=== PATIENT | female | born 1945 | race Caucasian/White ===

== ENCOUNTER 2017-09-05 10:16 | Outpatient (CLI) | payer MEDICARE, MEDICAID | END 2017-09-05 10:17 | disposition home or self-care (01) | LOC: BICULT 10:16 | PROVIDERS: ATTEND Family Medicine | DX: K74.3 Primary biliary cirrhosis (principal); Z90.49 Acquired absence of other specified parts of digestive tract | CPT/HCPCS: 76705 ==

== ENCOUNTER 2017-12-02 11:06 | Observation (INO) | payer MEDICARE, MEDICAID ==
[2017-12-02 11:44] LABS: #Basophils 0.1 thou/uL (0.0-0.2); #Eosinphils 0.3 thou/uL (0.0-0.7); #Lymphocytes 1.3 thou/uL (1.20-3.40); #Monocytes 0.5 thou/uL (0.11-0.59); #Neutrophils 3.4 thou/uL (1.40-6.50); %Basophils 1.1 % (0.0-1.0); %Eosinophils 4.9 % (0.0-10.0); %Lymphocytes 23.5 % (21.0-51.0); %Monocytes 8.4 % (0.0-10.0); %Neutrophils 62.1 % (42.0-75.0); Hemoglobin 8.5 g/dL (12.0-16.0); Mean Corpuscular HGB CONC 30.7 g/dL (32.0-36.0); Mean Corpuscular Hemoglobin 24.8 pg (27.0-31.0); Mean Corpuscular Volume 80.9 fL (78.0-98.0); Mean Platelet Volume 9.9 fL (7.4-10.4); Platelet Count 111 thou/uL (130-400); RBC Distribution Width 19.1 % (11.5-14.5); Red Blood Cell (RBC) Count 3.43 mill/uL (4.20-5.40); White Blood Cell (WBC) Count 5.5 thou/uL (4.8-10.8)
[2017-12-02 11:51] LABS: ALT (SGPT) 27 U/L (8-55); AST (SGOT) 28 U/L (5-34); Albumin 3.8 g/dL (3.4-4.8); Alkaline Phosphatase 137 U/L (40-150); Anion Gap 16 mmol/L (10-20); BUN (Urea Nitrogen) 14 mg/dL (9.8-20.1); Bilirubin, Total 0.3 mg/dL (0.2-1.2); CK (CPK) 39 U/L (29-168); Calc. Creatinine Clearance 0 mL/min (70-130); Calcium 10.2 mg/dL (7.8-10.44); Carbon Dioxide 20 mmol/L (23-31); Chloride 108 mmol/L (98-107); Estimated GFR-MDRD 68; Globulin 3.9 g/dL (2.4-3.5); Glucose 139 mg/dL (83-110); Potassium 4.5 mmol/L (3.5-5.1); Protein, Total 7.7 g/dL (6.0-8.3); Sodium 139 mmol/L (136-145)
[2017-12-02 11:52] LABS: CKMB 1.1 ng/mL (0-6.6); Troponin I Less than 0.010 ng/mL (< 0.028)
--- NOTE | 2017-12-02 12:00 | RAD ---
SINGLE VIEW OF THE CHEST: COMPARISON: 02/01/17. HISTORY: Chest pain that began 3 days ago in the left upper chest with radiation to the left arm and neck. FINDINGS: A single view of the chest shows an enlarged but stable cardiomediastinal silhouette. Increased inte rstitial lung markings are present. There is no evidence of consolidation, mass, or pleural effusion . IMPRESSION: No evidence of acute cardiopulmonary disease. POS: [facility]
[2017-12-02] MEDS ORDERED: Acetaminophen 325 MG TAB ONE ×2 (12:43)
[2017-12-02 13:59] VITALS: BMI 33.5
[2017-12-02] MEDS ORDERED: Ondansetron HCl/PF 4 MG/2 ML Vial IVP PRN ×2 (14:12→14:31)
[2017-12-02] MEDS ORDERED: Ondansetron ODT 4 MG TAB PO PRN (14:13)
[2017-12-02] MEDS ORDERED: Acetaminophen 325 MG TAB PO PRN ×2 (14:13→14:31)
[2017-12-02] MEDS ORDERED: Senokot 8.6 MG TAB PO PRN (14:31)
[2017-12-02] MEDS ORDERED: Mag-Al 1200 mg/1200 mg/30 ML UDCUP PO PRN (14:31)
[2017-12-02] MEDS ORDERED: traMADol HCl 50 MG TAB PO PRN (14:31)
[2017-12-02] MEDS ORDERED: cloNIDine 0.1 MG TAB PO PRN (14:31)
[2017-12-02] MEDS ORDERED: Calcium Carbonate 500 MG ChewTAB PO PRN (14:31)
[2017-12-02] MEDS ORDERED: hydrALAZINE 20 MG/ML VIAL SLOW IVP PRN (14:31)
[2017-12-02] MEDS ORDERED: Loratadine 10 MG TAB PO PRN (14:31)
[2017-12-02] MEDS ORDERED: Bisacodyl 5 MG TAB PO PRN (14:31)
[2017-12-02] MEDS ORDERED: Diabetic Tussin 200 MG/10 ML UDCUP PO PRN (14:31)
[2017-12-02] MEDS ORDERED: Benzonatate 100 MG CAP PO PRN (14:31)
[2017-12-02] MEDS ORDERED: Nitroglycerin 0.4 MG TAB (25 Tab Bottle) SL PRN (14:31)
[2017-12-02] MEDS ORDERED: Dextrose 50% Abboject 50 ML SYRINGE SLOW IVP PRN (15:39)
[2017-12-02] MEDS ORDERED: Dextrose 5% in Water 1,000 ML IV PRN (15:39)
[2017-12-02] MEDS ORDERED: HumaLOG 300 UNITS/3 ML VIAL SC PRN ×2 (15:39)
[2017-12-02 16:07] LABS: Iron 34 ug/dL (50-170); Iron Binding Capacity, Total 335 mcg/dL (265-497)
[2017-12-02] MEDS: metFORMIN 500 MG TAB PO SCH (16:25)
[2017-12-02] MEDS: Ferrous Sulfate 325 MG TAB PO SCH (16:25)
--- NOTE | 2017-12-02 16:26 | HP ---
DATE OF ADMISSION: 12/02/2017 PRIMARY CARE PHYSICIAN: Dr. Castro Candelaria. CHIEF COMPLAINT: Chest pain with left arm radiation. HISTORY OF PRESENT ILLNESS: Ms. Vazquez is a pleasant 72-year-old female with past medical history of primary biliary cirrhosis, diabetes mellitus, hypertension, chronic respiratory failure on home oxyg en and dyslipidemia, who presented to [facility] with above-mentioned symptoms. History is mainly obtained by the patient herself and case has been discussed with the transferring bhanu quintero, Dr. Meraz. According to Ms. Vazquez, she has been having pain in the left side of the chest laterally under her l eft breast and to the side. This is intermittent and quite severe when it comes on. She feels that the pain gets radiated to her neck on both sides and also sometimes down her arm. It makes her short of breath and she feels that her left arm gets numb and tingly sometimes with the pain. She has bee n experiencing some more and more shortness of breath with exertion these days. She is feeling fatig ued and tired. She has asthma and wears oxygen all the time, so she is unable to quantify how bad he r exertional shortness of breath is. She is compliant with all of her medications. She has a heart catheterization done about 10 years ago which was normal. Upon presentation to the ER, she was quite hypertensive with a blood pressure of 170/56 and oxygen sa turation was 98% on room air. EKG done in the ER showed no ST or T-wave changes. Normal sinus rhyth m. Chest x-ray was unremarkable. Her cardiac enzymes were checked and were normal. She received Ty lenol and aspirin and was transferred to our facility to observe and rule out KS. She denies any other recent illnesses. She denies any nausea, vomiting, or abdominal pain. She does report chronic anemia for which she is on iron supplements 3 times a day, but feels that her anemia has not been under control. In fact, her hemoglobin today was 8.5, which was 9 in 09/2017 with basel ine around 10. She denies any hematochezia or melena. PAST MEDICAL HISTORY: 1. Primary biliary cirrhosis. 2. Chronic anemia. 3. Hypertension. 4. Glaucoma. 5. Diabetes mellitus type 2. 6. Gastroesophageal reflux disease. 7. Diverticulosis. 8. Chronic hypoxia, on home oxygen. 9. Asthma. 10. Hiatal hernia. 11. Right kidney cyst. 12. Hemorrhoids. 13. Osteoporosis. 14. Vitamin D deficiency. PAST SURGICAL HISTORY: 1. 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 2. Cholecystectomy. 3. Hysterectomy with salpingo-oophorectomy. 4. Appendectomy. 5. Ear and nose surgeries. SOCIAL HISTORY: She lives by herself. There is no history of drug, tobacco or alcohol abuse. FAMILY HISTORY: Significant for vascular disease and brother who of a stroke. HOME MEDICATIONS: Vitamin B complex, multivitamin, vitamin B12 1000 mcg daily, Zocor 20 mg daily, Zetia 1 tablet daily, Claritin one tablet daily, ferrous sulfate 325 mg p.o. t.i.d., ursodiol 600 mg p.o. b.i.d., omeprazole 40 mg daily, vitamin D3 daily, eyedrops daily, metformin 1000 mg p.o. b.i.d., Benicar 20 mg daily, aspirin 81 mg daily, amlodipine 5 mg daily. REVIEW OF SYSTEMS: It is negative except for those mentioned in the history and physical. Constitutional: Weight loss or gain, ability to conduct usual activities. Skin: Rash, itching. Eyes: Double vision, pain. ENT/Mouth: Nose bleeding, neck stiffness, pain, tenderness. Cardiovascular: Palpitations, dyspnea on exertion, orthopnea. Respiratory: Shortness of breath, wheezing, cough, hemoptysis, fever or night sweats. Gastrointestinal: Poor appetite, abdominal pain, heartburn, nausea, vomiting, constipation, or diarrhea. Genitourinary: Urgency, frequency, dysuria, nocturia. Musculoskeletal: Pain, swelling. Neurologic/Psychiatric: Anxiety, depression. Allergy/Immunologic: Skin rash, bleeding tendency. LABORATORY EXAMINATION: Her CBC shows WBCs of 5.5, hemoglobin 8.5, platelet count of 111. She has m icrocytosis. Serum chemistries: Chloride 108, bicarbonate 20, blood sugar 139. Troponin less than 0.010 x2. CK- MB normal. Chest x-ray by my review has no evidence of pleural effusion, edema or infiltrate. A 12- lead EKG shows normal sinus rhythm without any evidence of acute coronary syndrome. No arrhythmias. PHYSICAL EXAMINATION: VITAL SIGNS: Most recent temperature 98.5, pulse of 90, respirations 20, saturating 100% on 2 liters nasal cannula, blood pressure 153/67. She gets easily winded with conversation, otherwise no acute distress. Awake, alert, oriented x3. HEENT: Mucous membranes are slightly dry. No oropharyngeal exudate or erythema. Head is normocepha lic, atraumatic. Pupils equal, reactive to light and accommodation. Extraocular movement intact. S he is missing her right eye. NECK: Supple without any lymphadenopathy, JVD or bruit. CHEST: Clear to auscultation without any significant wheezing. She does not have any crackles, rale s or rhonchi. CARDIAC: Rate and rhythm is regular without any murmur, rubs or gallops. ABDOMEN: Soft, nontender, nondistended with positive bowel sounds. EXTREMITIES: Show trace pitting edema bilaterally. SKIN: Free of any rashes or bruises. I feel warm and dry to touch. NEUROLOGIC: Nonfocal. PSYCHIATRIC: Normal affect. IMPRESSION AND PLAN: 1. Chest pain. The patient's symptoms are quite concerning and quite typical. At this time, differ ential diagnosis would be pain and shortness of breath secondary to profound anemia versus a cardiac cause. The patient is being admitted to rule out acute coronary syndrome. We will obtain a nuclear medicine stress test and continue her home dosages of aspirin for now. Also check her lipid panel an d continue her statin for now. Monitor blood pressure with tight control as needed. The likelihood of other etiologies like pulmonary embolism or pneumonia is negligible. 2. Microcytic anemia. The patient is Bahai and is refusing any blood transfusions. We will check her iron and folic acid and B12 levels. We will transfuse her with IV iron if low and giv e her IM B12 and subcutaneously folic acid if low. Most of her symptoms can be secondary to her sign ificant anemia, which is worse than before. She will continue with her iron supplement as before. 3. History of asthma. The patient seems to be on suboptimal management at this time. She gives me history of symptoms on a daily basis, sometimes worse on the nights. At this time, we will start her on Singulair as well as Flonase. We will add nebulizers as needed. We will add inhalers as needed as well. 4. Diabetes mellitus, currently well controlled. We will start him on insulin sliding scale. Hold metformin to avoid any renal toxicity or acidosis for now. 5. Hypertension, currently controlled. Resume her olmesartan and amlodipine. 6. Dyslipidemia. Restart Zocor and Zetia. 7. Code status: FULL CODE. Discussed with the patient. 8. Thrombocytopenia, unclear etiology. We will monitor and recheck in the morning. Avoid any thera peutic heparin or heparin products for deep venous thrombosis prophylaxis. DISPOSITION: Ms. Vazquez is currently being admitted to the hospital with complaints of chest pain an d rule out acute coronary syndrome. Further management will depend upon her clinical course. If her cardiac stress testing is abnormal, she will require cardiology consultation and possible catheteriz ation. If negative, she can be discharged home.
[2017-12-02 16:51] LABS: Vitamin B12 Greater than 2000 pg/mL (211-911)
[2017-12-02] MEDS ORDERED: Non-Formulary Item 1 EACH (Metformin Hcl [Metformin Hcl] 1,000 MG) PO SCH (17:00)
[2017-12-02 18:10] LABS: Troponin I Less than 0.010 ng/mL (< 0.028)
[2017-12-02] MEDS: Stress 600 With Zinc 1 TAB PO SCH (20:09)
[2017-12-02] MEDS: Prenatal Vitamin 1 TAB PO SCH (20:09)
[2017-12-02] MEDS: Montelukast Sodium 10 mg Tablet PO SCH (20:10)
[2017-12-02] MEDS: Ursodiol 300 MG CAP PO SCH (20:10)
[2017-12-02] MEDS: Cyanocobalamin (Vitamin B-12) 1,000 MCG TAB PO SCH (20:10)
[2017-12-02] MEDS: Atorvastatin Calcium 10 MG TAB PO SCH (20:12)
[2017-12-02] MEDS: Latanoprost 0.005% Ophth Soln 2.5 ml Bottle L EYE SCH (20:13)
[2017-12-02] MEDS ORDERED: VITAMIN B COMPLEX PO SCH (21:00)
[2017-12-02] MEDS ORDERED: Simvastatin 20 MG TAB PO SCH (21:00)
[2017-12-02] MEDS ORDERED: BIMATOPROST L EYE SCH (21:00)
[2017-12-02] MEDS ORDERED: [UNRECOGNIZED DRUG - REMARK] PO SCH (21:00)
[2017-12-03 06:47] LABS: Anion Gap 12 mmol/L (10-20); BUN (Urea Nitrogen) 15 mg/dL (9.8-20.1); Calc. Creatinine Clearance 86 mL/min (70-130); Calcium 9.6 mg/dL (7.8-10.44); Carbon Dioxide 22 mmol/L (23-31); Cardiac Risk 2.4 (Less than 4.5); Chloride 108 mmol/L (98-107); Cholesterol 84 mg/dl (< 200 Desired); Estimated GFR-MDRD 68; Glucose 136 mg/dL (83-110); HDL Cholesterol 35 mg/dL (>60 Neg Risk); LDL Cholesterol, Calculated 35 mg/dL; Potassium 4.3 mmol/L (3.5-5.1); Sodium 138 mmol/L (136-145); Triglycerides 70 mg/dL (Less than 150)
[2017-12-03 07:39] LABS: #Eosinphils 0.2 thou/uL (0.0-0.7); #Lymphocytes 1.3 thou/uL (1.20-3.40); #Monocytes 0.4 thou/uL (0.11-0.59); #Neutrophils 2.1 thou/uL (1.40-6.50); %Basophils 0.4 % (0.0-1.0); %Lymphocytes 33.1 % (21.0-51.0); %Monocytes 8.8 % (0.0-10.0); %Neutrophils 51.6 % (42.0-75.0); Elliptocytes SLIGHT = 2-5 cells (100X) (0-1/hpf); Hemoglobin 7.4 g/dL (12.0-16.0); MDiff Complete? YES; Mean Corpuscular HGB CONC 31.2 g/dL (32.0-36.0); Mean Corpuscular Hemoglobin 26.3 pg (27.0-31.0); Mean Corpuscular Volume 84.3 fL (78.0-98.0); Mean Platelet Volume 9.5 fL (7.4-10.4); PLT Morphology Comment Appears Decreased; Platelet Count 91 thou/uL (130-400); RBC Distribution Width 18.8 % (11.5-14.5); Red Blood Cell (RBC) Count 2.83 mill/uL (4.20-5.40)
[2017-12-03] MEDS ORDERED: IRON SUCROSE COMPLEX 100 MG/5 ML SLOW IVP SCH (08:00)
[2017-12-03] MEDS ORDERED: Epoetin (ESRD) 10,000 UNITS/ML VIAL SC SCH (08:00)
[2017-12-03] MEDS: Olmesartan 5 MG TAB PO SCH (08:44)
[2017-12-03] MEDS: Ezetimibe 10 MG TAB PO SCH (08:44)
[2017-12-03] MEDS: metFORMIN 500 MG TAB PO SCH ×2 (08:45→17:24)
[2017-12-03] MEDS: Amlodipine 5 MG TAB PO SCH (08:45)
[2017-12-03] MEDS: Aspirin 81 mg Enteric Coated Tablet PO SCH (08:45)
[2017-12-03] MEDS: Ursodiol 300 MG CAP PO SCH ×2 (08:45→20:14)
[2017-12-03] MEDS: Ferrous Sulfate 325 MG TAB PO SCH ×3 (08:46→17:24)
[2017-12-03] MEDS: Fluticasone Propionate Nasal Spray 16 gm Bottle NASAL SCH (08:47)
[2017-12-03] MEDS ORDERED: Ezetimibe 10 MG TAB PO SCH (09:00)
[2017-12-03] MEDS ORDERED: Non-Formulary Item 1 EACH (Omeprazole [Omeprazole] 40 MG) PO SCH (09:00)
[2017-12-03] MEDS ORDERED: Enoxaparin Sodium 40 MG/0.4 ML SYRINGE SC SCH (09:00)
[2017-12-03] MEDS: Loratadine/Pseudoephedrine 10/240 mg Tablet PO SCH (11:07)
--- NOTE | 2017-12-03 14:00 | PDOC.PN ---
- Subjective Encounter Start Date: 12/03/17 Encounter Start Time: 13:58 Subjective: feels better. no more chest pain.easily winded .no cough. -: no hematochezia or melena - Objective Resuscitation Status: Resuscitation Status FULL:Full Resuscitation MAR Reviewed: Yes Vital Signs & Weight: Vital Signs (12 hours) Temp Pulse Pulse Pulse Resp BP BP 12/03/17 10:57 98.8 F 88 12 12/03/17 10:15 86 90 143/65 H 141/66 H 12/03/17 08:45 98.2 F 83 12 12/03/17 07:04 98.2 F 83 12 12/03/17 04:04 98.2 F 86 16 BP Pulse Ox 12/03/17 10:57 138/62 97 12/03/17 10:15 12/03/17 08:45 12/03/17 07:04 129/59 L 96 12/03/17 04:04 116/55 L 96 Weight Weight 199 lb 15.84 oz I&O: 12/02/17 12/03/17 12/04/17 06:59 06:59 06:59 Intake Total 360 Balance 360 Result Diagrams: 12/03/17 05:48 12/03/17 05:48 Additional Labs: Accuchecks 12/03/17 12/02/17 10:34 20:42 POC Glucose 245 H 139 H Laboratory Tests 12/03/17 05:48 Triglycerides 70 Cholesterol 84 LDL Cholesterol, Calc 35 HDL Cholesterol 35 labs reviewed Phys Exam - Physical Examination Constitutional: NAD HEENT: PERRLA, moist MMs, sclera anicteric, oral pharynx no lesions Neck: no nodes, no JVD, supple, full ROM Respiratory: no wheezing, no rales, no rhonchi, clear to auscultation bilateral Cardiovascular: RRR, no significant murmur Gastrointestinal: soft, non-tender, no distention, positive bowel sounds Musculoskeletal: no edema, pulses present Neurological: non-focal, normal sensation, moves all 4 limbs Psychiatric: normal affect, A&O x 3 Skin: no rash Dx/Plan (1) Chest pain Code(s): R07.9 - CHEST PAIN, UNSPECIFIED Status: Acute Comment: Cardiac vs secondary to profound anemia (2) JOSAFAT (iron deficiency anemia) Code(s): D50.9 - IRON DEFICIENCY ANEMIA, UNSPECIFIED Status: Chronic (3) Primary biliary cirrhosis Code(s): K74.3 - PRIMARY BILIARY CIRRHOSIS Status: Acute (4) DM2 (diabetes mellitus, type 2) Status: Chronic (5) HTN (hypertension) Code(s): I10 - ESSENTIAL (PRIMARY) HYPERTENSION Status: Chronic (6) HLD (hyperlipidemia) Code(s): E78.5 - HYPERLIPIDEMIA, UNSPECIFIED Status: Chronic (7) Chronic respiratory failure Code(s): J96.10 - CHRONIC RESPIRATORY FAILURE, UNSP W HYPOXIA OR HYPERCAPNIA Status: Chronic Qualifiers: Respiratory failure complication: hypoxia Qualified Code(s): J96.11 - Chronic respiratory failure with hypoxia - Plan out of bed/ambulate, DVT proph w/SCDs stress test cancelled due to worsening anemia.will give IV iron for low lev -: pt cant not accpet blood trasfusion d/t anglican reasons.give epogen -: FOBT tested and +ve.will request consult from GI -: last EGD/Colonoscopy 4 yrs ago was normal per pt -: with H/O PBC & prolonged ,resistant to Rx anemia,will need repeat colonosco * .will treat anemia first and then get cardiac w/u as an outpt.pt made aware of plan & agreeable. * not safe for DC yet with worsening symptomatic anemia.recheck H?H in am * Review of Systems - Review of Systems Constitutional: weakness, malaise. negative: fever, chills, sweats, other Respiratory: SOB with Excertion. negative: Cough, Dry, Shortness of Breath, Hemoptysis, Pleuritic Pain, Sputum, Wheezing Cardiovascular: negative: chest pain, palpitations, orthopnea, paroxysmal nocturnal dyspnea, edema, light headedness, other Gastrointestinal: negative: Nausea, Vomiting, Abdominal Pain, Diarrhea, Constipation, Melena, Hematochezia, Other Genitourinary: negative: Dysuria, Frequency, Incontinence, Hematuria, Retention , Other Musculoskeletal: negative: Neck Pain, Shoulder Pain, Arm Pain, Back Pain, Hand Pain, Leg Pain, Foot Pain, Other Neurological: negative: Weakness, Numbness, Incoordination, Change in Speech, Confusion, Seizures, Other - Medications/Allergies Allergies/Adverse Reactions: Allergies Allergy/AdvReac Type Severity Reaction Status Date / Time NSAIDS (Non-Steroidal Allergy Verified 12/02/17 13:47 Anti-Inflamma BLOOD PRODUCTS ([facility]ovah's Allergy Uncoded 06/06/15 17:36 Witness) Medications: Current Medications Acetaminophen (Tylenol) 650 mg PO Q4H PRN PRN Reason: Headache/Fever or Pain Al Hydroxide/Mg Hydroxide (Maalox) 30 ml PO Q6H PRN PRN Reason: Heartburn or Indigestion Albuterol/Ipratropium (Duoneb) 3 ml NEB [id number] PRN PRN Reason: SOB &/or Wheezing Amlodipine Besylate (Norvasc) 5 mg PO DAILY [facility] Last Admin: 12/03/17 08:45 Dose: 5 mg Aspirin (Ecotrin) 81 mg PO DAILY [facility] Last Admin: 12/03/17 08:45 Dose: 81 mg Atorvastatin Calcium (Lipitor) 10 mg PO [facility] Last Admin: 12/02/17 20:12 Dose: Not Given Benzonatate (Tessalon) 100 mg PO Q4H PRN PRN Reason: Cough Bisacodyl (Dulcolax) 10 mg PO DAILYPRN PRN PRN Reason: Constipation Calcium Carbonate (Tums) 1,000 mg PO Q4H PRN PRN Reason: Heartburn or Indigestion Last Admin: 12/02/17 16:25 Dose: 1,000 mg Cholecalciferol (Vitamin D3) 5,000 units PO DAILY [facility] Last Admin: 12/03/17 08:45 Dose: 5,000 units Clonidine (Catapres) 0.1 mg PO Q4H PRN PRN Reason: Systolic BP > 160 Cyanocobalamin (Vitamin B-12) 1,000 mcg PO [facility] Last Admin: 12/02/17 20:10 Dose: 1,000 mcg Dextrose/Water (Dextrose 50%) 25 gm SLOW IVP PRN PRN PRN Reason: Hypoglycemia Ezetimibe (Zetia) 10 mg PO DAILY [facility] Last Admin: 12/03/17 08:44 Dose: 10 mg Epoetin Jeffrey (Procrit) 10,000 units SC Q7D [facility] Last Admin: 12/03/17 11:06 Dose: 10,000 units Ferrous Sulfate (Feosol) 325 mg PO TID-[facility] Last Admin: 12/03/17 11:07 Dose: 325 mg Fluticasone Propionate (Flonase Nasal [place]) 0 gm NASAL DAILY [facility] Last Admin: 12/03/17 08:47 Dose: Not Given Glucagon (Glucagon) 1 mg IM PRN PRN PRN Reason: Hypoglycemia Guaifenesin (Robitussin Sf) 200 mg PO Q4H PRN PRN Reason: Cough Hydralazine HCl (Apresoline) 10 mg SLOW IVP Q4H PRN PRN Reason: Systolic BP > 170 Dextrose/Water (D5w) 1,000 mls @ 0 mls/hr IV .Q0M PRN; As Directed PRN Reason: Hypoglycemia Insulin Human Lispro (Humalog) 0 units SC .MODERATE SLIDING SC PRN PRN Reason: Moderate Correctional Scale Last Admin: 12/03/17 11:07 Dose: 4 unit Insulin Human Lispro (Humalog) 0 units SC .BEDTIME SLIDING SC PRN PRN Reason: Bedtime Correctional Scale Latanoprost (Xalatan 0.005% Ophth Soln) 1 drop L EYE [facility] Last Admin: 12/02/17 20:13 Dose: 1 drop Loratadine/Pseudoephedrine Sulfate (Claritin-D 24 Hour) 1 tab PO DAILY [facility] Last Admin: 12/03/17 11:07 Dose: 1 tab Metformin HCl (Glucophage) 1,000 mg PO BID-[facility] Last Admin: 12/03/17 08:45 Dose: 1,000 mg Montelukast Sodium (Singulair) 10 mg PO QPM [facility] Last Admin: 12/02/17 20:10 Dose: 10 mg Multivitamins/Zinc (Stress 600 With Zinc) 1 tab PO [facility] Last Admin: 12/02/17 20:09 Dose: 1 tab Nitroglycerin (Nitrostat) 0.4 mg SL Q5MIN PRN PRN Reason: Chest Pain Olmesartan (Benicar) 20 mg PO DAILY [facility] Last Admin: 12/03/17 08:44 Dose: 20 mg Ondansetron HCl (Zofran) 4 mg IVP Q6H PRN PRN Reason: Nausea/Vomiting Pantoprazole Sodium (Protonix) 40 mg PO [facility] Last Admin: 12/02/17 20:12 Dose: 40 mg Multivit/Folic Acid/Iron ( Vitamin) 1 tab PO [facility] Last Admin: 12/02/17 20:09 Dose: 1 tab Senna (Senokot) 2 tab PO HSPRN PRN PRN Reason: Constipation Sodium Chloride (Flush - Normal Saline) 10 ml IVF Q12HR [facility] Last Admin: 12/03/17 08:46 Dose: 10 ml Sodium Chloride (Flush - Normal Saline) 10 ml IVF PRN PRN PRN Reason: Saline Flush Tramadol HCl (Ultram) 50 mg PO Q4H PRN PRN Reason: Moderate Pain (4-6) Ursodiol (Actigal) 600 mg PO BID [facility] Last Admin: 12/03/17 08:45 Dose: 600 mg
[2017-12-03] MEDS: Stress 600 With Zinc 1 TAB PO SCH (20:13)
[2017-12-03] MEDS: Atorvastatin Calcium 10 MG TAB PO SCH (20:14)
[2017-12-03] MEDS: Cyanocobalamin (Vitamin B-12) 1,000 MCG TAB PO SCH (20:14)
[2017-12-03] MEDS: Prenatal Vitamin 1 TAB PO SCH (20:14)
[2017-12-03] MEDS: Montelukast Sodium 10 mg Tablet PO SCH (20:14)
[2017-12-03] MEDS: Latanoprost 0.005% Ophth Soln 2.5 ml Bottle L EYE SCH (20:15)
--- NOTE | 2017-12-04 03:28 | CON ---
DATE OF CONSULTATION: 12/03/2017 REFERRING DOCTOR: Merna Marte MD REASON FOR CONSULTATION: Anemia, occult gastrointestinal bleeding. HISTORY OF PRESENT ILLNESS: Ms. Parris Vazquez is a very pleasant, 72-year-old, female, was seen initially in [facility] ER with chest pain. The chest pain was atypical, no t very suggestive of angina. The pain was actually over left side of chest and close to the left heath ast and going down to the left arm. She also felt numb in her left hand. Her EKG was normal. Also, her cardiac enzymes were normal. Her chest pain resolved after a couple of hours. She had no abdom inal pain. She had no chest pain. The patient was found to have anemia. She had a stool guaiac don e; the stool guaiac came back positive. The admitting hemoglobin was around 8.5, which has dropped t o 7.5 today. However, she has not had any overt bleeding in the form of hematochezia or melena. The patient has no history of rectal bleeding or melena. She does not look at her stools after she has a BM. Her bowel movements are fairly regular. She has no abdominal pain, no nausea or vomiting. Th e patient has a history of primary biliary cirrhosis and takes Actigall 300 mg tablet 2 tablets twice a day. She does see Dr. Kimmy Vazquez, for her primary biliary cirrhosis. The patient had not seen Dr. Vazquez over the last three years. She does not know why she has not seen her, and she has someho w lost the followup. The patient has had EGD and colonoscopy x3 in the past. This was done at Dr. Subhash collazo's office. The last time she had a polyp removed, she thinks maybe 2011 or 2012. On going over the [employer], she has had anemia over the years off and on. At times, her blood count was around 11. 5 and today last was high 8.5. This varies over the years. She has no history of any weight loss. No change in bowel habits. No relevant history. MEDICAL ILLNESSES: 1. Primary biliary cirrhosis, on Actigall. 2. Chronic anemia. 3. Hypertension. 4. Glaucoma. 5. Diabetes mellitus. 6. Chronic acid reflux. 7. Diverticular disease. 8. Colon polyp. 9. History of asthma, possible COPD. 10. Hiatal hernia. 11. Osteoporosis. 12. Vitamin D deficiency. SURGERIES: 1. Status post removal of right eye for infection many years ago. 2. Cholecystectomy. 3. Hysterectomy and salpingo-oophorectomy. 4. Appendectomy. 5. Liver biopsy, 2013. 6. History of ear and nose surgeries. SOCIAL HISTORY: The patient does not smoke or drink alcohol. FAMILY HISTORY: Brother had a stroke and there is a family history of vascular disease. MEDICATIONS: List includes vitamin B complex, multivitamin, vitamin B12, Zocor 20 once a da y, Zetia 1 tab once a day. She is on Claritin, ferrous sulfate, ursodiol, omeprazole, vitamin D3, ey edrops, metformin, Benicar, aspirin, amlodipine. REVIEW OF SYSTEMS: Constitutional: No history of fever, no weight loss. She has a good energy leve l. [employer]: No history of TIA, no chronic headache, no syncope, no seizure disorder. Respiratory Syste m: History of asthma, history of shortness of breath and coughing off and on. No hemoptysis. Cardi ovascular System: No chest pain, no palpitation, no dyspnea, orthopnea or PND. Gastrointestinal: H istory of chronic acid reflux for many years. She has taken omeprazole before. It was stopped 2 mon ths ago, and now she has daily heartburn and severe indigestion. She has been taking Pepto-Bismol. Genitourinary: No dysuria, hematuria, or frequency of urination. Musculoskeletal: History of back pain, arthralgias. Neuro/Psychiatric: History of anxiety, depression. PHYSICAL EXAMINATION: GENERAL: Revealed a very pleasant, female, who appears very comfortable. She is awake, al ert, oriented to time, place, and person. VITAL SIGNS: She is afebrile, pulse is 80 and blood pressure is 150/70. HEENT: Her right eye is blind. Left eye, normal conjunctiva, no icterus noted. NECK: Supple. No adenitis or thyromegaly noted. CARDIOVASCULAR SYSTEM: First and second heart sounds normal. LUNGS: Clear to auscultation. ABDOMEN: Soft to palpate. No organomegaly. No tenderness. No masses. Bowel sounds normal. EXTREMITIES: No edema. CENTRAL NERVOUS SYSTEM: Grossly within normal limits. LABORATORY DATA: Blood sugar 139. CPK-MB normal. Troponin is 0.010. EKG shows no evidence of acut e ischemic changes. Her CBC does show anemia with a hemoglobin of 8.5, dropping down to 7.5 today; p latelet count 111,000; WBC 5500. Stool guaiac came back positive. CLINICAL IMPRESSION: This is a 72-year-old female with: 1. Anemia and with a further drop in blood count from 8.5 to 7.5 today. She has no history of melen a or hematochezia. Her stool guaiac is positive. History of colon polyp from before. She also has history of chronic acid reflux and dyspnea having worsening symptoms after the omeprazole was stopped . 2. Primary biliary cirrhosis. 3. Hypertension. 4. Glaucoma. 5. Diabetes mellitus. 6. Chronic acid reflux. 7. Asthma. 8. Diverticular disease. RECOMMENDATIONS: 1. Clear liquid diet. 2. Prep the patient for EGD and colonoscopy tomorrow.
[2017-12-04 05:32] LABS: #Eosinphils 0.2 thou/uL (0.0-0.7); #Monocytes 0.3 thou/uL (0.11-0.59); #Neutrophils 1.9 thou/uL (1.40-6.50); %Basophils 0.2 % (0.0-1.0); %Eosinophils 5.4 % (0.0-10.0); %Lymphocytes 29.1 % (21.0-51.0); %Monocytes 8.6 % (0.0-10.0); %Neutrophils 56.7 % (42.0-75.0); Hemoglobin 7.7 g/dL (12.0-16.0); Mean Corpuscular HGB CONC 30.6 g/dL (32.0-36.0); Mean Corpuscular Volume 84.9 fL (78.0-98.0); Mean Platelet Volume 9.5 fL (7.4-10.4); Platelet Count 97 thou/uL (130-400); Red Blood Cell (RBC) Count 2.95 mill/uL (4.20-5.40); White Blood Cell (WBC) Count 3.3 thou/uL (4.8-10.8)
[2017-12-04 05:52] LABS: ALT (SGPT) 24 U/L (8-55); AST (SGOT) 24 U/L (5-34); Albumin 3.4 g/dL (3.4-4.8); Alkaline Phosphatase 106 U/L (40-150); Anion Gap 12 mmol/L (10-20); BUN (Urea Nitrogen) 11 mg/dL (9.8-20.1); Bilirubin, Total 0.3 mg/dL (0.2-1.2); Calc. Creatinine Clearance 92 mL/min (70-130); Calcium 9.5 mg/dL (7.8-10.44); Carbon Dioxide 21 mmol/L (23-31); Chloride 108 mmol/L (98-107); Estimated GFR-MDRD 74; Globulin 3.1 g/dL (2.4-3.5); Glucose 125 mg/dL (83-110); Protein, Total 6.5 g/dL (6.0-8.3); Sodium 137 mmol/L (136-145)
[2017-12-04] MEDS ORDERED: GoLYTELY 4,000 ml Bottle PO SCH (06:00)
[2017-12-04] MEDS: Ferrous Sulfate 325 MG TAB PO SCH ×3 (11:43→17:13)
[2017-12-04] MEDS: metFORMIN 500 MG TAB PO SCH ×2 (11:43→17:13)
[2017-12-04] MEDS: Amlodipine 5 MG TAB PO SCH (11:44)
[2017-12-04] MEDS: Aspirin 81 mg Enteric Coated Tablet PO SCH (11:44)
[2017-12-04] MEDS: Ezetimibe 10 MG TAB PO SCH (11:44)
[2017-12-04] MEDS: Loratadine/Pseudoephedrine 10/240 mg Tablet PO SCH (11:45)
[2017-12-04] MEDS: Ursodiol 300 MG CAP PO SCH (11:45)
[2017-12-04] MEDS: Olmesartan 5 MG TAB PO SCH (11:45)
[2017-12-04] MEDS: Fluticasone Propionate Nasal Spray 16 gm Bottle NASAL SCH (11:45)
--- NOTE | 2017-12-04 12:44 | PDOC.PN ---
- Subjective Encounter Start Date: 12/04/17 Encounter Start Time: 12:42 Subjective: no new complaints.drinking colon prep and feels nauseated -: no hematochezia/melena. -: no more chest pain - Objective Resuscitation Status: Resuscitation Status FULL:Full Resuscitation MAR Reviewed: Yes Vital Signs & Weight: Vital Signs (12 hours) Temp Pulse Resp BP Pulse Ox 12/04/17 11:44 94 12/04/17 10:32 98.4 F 83 12 127/59 L 92 L 12/04/17 08:00 97.9 F 94 12 12/04/17 07:39 97.9 F 94 12 154/67 H 100 12/04/17 04:22 98.3 F 88 18 127/58 L 95 Weight Weight 198 lb 1.6 oz I&O: 12/03/17 12/04/17 12/05/17 06:59 06:59 06:59 Intake Total 360 480 Balance 360 480 Result Diagrams: 12/04/17 04:51 12/04/17 04:51 Additional Labs: Accuchecks 12/03/17 12/03/17 20:22 16:43 POC Glucose 166 H 91 Phys Exam - Physical Examination Constitutional: NAD HEENT: PERRLA, moist MMs, sclera anicteric, oral pharynx no lesions Neck: no nodes, no JVD, supple, full ROM Respiratory: no wheezing, no rales, no rhonchi, clear to auscultation bilateral Cardiovascular: RRR, no significant murmur, no rub Gastrointestinal: soft, non-tender, no distention, positive bowel sounds Musculoskeletal: no edema, pulses present Neurological: non-focal, normal sensation, moves all 4 limbs Psychiatric: normal affect, A&O x 3 Skin: no rash Dx/Plan (1) Chest pain Code(s): R07.9 - CHEST PAIN, UNSPECIFIED Status: Acute Comment: Cardiac vs secondary to profound anemia (2) JOSAFAT (iron deficiency anemia) Code(s): D50.9 - IRON DEFICIENCY ANEMIA, UNSPECIFIED Status: Chronic (3) Primary biliary cirrhosis Code(s): K74.3 - PRIMARY BILIARY CIRRHOSIS Status: Acute (4) DM2 (diabetes mellitus, type 2) Status: Chronic (5) HTN (hypertension) Code(s): I10 - ESSENTIAL (PRIMARY) HYPERTENSION Status: Chronic (6) HLD (hyperlipidemia) Code(s): E78.5 - HYPERLIPIDEMIA, UNSPECIFIED Status: Chronic (7) Chronic respiratory failure Code(s): J96.10 - CHRONIC RESPIRATORY FAILURE, UNSP W HYPOXIA OR HYPERCAPNIA Status: Chronic Qualifiers: Respiratory failure complication: hypoxia Qualified Code(s): J96.11 - Chronic respiratory failure with hypoxia - Plan continue antibiotics, PT/OT, out of bed/ambulate, DVT proph w/SCDs egd ,colonoscopy today. -: further drop in H/H .declines blood transfusion d/t holiness resons -: s/p IV iron & Epogen yesterday.monitor -: cardiac w/u as an OP when Anemia improves. -: avoid any ASA/NSAIDs.am labs * . Review of Systems - Review of Systems Constitutional: negative: fever, chills, sweats, weakness, malaise, other ENT: negative: Ear Pain, Ear Discharge, Nose Pain, Nose Discharge, Nose Congestion, Mouth Pain, Mouth Swelling, Throat Pain, Throat Swelling, Other Respiratory: negative: Cough, Dry, Shortness of Breath, Hemoptysis, SOB with Excertion, Pleuritic Pain, Sputum, Wheezing Cardiovascular: negative: chest pain, palpitations, orthopnea, paroxysmal nocturnal dyspnea, edema, light headedness, other Gastrointestinal: negative: Nausea, Vomiting, Abdominal Pain, Diarrhea, Constipation, Melena, Hematochezia, Other Genitourinary: negative: Dysuria, Frequency, Incontinence, Hematuria, Retention , Other Musculoskeletal: negative: Neck Pain, Shoulder Pain, Arm Pain, Back Pain, Hand Pain, Leg Pain, Foot Pain, Other Neurological: negative: Weakness, Numbness, Incoordination, Change in Speech, Confusion, Seizures, Other - Medications/Allergies Allergies/Adverse Reactions: Allergies Allergy/AdvReac Type Severity Reaction Status Date / Time NSAIDS (Non-Steroidal Allergy Verified 12/02/17 13:47 Anti-Inflamma BLOOD PRODUCTS (Jehovah's Allergy Uncoded 06/06/15 17:36 Witness) Medications: Current Medications Acetaminophen (Tylenol) 650 mg PO Q4H PRN PRN Reason: Headache/Fever or Pain Al Hydroxide/Mg Hydroxide (Maalox) 30 ml PO Q6H PRN PRN Reason: Heartburn or Indigestion Albuterol/Ipratropium (Duoneb) 3 ml NEB [id number] PRN PRN Reason: SOB &/or Wheezing Amlodipine Besylate (Norvasc) 5 mg PO DAILY [facility] Last Admin: 12/04/17 11:44 Dose: Not Given Aspirin (Ecotrin) 81 mg PO DAILY [facility] Last Admin: 12/04/17 11:44 Dose: Not Given Atorvastatin Calcium (Lipitor) 10 mg PO [facility] Last Admin: 12/03/17 20:14 Dose: 10 mg Benzonatate (Tessalon) 100 mg PO Q4H PRN PRN Reason: Cough Bisacodyl (Dulcolax) 10 mg PO DAILYPRN PRN PRN Reason: Constipation Calcium Carbonate (Tums) 1,000 mg PO Q4H PRN PRN Reason: Heartburn or Indigestion Last Admin: 12/02/17 16:25 Dose: 1,000 mg Cholecalciferol (Vitamin D3) 5,000 units PO DAILY [facility] Last Admin: 12/04/17 11:44 Dose: Not Given Clonidine (Catapres) 0.1 mg PO Q4H PRN PRN Reason: Systolic BP > 160 Cyanocobalamin (Vitamin B-12) 1,000 mcg PO [facility] Last Admin: 12/03/17 20:14 Dose: 1,000 mcg Dextrose/Water (Dextrose 50%) 25 gm SLOW IVP PRN PRN PRN Reason: Hypoglycemia Ezetimibe (Zetia) 10 mg PO DAILY [facility] Last Admin: 12/04/17 11:44 Dose: Not Given Epoetin Jeffrey (Procrit) 10,000 units SC Q7D [facility] Last Admin: 12/03/17 11:06 Dose: 10,000 units Ferrous Sulfate (Feosol) 325 mg PO TID-[facility] Last Admin: 12/04/17 11:43 Dose: Not Given Fluticasone Propionate (Flonase Nasal Mildred) 0 gm NASAL DAILY [facility] Last Admin: 12/04/17 11:45 Dose: Not Given Glucagon (Glucagon) 1 mg IM PRN PRN PRN Reason: Hypoglycemia Guaifenesin (Robitussin Sf) 200 mg PO Q4H PRN PRN Reason: Cough Hydralazine HCl (Apresoline) 10 mg SLOW IVP Q4H PRN PRN Reason: Systolic BP > 170 Dextrose/Water (D5w) 1,000 mls @ 0 mls/hr IV .Q0M PRN; As Directed PRN Reason: Hypoglycemia Insulin Human Lispro (Humalog) 0 units SC .MODERATE SLIDING SC PRN PRN Reason: Moderate [facility] Scale Last Admin: 12/03/17 11:07 Dose: 4 unit Insulin Human Lispro (Humalog) 0 units SC .BEDTIME SLIDING SC PRN PRN Reason: Bedtime Correctional Scale Latanoprost (Xalatan 0.005% Ophth Soln) 1 drop L EYE [facility] Last Admin: 12/03/17 20:15 Dose: 1 drop Loratadine/Pseudoephedrine Sulfate (Claritin-D 24 Hour) 1 tab PO DAILY [facility] Last Admin: 12/04/17 11:45 Dose: Not Given Metformin HCl (Glucophage) 1,000 mg PO BID-[facility] Last Admin: 12/04/17 11:43 Dose: Not Given Montelukast Sodium (Singulair) 10 mg PO QPM [facility] Last Admin: 12/03/17 20:14 Dose: 10 mg Multivitamins/Zinc (Stress 600 With Zinc) 1 tab PO [facility] Last Admin: 12/03/17 20:13 Dose: 1 tab Nitroglycerin (Nitrostat) 0.4 mg SL Q5MIN PRN PRN Reason: Chest Pain Olmesartan (Benicar) 20 mg PO DAILY [facility] Last Admin: 12/04/17 11:45 Dose: Not Given Ondansetron HCl (Zofran) 4 mg IVP Q6H PRN PRN Reason: Nausea/Vomiting Pantoprazole Sodium (Protonix) 40 mg PO [facility] Last Admin: 12/03/17 20:14 Dose: 40 mg Polyethylene Glycol/Electrolytes (Golytely) 4,000 ml PO 0600 [facility] Stop: 12/04/17 15:00 Last Admin: 12/04/17 05:45 Dose: 4,000 ml Multivit/Folic Acid/Iron ( Vitamin) 1 tab PO [facility] Last Admin: 12/03/17 20:14 Dose: 1 tab Senna (Senokot) 2 tab PO HSPRN PRN PRN Reason: Constipation Sodium Chloride (Flush - Normal Saline) 10 ml IVF Q12HR [facility] Last Admin: 12/03/17 20:15 Dose: 10 ml Sodium Chloride (Flush - Normal Saline) 10 ml IVF PRN PRN PRN Reason: Saline Flush Tramadol HCl (Ultram) 50 mg PO Q4H PRN PRN Reason: Moderate Pain (4-6) Ursodiol (Actigal) 600 mg PO BID [facility] Last Admin: 12/04/17 11:45 Dose: Not Given
[2017-12-04] MEDS ORDERED: PROPOFOL 200 MG/20 ML VIAL ONE (14:13)
[2017-12-04] MEDS ORDERED: Lidocaine 1% PF 5 ML VIAL ONE (14:13)
[2017-12-04 16:57] VITALS: BP 150/66; TEMP 98.2
--- NOTE | 2017-12-04 22:13 | OP ---
DATE OF PROCEDURE: 12/04/2017 PROCEDURES: Esophagogastroduodenoscopy (diagnostic), colonoscopy with polypectomy. INDICATION FOR PROCEDURE: Iron-deficiency anemia. DESCRIPTION OF PROCEDURE: After the risks and benefits of the procedures were explained to the patient including risks of bleeding, infection, perforation, reaction to anesthesia and/or pain, informed consent was obtained. The patient was then taken to the endoscopy suite where deep sedation was administered via propofol and anesthesia support. After adequate sedation was achieved, the standard gastroscope was introduced into the mouth with intubation of the esophagus, stomach, and a proximal small intestine with findings listed below. The patient tolerated this portion of the procedure well with no immediate perioperative complications. After removal of the gastroscope, the patient was then rotated 180 degrees, where she then underwent a digital rectal examination with external examination of the anus and anal canal. The standard colonoscope was then introduced into the rectum and advanced all the way to the terminal ileum with findings listed below. The quality of the prep was good with a small amount of solid stool seen in the left colon that was amenable to aggressive irrigation and suctioning. The patient tolerated the procedure well with no immediate perioperative complications. The colonoscope was advanced without difficulty. EGD FINDINGS: Esophagus: Normal appearing mucosa was seen in the proximal and mid esophagus. Within the distal esophagus, there were three columns of nonbleeding small esophageal varices (grade I) that flattened completely with insufflation of the esophagus. There was no evidence of erosions, ulcerations, mass lesions, or active/recent bleeding. The diaphragmatic pinch was seen at approximately 37 cm while the GE junction was seen at 35-36 cm denoting a 1-cm hiatal hernia. Stomach: Normal appearing mucosa was seen in the gastric cardia, fundus, body, antrum, and incisura. There was no evidence of erosions, ulcerations, mass lesions, or active/recent bleeding. Duodenum: Normal appearing mucosa was seen in both the duodenal bulb and second portion of the duodenum. There was no evidence of erosions, ulcerations , or mass lesions. Impression: 1. Small (grade I) nonbleeding esophageal varices seen in the distal esophagus (unlikely to be the source of patient's anemia). 2. Otherwise, normal upper endoscopy. 3. No etiology for anemia seen during this portion of the examination. Colonoscopy Findings: External examination, small. External varices were seen on external examination with perianal skin tag. Colon Findings: Normal appearing mucosa was seen in the terminal ileum and within the cecum, ileocecal valve, and appendiceal orifice. Two polyps measuring approximately 4-5 mm in size were seen in the proximal to mid ascending colon and completely removed with hot-snare polypectomy. They were retrieved and placed in a specimen jar for evaluation. Two additional polyps were seen in the transverse colon measuring 3-4 mm in size and completely removed with hot-snare polypectomy and cold-snare polypectomy; however, only the polyp that received hot-snare polypectomy was retrieved. The other one was unable to be retrieved. The retrieve polyp was then placed in the specimen jar and sent for evaluation. Normal appearing mucosa was seen in the distal transverse and descending colon. Within the distal descending and sigmoid colons, multiple small, medium, and large diverticula were seen without any evidence of increased erythema, bleeding, or inflammation. Normal appearing mucosa was seen in the rectum. Small external hemorrhoids were seen on rectal retroflexion. IMPRESSION: 1. Two 45-mm polyps in the ascending colon completely removed with hot-snare polypectomy. 2. Two 3-4 mm polyps seen in the transverse colon, one of which was removed with hot-snare polypectomy and the other was removed with cold-snare polypectomy ; however, only the polyp that underwent hot-snare polypectomy was retrieved. 3. [id number] left-sided diverticulosis. 4. Both internal and external hemorrhoids. 5. No etiology for the patient's anemia was seen during this portion of the examination. RECOMMENDATIONS: 1. We will follow up on biopsy results with a repeat colonoscopy depending on pathology results. 2. We would continue to trend H&H and transfuse as necessary to maintain an H& H of 7/21. 3. We would continue to monitor clinically for signs of active gastrointestinal bleeding. 4. We would have patient to follow up as an outpatient with Dr. Vazquez in approximately 2-3 weeks from discharge for a further management of her primary biliary cirrhosis and mixed chronic anemia. We will sign off at this time. Please call with any additional questions. LOC
--- NOTE | 2017-12-05 11:56 | DIS ---
DATE OF ADMISSION: 12/02/2017 DATE OF DISCHARGE: 12/04/2017 CONDITION AT THE TIME OF DISCHARGE: Stable and improved. DISCHARGE DIAGNOSES: 1. Iron deficiency anemia, resistant to iron supplements. The patient cannot accept transfusion sec ondary to yazdanism reasons. 2. Chest pain secondary to #1. 3. History of primary biliary cirrhosis. 4. Diabetes. 5. Hypertension. 6. Dyslipidemia. 7. Chronic respiratory failure on home oxygen. DISCHARGE MEDICATIONS: Remain the same as admission medication. No changes were made. Please see a dmission H&P for details. IN-HOUSE CONSULTATIONS: Gastroenterology, Dr. Hoffmann and Dr. Price. PROCEDURES DONE IN THE HOSPITAL: Include EGD and colonoscopy, which is normal. There is a small gra de I nonbleeding esophageal varices in the distal esophagus and two 45 mm polyps in the ascending col on and few other colonic polyps were seen with moderate to severe left-sided diverticulosis and inter nal and external hemorrhoids. PRIMARY CARE PHYSICIAN: Dr. Castro Candelaria. HISTORY OF PRESENTING ILLNESS: Ms. Vazquez is a pleasant 72-year-old female with known history of iro n deficiency anemia, who presented with complaints of chest pain. She is under the care of Dr. Carolina Vazquez at the Gastroenterology Department with her history of primary biliary cirrhosis. Upon pres entation, she was found to be anemic with a hemoglobin of 8.5. Please see admission history and phys ical for further detail. Upon presentation, she had normal Cardiac enzymes, normal EKG and was hemod ynamically stable. She was admitted for further evaluation. HOSPITAL COURSE: The patient was initially admitted as ACS rule out. Serial cardiac enzymes were do ne and were negative. However, before she could undergo a stress test, next day her hemoglobin dropp ed to 7.4. This was thought to be the cause of her presenting symptom of shortness of breath, chest pain, and weakness. A fecal occult blood testing was done and was positive. GI was consulted and marj farley underwent EGD and colonoscopy. She was given IV iron as well as erythropoietin. Discharge hemoglo bin was 7.7. Once again blood transfusion was offered to her, but she refused because of the religio us reasons. Her EGD and colonoscopy was clean and she was discharged from GI. She was discharged in a stable con dition. At this time, her cardiac symptoms are likely secondary to iron deficiency anemia. She will resume her oral iron supplements and follow up with GI in the outpatient setting. She was also give n referral to Hematology/Oncology for possibly erythropoietin and IV iron transfusions on a regular b asis to combat her chronic iron deficiency anemia. At this time, she is not having any evidence of g astrointestinal bleed. With regards to her presentation with chest pain, this is likely noncardiac. No evidence of acute co ronary syndrome. She is; however, given referral to outpatient Cardiology for further workup includi ng a stress test. She was seen and examined prior to discharge. Discharge plan was discussed with the patient and she verbalized understanding.
== END 2017-12-04 18:45 | disposition home or self-care (01) ==
LOC: SCSER 11:06 → 2SW 13:28
PROVIDERS: ADMIT Internal Medicine; ATTEND Internal Medicine
PROC: 0DJ08ZZ Inspection of Upper Intestinal Tract, Via Natural or Artificial Opening Endoscopic (ICD-10-PCS; principal; 2017-12-04)
PROC: 0DBK8ZX Excision of Ascending Colon, Via Natural or Artificial Opening Endoscopic, Diagnostic (ICD-10-PCS; 2017-12-04)
PROC: 0DBL8ZX Excision of Transverse Colon, Via Natural or Artificial Opening Endoscopic, Diagnostic (ICD-10-PCS; 2017-12-04)
DX: D12.2 Benign neoplasm of ascending colon (principal); D12.3 Benign neoplasm of transverse colon; K64.4 Residual hemorrhoidal skin tags; K64.8 Other hemorrhoids; K57.90 Diverticulosis of intestine, part unspecified, without perforation or abscess without bleeding; J96.10 Chronic respiratory failure, unspecified whether with hypoxia or hypercapnia; I85.00 Esophageal varices without bleeding; I10 Essential (primary) hypertension; E11.39 Type 2 diabetes mellitus with other diabetic ophthalmic complication; H40.9 Unspecified glaucoma; K21.9 Gastro-esophageal reflux disease without esophagitis; K74.5 Biliary cirrhosis, unspecified; Z88.8 Allergy status to other drugs, medicaments and biological substances; Z79.82 Long term (current) use of aspirin; Z79.84 Long term (current) use of oral hypoglycemic drugs; Z79.899 Other long term (current) drug therapy; Z99.81 Dependence on supplemental oxygen
CPT/HCPCS: 43235; 45385; 71045; 80048; 80053 ×2; 80061; 82274; 82550; 82553; 82607; 82746; 82962 ×3; 83540; 83550; 84484 ×2; 85025 ×3; 88305; 93005; 96365; 96372; 97139 ×3; 99285; G0378 ×2; G8978; G8979; G8980; Q4081; 36415; 36416; A4216; J1756; J2001; J2704

== ENCOUNTER 2017-12-06 12:27 | Day surgery (SDC) | payer MEDICARE, MEDICAID ==
[2017-12-06] MEDS ORDERED: Ferumoxytol (ERSD) 510 MG in Sodium Chloride 0.9% 250 ML 150 ML IVPB SCH (12:45)
[2017-12-06] MEDS ORDERED: Sodium Chloride 0.9% 20 ML ONE (13:03)
[2017-12-06 14:47] VITALS: BP 142/66; TEMP 98.3
== END 2017-12-06 14:47 | disposition home or self-care (01) ==
LOC: ONC/OP 12:27
PROVIDERS: ATTEND Internal Medicine Hematology & Oncology
DX: D50.9 Iron deficiency anemia, unspecified (principal)
CPT/HCPCS: 96365; A4216; J7050; Q0139

== ENCOUNTER 2017-12-18 10:07 | Day surgery (SDC) | payer MEDICARE, MEDICAID ==
[2017-12-18] MEDS ORDERED: Sodium Chloride 0.9% 20 ML ONE (10:22)
[2017-12-18] MEDS ORDERED: Ferumoxytol (ERSD) 510 MG in Sodium Chloride 0.9% 250 ML 150 ML IV SCH (10:45)
[2017-12-18 12:06] LABS: #Eosinphils 0.1 thou/uL (0.0-0.7); #Monocytes 0.3 thou/uL (0.11-0.59); #Neutrophils 2.2 thou/uL (1.40-6.50); %Basophils 0.3 % (0.0-1.0); %Eosinophils 3.3 % (0.0-10.0); %Lymphocytes 27.5 % (21.0-51.0); Hemoglobin 8.8 g/dL (12.0-16.0); Mean Corpuscular HGB CONC 32.6 g/dL (32.0-36.0); Mean Corpuscular Hemoglobin 28.9 pg (27.0-31.0); Mean Corpuscular Volume 88.6 fL (78.0-98.0); Mean Platelet Volume 9.9 fL (7.4-10.4); Platelet Count 81 thou/uL (130-400); RBC Distribution Width 20.2 % (11.5-14.5); Red Blood Cell (RBC) Count 3.05 mill/uL (4.20-5.40); White Blood Cell (WBC) Count 3.7 thou/uL (4.8-10.8)
[2017-12-18 12:28] VITALS: BP 128/60
== END 2017-12-18 11:45 | disposition home or self-care (01) ==
LOC: ONC/OP 10:07
PROVIDERS: ATTEND Internal Medicine Hematology & Oncology
DX: D50.0 Iron deficiency anemia secondary to blood loss (chronic) (principal); Z88.8 Allergy status to other drugs, medicaments and biological substances
CPT/HCPCS: 85025; 96365; A4216; J7050; Q0139

== ENCOUNTER 2018-01-22 12:53 | Day surgery (SDC) | payer MEDICARE, MEDICAID ==
[2018-01-22] MEDS ORDERED: Sodium Chloride 0.9% 20 ML ONE (13:03)
[2018-01-22] MEDS ORDERED: Ferumoxytol (ERSD) 510 MG in Sodium Chloride 0.9% 250 ML 150 ML IV SCH (14:15)
[2018-01-22 15:25] VITALS: BP 135/62; TEMP 99
== END 2018-01-22 15:26 | disposition home or self-care (01) ==
LOC: ONC/OP 12:53
PROVIDERS: ATTEND Internal Medicine Hematology & Oncology
DX: D50.0 Iron deficiency anemia secondary to blood loss (chronic) (principal); Z88.8 Allergy status to other drugs, medicaments and biological substances
CPT/HCPCS: 36415; 85025; 96365; A4216; J7050; Q0139

== ENCOUNTER 2018-01-26 14:16 | Emergency (ER) | payer MEDICARE, MEDICAID ==
[2018-01-26 15:18] LABS: #Eosinphils 0.3 thou/uL (0.0-0.7); #Lymphocytes 1.4 thou/uL (1.20-3.40); #Monocytes 0.7 thou/uL (0.11-0.59); #Neutrophils 6.3 thou/uL (1.40-6.50); %Basophils 0.5 % (0.0-1.0); %Eosinophils 3.3 % (0.0-10.0); %Lymphocytes 16.4 % (21.0-51.0); %Monocytes 7.7 % (0.0-10.0); %Neutrophils 72.1 % (42.0-75.0); Hemoglobin 10.4 g/dL (12.0-16.0); Mean Corpuscular HGB CONC 32.5 g/dL (32.0-36.0); Mean Corpuscular Hemoglobin 30.6 pg (27.0-31.0); Mean Corpuscular Volume 94.1 fL (78.0-98.0); Mean Platelet Volume 9.9 fL (7.4-10.4); Platelet Count 130 thou/uL (130-400); RBC Distribution Width 18.4 % (11.5-14.5); Red Blood Cell (RBC) Count 3.41 mill/uL (4.20-5.40); White Blood Cell (WBC) Count 8.8 thou/uL (4.8-10.8)
[2018-01-26 15:39] LABS: ALT (SGPT) 29 U/L (8-55); AST (SGOT) 33 U/L (5-34); Albumin 3.5 g/dL (3.4-4.8); Alkaline Phosphatase 150 U/L (40-150); Anion Gap 17 mmol/L (10-20); BUN (Urea Nitrogen) 29 mg/dL (9.8-20.1); Bilirubin, Total 0.4 mg/dL (0.2-1.2); Calc. Creatinine Clearance 0 mL/min (70-130); Calcium 9.7 mg/dL (7.8-10.44); Carbon Dioxide 18 mmol/L (23-31); Chloride 110 mmol/L (98-107); Estimated GFR-MDRD 37; Globulin 3.8 g/dL (2.4-3.5); Glucose 187 mg/dL (83-110); Potassium 4.9 mmol/L (3.5-5.1); Protein, Total 7.3 g/dL (6.0-8.3); Sodium 140 mmol/L (136-145)
[2018-01-26 15:44] LABS: Bilirubin Negative (Negative); Blood, Urine Negative (Negative); Clarity CLEAR (Clear); Glucose, Urine (Dipstick) Negative (Negative); Leukocyte Negative (Negative); Nitrite Negative (Negative); Protein, Urine (Dipstick) Negative (Neg-Trace); Specific Gravity, Urine 1.022 (1.002-1.036); Urobilinogen 0.2 mg/dL (0.2-1.0); pH, Urine 5.5 (5.0-9.0)
== END 2018-01-26 17:08 | disposition home or self-care (01) ==
LOC: ERS 14:16
DX: R30.0 Dysuria (principal); E11.9 Type 2 diabetes mellitus without complications; J45.909 Unspecified asthma, uncomplicated; K74.60 Unspecified cirrhosis of liver
CPT/HCPCS: 36415; 51701; 80053; 81003; 85025; 87086

== ENCOUNTER 2018-01-31 16:33 | Inpatient (IN) | payer MEDICARE, MEDICAID ==
[2018-01-31 18:18] LABS: #Basophils 0.1 thou/uL (0.0-0.2); #Eosinphils 0.3 thou/uL (0.0-0.7); #Lymphocytes 1.4 thou/uL (1.20-3.40); #Monocytes 0.5 thou/uL (0.11-0.59); #Neutrophils 5.2 thou/uL (1.40-6.50); %Basophils 0.7 % (0.0-1.0); %Eosinophils 3.6 % (0.0-10.0); %Lymphocytes 18.4 % (21.0-51.0); %Monocytes 7.2 % (0.0-10.0); %Neutrophils 70.1 % (42.0-75.0); Hemoglobin 10.6 g/dL (12.0-16.0); Mean Corpuscular HGB CONC 32.5 g/dL (32.0-36.0); Mean Corpuscular Hemoglobin 30.8 pg (27.0-31.0); Mean Corpuscular Volume 94.9 fL (78.0-98.0); Mean Platelet Volume 9.4 fL (7.4-10.4); Platelet Count 123 thou/uL (130-400); RBC Distribution Width 18.2 % (11.5-14.5); Red Blood Cell (RBC) Count 3.46 mill/uL (4.20-5.40); White Blood Cell (WBC) Count 7.4 thou/uL (4.8-10.8)
[2018-01-31 18:46] LABS: ALT (SGPT) 28 U/L (8-55); AST (SGOT) 28 U/L (5-34); Albumin 3.4 g/dL (3.4-4.8); Alkaline Phosphatase 152 U/L (40-150); Anion Gap 15 mmol/L (10-20); BUN (Urea Nitrogen) 31 mg/dL (9.8-20.1); Bilirubin, Total 0.3 mg/dL (0.2-1.2); Calc. Creatinine Clearance 0 mL/min (70-130); Calcium 9.7 mg/dL (7.8-10.44); Carbon Dioxide 17 mmol/L (23-31); Chloride 110 mmol/L (98-107); Estimated GFR-MDRD 25; Globulin 3.8 g/dL (2.4-3.5); Glucose 148 mg/dL (83-110); Potassium 4.7 mmol/L (3.5-5.1); Protein, Total 7.2 g/dL (6.0-8.3); Sodium 137 mmol/L (136-145)
[2018-01-31 19:00] LABS: Bilirubin Small (Negative); Blood, Urine Negative (Negative); Clarity CLOUDY (Clear); Glucose, Urine (Dipstick) Negative (Negative); Leukocyte Negative (Negative); Nitrite Negative (Negative); Protein, Urine (Dipstick) 30 mg/dL (Neg-Trace); Specific Gravity, Urine 1.023 (1.002-1.036); Urobilinogen 0.2 mg/dL (0.2-1.0)
[2018-01-31 19:02] LABS: Bacteria/HPF None Seen HPF (None Seen); RBC/HPF 0-3 HPF (0-3); WBC/HPF 0-3 HPF (0-3)
[2018-01-31 19:04] LABS: Pathc Cast-AUWi Flag 13.37 (0-2.49)
[2018-01-31 19:06] LABS: INR-International Normal Ratio 1.3; Prothrombin Time 16.1 SEC (12.0-14.7)
--- NOTE | 2018-01-31 19:08 | RAD ---
CHEST ONE VIEW: 01/31/18 HISTORY: Dyspnea. COMPARISON: Chest radiograph 01/13/18. FINDINGS: There is some scarring in the lung bases. No pneumothorax or effusion. The heart size is upper limits of normal. No acute osseous abnormality. IMPRESSION: No acute intrathoracic abnormality. Chronic changes. POS: [facility]
[2018-01-31 19:13] LABS: Renal Epithelial None Seen HPF (0-3); Transitional Epithelial NONE SEEN HPF (0-3)
[2018-01-31 19:13] LABS: CK (CPK) 57 U/L (29-168); Lipase 54 U/L (8-78)
[2018-01-31 19:16] LABS: Troponin I Less than 0.010 ng/mL (< 0.028)
--- NOTE | 2018-01-31 20:21 | CT ---
ABDOMEN CT WITHOUT CONTRAST PELVIC CT WITHOUT CONTRAST 01/31/18 HISTORY: Difficulty urinating, diarrhea, nausea and abdominal pain. COMPARISON: 01/09/13. TECHNIQUE: An abdomen and pelvic CT are performed without contrast. Coronal reformatted images are submitted for interpretation. FINDINGS: ABDOMEN CT: Trace left and small right sided pleural effusion. There are subcentimeter nodules in the right lower lobe measuring 3 to 4 mm. Heart size is normal. No pericardial fluid. Descending thoracic aorta and abdominal aorta have a normal caliber. No periaortic fat stranding. Note is made of a small hiatal hernia. Limited evaluation of the alimentary canal by lack of oral con trast. Grossly, the gastric mucosa and duodenum are unremarkable. Slightly prominent proximal small b owel loops are nonspecific. Ileocecal junction appears to be unremarkable. Appendix is not appreciate d. There is diverticulosis in the colon, without evidence of diverticulitis. Mucosal prominence of th e left hemicolon is presumed to be due to inadequate distention. Limited evaluation of the solid organs by lack of IV contrast. Nodularity of the liver suggesting cir rhotic change. Grossly, the spleen is unremarkable. Grossly, the adrenal glands are unremarkable. Normal appearing pancreatic tissue is difficult to appreciate. There appears to be splenic as well as gastroesophageal varices. Left parapelvic cysts are noted. Indeterminate hypodensity in the left renal cortex, measuring 1.0 x 1.1 cm. Left ureter is unremarkable. There is a calculus in the right ureterovesicular junction measu ring 6 mm in the craniocaudal dimension. No significant associated obstructive uropathy. There is evidence of ascites in the abdomen. PELVIC CT: Free fluid in the pelvis. No mass, lymphadenopathy, or free air. Urinary bladder is decompressed. There is fullness at the level of the rectum. Correlate clinically. IMPRESSION: 1. Cirrhosis. 2. Varices as described above. 3. Pleural fluid and ascites. 4. Slightly prominent proximal small bowel loops, nonspecific. Partial obstructive process or ea rly developing ileus cannot be excluded. 5. Diverticulosis, without evidence of diverticulitis. Mucosal prominence of the left hemicolon likely due to inadequate distention. If there is concern, consider colonoscopy. 6. Nonobstructing 7 mm calculus in the right ureteropelvic junction. 7. Rectal fullness. Correlate clinically. 1. POS: [facility]
[2018-02-01] MEDS ORDERED: Sodium Chloride 0.9% 1,000 ML IV SCH (01:02)
[2018-02-01] MEDS ORDERED: Ondansetron ODT 4 MG TAB SL PRN (01:02)
[2018-02-01] MEDS ORDERED: Ondansetron HCl/PF 4 MG/2 ML Vial IVP PRN (01:02)
[2018-02-01 01:10] VITALS: BMI 34.9
[2018-02-01] MEDS ORDERED: HumaLOG 300 UNITS/3 ML VIAL SC PRN ×2 (04:11)
[2018-02-01] MEDS ORDERED: Dextrose 5% in Water 1,000 ML IV PRN (04:11)
[2018-02-01] MEDS ORDERED: Dextrose 50% Abboject 50 ML SYRINGE SLOW IVP PRN (04:11)
[2018-02-01 05:36] LABS: Anion Gap 12 mmol/L (10-20); BUN (Urea Nitrogen) 30 mg/dL (9.8-20.1); Calc. Creatinine Clearance 46 mL/min (70-130); Calcium 8.9 mg/dL (7.8-10.44); Carbon Dioxide 17 mmol/L (23-31); Chloride 113 mmol/L (98-107); Estimated GFR-MDRD 31; Glucose 134 mg/dL (83-110); Potassium 4.6 mmol/L (3.5-5.1); Sodium 137 mmol/L (136-145)
[2018-02-01] MEDS: Ezetimibe 10 MG TAB PO SCH (08:15)
[2018-02-01] MEDS: Ferrous Sulfate 325 MG TAB PO SCH ×3 (08:15→17:32)
[2018-02-01] MEDS: TROSPIUM 20 MG TABLET PO SCH ×2 (08:16→22:00)
[2018-02-01] MEDS: Aspirin 81 mg Enteric Coated Tablet PO SCH (08:16)
[2018-02-01] MEDS: Amlodipine 5 MG TAB PO SCH (08:16)
[2018-02-01] MEDS ORDERED: Non-Formulary Item 1 EACH (Omeprazole [Omeprazole] 40 MG) PO SCH (09:00)
[2018-02-01] MEDS ORDERED: Tolterodine Tartrate LA 2 MG CAP PO SCH (09:00)
[2018-02-01] MEDS: Loratadine/Pseudoephedrine 10/240 mg Tablet PO SCH (10:02)
[2018-02-01] MEDS: Ursodiol 300 MG CAP PO SCH ×2 (10:03→22:01)
--- NOTE | 2018-02-01 10:17 | ULT ---
RENAL ULTRASOUND: HISTORY: Acute kidney insufficiency. Oliguria. COMPARISON: None. TECHNIQUE: Sagittal and transverse imaging are performed. FINDINGS: There is right renal cortical thinning. Hypoechoic focus in the lower pole of the right kidney measu res 1.9 x 1.4 x 2 cm. Imaging features are not consistent with a simple cyst. Overall, the right ki dney measures 5 x 4.5 x 10.3 cm. The left kidney has an overall normal cortical echotexture. A hypoechoic lesion in the left kidney m easures 1.5 x 1.3 x 1.4 cm. Adjacent smaller hypoechoic lesions are noted. Imaging features are not compatible with simple cysts. There is no hydronephrosis. The left kidney measures 5 x 5.4 x 11.6 cm. There is moderate ascites. The urinary bladder is unremarkable. IMPRESSION: 1. No ascites. 2. Hypoechoic lesions in both kidneys. Correlation made with recent CT suggests bilateral cysts. POS: [facility]
--- NOTE | 2018-02-01 10:31 | CON ---
DATE OF CONSULTATION: 02/01/2018 HISTORY OF PRESENT ILLNESS: Ms. Vazquze is a 72-year-old white female, who was initially admitted due to complaints of abdominal distention and decreased urine output. She has had other multiple medica l problems here. We are now being consulted for her acute kidney injury. Of interest, this patient lives alone. REVIEW OF SYSTEMS: Positive for abdominal distention and decreased urine output, decreased appetite, decreased energy level. Positive for abdominal fullness. No nausea, occasional diarrhea, no dysuri a, no urine frequency. Decreased appetite, decreased energy level. HOME MEDICATIONS: Included the following, 1. Aspirin 81 mg tab once a day. 2. Metformin 1000 mg b.i.d. 3. Benicar 20 mg once a day. 4. Amlodipine 5 mg q. day. 5. Ursodiol 300 mg 2 capsules a day. 6. Omeprazole 20 mg once a day. 7. Vitamin D3 at 5000 international units every day. PAST MEDICAL HISTORY: Includes, 1. Hypertension. 2. Type 2 diabetes mellitus. 3. GERD. 4. History of primary biliary cirrhosis. 5. History of diverticulosis. 6. Asthma/COPD. PAST SURGICAL HISTORY: 1. Status post right eye prosthesis. 2. Status post cholecystectomy. 3. Status post hysterectomy. 4. Status post ear surgery. SOCIAL HISTORY: Patient lives alone, lives in the [place] area. She has 2 children. No IV drug abuse . Currently no smoking or alcohol intake, sedentary lifestyle. This patient is Sikh. ALLERGIES: Includes the following, NSAIDs. IMMUNIZATIONS: Unknown. HOSPITALIZATIONS: Please see past medical history. FAMILY HISTORY: Noncontributory. PHYSICAL EXAMINATION: VITAL SIGNS: Blood pressure is noted at 124/60, heart rate 90, respiratory rate 18, temperature 97.7 , and pulse ox 96%. GENERAL: Awake, supine, comfortable, not in distress. SKIN: Adequate turgor. HEENT: Slightly pale conjunctivae, anicteric sclerae. NECK: No neck mass, no carotid bruits. Decreased visual acuity. LUNGS: Decreased breath sounds. HEART: Normal sinus rhythm. No murmur, no gallops or rubs. ABDOMEN: Globular, soft, nontender, no masses, ? of ascites. EXTREMITIES: Trace edema. NEUROLOGIC: Awake, oriented to 3 spheres, decreased hearing. No tremors. LABORATORY DATA: On 01/31/2018 - White count 7.4, hemoglobin 10.6. On 02/01/2018 - Sodium 137, potassium 4.6, chloride 113, carbon dioxide 17, BUN 30, creatinine 1.61. On 01/31/2018 - BUN 31, creatinine 1.97, albumin is 3.4. On 01/26/2018 - Creatinine 1.39. On 01/13/2018 - Creatinine 0.95. CT scan of the abdomen and pelvis showed cirrhosis. PLAN: The finding of varices as pleural fluid and ascites, nonobstructing calculus in the right uret eropelvic junction. There is rectal fullness. There is diverticulosis. Chest x-ray of 01/31/2018 showed no CHF. ASSESSMENT AND PLAN: Acute kidney injury consider hemodynamically mediated renal dysfunction. Howev er, the urine sediment suggested some findings of granular casts suggesting that she may have some in post-acute tubular necrosis. She did improve with volume repletion. At the same time, I would sugg est we hold off any LEONIDES inhibitors or ARB with this patient. In addition, I would suggest we continu e IV volume repletion and start this patient on salt poor albumin 25 grams IV q.6 for the next 3 days . There is no indication for any dialytic intervention. Agree with current management.
[2018-02-01] MEDS: Albumin 25% 25 GM/100 ML BOT IVPB SCH ×2 (12:20→17:32)
[2018-02-01] MEDS ORDERED: Spironolactone 25 MG TAB PO SCH (13:30)
[2018-02-01] MEDS: traMADol HCl 50 MG TAB PO PRN (15:31)
[2018-02-01] MEDS ORDERED: VITAMIN B COMPLEX PO SCH (21:00)
[2018-02-01] MEDS ORDERED: Simvastatin 20 MG TAB PO SCH (21:00)
[2018-02-01] MEDS ORDERED: BIMATOPROST L EYE SCH (21:00)
[2018-02-01] MEDS: Atorvastatin Calcium 10 MG TAB PO SCH (22:00)
[2018-02-01] MEDS: Stress 600 With Zinc 1 TAB PO SCH (22:00)
[2018-02-01] MEDS: Propranolol 10 MG TAB PO SCH (22:01)
[2018-02-01] MEDS: Cyanocobalamin (Vitamin B-12) 1,000 MCG TAB PO SCH (22:01)
[2018-02-01] MEDS: Latanoprost 0.005% Ophth Soln 2.5 ml Bottle L EYE SCH (22:26)
[2018-02-02] MEDS: Albumin 25% 25 GM/100 ML BOT IVPB SCH ×5 (00:50→23:41)
[2018-02-02] MEDS: Aspirin 81 mg Enteric Coated Tablet PO SCH (08:13)
[2018-02-02] MEDS: Ezetimibe 10 MG TAB PO SCH (08:13)
[2018-02-02] MEDS: Ursodiol 300 MG CAP PO SCH ×2 (08:13→20:17)
[2018-02-02] MEDS: Loratadine/Pseudoephedrine 10/240 mg Tablet PO SCH (08:13)
[2018-02-02] MEDS: Ferrous Sulfate 325 MG TAB PO SCH ×3 (08:13→17:45)
[2018-02-02] MEDS: Propranolol 10 MG TAB PO SCH (08:13)
[2018-02-02] MEDS: Amlodipine 5 MG TAB PO SCH (08:13)
[2018-02-02] MEDS: Spironolactone 25 MG TAB PO SCH (08:13)
[2018-02-02] MEDS: TROSPIUM 20 MG TABLET PO SCH ×2 (08:14→20:18)
--- NOTE | 2018-02-02 08:50 | CON ---
DATE OF CONSULTATION: 02/01/2018 HISTORY OF PRESENT ILLNESS: Ms. Vazquez is a 72-year-old female with a diagnosis of primary biliary c irrhosis that was made seemingly in 2012 at least as the first time she was seen in our office. At t hat time, she had biopsy showing stage 3 disease. She was placed on ursodiol at that time. She has not been in our office since 2015. She had been monitored periodically, but states that she has not been able to get in contact with our office to get back in. In any event, she has been in this hospi imelda recently for anemia and was found to have hemoglobin of 7.4 on this November. Her iron was slightly low at 45, TIBC was 335. Her ferritin was not checked at that time. B12 and folate were okay althou gh her B12 had been low in September at 207. She had upper and lower endoscopies with a few adenomas rem liliana and grade 1 varices at that time. She came to the emergency room. After the endoscopies in Nov, she was discharged home. She still has not followed back up in our office. She reports she disco ntinued her ursodiol for primary biliary sclerosis. More recently she has been having problems with urinating, states for the past couple of weeks, she has not been able to urinate, feels like she aracelis ot go unless she were to sit in a warm tub. Once the tub gets warmed, then she can relax and urinate then she would have to get up and clean up the tub and then take a shower, but this the only way she could pee. She reports that she was to see Dr. Johnson in the outpatient setting this with worsening symptoms, she called their office and they said that if she could wait until Monday , she should probably come to the emergency room. At the same time, she confirmed her primary physic jim to confirm that she came to the emergency room today. Initially, she was in the emergency room o n the . At that time, she was in and out of catheter and sent back home. Per the ER visit this month was on 01/13/2018 and that was for dizziness. She woke up morning feeling vertigo. She had so me CT scan that was normal and she was released. When she came in the emergency room early this morn ing on this admission, she once again was complaining of difficulty urinating, also reports she has h ad some loose stools and some nausea, and abdominal discomfort. Again, she reported she can only uri sadi when she is in the bathtub. Again, she was referred to the hospital by her PCP. In general, she just does not feel well over all. When asked about her issues of confusion, she stat es that lately she has a little more problems managing her grandson's Medicare check which she receiv es as he has had some brain injury secondary to radiation from childhood cancer. She was not followe d back up with Dr. Vazquez in the office. Overall, she feels that she has swelling a little bit and jordin giles feels like her abdomen is tight pushing up on her. PAST MEDICAL HISTORY: 1. 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 At that time, she was starte d on ursodiol. She is following up intermittently. 2. Anemia discovered this past November with some component of iron deficiency with probably a component of chronic disease. She underwent upper and lower endoscopies with a few polyps. There is grade 1 varices with no signs of bleeding. 3. Hypertension. 4. Type 2 diabetes. 5. History of diverticulosis in the past. 6. History of COPD. 7. Asthma. 8. Prior history of vitamin B deficiency. This documented in labs earlier this year. PAST SURGICAL HISTORY: Right eye prosthesis secondary to trauma, previous cholecystectomy, previous hysterectomy, previous ear surgery. MEDICATIONS: Aspirin, metformin 1000 b.i.d., Benicar, amlodipine, ursodiol 300 mg 2 tablets daily, o meprazole 20 mg daily, vitamin D3 of 5000 units daily. SOCIAL HISTORY: She lives in [facility]. She lives alone. She has two children. Apparently some g randchildren checked on at times. She is Religion. She does not smoke or drink. PRESENT MEDICATIONS: Albumin 25 mg IV q.[address] Ayala, amlodipine, aspirin, atorvastati n, calcium, B12, D5, Zetia, iron, glucagon, Humulin sliding scale, Protonix, propranolol, Aldactone 2 5 mg a day, Detrol, Ultram, trospium, ursodiol 600 mg p.o. b.i.d. PHYSICAL EXAMINATION: GENERAL: The patient is resting comfortably in bed. She is in no distress. VITAL SIGNS: Temperature is 97, pulse 97, respirations 16, blood pressure 138/69. LUNGS: Clear. HEART: Regular rate and rhythm without clicks or murmur. ABDOMEN: Slightly protuberant. There is no overt shifting dullness or fluid wave, but she does have some anasarca in the sacral area. She has no right upper quadrant tenderness. No suprapubic tender ness, no rebound or guarding. I can palpate enlarged bladder. EXTREMITIES: Reveal trace edema. NEUROLOGIC: She has got mild asterixis. Reflexes are slightly more prominent. LABORATORY DATA AND IMAGING: Sodium 137, potassium 4.6, chloride 113, bicarbonate 17, anion gap 7, B UN of 20. Creatinine is 1.6, it was 1.9 yesterday, baseline looks like it is around 0.7. Glucose 14 8. AST and ALT 28 and 28, alkaline phosphatase 152, calcium 9.7, bilirubin 0.3, protein is 7.2, albu min 3.4. CT scan of the abdomen and pelvis without contrast, cirrhosis, esophageal varices, pleural fluid and ascites, prominent small bowel loops proximally, diverticulosis without diverticulitis, non obstructing calculus, 7 mm right UPJ, reported "rectal fullness." ASSESSMENT: 1. Cirrhosis. 2. Admission for difficulty with urination. It is unclear if she has some issues of urinary retenti on. I would be careful with any type antispasmodic medicines as it will exacerbate confusion. 3. Ascites, small amounts and probably not adequate to be tapped. 4. Concern for mild encephalopathy. 5. Primary biliary cirrhosis, on medication since 2012 when she was diagnosed. She is to follow up intermittently in our office with Dr. Dill and Dr. Vazquez's PA, but has not been in since 2016 althou gh she continued to take her medications. 6. Anasarca, likely related to her cirrhosis. 7. I see no signs of colitis or inflammation in the colon or rectum. On her CAT scan there is no or al contrast, it really cannot comment on the rectum. The patient had a colonoscopy recently. This d oes not need to be repeated. 8. Reported diarrhea. She has been checked for C. diff. She has been in and out of the emergency ro om several times. PLAN: 1. We will check Clostridium difficile. 2. I agree with albumin by Dr. Ayala. If renal function does not continue to improve, would add IV fl uids. 3. We would hold diuretics at this point in time as prerenal azotemia is at risk for hepatorenal syn drome. 4. I would go ahead and check her ammonia. We will check a stool for Clostridium difficile as well. 5. If she has continued difficulty with urination, she needs to see Urology here. This is why she h as been in the emergency room three times, she cannot get to her consult before she ends up back in [facility] emergency room.
[2018-02-02] MEDS ORDERED: Propranolol 10 MG TAB PO SCH ×2 (09:35→09:45)
[2018-02-02 09:37] LABS: Anion Gap 14 mmol/L (10-20); BUN (Urea Nitrogen) 23 mg/dL (9.8-20.1); Calc. Creatinine Clearance 65 mL/min (70-130); Calcium 9.3 mg/dL (7.8-10.44); Carbon Dioxide 17 mmol/L (23-31); Chloride 113 mmol/L (98-107); Estimated GFR-MDRD 47; Glucose 138 mg/dL (83-110); Potassium 4.8 mmol/L (3.5-5.1); Sodium 139 mmol/L (136-145)
[2018-02-02 09:55] LABS: #Eosinphils 0.3 thou/uL (0.0-0.7); #Monocytes 0.3 thou/uL (0.11-0.59); #Neutrophils 2.1 thou/uL (1.40-6.50); %Basophils 0.4 % (0.0-1.0); %Eosinophils 7.3 % (0.0-10.0); %Lymphocytes 27.3 % (21.0-51.0); %Monocytes 7.7 % (0.0-10.0); %Neutrophils 57.2 % (42.0-75.0); Hemoglobin 8.8 g/dL (12.0-16.0); Mean Corpuscular HGB CONC 33.1 g/dL (32.0-36.0); Mean Corpuscular Hemoglobin 31.5 pg (27.0-31.0); Mean Corpuscular Volume 95.1 fL (78.0-98.0); Mean Platelet Volume 9.7 fL (7.4-10.4); Platelet Count 74 thou/uL (130-400); RBC Distribution Width 17.7 % (11.5-14.5); Red Blood Cell (RBC) Count 2.78 mill/uL (4.20-5.40); White Blood Cell (WBC) Count 3.6 thou/uL (4.8-10.8)
[2018-02-02 10:46] LABS: ALT (SGPT) 18 U/L (8-55); AST (SGOT) 24 U/L (5-34); Albumin 3.6 g/dL (3.4-4.8); Alkaline Phosphatase 107 U/L (40-150); Bilirubin, Direct 0.2 mg/dL (0.1-0.3); Bilirubin, Total 0.4 mg/dL (0.2-1.2); Magnesium 1.4 mg/dL (1.6-2.6); Protein, Total 6.3 g/dL (6.0-8.3)
--- NOTE | 2018-02-02 10:48 | PRG ---
DATE OF SERVICE: 02/02/2018 RENAL MEDICINE SUBJECTIVE: Ms. Vazquez is a 72-year-old white female who was seen for acute kidney injury. At that time, I felt that she had a hemodynamically mediated renal dysfunction. She was started back on salt poor albumin. This morning she is feeling better. She still complains of abdominal fullness. Plea se note that this patient has history of cirrhosis with ascites. PHYSICAL EXAMINATION: VITAL SIGNS: Blood pressure 136/71, heart rate 86, respiratory rate 16, temperature 98, pulse ox 97% . GENERAL: Awake, alert, comfortable, not in distress. SKIN: Decreased turgor. HEENT: She has slightly pale conjunctivae, anicteric sclerae. NECK: No neck mass, no carotid bruits, no JVD. CHEST: No deformities. LUNGS: Clear breath sounds. HEART: Normal sinus rhythm. No murmurs, no gallops, no rubs. ABDOMEN: Globular, soft, nontender, no masses. EXTREMITIES: No edema. MEDICATIONS: Medications of 02/02/2018 was reviewed. LABORATORY DATA: Laboratories of 02/02/2018; sodium 139, potassium 4.8, chloride 103, carbon dioxide 17, BUN 23, creatinine 1.14, glucose 138, calcium 9.3. Ammonia level is 75. ASSESSMENT AND PLAN: 1. Acute kidney injury, superimposed hemodynamically mediated renal dysfunction. Much improved with salt-poor albumin. Continue 25 grams IV q.6 for a total of 12 doses. No indication for any dialyti c intervention. Would use diuretics judiciously. Currently on a low dose of spironolactone. 2. Cirrhosis/ascites, supportive care.
[2018-02-02] MEDS: Albuterol Sulfate 2.5 mg/3 ml Neb NEB PRN ×2 (14:22→21:01)
--- NOTE | 2018-02-02 15:54 | PDOC.PN ---
- Subjective Encounter Start Date: 02/02/18 Encounter Start Time: 09:50 Pt feeling much better, excellent urine outpt. less abd pain. appreciate GI assistance No F/C,no n/V/d/C, less diarrhea. anderson placed, pt retaining 350ml urine and complained of pain. urology consulted, sees bibi all systems reviewed and neg x as above - Objective MAR Reviewed: Yes Vital Signs & Weight: Vital Signs (12 hours) Temp Pulse Resp BP BP Pulse Ox 02/02/18 14:22 77 20 02/02/18 12:49 98 F 86 16 97 02/02/18 08:13 86 136/71 02/02/18 07:14 98 F 86 16 136/71 97 02/02/18 03:57 98.0 F 89 18 125/74 98 Weight Weight 210 lb 4 oz I&O: 02/01/18 02/02/18 02/03/18 06:59 06:59 06:59 Intake Total 200 117 Balance 200 117 Result Diagrams: 02/02/18 04:51 02/02/18 04:51 Additional Labs: Accuchecks 02/02/18 02/02/18 02/01/18 11:42 03:58 19:27 POC Glucose 141 H 148 H 170 H 02/01/18 16:05 POC Glucose 175 H Radiology Reviewed by me: Yes Phys Exam - Physical Examination Constitutional: NAD HEENT: PERRLA, moist MMs, sclera anicteric, oral pharynx no lesions Neck: no nodes, no JVD, supple, full ROM Respiratory: no wheezing, no rales, no rhonchi, clear to auscultation bilateral Cardiovascular: RRR, no significant murmur, no rub Gastrointestinal: soft, positive bowel sounds less ascited, less distended, nontender Musculoskeletal: edema present edema improved Neurological: non-focal, normal sensation, moves all 4 limbs Lymphatic: no nodes Psychiatric: normal affect, A&O x 3 Skin: no rash, normal turgor, cap refill <2 seconds Dx/Plan (1) RADHA (acute kidney injury) Code(s): N17.9 - ACUTE KIDNEY FAILURE, UNSPECIFIED Status: Acute Comment: better otday, continue plan per Dr Ayala (2) Primary biliary cirrhosis Code(s): K74.3 - PRIMARY BILIARY CIRRHOSIS Status: Chronic Comment: appreciate GI input (3) DM2 (diabetes mellitus, type 2) Status: Chronic Qualifiers: Diabetes mellitus [facility] insulin use: without [facility] use Diabetes mellitus complication status: without complication Qualified Code(s): E11.9 - Type 2 diabetes mellitus without complications (4) HLD (hyperlipidemia) Code(s): E78.5 - HYPERLIPIDEMIA, UNSPECIFIED Status: Chronic Qualifiers: Hyperlipidemia type: unspecified Qualified Code(s): E78.5 - Hyperlipidemia , unspecified (5) HTN (hypertension) Code(s): I10 - ESSENTIAL (PRIMARY) HYPERTENSION Status: Chronic Qualifiers: Hypertension type: essential hypertension Qualified Code(s): I10 - Essential (primary) hypertension (6) JOSAFAT (iron deficiency anemia) Code(s): D50.9 - IRON DEFICIENCY ANEMIA, UNSPECIFIED Status: Chronic Qualifiers: Iron deficiency anemia type: inadequate dietary iron intake Qualified Code( s): D50.8 - Other iron deficiency anemias - Plan cont current plan of care, plan discussed w/ family, PT/OT, social service assistant, out of bed/ambulate * .
[2018-02-02] MEDS: Latanoprost 0.005% Ophth Soln 2.5 ml Bottle L EYE SCH (20:16)
[2018-02-02] MEDS: Atorvastatin Calcium 10 MG TAB PO SCH (20:17)
[2018-02-02] MEDS: Rifaximin 550 MG TAB PO SCH (20:18)
[2018-02-02] MEDS: Stress 600 With Zinc 1 TAB PO SCH (20:18)
[2018-02-02] MEDS: Cyanocobalamin (Vitamin B-12) 1,000 MCG TAB PO SCH (20:18)
[2018-02-02] MEDS: Propranolol HCl 20 MG TAB PO SCH (20:20)
--- NOTE | 2018-02-03 01:25 | PRG ---
DATE OF SERVICE: 02/02/2018 SUBJECTIVE: Ms. Vazquez still states she is coughing quite a bit. She is eating a little bit better. Nurse note she had a little better day today; however, Ms. Vazquez is not really convinced with that . OBJECTIVE: VITAL SIGNS: Temperature is 98.3, pulse is 81, blood pressure is 135/70, O2 sat is 94% on room air. LUNGS: She has decreased breath sounds at the bases. HEART: Regular rate and rhythm. ABDOMEN: Slightly protuberant. EXTREMITIES: Reveal some trace edema. LABORATORY STUDIES: White count 3.6, hemoglobin 8.8, platelet count 74,000. Ammonia was 75. BUN an d creatinine are 33 and 1.1 for now. Magnesium is 1.4. Bilirubin is 0.4. AST and ALT are 24 and 18 . ASSESSMENT: 1. Primary biliary cirrhosis, diagnosed in 2011 or 2012 with biopsy showing stage 3 disease at that time. She now has features of cirrhosis with mild ascites and nodular liver and . 2. She has had issues with . Therefore, a Ingram catheter was placed. It is not clear to me if Urology has seen her yet. 3. Hepatic encephalopathy, mild. PLAN: 1. We will start Xifaxan b.i.d. for hepatic encephalopathy. We will continue to follow along with tulio alfaro. 2. As soon as renal function improves, we will talk with Dr. Ayala about options for reinstituting diu retics. She has become a little bit fluid overloaded. 3. We will ask the nurses to obtain daily weights.
[2018-02-03] MEDS: Albuterol Sulfate 2.5 mg/3 ml Neb NEB PRN ×3 (01:41→13:45)
[2018-02-03 04:40] LABS: #Eosinphils 0.3 thou/uL (0.0-0.7); #Lymphocytes 0.9 thou/uL (1.20-3.40); #Monocytes 0.3 thou/uL (0.11-0.59); #Neutrophils 1.6 thou/uL (1.40-6.50); %Basophils 0.2 % (0.0-1.0); %Eosinophils 8.6 % (0.0-10.0); %Lymphocytes 29.6 % (21.0-51.0); %Monocytes 9.3 % (0.0-10.0); %Neutrophils 52.3 % (42.0-75.0); Hemoglobin 8.5 g/dL (12.0-16.0); Mean Corpuscular HGB CONC 33.3 g/dL (32.0-36.0); Mean Corpuscular Hemoglobin 31.3 pg (27.0-31.0); Mean Platelet Volume 9.9 fL (7.4-10.4); Platelet Count 66 thou/uL (130-400); RBC Distribution Width 17.6 % (11.5-14.5); Red Blood Cell (RBC) Count 2.72 mill/uL (4.20-5.40); White Blood Cell (WBC) Count 3.1 thou/uL (4.8-10.8)
[2018-02-03 04:57] LABS: ALT (SGPT) 16 U/L (8-55); AST (SGOT) 25 U/L (5-34); Albumin 3.9 g/dL (3.4-4.8); Alkaline Phosphatase 94 U/L (40-150); Anion Gap 15 mmol/L (10-20); BUN (Urea Nitrogen) 18 mg/dL (9.8-20.1); Bilirubin, Total 0.4 mg/dL (0.2-1.2); Calc. Creatinine Clearance 78 mL/min (70-130); Calcium 9.5 mg/dL (7.8-10.44); Carbon Dioxide 17 mmol/L (23-31); Chloride 112 mmol/L (98-107); Estimated GFR-MDRD 58; Globulin 2.5 g/dL (2.4-3.5); Glucose 141 mg/dL (83-110); Potassium 4.7 mmol/L (3.5-5.1); Protein, Total 6.4 g/dL (6.0-8.3); Sodium 139 mmol/L (136-145)
[2018-02-03 05:01] LABS: Magnesium 1.3 mg/dL (1.6-2.6)
[2018-02-03] MEDS: Albumin 25% 25 GM/100 ML BOT IVPB SCH ×2 (05:42→12:09)
[2018-02-03] MEDS: Rifaximin 550 MG TAB PO SCH ×2 (08:18→20:29)
[2018-02-03] MEDS: Ezetimibe 10 MG TAB PO SCH (08:20)
[2018-02-03] MEDS: TROSPIUM 20 MG TABLET PO SCH ×2 (08:21→20:28)
[2018-02-03] MEDS: Aspirin 81 mg Enteric Coated Tablet PO SCH (08:22)
[2018-02-03] MEDS: Ferrous Sulfate 325 MG TAB PO SCH ×3 (08:22→17:16)
[2018-02-03] MEDS: Spironolactone 25 MG TAB PO SCH (08:22)
[2018-02-03] MEDS: Amlodipine 5 MG TAB PO SCH (08:23)
[2018-02-03] MEDS: Propranolol HCl 20 MG TAB PO SCH ×2 (08:24→20:29)
[2018-02-03] MEDS: Ursodiol 300 MG CAP PO SCH ×2 (08:25→20:29)
[2018-02-03] MEDS: Loratadine/Pseudoephedrine 10/240 mg Tablet PO SCH (08:25)
--- NOTE | 2018-02-03 10:53 | EKG ---
Test Reason : Blood Pressure : / mmHG Vent. Rate : 098 BPM Atrial Rate : 098 BPM P-R Int : 150 ms QRS Dur : 060 ms QT Int : 366 ms P-R-T Axes : 089 -26 067 degrees QTc Int : 467 ms Sinus rhythm with Premature atrial complexes Low voltage QRS Cannot rule out Anterior infarct , age undetermined Abnormal ECG Confirmed by DOROTA HEBERT, SIMÓN ([id number]), state editor IZABELA MANRIQUEZ ([id number]) on 02/03/2018 10:53:02 AM Referred By: Confirmed By:SIMÓN RAYA MD
[2018-02-03] MEDS ORDERED: Furosemide 40 MG/4 ML VIAL SLOW IVP SCH (12:30)
--- NOTE | 2018-02-03 14:02 | PDOC.PN ---
- Subjective Encounter Start Date: 02/03/18 Encounter Start Time: 14:00 Doing well in general. A little more awake today. Grandjagdish says she is a little more "lively" today. She complains of mild "burning" sensation related to the Ingram. - Objective Vital Signs & Weight: Vital Signs (12 hours) Temp Pulse Resp BP BP Pulse Ox 02/03/18 13:45 78 18 96 02/03/18 08:23 78 113/64 02/03/18 08:00 98.0 F 78 20 02/03/18 07:33 98.0 F 78 20 113/64 96 02/03/18 07:24 96 02/03/18 07:23 82 18 96 Weight Weight 209 lb 14.4 oz I&O: 02/02/18 02/03/18 02/04/18 06:59 06:59 06:59 Intake Total 200 742 240 Output Total 1000 Balance 200 -258 240 Result Diagrams: 02/03/18 04:02 02/03/18 04:02 Additional Labs: Accuchecks 02/03/18 02/03/18 02/02/18 11:22 05:26 19:55 POC Glucose 139 H 132 H 199 H 02/02/18 16:21 POC Glucose 132 H Phys Exam - Physical Examination Constitutional: NAD Respiratory: no wheezing, no rales, no rhonchi, clear to auscultation bilateral Just had neb. Slightly decreased BS. Cardiovascular: RRR, no significant murmur, no rub Gastrointestinal: soft, non-tender, positive bowel sounds Some ascites. Not tense. Psychiatric: normal affect Dx/Plan (1) RADHA (acute kidney injury) Code(s): N17.9 - ACUTE KIDNEY FAILURE, UNSPECIFIED Status: Acute Comment: better otday, continue plan per Dr Ayala (2) DM2 (diabetes mellitus, type 2) Status: Chronic Qualifiers: Diabetes mellitus [facility] insulin use: without [facility] use Diabetes mellitus complication status: without complication Qualified Code(s): E11.9 - Type 2 diabetes mellitus without complications (3) Hepatic encephalopathy Code(s): K72.90 - HEPATIC FAILURE, UNSPECIFIED WITHOUT COMA Status: Acute (4) Primary biliary cirrhosis Code(s): K74.3 - PRIMARY BILIARY CIRRHOSIS Status: Chronic Comment: appreciate GI input (5) Pancytopenia Code(s): D61.818 - OTHER PANCYTOPENIA Status: Acute Comment: Partially dilutional. Likely related to the chronic liver disease. (6) HLD (hyperlipidemia) Code(s): E78.5 - HYPERLIPIDEMIA, UNSPECIFIED Status: Chronic Qualifiers: Hyperlipidemia type: unspecified Qualified Code(s): E78.5 - Hyperlipidemia , unspecified (7) HTN (hypertension) Code(s): I10 - ESSENTIAL (PRIMARY) HYPERTENSION Status: Chronic Qualifiers: Hypertension type: essential hypertension Qualified Code(s): I10 - Essential (primary) hypertension - Plan * Renal function has normalized. * GI would like to resume some diuresis pending ok from Nephrology. * Urology consult still pending for the urinary retention. * On Xifaxan for hepatic encephalopathy. Seems to be a little better symptomatically.
--- NOTE | 2018-02-03 15:02 | PRG ---
DATE OF SERVICE: 02/03/2018 SUBJECTIVE: Ms. Vazquez states she feels about the same. She is eating a little bit. No complaints otherwise. She still had some cough. OBJECTIVE: VITAL SIGNS: Temperature 98, pulse 78, blood pressure 113/64. No weight done today. LUNGS: She has got slight expiratory wheezing. ABDOMEN: Protuberant, shifting dullness and fluid wave. EXTREMITIES: Reveal edema. LABORATORY STUDIES: White count is 3.1, hemoglobin is 8.5, platelet count 66,000. INR 1.3. Sodium 139, potassium 4.7, BUN and creatinine are 18 and 0.95. Magnesium is 1.3. Liver function tests are normal with a bilirubin of 0.4. Alpha-fetoprotein is pending. ASSESSMENT: 1. Primary biliary cirrhosis with imaging findings suggestive of cirrhosis consistent with her clini mukesh exam. 2. Nonobstructing calculus 7 mm, right UPJ. 3. Difficulty with urination. She has a Ingram catheter in. 4. Fluid overload. 5. Renal insufficiency is improved. RECOMMENDATIONS: 1. I agree with discontinuing her albumin. 2. I consider starting her on low-dose diuretics, we will defer this to Nephrology as she came in wi th renal insufficiency. 3. I would continue propranolol for prophylaxis of varices, she has had only grade I varices on EGD in the past. 4. Rifaximin b.i.d. for encephalopathy. 5. She needs physical therapy and start getting out of bed. 6. She needs daily weights.
[2018-02-03] MEDS: Cyanocobalamin (Vitamin B-12) 1,000 MCG TAB PO SCH (20:28)
[2018-02-03] MEDS: Latanoprost 0.005% Ophth Soln 2.5 ml Bottle L EYE SCH (20:28)
[2018-02-03] MEDS: Atorvastatin Calcium 10 MG TAB PO SCH (20:28)
[2018-02-03] MEDS: Stress 600 With Zinc 1 TAB PO SCH (20:29)
[2018-02-03] MEDS: traMADol HCl 50 MG TAB PO PRN (22:56)
[2018-02-04 04:45] LABS: #Eosinphils 0.2 thou/uL (0.0-0.7); #Monocytes 0.3 thou/uL (0.11-0.59); #Neutrophils 1.6 thou/uL (1.40-6.50); %Basophils 0.8 % (0.0-1.0); %Eosinophils 6.8 % (0.0-10.0); %Lymphocytes 31.8 % (21.0-51.0); %Monocytes 9.7 % (0.0-10.0); Hemoglobin 9.2 g/dL (12.0-16.0); Mean Corpuscular HGB CONC 32.9 g/dL (32.0-36.0); Mean Corpuscular Hemoglobin 30.7 pg (27.0-31.0); Mean Corpuscular Volume 93.4 fL (78.0-98.0); Mean Platelet Volume 9.7 fL (7.4-10.4); Platelet Count 74 thou/uL (130-400); RBC Distribution Width 17.5 % (11.5-14.5); White Blood Cell (WBC) Count 3.2 thou/uL (4.8-10.8)
[2018-02-04 04:51] LABS: Anion Gap 13 mmol/L (10-20); BUN (Urea Nitrogen) 16 mg/dL (9.8-20.1); Calc. Creatinine Clearance 81 mL/min (70-130); Calcium 9.5 mg/dL (7.8-10.44); Carbon Dioxide 21 mmol/L (23-31); Chloride 109 mmol/L (98-107); Estimated GFR-MDRD 60; Glucose 136 mg/dL (83-110); Potassium 4.1 mmol/L (3.5-5.1); Sodium 139 mmol/L (136-145)
[2018-02-04] MEDS: Aspirin 81 mg Enteric Coated Tablet PO SCH (08:27)
[2018-02-04] MEDS: TROSPIUM 20 MG TABLET PO SCH ×2 (08:27→20:05)
[2018-02-04] MEDS: Loratadine/Pseudoephedrine 10/240 mg Tablet PO SCH (08:27)
[2018-02-04] MEDS: Amlodipine 5 MG TAB PO SCH (08:27)
[2018-02-04] MEDS: Ezetimibe 10 MG TAB PO SCH (08:27)
[2018-02-04] MEDS: Spironolactone 25 MG TAB PO SCH (08:28)
[2018-02-04] MEDS: Ursodiol 300 MG CAP PO SCH ×2 (08:28→20:06)
[2018-02-04] MEDS: Propranolol HCl 20 MG TAB PO SCH ×2 (08:28→20:06)
[2018-02-04] MEDS: Ferrous Sulfate 325 MG TAB PO SCH ×3 (08:28→16:47)
[2018-02-04] MEDS: Rifaximin 550 MG TAB PO SCH ×2 (08:28→20:05)
[2018-02-04] MEDS ORDERED: Bisacodyl 10 MG SUPP PR PRN (09:38)
--- NOTE | 2018-02-04 09:40 | PDOC.PN ---
- Subjective Encounter Start Date: 02/04/18 Encounter Start Time: 09:38 Feels very well today. Feels constipated. Has strange, "numb" feeling in the left abdomen from time to time. - Objective Vital Signs & Weight: Vital Signs (12 hours) Temp Pulse Resp BP Pulse Ox 02/04/18 08:27 72 02/04/18 08:00 98.4 F 72 18 98 02/04/18 07:24 98.7 F 72 18 129/71 94 L Weight Weight 197 lb 6.4 oz I&O: 02/03/18 02/04/18 02/05/18 06:59 06:59 06:59 Intake Total 742 1540 240 Output Total 1000 4650 Balance -258 -3110 240 Result Diagrams: 02/04/18 03:45 02/04/18 03:45 Additional Labs: Accuchecks 02/04/18 02/03/18 02/03/18 04:12 20:33 16:09 POC Glucose 150 H 152 H 187 H 02/03/18 11:22 POC Glucose 139 H Phys Exam - Physical Examination Constitutional: NAD Respiratory: no wheezing, no rales, no rhonchi, clear to auscultation bilateral Wet sounding cough occasionally. Cardiovascular: RRR, no significant murmur, no rub Gastrointestinal: soft, non-tender, positive bowel sounds Slightly distended. Hyperresonnant. Psychiatric: normal affect Dx/Plan (1) RADHA (acute kidney injury) Code(s): N17.9 - ACUTE KIDNEY FAILURE, UNSPECIFIED Status: Acute Comment: Back to baseline. 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 (4) Primary biliary cirrhosis Code(s): K74.3 - PRIMARY BILIARY CIRRHOSIS Status: Chronic Comment: appreciate GI input (5) Pancytopenia Code(s): D61.818 - OTHER PANCYTOPENIA Status: Acute Comment: Partially dilutional. Likely related to the chronic liver disease. (6) HLD (hyperlipidemia) Code(s): E78.5 - HYPERLIPIDEMIA, UNSPECIFIED Status: Chronic Qualifiers: Hyperlipidemia type: unspecified Qualified Code(s): E78.5 - Hyperlipidemia , unspecified (7) HTN (hypertension) Code(s): I10 - ESSENTIAL (PRIMARY) HYPERTENSION Status: Chronic Qualifiers: Hypertension type: essential hypertension Qualified Code(s): I10 - Essential (primary) hypertension (8) Urinary retention Code(s): R33.9 - RETENTION OF URINE, UNSPECIFIED Status: Acute (9) Constipation Code(s): K59.00 - CONSTIPATION, UNSPECIFIED Status: Acute - Plan * Renal function is back to baseline. GI would like to give some diuresis if ok with Dr. Ayala. Urology consult for urinary retention still pending. If not soon, will DC Ingram and monitor PRV. Dulcolax for constipation. Will need outpatient follow up for pancytopenia.
--- NOTE | 2018-02-04 10:11 | PDOC.EVN ---
Event Note - Event Note Event Note: Dr. Hopkins indicated to 4th floor staff that Dr. Johnson had set this patient up for outpatient followup. I will DC the Ingram and monitor PVR's.
--- NOTE | 2018-02-04 19:17 | PRG ---
DATE OF SERVICE: 02/04/2018 SUBJECTIVE: Ms. Vazquez feels better today. Family is at the bedside. She feels her breathing is better. MEDICATIONS: Albuterol, amlodipine, aspirin, atorvastatin, bisacodyl, Calciferol, vitamin B, Zetia, iron. She did receive a dose of Lasix yesterday at 1400. Protonix daily, propranolol 20 b.i.d., Xifaxan 550 b.i.d., spironolactone 25 mg daily, ursodiol 600 mg p.o. b.i.d. OBJECTIVE: VITAL SIGNS: Temperature is 98.4, pulse 88, blood pressure 129/71. In's and out's this morning, she was in 1540 and out 4653 yesterday for a negative fluid balance of 3 liters. Weight is down from 210-197 from the to . LUNGS: Clear. HEART: Regular rate and rhythm. ABDOMEN: Protuberant. There is some shifting dullness and fluid wave. EXTREMITIES: Reveal trace edema. LABORATORY DATA: White count 3.2, hemoglobin 9.2, platelet count 74,000. INR was 1.3 on 01/31/2018. Sodium 139, potassium 4.1, BUN and creatinine are now 16 and 0.92. These were 31 and 1.97 on admission. Admission labs, alkaline phosphatase 152. Albumin of 3.4, protein 7.2. On 02/03/2018, AST and ALT are 25 and 16, alkaline phosphatase is 94. AFP is pending. Albumin 3.9. ASSESSMENT: 1. Primary biliary cirrhosis, some signs of decompensation with a cirrhotic liver on CAT scan on 01/31/2018 and ascites. No masses were seen. This was performed without contrast for small varices. She has had previous grade I on endoscopy. 2. Difficulty with urination. A Ingram catheter is in place. Urology consult is pending. 3. Nonobstructing 7 mm calculus right UPJ, asymptomatic. 4. Renal insufficiency, markedly improved and resolved. 5. Fluid overload. We will institute low dose diuretics again. She is on 25 Aldactone. We will see if we can give her 40 of Lasix orally today and then 20 starting tomorrow daily. Monitor renal function. MTDD
[2018-02-04] MEDS: Latanoprost 0.005% Ophth Soln 2.5 ml Bottle L EYE SCH (20:05)
[2018-02-04] MEDS: traMADol HCl 50 MG TAB PO PRN (20:05)
[2018-02-04] MEDS: Atorvastatin Calcium 10 MG TAB PO SCH (20:05)
[2018-02-04] MEDS: Cyanocobalamin (Vitamin B-12) 1,000 MCG TAB PO SCH (20:06)
[2018-02-04] MEDS: Stress 600 With Zinc 1 TAB PO SCH (20:06)
[2018-02-05 05:19] LABS: Anion Gap 14 mmol/L (10-20); BUN (Urea Nitrogen) 17 mg/dL (9.8-20.1); Calc. Creatinine Clearance 78 mL/min (70-130); Carbon Dioxide 21 mmol/L (23-31); Chloride 107 mmol/L (98-107); Estimated GFR-MDRD 62; Glucose 132 mg/dL (83-110); Potassium 3.8 mmol/L (3.5-5.1); Sodium 138 mmol/L (136-145)
[2018-02-05 05:30] LABS: #Eosinphils 0.2 thou/uL (0.0-0.7); #Monocytes 0.3 thou/uL (0.11-0.59); #Neutrophils 1.3 thou/uL (1.40-6.50); %Basophils 0.5 % (0.0-1.0); %Monocytes 10.7 % (0.0-10.0); %Neutrophils 45.9 % (42.0-75.0); Hemoglobin 9.1 g/dL (12.0-16.0); Mean Corpuscular HGB CONC 32.8 g/dL (32.0-36.0); Mean Corpuscular Hemoglobin 30.5 pg (27.0-31.0); Platelet Count 69 thou/uL (130-400); RBC Distribution Width 17.3 % (11.5-14.5); Red Blood Cell (RBC) Count 2.97 mill/uL (4.20-5.40); White Blood Cell (WBC) Count 2.8 thou/uL (4.8-10.8)
[2018-02-05] MEDS: Aspirin 81 mg Enteric Coated Tablet PO SCH (08:24)
[2018-02-05] MEDS: Amlodipine 5 MG TAB PO SCH (08:24)
[2018-02-05] MEDS: Rifaximin 550 MG TAB PO SCH ×2 (08:24→21:31)
[2018-02-05] MEDS: Spironolactone 25 MG TAB PO SCH (08:24)
[2018-02-05] MEDS: TROSPIUM 20 MG TABLET PO SCH ×2 (08:24→21:31)
[2018-02-05] MEDS: Ezetimibe 10 MG TAB PO SCH (08:25)
[2018-02-05] MEDS: Propranolol HCl 20 MG TAB PO SCH ×2 (08:25→21:31)
[2018-02-05] MEDS: Ferrous Sulfate 325 MG TAB PO SCH ×3 (08:25→18:23)
[2018-02-05] MEDS ORDERED: Furosemide 20 MG TAB PO SCH (09:00)
[2018-02-05] MEDS ORDERED: Spironolactone 25 MG TAB PO SCH ×2 (13:07→13:30)
--- NOTE | 2018-02-05 13:20 | PRG ---
DATE OF SERVICE: 02/05/2018 Ms. Vazquez is feeling more like herself. Temperature is 98.1. She is somewhat frail. She is up ambulating. She states that her manager mutual fund is thinking about giving her another dose of Lasix. PHYSICAL EXAMINATION: VITAL SIGNS: Temperature 98.1, pulse 86, blood pressure 1118/68. ABDOMEN: Soft, slightly protuberant with some shifting dullness, with a fluid wave, but no shifting dullness. It is soft and nontender. EXTREMITIES: No edema. She is on Lasix 20 a day, Aldactone 25 a day, Xifaxan 550 b.i.d. LABORATORY: White count 2.8, hemoglobin 9.1, platelet count 69,000. Electrolytes normal with a BUN and creatinine of 17 and 0.89. RECOMMENDATIONS: We will continue daily weights. I think she is probably getting stable, can probab ly be discharged to be followed up in the outpatient setting from cirrhosis standpoint. If any other outstanding issues are present would defer that to Internal Medicine. Otherwise, when she goes home I think 20 of Lasix and 50 Aldactone and she will probably need a follow up BMP in a week to make whatley re she is not getting prerenal again. I would encourage her to stay on a 2 gram sodium diet.
[2018-02-05] MEDS: Ursodiol 300 MG CAP PO SCH ×2 (13:32→21:31)
[2018-02-05] MEDS: Loratadine/Pseudoephedrine 10/240 mg Tablet PO SCH (13:32)
[2018-02-05 19:46] VITALS: TEMP 97.7
[2018-02-05] MEDS: Stress 600 With Zinc 1 TAB PO SCH (21:31)
[2018-02-05] MEDS: Cyanocobalamin (Vitamin B-12) 1,000 MCG TAB PO SCH (21:31)
[2018-02-05] MEDS: Atorvastatin Calcium 10 MG TAB PO SCH (21:31)
[2018-02-05] MEDS: Latanoprost 0.005% Ophth Soln 2.5 ml Bottle L EYE SCH (21:31)
[2018-02-06 05:20] LABS: #Eosinphils 0.2 thou/uL (0.0-0.7); #Lymphocytes 0.9 thou/uL (1.20-3.40); #Monocytes 0.3 thou/uL (0.11-0.59); #Neutrophils 1.5 thou/uL (1.40-6.50); %Basophils 0.3 % (0.0-1.0); %Eosinophils 7.6 % (0.0-10.0); %Lymphocytes 32.2 % (21.0-51.0); %Monocytes 8.6 % (0.0-10.0); %Neutrophils 51.3 % (42.0-75.0); Hemoglobin 9.4 g/dL (12.0-16.0); Mean Corpuscular HGB CONC 33.1 g/dL (32.0-36.0); Mean Corpuscular Hemoglobin 30.5 pg (27.0-31.0); Mean Corpuscular Volume 92.2 fL (78.0-98.0); Platelet Count 68 thou/uL (130-400); RBC Distribution Width 17.1 % (11.5-14.5); Red Blood Cell (RBC) Count 3.09 mill/uL (4.20-5.40); White Blood Cell (WBC) Count 2.9 thou/uL (4.8-10.8)
[2018-02-06 05:21] LABS: Anion Gap 15 mmol/L (10-20); BUN (Urea Nitrogen) 16 mg/dL (9.8-20.1); Calc. Creatinine Clearance 80 mL/min (70-130); Calcium 8.9 mg/dL (7.8-10.44); Carbon Dioxide 22 mmol/L (23-31); Chloride 105 mmol/L (98-107); Estimated GFR-MDRD 61; Glucose 134 mg/dL (83-110); Potassium 3.8 mmol/L (3.5-5.1); Sodium 138 mmol/L (136-145)
[2018-02-06 07:31] VITALS: BP 124/74
[2018-02-06] MEDS ORDERED: Spironolactone 25 MG TAB PO SCH (08:00)
--- NOTE | 2018-02-06 16:28 | PRG ---
DATE OF SERVICE: 02/05/2018 SUBJECTIVE: The patient is feeling well. She has no new complaints. Tolerating medications well. OBJECTIVE: VITAL SIGNS: Temperature is 98.1, pulse 66, respirations 118/68, respirations 18, O2 sat 95% on room air. GENERAL APPEARANCE: Age appropriate female in no distress. Awake, alert, oriented, pleasant, atilio ative. HEART: Regular rate and rhythm. LUNGS: Clear bilaterally. ABDOMEN: Soft, nontender, nondistended. EXTREMITIES: Warm and dry. IMPRESSION AND PLAN: 1. Acute kidney injury, resolved. Creatinine back to baseline. Okay to resume some of the diuretic s. 2. Primary biliary cirrhosis with some ascites. She has given Lasix and Aldactone from GI. 3. Diabetes mellitus, stable. 4. History of primary biliary cirrhosis. 5. Hepatic encephalopathy, stable on the Xifaxan. 6. Pancytopenia, presumed secondary to the chronic liver disease. 7. Hypertension, stable. 8. Urinary retention. The plan is to leave the Ingram catheter in per Urology recommendations and ponce ve the patient go immediately to her followup appointment tomorrow morning with Dr. Johnson. 9. Hyperlipidemia, stable. 10. Constipation, stable.
--- NOTE | 2018-02-06 23:44 | DIS ---
DATE OF ADMISSION: 02/02/2018 DATE OF DISCHARGE: 02/06/2018 DISCHARGE DIAGNOSES: 1. Acute kidney injury. 2. Diabetes mellitus. 3. Hepatic encephalopathy. 4. Primary biliary cirrhosis. 5. Pancytopenia. 6. Hyperlipidemia. 7. Hypertension. 8. Urinary retention. 9. Constipation. HISTORY: This patient is a 72-year-old female, who presented via the emergency department complainin g of some difficulty with voiding. Patient has apparently had some history with some urinary retenti on and was followed by Urology. The patient had known baseline creatinine of 0.95 on 01/13/2018 with subsequent 1.39 on 01/26/2018, and on 01/31/2018, it was 1.97. Patient was seen in consultation by Dr. Ayala, who had felt the patient had an acute renal injury. He gave some IV fluid repletion with so me albumin. Subsequently, the patient's creatinine did continue to improve. The patient also had so me abdominal fullness with the underlying history of primary biliary cirrhosis, diagnosed in 2012. H e did not feel the patient had enough ascites to warrant paracentesis. He had agreed with the albumi n and avoided giving the patient diuretics, given her azotemia. Once the patient's creatinine had st abilized, the patient was subsequently started on some low-dose Lasix and Aldactone at 50 mg per day. The patient appeared to tolerate that well. Of note, Dr. Correa did also check an ammonia level, w hich was slightly elevated and the patient had appeared to be a little bit more somnolent. He starte d her on Xifaxan, and immediately her mental state was completely normal. The patient had a Ingram ca theter in place the entire stay, because of the evidence of the urinary retention. Once she was felt to be stable from a renal perspective and was able to get back on some low-dose diuretic, she was fe lt to be stable for discharge. PHYSICAL EXAMINATION: VITAL SIGNS: On the day of discharge, temperature is 97.7, pulse 71, respirations 20, O2 sat 98% on room air, BP 124/74. GENERAL APPEARANCE: Age-appropriate female in no distress. HEART: Regular rate and rhythm. LUNGS: Clear bilaterally. ABDOMEN: Soft, nontender, nondistended. Positive bowel sounds. EXTREMITIES: Warm and dry with only trace edema. DISPOSITION: The patient is discharged to home. She has activity as tolerated. She is on a 2-gram sodium-restricted diet. DISCHARGE MEDICATIONS: She will be on Lasix 20 mg daily, propranolol 20 mg b.i.d., and Aldactone 50 mg every day. Otherwise, she will continue with her other usual home medications to include metformi n, amlodipine, ursodiol, simvastatin, omeprazole, cholecalciferol, Lumigan, Ecotrin, vitamin B comple x, Benicar, Zetia, Claritin, Feosol, B12, Detrol-LA. She is to follow up with Dr. Johnson on the day of discharge at 08:30 in the morning. She is to follow up with Dr. Correa and with Dr. Ayala as well as her PCP, Dr. Castro Candelaria. The patient is encouraged to return to the emergency department should she have any problems prior to that time. Of note, the patient was discharged with a Ingram catheter in place and went directly to Dr. Johnson's office for her followup appointment there. DIAGNOSTIC IMAGING: Included a CT abdomen and pelvis, which revealed a cirrhosis, some varices, mild pleural and ascitic fluid, slightly prominent proximal bowel loops, some diverticulosis, nonobstruct ing 7-mm calculus in the right UPJ, and some rectal fullness. Chest x-ray was negative. Echocardiog tatianna showed ejection fraction of 60%-65% with a grade 1/3 diastolic dysfunction.
== END 2018-02-06 07:51 | disposition home or self-care (01) | DRG 682 ==
LOC: ERS 16:33 → T4-B 02-01 00:05 → OBSVTOIN 02-02 09:41
PROVIDERS: ADMIT Internal Medicine; ATTEND Internal Medicine
DX: N17.0 Acute kidney failure with tubular necrosis (principal); K72.00 Acute and subacute hepatic failure without coma; R18.8 Other ascites; D61.818 Other pancytopenia; R60.1 Generalized edema; K74.3 Primary biliary cirrhosis; E11.9 Type 2 diabetes mellitus without complications; J45.909 Unspecified asthma, uncomplicated; I10 Essential (primary) hypertension; Z99.81 Dependence on supplemental oxygen; K57.90 Diverticulosis of intestine, part unspecified, without perforation or abscess without bleeding; R33.9 Retention of urine, unspecified; E78.5 Hyperlipidemia, unspecified; K59.00 Constipation, unspecified; Z79.899 Other long term (current) drug therapy; Z79.82 Long term (current) use of aspirin; R55 Syncope and collapse; J44.9 Chronic obstructive pulmonary disease, unspecified; Z79.84 Long term (current) use of oral hypoglycemic drugs; D50.9 Iron deficiency anemia, unspecified
CPT/HCPCS: 36415; 36416; 51701; 71045; 74176; 76770; 80048; 80053; 80076; 81003; 81015; 82105; 82140; 82553; 83630; 83690; 83735; 83880; 84484; 85025; 85610; 85730; 87045; 87046; 87324; 87449; 87899; 93005; 93306; 94640; 94760; 96360; 96361; A4216; G8978-GP-CL; G8979-GP-CJ; J1940; J7611; P9047

== ENCOUNTER 2018-02-14 13:14 | Outpatient (CLI) | payer MEDICARE, MEDICAID ==
--- NOTE | 2018-02-14 15:18 | RAD ---
TWO VIEWS CHEST: Comparison: 11-28-16 History: Pre-operative radiograph. FINDINGS: Two views of the chest show normal sized cardiomediastinal silhouette. There is no evidence of consol idation, mass, or pleural effusion. The bones are unremarkable. IMPRESSION: No evidence of acute cardiopulmonary disease. POS: [facility]
[2018-02-14 15:44] LABS: Hemoglobin 10.3 g/dL (12.0-16.0); Mean Corpuscular HGB CONC 31.7 g/dL (32.0-36.0); Mean Corpuscular Hemoglobin 30.3 pg (27.0-31.0); Mean Corpuscular Volume 95.7 fL (78.0-98.0); Mean Platelet Volume 11.6 fL (7.4-10.4); Platelet Count 97 thou/uL (130-400); RBC Distribution Width 17.3 % (11.5-14.5); Red Blood Cell (RBC) Count 3.38 mill/uL (4.20-5.40); White Blood Cell (WBC) Count 5.5 thou/uL (4.8-10.8)
[2018-02-14 15:49] LABS: Bilirubin Negative (Negative); Blood, Urine Negative (Negative); Clarity CLOUDY (Clear); Glucose, Urine (Dipstick) Negative (Negative); INR-International Normal Ratio 1.4; Leukocyte Moderate (Negative); Nitrite Negative (Negative); Protein, Urine (Dipstick) Negative (Neg-Trace); Specific Gravity, Urine 1.017 (1.002-1.036); Urobilinogen 0.2 mg/dL (0.2-1.0)
[2018-02-14 15:51] LABS: Bacteria/HPF None Seen HPF (None Seen); Hyaline Casts/LPF 7-10 HYALINE CAST LPF (0-3 Hyaline); Pathc Cast-AUWi Flag 2.03 (0-2.49); Squamous Epithelial 0-3 HPF (0-3); WBC/HPF 21-50 HPF (0-3)
[2018-02-14 16:09] LABS: Anion Gap 18 mmol/L (10-20); BUN (Urea Nitrogen) 28 mg/dL (9.8-20.1); Calc. Creatinine Clearance 0 mL/min (70-130); Calcium 9.7 mg/dL (7.8-10.44); Carbon Dioxide 17 mmol/L (23-31); Chloride 109 mmol/L (98-107); Estimated GFR-MDRD 39; Glucose 102 mg/dL (83-110); Potassium 4.6 mmol/L (3.5-5.1); Sodium 139 mmol/L (136-145)
--- NOTE | 2018-02-15 08:56 | EKG ---
Test Reason : Blood Pressure : / mmHG Vent. Rate : 069 BPM Atrial Rate : 069 BPM P-R Int : 176 ms QRS Dur : 072 ms QT Int : 440 ms P-R-T Axes : 067 023 037 degrees QTc Int : 471 ms Normal sinus rhythm Cannot rule out Anterior infarct (cited on or before 13-JAN-2018) Abnormal ECG When compared with ECG of 31-JAN-2018 18:33, Premature atrial complexes are no longer Present QRS axis Shifted right Confirmed by DR. Xiomara TORRES ([id number]) on 02/15/2018 8:56:40 AM Referred By: LINDA Confirmed By:DR. Xiomara TORRES
== END 2018-02-14 13:15 | disposition home or self-care (01) ==
LOC: LABBT 13:14
PROVIDERS: ATTEND Urology
DX: Z01.818 Encounter for other preprocedural examination (principal); N20.1 Calculus of ureter
CPT/HCPCS: 71046; 80048; 81001; 85027; 85610; 85730; 93005; 93010

== ENCOUNTER 2018-02-22 09:16 | Day surgery (SDC) | payer MEDICARE, MEDICAID ==
[2018-02-14 13:29] VITALS: BMI 31.8
[2018-02-22] MEDS ORDERED: Levofloxacin 500 mg/D5W 100 ml Premix Bag ONE (12:02)
[2018-02-22] MEDS ORDERED: Fentanyl 100 MCG/2 ML VIAL ONE (16:41)
--- NOTE | 2018-02-23 01:23 | OP ---
DATE OF SURGERY: 02/22/2018 SERVICE: Urology. SURGEON: Zachary Johnson MD PREOPERATIVE DIAGNOSIS: Right ureteropelvic junction stone. POSTOPERATIVE DIAGNOSIS: Right renal stone. PROCEDURE PERFORMED: Right ureteroscopy, laser lithotripsy, basket extraction of stone, placement of a 6 x 26 double-J stent. INDICATIONS FOR PROCEDURE: Ms. Vazquez is a 72-year-old white female with diabetes, stage 4 liver dis ease with primary biliary cirrhosis and some pulmonary issues, who presented to me with hematuria and flank pain. A CT demonstrated a right UPJ stone. Given her renal insufficiency and comorbidities a nd relatively large size of the stone around 6-7 mm, we discussed treatment with ureteroscopy, ESWL w as not a good idea as her coags are slightly elevated due to her liver failure. Risks and benefits o f the procedure were discussed and she has agreed to proceed forward. DESCRIPTION OF PROCEDURE: After identification of armband and verification of consent, the patient w as brought back to the operating room where she underwent general anesthesia with an LMA. She was th en placed in dorsal lithotomy position and prepped and draped in usual sterile fashion. After approp riate timeout, a lubricated 22 Polish rigid cystoscope was introduced per urethra into the bladder an d attention turned to the right ureteral orifice. This was cannulated with a 0.035 sensor wire up to the level of the renal pelvis. The cystoscope was then removed and a dual-lumen catheter advanced o eliana the sensor wire up to the level of the proximal ureter. An Amplatz Super Stiff wire was then bart brittney through the second lumen up to the level of the renal pelvis. The dual-lumen was removed. The s ensor wire affixed to the drapes as a safety wire. An 11/13 x 28 cm ureteral access sheath was advan brittney over the Super Stiff wire up to the level of the proximal ureter. Inner cannula and the Super St iff wire were then removed leaving the outer sheath and the sensor wire in place as a safety wire. A digital ureteroscope was then used to pass up the ureteral access sheath up into the kidney. A full pyeloscopy was performed and the stone was found in the lower pole of the right kidney. There were no other stones noted. Using a 200 micron laser fiber, the stone was fragmented in approximately 4 p ieces. These were each basketed out individually with the 1.9 Polish 0 tip nitinol basket. Given th at there was no dusting performed, there were no additional stone pieces and the entire stone was rem liliana without any evidence of residual stone. Pull back ureteroscopy was employed and there were no a dditional stones found within the ureter. The ureteroscope and sheath were then removed and the cyst oscope backloaded over the sensor wire back into the bladder. A 6 x 26 double-J stent was advanced o eliana the sensor wire back up to the level of the renal pelvis. The wire removed leaving a good curl i n the pelvis and good curl in the bladder. The bladder was then emptied and the cystoscope removed. The patient then awakened and taken to PACU for recovery in stable condition. COMPLICATIONS: None. ESTIMATED BLOOD LOSS: Minimal. RETAINED TUBES AND DRAINS: A 6 x 26 double-J stent on the right. SPECIMENS: Stone for stone analysis. DISPOSITION: The patient will be discharged home and follow up with me in approximately a week for c ystoscopy and stent removal.
== END 2018-02-22 19:20 | disposition home or self-care (01) ==
LOC: SDC 09:16
PROVIDERS: ATTEND Urology
PROC: 0TF38ZZ Fragmentation in Right Kidney Pelvis, Via Natural or Artificial Opening Endoscopic (ICD-10-PCS; principal; 2018-02-22)
PROC: 0T768DZ Dilation of Right Ureter with Intraluminal Device, Via Natural or Artificial Opening Endoscopic (ICD-10-PCS; 2018-02-22)
DX: N20.0 Calculus of kidney (principal); R33.9 Retention of urine, unspecified; K74.3 Primary biliary cirrhosis; K72.90 Hepatic failure, unspecified without coma; I10 Essential (primary) hypertension; E78.5 Hyperlipidemia, unspecified; K21.9 Gastro-esophageal reflux disease without esophagitis; M81.0 Age-related osteoporosis without current pathological fracture; E11.21 Type 2 diabetes mellitus with diabetic nephropathy; J45.909 Unspecified asthma, uncomplicated; Z79.82 Long term (current) use of aspirin; Z79.84 Long term (current) use of oral hypoglycemic drugs; Z79.899 Other long term (current) drug therapy; Z88.5 Allergy status to narcotic agent; Z88.8 Allergy status to other drugs, medicaments and biological substances; Z91.011 Allergy to milk products
CPT/HCPCS: 52356; 82365; 88300; C1769; J1956; J3010

== ENCOUNTER 2018-03-02 10:49 | Day surgery (SDC) | payer MEDICARE, MEDICAID ==
[2018-03-02] MEDS ORDERED: Ferumoxytol (NON ERSD) 510 MG in Sodium Chloride 0.9% 100 ML IVPB SCH (11:00)
[2018-03-02] MEDS ORDERED: Ferumoxytol (NON ERSD) 510 MG in Sodium Chloride 0.9% 150 ML IVPB SCH (11:15)
[2018-03-02 18:59] VITALS: BP 117/60; TEMP 97.9
== END 2018-03-02 12:00 | disposition home or self-care (01) ==
LOC: ONC/OP 10:49
PROVIDERS: ATTEND Nurse Practitioner Acute Care
DX: D50.0 Iron deficiency anemia secondary to blood loss (chronic) (principal); Z79.82 Long term (current) use of aspirin; Z79.899 Other long term (current) drug therapy; Z88.6 Allergy status to analgesic agent
CPT/HCPCS: 96365; J7050; Q0138

== ENCOUNTER 2018-04-01 17:24 | Inpatient (IN) | payer MEDICARE, MEDICAID ==
--- NOTE | 2018-04-01 17:59 | RAD ---
CHEST ONE VIEW: INDICATIONS: Weakness. COMPARISON: 01/31/2018 FINDINGS: Emphysematous change is stable. Mild cardiomegaly is stable. No acute air space opacity, pleural ef fusion, or pneumothorax is demonstrated. No acute osseous abnormality is evident. IMPRESSION: No acute cardiopulmonary abnormality. POS: [facility]
[2018-04-01] MEDS ORDERED: Promethazine HCl 25 MG/ML VIAL ONE (18:05)
[2018-04-01 18:25] LABS: #Eosinphils 0.2 thou/uL (0.0-0.7); #Lymphocytes 1.5 thou/uL (1.20-3.40); #Monocytes 0.5 thou/uL (0.11-0.59); %Basophils 0.1 % (0.0-1.0); %Eosinophils 3.3 % (0.0-10.0); %Lymphocytes 29.6 % (21.0-51.0); %Monocytes 8.6 % (0.0-10.0); %Neutrophils 58.5 % (42.0-75.0); Hemoglobin 10.7 g/dL (12.0-16.0); Mean Corpuscular HGB CONC 32.8 g/dL (32.0-36.0); Mean Corpuscular Hemoglobin 32.4 pg (27.0-31.0); Mean Corpuscular Volume 98.9 fL (78.0-98.0); Platelet Count 85 thou/uL (130-400); RBC Distribution Width 16.7 % (11.5-14.5); White Blood Cell (WBC) Count 5.2 thou/uL (4.8-10.8)
[2018-04-01 18:29] LABS: INR-International Normal Ratio 1.2; Prothrombin Time 15.4 SEC (12.0-14.7)
[2018-04-01 18:30] LABS: PTT 36.2 SEC (22.9-36.1)
[2018-04-01 18:39] LABS: ALT (SGPT) 34 U/L (8-55); AST (SGOT) 37 U/L (5-34); Albumin 3.9 g/dL (3.4-4.8); Alkaline Phosphatase 112 U/L (40-150); Anion Gap 17 mmol/L (10-20); BUN (Urea Nitrogen) 38 mg/dL (9.8-20.1); Bilirubin, Total 0.5 mg/dL (0.2-1.2); Calc. Creatinine Clearance 0 mL/min (70-130); Calcium 10.4 mg/dL (7.8-10.44); Carbon Dioxide 18 mmol/L (23-31); Chloride 110 mmol/L (98-107); Estimated GFR-MDRD 28; Globulin 3.8 g/dL (2.4-3.5); Glucose 171 mg/dL (83-110); Lipase 63 U/L (8-78); Protein, Total 7.7 g/dL (6.0-8.3); Sodium 138 mmol/L (136-145)
[2018-04-01 18:42] LABS: CKMB 1.1 ng/mL (0-6.6); Troponin I Less than 0.010 ng/mL (< 0.028)
[2018-04-01 18:44] LABS: Potassium 6.8 mmol/L (3.5-5.1)
[2018-04-01 18:51] LABS: Bilirubin Negative (Negative); Blood, Urine Negative (Negative); Clarity CLOUDY (Clear); Glucose, Urine (Dipstick) Negative (Negative); Leukocyte Large (Negative); Nitrite Negative (Negative); Protein, Urine (Dipstick) Negative (Neg-Trace); Specific Gravity, Urine 1.018 (1.002-1.036); Urobilinogen 0.2 mg/dL (0.2-1.0); pH, Urine 5.5 (5.0-9.0)
[2018-04-01 18:52] LABS: Bacteria/HPF None Seen HPF (None Seen); Hyaline Casts/LPF 7-10 HYALINE CAST LPF (0-3 Hyaline); Pathc Cast-AUWi Flag 2.32 (0-2.49); WBC/HPF 21-50 HPF (0-3)
[2018-04-01 19:03] LABS: Transitional Epithelial 0-3 HPF (0-3)
--- NOTE | 2018-04-01 19:26 | CT ---
CT ABDOMEN WITHOUT CONTRAST: CT PELVIS WITHOUT CONTRAST: HISTORY: Abdominal pain, diffuse. COMPARISON: 01/31/2018 FINDINGS: ABDOMEN: Chronic changes in the lung bases. Normal heart size. Unremarkable aorta. Surgically absent gallbladder. Limited evaluation of the solid organs due to lack of IV contrast. Mild nodularity of the liver, sug gesting cirrhotic change. Mild splenomegaly with a craniocaudal dimension of 13.5 cm. There is atro phy of the head and body of the pancreas, similar to the previous exam. There is nonspecific strandi ng of the mesentery centrally, at the root of the mesentery. Nonspecific stranding adjacent to the t hird portion of the duodenum and in the peripancreatic region. Stable hypodensity involving the right kidney. Bilaterally, no obstructive uropathy. Nonspecific gastrohepatic periportal lymph nodes. Additional nonspecific periaortic and aortocaval l ymph nodes. There is patchy stranding of the abdominal mesentery with small amounts of fluid in both paracolic gu tters. The amount of intraabdominal fluid is not as prominent as the previous exam. Small umbilical hernia containing mesenteric fat. Limited evaluation of the alimentary canal due to lack of oral contrast. No definite evidence of sma ll bowel obstruction. The ileocecal junction is normal. Mucosal thickening involving the right yasmin colon with subtle fat stranding adjacent to the cecum and ascending colon. Scattered diverticula. N o evidence of diverticulitis. Appendix is not appreciated. Stable varices. PELVIS: Surgically absent uterus. Unremarkable urinary bladder. No pelvic mass, lymphadenopathy, f ree air, or free fluid. There does appear to be some mild thickening of the distal rectum and anus. Direct visualization is recommended. No lytic or blastic lesions in the osseous structures. IMPRESSION: 1. Cirrhosis. Mild splenomegaly. 2. Decreased intraabdominal ascites. Nonspecific stranding in the mesentery. 3. Diverticulosis without evidence of diverticulitis. 4. Mucosal thickening involving the distal rectum and possible anal region. Direct visualization an d physical examination are recommended. 5. Stranding of the mesentery adjacent to the pancreas. Correlate for pancreatitis. POS: [facility]
[2018-04-01] MEDS ORDERED: Calcium Gluc 4.6 MEQ/10 ML (100 MG/ML) SLOW IVP SCH (19:30)
[2018-04-01] MEDS ORDERED: Insulin Regular 300 UNITS/3 ML VIAL ONE (19:35)
[2018-04-01] MEDS ORDERED: Dextrose 50% Abboject 50 ML SYRINGE ONE (19:35)
[2018-04-01] MEDS ORDERED: Sodium Bicarb 50 MEQ/50 ML Abboject 8.4% SYRINGE ONE (19:35)
[2018-04-01 22:17] LABS: Lactic Acid 2.5 mmol/L (0.5-2.2)
[2018-04-01 22:47] LABS: Troponin I Less than 0.010 ng/mL (< 0.028)
[2018-04-01] MEDS ORDERED: Acetaminophen 325 MG TAB PO PRN (23:16)
[2018-04-01 23:49] VITALS: BMI 27.5
[2018-04-02 01:08] LABS: Troponin I Less than 0.010 ng/mL (< 0.028)
[2018-04-02] MEDS ORDERED: Ondansetron ODT 4 MG TAB PO PRN (03:50)
[2018-04-02] MEDS ORDERED: Ondansetron HCl/PF 4 MG/2 ML Vial IVP PRN (03:50)
[2018-04-02] MEDS ORDERED: Bisacodyl 5 MG TAB PO PRN (03:50)
[2018-04-02] MEDS ORDERED: Morphine 2 MG/ML SYRINGE SLOW IVP PRN (03:50)
[2018-04-02 05:37] LABS: #Eosinphils 0.1 thou/uL (0.0-0.7); #Lymphocytes 1.2 thou/uL (1.20-3.40); #Monocytes 0.3 thou/uL (0.11-0.59); #Neutrophils 1.5 thou/uL (1.40-6.50); %Basophils 0.7 % (0.0-1.0); %Lymphocytes 39.4 % (21.0-51.0); %Monocytes 9.9 % (0.0-10.0); Hemoglobin 9.2 g/dL (12.0-16.0); Mean Corpuscular HGB CONC 31.7 g/dL (32.0-36.0); Mean Corpuscular Hemoglobin 31.9 pg (27.0-31.0); Mean Platelet Volume 10.1 fL (7.4-10.4); Platelet Count 62 thou/uL (130-400); RBC Distribution Width 16.4 % (11.5-14.5); Red Blood Cell (RBC) Count 2.88 mill/uL (4.20-5.40); White Blood Cell (WBC) Count 3.1 thou/uL (4.8-10.8)
[2018-04-02 05:47] LABS: Anion Gap 12 mmol/L (10-20); BUN (Urea Nitrogen) 34 mg/dL (9.8-20.1); Calc. Creatinine Clearance 39 mL/min (70-130); Calcium 9.8 mg/dL (7.8-10.44); Carbon Dioxide 16 mmol/L (23-31); Chloride 114 mmol/L (98-107); Estimated GFR-MDRD 34; Glucose 95 mg/dL (83-110); Potassium 6.2 mmol/L (3.5-5.1); Sodium 136 mmol/L (136-145)
[2018-04-02] MEDS ORDERED: Spironolactone 25 MG TAB PO SCH (08:00)
[2018-04-02] MEDS: Ferrous Sulfate 325 MG TAB PO SCH ×3 (08:54→17:36)
[2018-04-02] MEDS: Propranolol HCl 20 MG TAB PO SCH ×2 (08:55→21:42)
[2018-04-02] MEDS: Ursodiol 300 MG CAP PO SCH ×2 (08:55→21:42)
[2018-04-02] MEDS ORDERED: FOLATE PO SCH (09:00)
[2018-04-02] MEDS ORDERED: Prenatal Vitamin 1 TAB PO SCH (09:00)
[2018-04-02] MEDS ORDERED: [UNRECOGNIZED DRUG - OTHER] PO SCH (09:00)
[2018-04-02] MEDS ORDERED: Furosemide 20 MG TAB PO SCH (09:00)
[2018-04-02] MEDS ORDERED: Non-Formulary Item 1 EACH (Omeprazole [Omeprazole] 40 MG) PO SCH (09:00)
[2018-04-02] MEDS ORDERED: PRENATAL PO SCH (09:00)
[2018-04-02] MEDS ORDERED: Latanoprost 0.005% Ophth Soln 2.5 ml Bottle EA EYE SCH (09:00)
[2018-04-02] MEDS: Rifaximin 550 MG TAB PO SCH ×2 (09:04→21:42)
--- NOTE | 2018-04-02 09:12 | PDOC.PN ---
- Subjective Encounter Start Date: 04/02/18 Encounter Start Time: 09:10 Ms. Vazquez was seen today in follow-up of Abdominal pain and hyperkalemia. She does not have any complaints now, she says the abdominal discomfort has improved , but says it is intermittent. She does complain of constant nausea, and when she tries to eat, she feels sick. She has lost a significant amount of weight. - Objective Resuscitation Status: Resuscitation Status DNR:Do Not Resuscitate MAR Reviewed: Yes Vital Signs & Weight: Vital Signs (12 hours) Temp Pulse Resp BP Pulse Ox 04/02/18 07:25 98.0 F 70 16 113/56 L 98 04/02/18 04:00 97.4 F L 63 14 116/57 L 99 04/01/18 23:15 97.4 F L 75 16 105/55 L 100 Weight Weight 165 lb 3.2 oz I&O: 04/01/18 04/02/18 04/03/18 06:59 06:59 06:59 Output Total 200 Balance -200 Result Diagrams: 04/02/18 05:03 04/02/18 05:03 Phys Exam - Physical Examination HEENT: PERRLA Respiratory: no wheezing, no rales, no rhonchi, clear to auscultation bilateral Cardiovascular: RRR, no significant murmur, no rub Gastrointestinal: soft, non-tender, no distention, positive bowel sounds Musculoskeletal: edema present trace pedal edema, and red patches on the lower extremities, non-blanching Neurological: non-focal Dx/Plan (1) Abdominal pain, diffuse Code(s): R10.84 - GENERALIZED ABDOMINAL PAIN Status: Acute (2) Hyperkalemia Code(s): E87.5 - HYPERKALEMIA Status: Acute (3) RADHA (acute kidney injury) Code(s): N17.9 - ACUTE KIDNEY FAILURE, UNSPECIFIED Status: Acute Comment: Back to baseline. (4) DM2 (diabetes mellitus, type 2) Status: Chronic Qualifiers: Diabetes mellitus halfway insulin use: without halfway use Diabetes mellitus complication status: without complication Qualified Code(s): E11.9 - Type 2 diabetes mellitus without complications (5) HTN (hypertension) Code(s): I10 - ESSENTIAL (PRIMARY) HYPERTENSION Status: Chronic Qualifiers: Hypertension type: essential hypertension Qualified Code(s): I10 - Essential (primary) hypertension (6) Primary biliary cirrhosis Code(s): K74.3 - PRIMARY BILIARY CIRRHOSIS Status: Chronic Comment: appreciate GI input - Plan * Abdominal Pain- ? etiology- this is asociated with persistent nausea and weight loss, and there are some abnormalities on CT-scan- will consult GI to aid in evaluation * Hyperkalemia- will discontinue Spironolactone, and will give a dose of Kalexalate, consult Nephrology to help manage- re-check potassium this afternoon * Acute kidney injury- cautious hydration, and Nephrology evaluation * Primary Biliary Sclerosis (PBC)- stable- consinut Uridisol * HTN - blood pressure is stable.
[2018-04-02] MEDS ORDERED: Dextrose 50% Abboject 50 ML SYRINGE SLOW IVP PRN (09:22)
[2018-04-02] MEDS ORDERED: HumaLOG 300 UNITS/3 ML VIAL SC PRN (09:22)
[2018-04-02] MEDS ORDERED: Dextrose 5% in Water 1,000 ML IV PRN (09:22)
--- NOTE | 2018-04-02 10:08 | HP ---
CHIEF COMPLAINT: Abdominal pain. HISTORY OF PRESENT ILLNESS: This is a 72-year-old female with past medical history of primary biliary cirrhosis, stage 4; hypertension; diabetes mellitus, type 2; diverticulosis; asthma; presenting with abdominal pain, nausea, and dizziness. Per the patient, she has stage 4 primary biliary cirrhosis and liver cirrhosis, and because of her current medical problems, she tends to have discomfort in her abdomen with deep palpation. Patient stated that she was in the hospital in February, and since then, she has been getting some pain and discomfort, but now the pain has progressively gotten worse. The patient said that she is not able to tolerate diet and patient reports losing some weight. The patient denies any fever, chest pain, palpitations, chills, dysuria, hematuria, constipation. Of note, patient was recently admitted in our hospital on 02/01/2018, and the patient was discharged with a diagnosis of acute kidney injury. REVIEW OF SYSTEMS: Positive for generalized weakness, vomiting, p.o. intolerance, loss of appetite, abdominal discomfort. PAST MEDICAL HISTORY: Patient has right eye blindness; PVC, stage 4 liver cirrhosis; hypertension; diabetes mellitus, type 2; diverticulosis; asthma. PAST SURGICAL HISTORY: Cholecystectomy, hysterectomy, right eye prosthesis, surgical history of ear. FAMILY HISTORY: Reviewed and noncontributory. PSYCHIATRIC HISTORY: No previous psychiatric history. SOCIAL HISTORY: The patient has no smoking history. Denies any illicit drug use and denies any alcohol use. KNOWN ALLERGIES: NSAIDs. CURRENT MEDICATIONS: Patient is on aspirin, metformin, Benicar, ursodiol 300 mg b.i.d., omeprazole, vitamin D, Zetia 10 mg, simvastatin 20 mg, Lasix 20 mg, propranolol 20 mg, spironolactone 50 mg, Xifaxan 550 mg. PHYSICAL EXAMINATION: VITAL SIGNS: Blood pressure is 121/52, heart rate is 74, respiratory rate of 18 , temperature of 98.3, O2 sat of 99. GENERAL: The patient is lying in bed comfortably, does not appear to be in any acute distress. The patient is alert and oriented x3. The patient is very pleasant. HEENT: Normocephalic and atraumatic. Pupils are equal and reactive to light on the left eye. The right eye is blind. The patient has a prosthesis. NECK: Supple, full range of motion. Trachea is midline. LUNGS: Clear to auscultation bilaterally. No wheezing, no rales, no rhonchi is appreciated. CARDIOVASCULAR: Positive S1 and S2, regular rate and rhythm. No murmurs, no gallops, no rubs appreciated. ABDOMEN: Generalized abdominal pain, mild distention, tenderness at the right upper quadrant with deep palpation. No caput medusae noted. EXTREMITIES: Patient has 5/5 upper extremity strength, 5/5 lower extremity strength. Patient does have a rash on her right lower extremity. Patient has good pulses bilaterally of the upper and lower extremities. NEUROLOGIC: Cranial nerves II-XII grossly intact. No neurologic deficits noted. SKIN: Patient has a petechial papular rash at the right lower extremity and some part of the left lower extremity. The patient also states that she has itchiness around these petechial purpura rash. ED COURSE: The patient has received Levaquin, normal saline, morphine, calcium gluconate. IMAGING: CT of the abdomen and pelvis shows cirrhosis, mild splenomegaly, decreased intra-abdominal ascites, nonspecific stranding in the mesentery, diverticulosis without evidence of diverticulitis. Mucosal thickening involving the distal rectum and possible anal region. Direct visualization and physical examinations are recommended by the radiologist. Chest x-ray shows no acute cardiopulmonary process. ASSESSMENT AND PLAN: This is a 72-year-old female being admitted for: 1. Hyperkalemia. Patient's potassium is 6.8. The patient has been given calcium gluconate and has been given Kayexalate. Patient is on rifaximin. We will continue patient on her home dose of rifaximin. We will follow up her morning labs. 1. Acute on chronic kidney disease, likely due to dehydration and decreased p.o. intake. At this point, we will continue the patient on gentle hydration. We will consult Nephrology. 2. History of primary biliary cirrhosis, stage 4. We will continue patient on her home medication. 3. Hypertension. We will continue the patient's current medication. 4. Diabetes mellitus, type 2. We will continue patient on current medications and we will continue to monitor the patient's blood sugars closely. 5. History of asthma, currently stable. We will continue to monitor the patient. 6. Deep venous thrombosis and gastrointestinal prophylaxis. [facility]
[2018-04-02 14:10] LABS: Potassium 5.6 mmol/L (3.5-5.1)
[2018-04-02] MEDS: Albumin 25% 25 GM/100 ML BOT IVPB SCH (17:37)
[2018-04-02] MEDS ORDERED: Epoetin (ESRD) 20,000 UNITS/ML SC SCH (18:00)
--- NOTE | 2018-04-02 18:52 | CON ---
DATE OF CONSULTATION: 04/02/2018 Ms. Vazquez is a 72-year-old white female with known history of primary biliary cirrhosis -- stage IV, hypertension, diabetes mellitus, chronic renal failure and admitted for volume depletion. She has been having abdominal pain. This was also associated with some nausea and vomiting. Denies any diarrhea. We are now being consulted for her hyperkalemia and acute kidney injury on top of her chronic renal failure. Please note that the potassium is much improved with Kayexalate. In addition, the renal function is slowly improving with gentle volume repletion. REVIEW OF SYSTEMS: Positive for generalized malaise, decreased appetite, decreased energy level. Positive for decreased hearing loss. Decreased right visual acuity. Positive for nausea. No diarrhea. Decreased energy level. Positive for abdominal pain. No headache, no fever or chills, no syncopal episode. PAST MEDICAL HISTORY: 1. Liver cirrhosis. 2. Right eye blindness. 3. Chronic renal failure. 4. Type 2 diabetes mellitus. 5. Hypertension. 6. Asthma. 7. Diverticulosis. 8. History of primary biliary cirrhosis? of COPD. PAST SURGICAL HISTORY: 1. Status post right eye surgery with right eye prosthesis. 2. Status post ear surgery. 3. Status post hysterectomy. 4. Status post cholecystectomy. SOCIAL HISTORY: The patient lives in [place]. Two children. She is . No IV drug abuse. She is a [employer]. Currently, no smoking or alcohol intake, sedentary lifestyle. ALLERGIES: NSAIDs. TRAUMA: None. IMMUNIZATIONS: Up to date. HOSPITALIZATIONS: Please see past medical history. FAMILY HISTORY: Noncontributory. PHYSICAL EXAMINATION: VITAL SIGNS: Blood pressure is noted at 110/59, heart rate 74, respiratory rate 16, temperature 97.3. GENERAL: Awake, alert, comfortable, not in overt distress. SKIN: Adequate turgor. HEENT: She has pinkish conjunctivae, anicteric sclerae. NECK: No neck mass, no carotid bruits, no JVD. CHEST: No JVD. Positive for right eye blindness. LUNGS: Clear breath sounds, no wheezing, no crackles. HEART: Normal sinus rhythm. No murmur, no gallops, no rubs. ABDOMEN: Globular, soft, nontender, no masses. Positive for bowel sounds. Negative for epigastric bruits. GROIN: No inguinal lymphadenopathy, no femoral artery bruits. RECTAL/GENITALIA: Deferred. EXTREMITIES: No edema, no deformities. NEUROLOGIC: Moving all extremities. No tremors, no asterixis, no ataxia. MEDICATIONS: On 04/02/2018, Lipitor 10 mg tab at bedtime, vitamin D3 5000 international units every day, ferrous sulfate 325 mg p.o. t.i.d., furosemide 20 mg daily, Humalog sliding scale, morphine 2 mg IV q.4 hours, Protonix 40 mg tab once a day, rifaximin 550 mg p.o. b.i.d., Inderal 20 mg p.o. b.i.d. ursodiol 600 mg p.o. b.i.d. LABORATORY: On 04/02/2018, white count 3.1, hemoglobin 9.2, hematocrit 29. Sodium 136, potassium 6.2, chloride 104, carbon dioxide 16, BUN 34, creatinine 1.48, glucose is 95. GFR 34 mL per minute, calcium 9.8. On 04/02/2018 1:37 p.m., potassium is 5.6. Further review of the serum creatinine shows the following. On 04/01/2018, creatinine 1.78. On 02/06/2018, creatinine noted at 0.9. ASSESSMENT AND PLAN: 1. Acute Kidney Injury/Chronic renal failure -- consider the possibility of a superimposed hemodynamically mediated renal dysfunction. She most likely has simple acute kidney injury. My plan is to give her some more albumin 25 grams IV q.6. I would suggest that if renal function remains unimproved, to hold off the diuretic. 2. Hyperkalemia, much improved. Continue low potassium diet. There is no indication for any dialytic intervention. 3. Anemia. Start Epogen - Please note she is a Jehovahs witness and may decline any blood transfusion MTDD
[2018-04-02] MEDS ORDERED: Simvastatin 20 MG TAB PO SCH (21:00)
--- NOTE | 2018-04-02 21:25 | CON ---
DATE OF CONSULTATION: 04/02/2018 HISTORY OF PRESENT ILLNESS: Patient is a 72-year-old female patient of Dr. Vazquez's who pre sented with abdominal pain. She was last seen by Dr. Vazquez in the outpatient setting on 02/28/2018, at that time being seen for weight loss. There was report of her having choledocholithiasis. She ponce d stones and stent placement and that was apparently removed today that Dr. Vazquez saw her. There is no operative report in the medical record, she was having diarrhea at that time which she has had for the last couple of years. She reports also she is having some nausea, vomiting, and has had approxi mately a 30-pound weight loss. She knows a lot of gurgling in her abdomen. She reports she has been tested for celiac and is negative. 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 ALLERGIES: CODEINE and LACTOSE. PAST MEDICAL HISTORY: Appendectomy, cataract surgery, right eye removal, cholecystectomy, hysterecto my. FAMILY HISTORY: Negative for GI or liver disease. SOCIAL HISTORY: Negative for tobacco or alcohol use. REVIEW OF SYSTEMS: Constitutional: Positive for weight loss. Negative for fever or chills. Eyes: No blurred vision or double vision. ENT: No sore throat or earache. Cardiovascular: No chest shayna n or palpitation. Pulmonary: No shortness breath, cough, or wheezing. GI: See above. : No hem aturia or dysuria. Musculoskeletal: Negative for joint pain. Positive for generalized weakness. N eurologic: No numbness or seizure activity. Skin: She has rash in the lower extremities. PHYSICAL EXAMINATION: VITAL SIGNS: Temperature 97.3, pulse 74, respiratory rate 16, blood pressure 110/59. HEENT: Shows absence of the right eye. NECK: Supple. CHEST: Clear. CARDIOVASCULAR: Regular rate and rhythm. ABDOMEN: Soft. Diffusely tender without rebound or guarding. Bowel sounds are present and normoact samanta. RECTAL: Deferred. EXTREMITIES: Show some rash in both lower extremities. LABORATORY DATA: Shows admission white blood cell count of 3.1, hemoglobin 9.2, hematocrit 29.0, MCV of 101, platelet count 62,000. PT is 15.4 with an INR of 1.2. Admission laboratory shows potassium 6.8, CO2 is 18, BUN 38, creatinine 1.78, glucose 171, AST 37. Urinalysis showed large leukocyte est erase and 21-50 wbc's. Chest x-ray showed no acute cardiopulmonary abnormality. CT of the abdomen a nd pelvis done without contrast showed cirrhosis and mild splenomegaly, decreased intra-abdominal asc ites, nonspecific stranding in the mesentery, diverticulosis without diverticulitis, mucosal thickeni ng involving the distal rectum and possible anal region, stranding of the mesentery adjacent to the p ancreas. ASSESSMENT: 1. Primary biliary cholangitis with cirrhosis. 2. Ascites. 3. Generalized abdominal pain, nausea, and vomiting -- I think the patient could be somewhat dehydra clement from her diuretics. 4. Hyperkalemia -- this may be secondary to her potassium-sparing diuretic. 5. Renal insufficiency. 6. Diabetes mellitus. 7. Abnormal CT of the mesentery and pancreas - I think this is based more on the mesenteric edema re lated to the patient's underlying cirrhosis than pancreatitis or other process. 8. Abnormal CT of the rectum -- no abnormalities were seen on a colonoscopy in January. RECOMMENDATIONS: 1. Discontinue furosemide and spironolactone. 2. Continue Xifaxan. 3. Slow gentle rehydration. 4. No endoscopy at this time since the patient recently had endoscopy in January of this year. 5. We will follow with you.
[2018-04-02] MEDS: Cyanocobalamin (Vitamin B-12) 1,000 MCG TAB PO SCH (21:41)
[2018-04-02] MEDS: Atorvastatin Calcium 10 MG TAB PO SCH (21:42)
[2018-04-02] MEDS: Latanoprost 0.005% Ophth Soln 2.5 ml Bottle EA EYE SCH (21:43)
[2018-04-03] MEDS: Albumin 25% 25 GM/100 ML BOT IVPB SCH ×5 (00:13→23:57)
[2018-04-03 06:12] LABS: #Eosinphils 0.1 thou/uL (0.0-0.7); #Lymphocytes 1.2 thou/uL (1.20-3.40); #Monocytes 0.3 thou/uL (0.11-0.59); #Neutrophils 1.2 thou/uL (1.40-6.50); %Basophils 0.1 % (0.0-1.0); %Eosinophils 2.8 % (0.0-10.0); %Lymphocytes 44.8 % (21.0-51.0); %Monocytes 9.9 % (0.0-10.0); %Neutrophils 42.5 % (42.0-75.0); Hemoglobin 8.1 g/dL (12.0-16.0); Mean Corpuscular HGB CONC 31.6 g/dL (32.0-36.0); Mean Corpuscular Hemoglobin 31.2 pg (27.0-31.0); Mean Corpuscular Volume 98.8 fL (78.0-98.0); Mean Platelet Volume 9.9 fL (7.4-10.4); Platelet Count 59 thou/uL (130-400); RBC Distribution Width 16.3 % (11.5-14.5); Red Blood Cell (RBC) Count 2.59 mill/uL (4.20-5.40); White Blood Cell (WBC) Count 2.8 thou/uL (4.8-10.8)
[2018-04-03 06:45] LABS: BUN (Urea Nitrogen) 32 mg/dL (9.8-20.1); Calc. Creatinine Clearance 35 mL/min (70-130); Calcium 9.6 mg/dL (7.8-10.44); Carbon Dioxide 18 mmol/L (23-31); Chloride 112 mmol/L (98-107); Estimated GFR-MDRD 30; Glucose 109 mg/dL (83-110); Potassium 5.1 mmol/L (3.5-5.1); Sodium 139 mmol/L (136-145)
[2018-04-03 07:08] LABS: Anion Gap 14 mmol/L (10-20)
--- NOTE | 2018-04-03 08:01 | PRG ---
DATE OF SERVICE: 04/03/2018 SUBJECTIVE: Ms. Vazquez is a 72-year-old white female, who was seen for her acute kidney injury that was secondary to a hemodynamically-mediated renal dysfunction. She has been started on salt-poor alb umin with a slight improvement with the renal function. In addition, her GI has recommended stopping her diuretics. Please note, she has a history of primary biliary cholangitis with cirrhosis. She v oices no new complaints today. She denies any chest pain or shortness of breath. Please note, on ad mission, she was noted to be hyperkalemic. This improved with Kayexalate. No other complaints today . The patient tells me that she is feeling better. OBJECTIVE: VITAL SIGNS: Blood pressure is 92/53, heart rate 67, respiratory rate 14, temperature 98.6, pulse ox 97%. GENERAL EXAM: Awake, supine, comfortable, not in distress SKIN: Adequate turgor. HEENT: She has pinkish conjunctivae, anicteric sclerae. NECK: No neck mass, no carotid bruits, no JVD. CHEST: No deformities. LUNGS: Clear breath sounds. HEART: Normal sinus rhythm. No murmur, no gallops, no rubs. ABDOMEN: Globular, soft, nontender, no masses. EXTREMITIES: No edema, no deformities. Medications of 04/03/2018 reviewed. LABORATORY DATA: Laboratories of 04/03/2018, white count 2.8, hemoglobin 8.1, hematocrit is 25.6. S odium 139, potassium 5.1, chloride 112, carbon dioxide 18, BUN 32, creatinine 1.69, glucose 109, calc ium 9.6. 04/02/2018, creatinine 1.48; 04/01/2018, creatinine 1.78. ASSESSMENT AND PLAN: 1. Acute kidney injury - fluctuating creatinine. Initial creatinine was 1.78, which improved to 1.4 8. Currently, this morning, the creatinine was noted at 1.69. Please note, her diuretics have been discontinued. We will continue current albumin infusion with this patient. If the renal function wi ll further worsen, we could consider starting her normal saline at 100 mL an hour. For the moment, a gree with current management. There is no indication for any dialytic intervention. 2. Cirrhosis. Patient has a known diagnosis of primary biliary cholangitis in the past. GI is foll owing. 3. Anemia - the patient is currently on weekly Epogen. Overall, agree with current management. There is no indication for any dialytic intervention. We wi ll recheck base met and CBC in a.m.
[2018-04-03] MEDS: Rifaximin 550 MG TAB PO SCH ×2 (08:43→21:04)
[2018-04-03] MEDS: Ursodiol 300 MG CAP PO SCH ×2 (08:44→21:05)
[2018-04-03] MEDS: Propranolol HCl 20 MG TAB PO SCH ×2 (08:44→21:04)
--- NOTE | 2018-04-03 10:46 | PQF ---
DARRELL GRAHAM LUCI MCADAMS [id number] [id number] CLINICAL DOCUMENTATION IMPROVEMENT CLARIFICATION FORM: ICD-10 Updated PLEASE DO AN ADDENDUM TO THE PROGRESS NOTE WITH ANY DOCUMENTATION UPDATES OR ADDITIONS AND CARRY THROUGH TO DC SUMMARY. THANK YOU. Date: 04/03/2018 ATTN: DR RUIZ Please exercise your independent, professional judgment in responding to the clarification form. Clinical indicators are provided on the bottom of this form for your review Please check appropriate box(s): [ ] Protein Calorie Malnutrition: [ ] Mild [ ] Moderate [ ] Other Malnutrition (please specify) __ [ ] Underweight without malnutrition [ ] Other diagnosis [X ] Unable to determine In addition, please specify: Present on Admission (POA): [ X ] Yes [ ] No [ ] Unable to determine CLINICAL INDICATORS - SIGNS / SYMPTOMS / LABS Two or More of the Followin/22 RD: PT REPORT OF LIMITED INTAKE X2 MONTHS MACHINE SPRING FORMER 16.6 % WEIGHT LOSS IN 2 MONTHS RECOMMEND NEPRO RISK FACTORS 04/02 RD: CIRRHOSIS, DECREASED APPETITE, NAUSEA H&P: PERSISTANT NAUSEA AND WT LOSS TREATMENT: Dietary consult 04/02 ORDERS Nutritional supplements--> RECOMMEND NEPRO TID 04/[address] GI CONSULT 04/02 ORDERS THANK YOU, Moderate Malnutrition (in acute illness) Energy Intake: <75% of estimated energy requirement for > 7 days Weight Loss: 1-2%/1 week; 5%/ 1 month; 7.5%/3 months Other: mild body fat loss; mild muscle mass loss; mild fluid accumulation; Severe Malnutrition (in acute illness) Energy Intake: < 50% of estimated energy requirement for > 5 days Weight Loss: >1-2%/1 week; >5%/1 month; >7.5%/3 months Other: moderate body fat loss; moderate muscle mass loss; moderate- severe fluid accumulation; measurably reduced dye maker strength Moderate Malnutrition (in chronic illness) Energy Intake: <75% of estimated energy requirement for >1 month Weight Loss: 5%/1 month; 7.5%/3 months; 10%/6 months; 20%/1 year Other: mild body fat loss; mild muscle mass loss; mild fluid accumulation Severe Malnutrition (in chronic illness) Energy Intake: <75% of estimated energy requirement for >1 month Weight Loss: >5%/1 month; >7.5%/3 months; >10%/6 months; >20%/1 year Other: severe body fat loss; severe muscle mass loss; severe fluid accumulation ; measurably reduced dye maker strength (This form is maintained as a part of the permanent medical record) 2014 [employer]. All Rights Reserved Glenna Oliveira RN, BSN, CCDS [email or web address]
--- NOTE | 2018-04-03 11:29 | PDOC.PN ---
- Subjective Encounter Start Date: 04/03/18 Encounter Start Time: 11:27 Ms. Teixeira says she feels better than she has in a long time. The nausea has improved. - Objective Resuscitation Status: Resuscitation Status DNR:Do Not Resuscitate MAR Reviewed: Yes Vital Signs & Weight: Vital Signs (12 hours) Temp Pulse Resp BP Pulse Ox 04/03/18 07:20 98.0 F 83 14 101/49 L 98 04/03/18 04:18 98.6 F 67 14 92/53 L 97 Weight Admit Weight 165 lb 3.2 oz Weight 168 lb 4 oz I&O: 04/02/18 04/03/18 04/04/18 06:59 06:59 06:59 Intake Total 1200 Output Total 1175 Balance 25 Result Diagrams: 04/03/18 05:34 04/03/18 05:34 Additional Labs: Accuchecks 04/03/18 04/02/18 04/02/18 05:20 20:15 17:05 POC Glucose 117 H 125 H 94 Phys Exam - Physical Examination HEENT: PERRLA, sclera anicteric Respiratory: no wheezing, no rales, no rhonchi, clear to auscultation bilateral Cardiovascular: RRR, no significant murmur, no rub Gastrointestinal: soft, non-tender, no distention, positive bowel sounds Musculoskeletal: no edema Dx/Plan (1) Abdominal pain, diffuse Code(s): R10.84 - GENERALIZED ABDOMINAL PAIN Status: Acute (2) Hyperkalemia Code(s): E87.5 - HYPERKALEMIA Status: Acute (3) RADHA (acute kidney injury) Code(s): N17.9 - ACUTE KIDNEY FAILURE, UNSPECIFIED Status: Acute Comment: Back to baseline. (4) DM2 (diabetes mellitus, type 2) Status: Chronic Qualifiers: Diabetes mellitus jewelry mechanic insulin use: without fci use Diabetes mellitus complication status: without complication Qualified Code(s): E11.9 - Type 2 diabetes mellitus without complications (5) HTN (hypertension) Code(s): I10 - ESSENTIAL (PRIMARY) HYPERTENSION Status: Chronic Qualifiers: Hypertension type: essential hypertension Qualified Code(s): I10 - Essential (primary) hypertension (6) Primary biliary cirrhosis Code(s): K74.3 - PRIMARY BILIARY CIRRHOSIS Status: Chronic Comment: appreciate GI input - Plan * Diffuse Abdominal Pain ( with Nausea and Vomiting)- improved- possible due to iron supplementation and dehydration. * Hyperkalemia- improved- will continue to hold Spironolactone * Acute Kidney Injury- improving- continue gentle hyrdation, and IV albumin * DM- Blood glucose is stable * HTN- blood pressure is low - continue hydration and will continue to monitor * PBC- stable continue uridisol * Now that her potassium has improved, she can be moved off Telemetry
--- NOTE | 2018-04-03 17:59 | PRG ---
DATE OF SERVICE: 04/03/2018 SUBJECTIVE: The patient is feeling much better. Abdominal pain has gone away, nausea and vomiting h as resolved. OBJECTIVE: VITAL SIGNS: Temperature 98.0, pulse 65, respiratory rate 16, blood pressure 105/53. CHEST: Clear. CARDIOVASCULAR: Regular rate and rhythm. ABDOMEN: Soft and nontender without organomegaly or masses. LABORATORY DATA: Shows a creatinine of 1.69. Hematology shows a white blood cell count 2.8, hemoglo bin 8.1, platelet count 59,000. ASSESSMENT: 1. Primary biliary cholangitis with cirrhosis. 2. Acute kidney injury - suspect secondary to diuretics. 3. Hyperkalemia - resolved. 4. Abdominal pain - resolved. 5. Nausea and vomiting - resolved. RECOMMENDATIONS: 1. Continue off furosemide and spironolactone. 2. Continue Xifaxan. 3. Stable for discharge from gastrointestinal standpoint. 4. When discharge, I would not restart the diuretics and have the patient follow up with Dr. George darnell restarting any diuretics.
[2018-04-03] MEDS: Atorvastatin Calcium 10 MG TAB PO SCH (21:04)
[2018-04-03] MEDS: Cyanocobalamin (Vitamin B-12) 1,000 MCG TAB PO SCH (21:04)
[2018-04-03] MEDS: Latanoprost 0.005% Ophth Soln 2.5 ml Bottle EA EYE SCH (21:08)
[2018-04-04 04:48] LABS: #Eosinphils 0.1 thou/uL (0.0-0.7); #Lymphocytes 1.1 thou/uL (1.20-3.40); #Monocytes 0.2 thou/uL (0.11-0.59); #Neutrophils 1.2 thou/uL (1.40-6.50); %Basophils 0.5 % (0.0-1.0); %Eosinophils 2.8 % (0.0-10.0); %Lymphocytes 43.8 % (21.0-51.0); %Monocytes 8.7 % (0.0-10.0); %Neutrophils 44.2 % (42.0-75.0); Hemoglobin 8.4 g/dL (12.0-16.0); Mean Corpuscular HGB CONC 32.1 g/dL (32.0-36.0); Mean Corpuscular Volume 99.8 fL (78.0-98.0); Mean Platelet Volume 10.2 fL (7.4-10.4); Platelet Count 58 thou/uL (130-400); RBC Distribution Width 16.3 % (11.5-14.5); Red Blood Cell (RBC) Count 2.62 mill/uL (4.20-5.40); White Blood Cell (WBC) Count 2.6 thou/uL (4.8-10.8)
[2018-04-04 05:07] LABS: Anion Gap 15 mmol/L (10-20); BUN (Urea Nitrogen) 28 mg/dL (9.8-20.1); Calc. Creatinine Clearance 42 mL/min (70-130); Carbon Dioxide 19 mmol/L (23-31); Chloride 110 mmol/L (98-107); Estimated GFR-MDRD 37; Glucose 106 mg/dL (83-110); Potassium 5.2 mmol/L (3.5-5.1); Sodium 139 mmol/L (136-145)
[2018-04-04] MEDS: Albumin 25% 25 GM/100 ML BOT IVPB SCH ×3 (05:49→17:30)
--- NOTE | 2018-04-04 08:53 | PRG ---
DATE OF SERVICE: 04/04/2018 SUBJECTIVE: Ms. Vazquez is a 72-year-old white female with known history of cirrhosis and being follo wed by the Renal Service for her acute kidney injury. She has been started on salt poor albumin. Re nal function is slowly improving. In addition, her diuretics have been discontinued by her GI doctor . The patient voices no new complaints, except for some difficulty sleeping last night. No complaints of chest pain, shortness of breath. OBJECTIVE: VITAL SIGNS: Blood pressure 107/64, heart rate 67, respiratory rate 16, temperature 98.6, pulse ox 9 5%. GENERAL: Noted to be awake, supine, comfortable, not in overt distress. SKIN: Adequate turgor. HEENT: Slightly pale conjunctivae, anicteric sclerae. NECK: No neck mass, no carotid bruits, no JVD. CHEST: No deformities. LUNGS: Clear breath sounds. No wheezing, no crackles. HEART: Normal sinus rhythm. No murmur, no gallops or rubs. ABDOMEN: Globular, soft, nontender, no masses. EXTREMITIES: No edema. MEDICATIONS: 04/04/2018 - Reviewed. LABORATORY: 04/04/2018 - White count 2.6, hemoglobin 8.4, sodium 139, potassium 5.2, chloride 110, c arbon dioxide 19, BUN 28, creatinine 1.4, glucose is 106, calcium is 10. ASSESSMENT AND PLAN: 1. Acute kidney injury - hemodynamically mediated renal dysfunction. Please note creatinine is impr liliana from 1.69 to a most recent value of 1.4. She is off diuretics. Continue salt poor albumin. No indication for any dialytic intervention. 2. Anemia. The patient has been placed on a weekly Epogen regimen. 3. Cirrhosis - followed by GI. Continue supportive care. Recheck base met and CBC in a.m.
[2018-04-04] MEDS: Rifaximin 550 MG TAB PO SCH ×2 (08:59→21:03)
[2018-04-04] MEDS: Propranolol HCl 20 MG TAB PO SCH ×2 (08:59→21:06)
[2018-04-04] MEDS: Ursodiol 300 MG CAP PO SCH ×2 (08:59→21:06)
[2018-04-04] MEDS: HumaLOG 300 UNITS/3 ML VIAL SC PRN (13:05)
--- NOTE | 2018-04-04 15:07 | PDOC.PN ---
- Subjective Encounter Start Date: 04/04/18 Encounter Start Time: 15:05 Ms. Vazquez was seen today in follow-up of Abdominal pain and hyperkalemia. She continues to feel better. She does not have any new complaints. - Objective Resuscitation Status: Resuscitation Status DNR:Do Not Resuscitate MAR Reviewed: Yes Vital Signs & Weight: Vital Signs (12 hours) Temp Pulse Resp BP Pulse Ox 04/04/18 12:38 98.6 F 60 16 107/54 L 99 04/04/18 08:00 95 04/04/18 07:40 98.6 F 67 16 107/64 95 04/04/18 04:30 98.6 F 63 18 96/50 L 96 Weight Admit Weight 165 lb 3.2 oz Weight 168 lb 4 oz I&O: 04/03/18 04/04/18 04/05/18 06:59 06:59 06:59 Intake Total 1200 1000 Output Total 1175 Balance 25 1000 Result Diagrams: 04/04/18 03:44 04/04/18 03:43 Additional Labs: Accuchecks 04/04/18 04/04/18 04/03/18 11:14 05:55 21:30 POC Glucose 222 H 103 134 H 04/03/18 16:15 POC Glucose 101 Phys Exam - Physical Examination HEENT: PERRLA Respiratory: no wheezing, no rales, no rhonchi, clear to auscultation bilateral Cardiovascular: RRR, no significant murmur, no rub Gastrointestinal: soft, non-tender, no distention, positive bowel sounds Musculoskeletal: pulses present, edema present trace pedal edema Dx/Plan (1) Hyperkalemia Code(s): E87.5 - HYPERKALEMIA Status: Acute (2) RADHA (acute kidney injury) Code(s): N17.9 - ACUTE KIDNEY FAILURE, UNSPECIFIED Status: Acute Comment: Back to baseline. (3) Abdominal pain, diffuse Code(s): R10.84 - GENERALIZED ABDOMINAL PAIN Status: Acute (4) DM2 (diabetes mellitus, type 2) Status: Chronic Qualifiers: Diabetes mellitus vermin exterminator insulin use: without vermin exterminator use Diabetes mellitus complication status: without complication Qualified Code(s): E11.9 - Type 2 diabetes mellitus without complications (5) HTN (hypertension) Code(s): I10 - ESSENTIAL (PRIMARY) HYPERTENSION Status: Chronic Qualifiers: Hypertension type: essential hypertension Qualified Code(s): I10 - Essential (primary) hypertension (6) Primary biliary cirrhosis Code(s): K74.3 - PRIMARY BILIARY CIRRHOSIS Status: Chronic Comment: appreciate GI input - Plan * Hyperkalemia- potassium is beginning to creep up again- will continue to monitor * Acute kidney injury- improving * DM- uncontrolled- will re-start Metformin, now that her renal function has improved * HTN - blood pressure is stable .
--- NOTE | 2018-04-04 16:25 | PRG ---
DATE OF SERVICE: 04/04/2018 SUBJECTIVE: The patient is feeling better. She is eating well. She is having normal bowel movement s. OBJECTIVE: VITAL SIGNS: Temperature 98.6, pulse 60, respiratory rate 16, blood pressure 107/54. CHEST: Clear. CARDIOVASCULAR: Regular rate and rhythm. ABDOMEN: Benign. LABORATORY DATA: Shows a potassium of 3.2, CO2 of 19, BUN 28, creatinine 1.40. ASSESSMENT: 1. Primary biliary cholangitis with cirrhosis -- stable. 2. Acute kidney injury -- improving. 3. Hyperkalemia -- this is a little higher than it was yesterday. 4. Abdominal pain -- resolved. 5. Nausea and vomiting -- resolved. RECOMMENDATIONS: 1. Continue off diuretics. 2. Continue Xifaxan. 3. Would consider discontinuation of albumin. 4. Have the patient follow up with Dr. Vazquez as an outpatient.
[2018-04-04] MEDS: metFORMIN 500 MG TAB PO SCH (17:29)
[2018-04-04] MEDS: Atorvastatin Calcium 10 MG TAB PO SCH (21:03)
[2018-04-04] MEDS: Cyanocobalamin (Vitamin B-12) 1,000 MCG TAB PO SCH (21:03)
[2018-04-04] MEDS: Latanoprost 0.005% Ophth Soln 2.5 ml Bottle EA EYE SCH (21:04)
[2018-04-05 05:22] LABS: #Eosinphils 0.1 thou/uL (0.0-0.7); #Lymphocytes 1.1 thou/uL (1.20-3.40); #Monocytes 0.3 thou/uL (0.11-0.59); #Neutrophils 1.1 thou/uL (1.40-6.50); %Basophils 0.1 % (0.0-1.0); %Eosinophils 4.4 % (0.0-10.0); %Lymphocytes 42.9 % (21.0-51.0); %Monocytes 10.5 % (0.0-10.0); %Neutrophils 42.2 % (42.0-75.0); Hemoglobin 8.3 g/dL (12.0-16.0); Mean Corpuscular HGB CONC 32.6 g/dL (32.0-36.0); Mean Corpuscular Hemoglobin 32.2 pg (27.0-31.0); Mean Corpuscular Volume 98.7 fL (78.0-98.0); Mean Platelet Volume 10.4 fL (7.4-10.4); Platelet Count 55 thou/uL (130-400); RBC Distribution Width 16.1 % (11.5-14.5); Red Blood Cell (RBC) Count 2.57 mill/uL (4.20-5.40); White Blood Cell (WBC) Count 2.7 thou/uL (4.8-10.8)
[2018-04-05 05:25] LABS: Anion Gap 12 mmol/L (10-20); BUN (Urea Nitrogen) 29 mg/dL (9.8-20.1); Calc. Creatinine Clearance 44 mL/min (70-130); Carbon Dioxide 21 mmol/L (23-31); Chloride 109 mmol/L (98-107); Estimated GFR-MDRD 39; Glucose 96 mg/dL (83-110); Potassium 5.2 mmol/L (3.5-5.1); Sodium 137 mmol/L (136-145)
[2018-04-05] MEDS ORDERED: Aspirin 81 mg Enteric Coated Tablet PO SCH (09:00)
--- NOTE | 2018-04-05 09:26 | PRG ---
DATE OF SERVICE: 04/05/2018 SUBJECTIVE: Ms. Vazquez is a 72-year-old white female who was seen by Renal Service for her acute kid ebony injury. She was felt to have a prerenal azotemia. Volume repletion was given with colloids. In addition, diuretics have been placed on hold. She has also cirrhosis and being followed up by her G I doctors. No other complaints today. She is feeling better. No chest pain, shortness of breath. OBJECTIVE: VITAL SIGNS: Blood pressure 111/57, heart rate 64, respiratory rate 16, temperature 98.6, pulse ox 9 8%. GENERAL: Awake, alert, comfortable, not in distress. SKIN: Adequate turgor. HEENT: She has slightly pale conjunctivae, anicteric sclerae. NECK: No neck mass, no carotid bruits, no JVD. CHEST: No deformities. LUNGS: Clear breath sounds, no wheezing, no crackles. HEART: Normal sinus rhythm. No murmur, no gallops or rubs. ABDOMEN: Globular, soft, nontender. No masses. EXTREMITIES: No edema, no deformities. MEDICATIONS: 04/05/2018 - Reviewed. LABORATORY: 04/05/2018 - White count 2.7, hemoglobin 8.3. Sodium 137, potassium 5.2, chloride 109, carbon dioxide 21, BUN 29, creatinine 1.34, calcium 10. ASSESSMENT AND PLAN: 1. Acute kidney injury - superimposed hemodynamically mediated renal dysfunction. Improving renal f unction. Creatinine is now 1.34. There is no indication for any dialytic intervention. 2. Anemia, continuing weekly Epogen with the patient. She is currently on Epogen at 7500 units subc utaneously every week. 3. Cirrhosis, supportive care. GI following. Overall, I agree with current management. Recheck base met and CBC in the a.m.
[2018-04-05] MEDS: Rifaximin 550 MG TAB PO SCH (10:01)
[2018-04-05] MEDS: metFORMIN 500 MG TAB PO SCH (10:02)
[2018-04-05] MEDS: Propranolol HCl 20 MG TAB PO SCH (10:03)
[2018-04-05] MEDS: Ursodiol 300 MG CAP PO SCH (10:03)
[2018-04-05] MEDS: HumaLOG 300 UNITS/3 ML VIAL SC PRN (12:59)
[2018-04-05 13:36] VITALS: BP 123/58; TEMP 98.5
--- NOTE | 2018-04-05 14:38 | PDOC.PN ---
- Subjective Encounter Start Date: 04/05/18 Encounter Start Time: 14:37 Ms. Vazquez was seen today in follow-up of abdominal pain. She feels improved.She denies abdominal pain. - Objective Resuscitation Status: Resuscitation Status DNR:Do Not Resuscitate MAR Reviewed: Yes Vital Signs & Weight: Vital Signs (12 hours) Temp Pulse Resp BP Pulse Ox 04/05/18 12:00 98.5 F 63 16 123/58 L 98 04/05/18 08:00 98 04/05/18 07:55 98.6 F 64 16 111/57 L 98 04/05/18 04:00 98.7 F 69 20 133/77 96 Weight Admit Weight 165 lb 3.2 oz Weight 168 lb 4 oz I&O: 04/04/18 04/05/18 04/06/18 06:59 06:59 06:59 Intake Total 1000 1020 Balance 1000 1020 Result Diagrams: 04/05/18 03:57 04/05/18 03:57 Additional Labs: Accuchecks 04/05/18 04/05/18 04/04/18 11:37 04:57 19:45 POC Glucose 162 H 111 H 200 H 04/04/18 16:48 POC Glucose 147 H Phys Exam - Physical Examination HEENT: PERRLA Respiratory: no wheezing, no rales, no rhonchi, clear to auscultation bilateral Cardiovascular: RRR, no significant murmur, no rub Gastrointestinal: soft, non-tender, no distention, positive bowel sounds Musculoskeletal: no edema, pulses present Dx/Plan (1) Hyperkalemia Code(s): E87.5 - HYPERKALEMIA Status: Acute (2) RADHA (acute kidney injury) Code(s): N17.9 - ACUTE KIDNEY FAILURE, UNSPECIFIED Status: Acute Comment: Back to baseline. (3) Abdominal pain, diffuse Code(s): R10.84 - GENERALIZED ABDOMINAL PAIN Status: Acute (4) DM2 (diabetes mellitus, type 2) Status: Chronic Qualifiers: Diabetes mellitus ad terminal makeup operator insulin use: without ad terminal makeup operator use Diabetes mellitus complication status: without complication Qualified Code(s): E11.9 - Type 2 diabetes mellitus without complications (5) HTN (hypertension) Code(s): I10 - ESSENTIAL (PRIMARY) HYPERTENSION Status: Chronic Qualifiers: Hypertension type: essential hypertension Qualified Code(s): I10 - Essential (primary) hypertension (6) Primary biliary cirrhosis Code(s): K74.3 - PRIMARY BILIARY CIRRHOSIS Status: Chronic Comment: appreciate GI input - Plan * Hyperkalemia- improved * Abdominal pain -resolved * Dehydration- also improved * She is stable for discharge home today.
--- NOTE | 2018-04-06 01:10 | DIS ---
DATE OF ADMISSION: 04/01/2018 DATE OF DISCHARGE: 04/05/2018 PRIMARY CARE PHYSICIAN: Dr. Castro Candelaria. DISCHARGE DISPOSITION: Home. DISCHARGE DIAGNOSES: 1. Hyperkalemia. 2. Acute kidney injury due to dehydration. 3. Abdominal pain. DISCHARGE DIAGNOSES: 1. Primary biliary cirrhosis. 2. Diabetes mellitus. 3. Hypertension. PROCEDURES DONE DURING ADMISSION: The patient had a CT scan of the abdomen and pelvis in which there was some evidence of some cirrhosis, decrease intra-abdominal ascites. There was some stranding of the mesentery adjacent to the pancreas. CODE STATUS: DNR. ALLERGIES: NSAIDs. HOSPITAL COURSE: Ms. Vazquez is a pleasant 72-year-old female that presented to the emergency room co mplaining of abdominal pain. When she was evaluated in the ER, she was found to be hyperkalemic with a potassium of 6.8. She also had a CT scan done, which showed some abnormalities surrounding the pa ncreas in the rectal area. Given her history of primary biliary cirrhosis, GI consult was obtained w ith regards to the abnormalities in the CT. These were felt to be chronic changes, as the patient ponce d had a colonoscopy within the last several months. Also, the hyperkalemia was treated. She was sommer en off Aldactone and the abdominal pain was thought to be due to dehydration, after being rehydrated her symptoms improved. Also, she was on iron therapy, which could be exacerbating some of her sympto ms, especially the nausea. After discontinuing these medications, she did well over the course of e next few days and is subsequently were able to discharge her home. We are holding Aldactone as wel l as Lasix until she is followed up with Dr. Dill and also will hold the iron supplementation as wel l.
--- NOTE | 2018-04-07 13:25 | EKG ---
Test Reason : Blood Pressure : / mmHG Vent. Rate : 072 BPM Atrial Rate : 072 BPM P-R Int : 198 ms QRS Dur : 078 ms QT Int : 390 ms P-R-T Axes : 063 -38 055 degrees QTc Int : 427 ms Normal sinus rhythm with sinus arrhythmia Left axis deviation Abnormal ECG Confirmed by TERESA OBRIEN ([id number]), subeditor DARWIN LAWRENCE ([id number]) on 04/07/2018 1:25:10 PM Referred By: Confirmed By:TERESA OBRIEN
== END 2018-04-05 15:53 | disposition home or self-care (01) | DRG 683 ==
LOC: ERS 17:24 → 2NO 23:20 → T4-A 04-03 12:55
PROVIDERS: ADMIT Internal Medicine; ATTEND Internal Medicine
DX: N17.9 Acute kidney failure, unspecified (principal); C22.8 Malignant neoplasm of liver, primary, unspecified as to type; N39.0 Urinary tract infection, site not specified; R18.8 Other ascites; Z66 Do not resuscitate; E87.5 Hyperkalemia; K74.3 Primary biliary cirrhosis; E86.0 Dehydration; Z91.81 History of falling; L89.151 Pressure ulcer of sacral region, stage 1; K74.60 Unspecified cirrhosis of liver; J45.909 Unspecified asthma, uncomplicated; K57.90 Diverticulosis of intestine, part unspecified, without perforation or abscess without bleeding; H54.61 Unqualified visual loss, right eye, normal vision left eye; D63.1 Anemia in chronic kidney disease; K52.9 Noninfective gastroenteritis and colitis, unspecified; I12.9 Hypertensive chronic kidney disease with stage 1 through stage 4 chronic kidney disease, or unspecified chronic kidney disease; E11.22 Type 2 diabetes mellitus with diabetic chronic kidney disease; N18.9 Chronic kidney disease, unspecified
CPT/HCPCS: 36415; 36416; 71045; 74176; 80048; 80053; 81003; 81015; 82140; 82553; 83605; 83690; 84443; 84484; 85025; 85610; 85730; 87086; 93005; 96361; 96365; 96367; 96375; J1815; J1956; J2550; P9047; Q4081

== ENCOUNTER 2018-05-04 06:42 | Emergency (ER) | payer MEDICARE, MEDICAID ==
[2018-05-04 10:18] LABS: #Eosinphils 0.3 thou/uL (0.0-0.7); #Lymphocytes 1.4 thou/uL (1.20-3.40); #Monocytes 0.3 thou/uL (0.11-0.59); #Neutrophils 2.9 thou/uL (1.40-6.50); %Basophils 0.4 % (0.0-1.0); %Eosinophils 6.7 % (0.0-10.0); %Lymphocytes 28.5 % (21.0-51.0); %Monocytes 6.7 % (0.0-10.0); %Neutrophils 57.8 % (42.0-75.0); Hemoglobin 10.3 g/dL (12.0-16.0); Mean Corpuscular HGB CONC 32.1 g/dL (32.0-36.0); Mean Corpuscular Hemoglobin 31.5 pg (27.0-31.0); Mean Corpuscular Volume 98.3 fL (78.0-98.0); Mean Platelet Volume 9.5 fL (7.4-10.4); Platelet Count 81 thou/uL (130-400); RBC Distribution Width 15.1 % (11.5-14.5); Red Blood Cell (RBC) Count 3.26 mill/uL (4.20-5.40)
[2018-05-04 10:36] LABS: ALT (SGPT) 35 U/L (8-55); AST (SGOT) 40 U/L (5-34); Albumin 3.6 g/dL (3.4-4.8); Alkaline Phosphatase 120 U/L (40-150); Anion Gap 15 mmol/L (10-20); BUN (Urea Nitrogen) 23 mg/dL (9.8-20.1); Bilirubin, Total 0.6 mg/dL (0.2-1.2); Calc. Creatinine Clearance 0 mL/min (70-130); Calcium 10.2 mg/dL (7.8-10.44); Carbon Dioxide 21 mmol/L (23-31); Chloride 109 mmol/L (98-107); Estimated GFR-MDRD 45; Globulin 3.9 g/dL (2.4-3.5); Glucose 129 mg/dL (83-110); Potassium 5.1 mmol/L (3.5-5.1); Protein, Total 7.5 g/dL (6.0-8.3); Sodium 140 mmol/L (136-145)
--- NOTE | 2018-05-04 11:06 | RAD ---
PORTABLE CHEST: HISTORY: Difficulty breathing. COMPARISON: 04/01/2018 study. FINDINGS: Heart size appears borderline with atherosclerotic change of the aorta. There has been development o f moderately large right pleural effusion with right lower lobe atelectasis or infiltrate. Pulmonary vessels do not appear engorged, and there is no interstitial edema change. IMPRESSION: Development of moderate right-sided effusion with right lower lobe atelectasis versus pneumonia. POS: KELLI
[2018-05-04 12:05] LABS: Bilirubin Negative (Negative); Blood, Urine Negative (Negative); Clarity CLEAR (Clear); Glucose, Urine (Dipstick) Negative (Negative); Leukocyte Moderate (Negative); Nitrite Negative (Negative); Protein, Urine (Dipstick) Negative (Neg-Trace); Specific Gravity, Urine 1.018 (1.002-1.036); Urobilinogen 0.2 mg/dL (0.2-1.0)
[2018-05-04 12:08] LABS: Bacteria/HPF None Seen HPF (None Seen); Hyaline Casts/LPF 4-6 HYALINE CAST LPF (0-3 Hyaline); Pathc Cast-AUWi Flag 1.45 (0-2.49); RBC/HPF 0-3 HPF (0-3); WBC/HPF 21-50 HPF (0-3)
== END 2018-05-04 14:59 | disposition home or self-care (01) ==
LOC: ERS 06:42
DX: J44.9 Chronic obstructive pulmonary disease, unspecified (principal); R60.9 Edema, unspecified; K74.60 Unspecified cirrhosis of liver; I10 Essential (primary) hypertension; E11.9 Type 2 diabetes mellitus without complications; Z79.82 Long term (current) use of aspirin; Z79.899 Other long term (current) drug therapy; Z79.84 Long term (current) use of oral hypoglycemic drugs
CPT/HCPCS: 71045; 80053; 81003; 81015; 82140; 85025; 94640; J7620

== ENCOUNTER 2018-05-05 13:45 | Inpatient (IN) | payer MEDICARE, MEDICAID ==
[2018-05-05 15:00] LABS: #Eosinphils 0.3 thou/uL (0.0-0.7); #Lymphocytes 1.6 thou/uL (1.20-3.40); #Monocytes 0.4 thou/uL (0.11-0.59); #Neutrophils 2.6 thou/uL (1.40-6.50); %Basophils 0.6 % (0.0-1.0); %Eosinophils 5.7 % (0.0-10.0); %Lymphocytes 32.1 % (21.0-51.0); %Monocytes 7.8 % (0.0-10.0); %Neutrophils 53.8 % (42.0-75.0); Hemoglobin 9.4 g/dL (12.0-16.0); Mean Corpuscular HGB CONC 32.1 g/dL (32.0-36.0); Mean Corpuscular Hemoglobin 32.1 pg (27.0-31.0); Mean Platelet Volume 9.6 fL (7.4-10.4); Platelet Count 87 thou/uL (130-400); RBC Distribution Width 15.1 % (11.5-14.5); Red Blood Cell (RBC) Count 2.91 mill/uL (4.20-5.40); White Blood Cell (WBC) Count 4.8 thou/uL (4.8-10.8)
[2018-05-05 15:19] LABS: ALT (SGPT) 34 U/L (8-55); AST (SGOT) 40 U/L (5-34); Albumin 3.5 g/dL (3.4-4.8); Alkaline Phosphatase 136 U/L (40-150); Anion Gap 15 mmol/L (10-20); BUN (Urea Nitrogen) 22 mg/dL (9.8-20.1); Bilirubin, Total 0.4 mg/dL (0.2-1.2); CK (CPK) 41 U/L (29-168); Calc. Creatinine Clearance 0 mL/min (70-130); Calcium 9.8 mg/dL (7.8-10.44); Carbon Dioxide 19 mmol/L (23-31); Chloride 110 mmol/L (98-107); Estimated GFR-MDRD 46; Globulin 3.8 g/dL (2.4-3.5); Glucose 146 mg/dL (83-110); Potassium 5.3 mmol/L (3.5-5.1); Protein, Total 7.3 g/dL (6.0-8.3); Sodium 139 mmol/L (136-145)
[2018-05-05 15:23] LABS: CKMB 1.1 ng/mL (0-6.6); Troponin I Less than 0.010 ng/mL (< 0.028)
--- NOTE | 2018-05-05 17:29 | RAD ---
CHEST ONE VIEW: 05/05/18 HISTORY: Difficulty breathing. FINDINGS: Worsening pleural and parenchymal changes in the right hemithorax. Stable aeration of the left lung. Overall, there is hyperinflation. Unchanged cardiac silhouette. No pneumothorax. IMPRESSION: Worsening pleural and parenchymal changes in the right hemithorax. POS: H
[2018-05-05] MEDS ORDERED: HYDROcodone/Acetaminophen 5/325 mg Tablet PO PRN ×2 (18:39)
[2018-05-05] MEDS ORDERED: Ondansetron ODT 4 MG TAB SL PRN (18:39)
[2018-05-05] MEDS ORDERED: Ondansetron PF 4 MG/2 ML Vial IVP PRN ×2 (18:39→21:02)
[2018-05-05] MEDS ORDERED: Acetaminophen 325 MG TAB PO PRN (18:39)
[2018-05-05 20:42] VITALS: BMI 29.0
[2018-05-05] MEDS ORDERED: Ondansetron ODT 4 MG TAB PO PRN (21:02)
[2018-05-05] MEDS ORDERED: Calcium Carbonate 500 MG ChewTAB PO PRN (21:02)
[2018-05-05] MEDS ORDERED: Senokot S 8.6-50 MG TAB PO PRN (21:02)
[2018-05-05] MEDS ORDERED: Furosemide 20 MG/2 ML VIAL SLOW IVP SCH (21:15)
[2018-05-05] MEDS ORDERED: hydrALAZINE 20 MG/ML VIAL SLOW IVP PRN (21:19)
[2018-05-05] MEDS ORDERED: Labetalol HCl 100 MG/20 ML VIAL SLOW IVP PRN (21:19)
--- NOTE | 2018-05-05 21:51 | HP ---
DATE OF ADMISSION: 05/05/2018 PRIMARY CARE PHYSICIAN: Dr. Castro Candelaria. PRIMARY HUMAN RESOURCES HR REPRESENTATIVE: Dr. Kimmy Vazquez. CHIEF COMPLAINT: Shortness of breath. HISTORY OF PRESENT ILLNESS: The patient is a 72-year-old female with primary biliary cirrhosis, pres ented to the emergency room with shortness of breath. Her shortness of breath has been worsening ove r the last week. She was evaluated in the emergency room earlier today and was subsequently discharg ed. However, due to worsening shortness of breath, she presented to the emergency room. The shortne ss of breath is worse on minimal exertion. She has some dry cough without any wheezing. No chest pa in, shortness of breath, palpitations reported. She also noticed some abdominal distention without a ny nausea, vomiting or abdominal pain. She is compliant with fluid and salt restriction. She also i s taking her medications as scheduled. However, she is unable to recall any of her home medications. She denies any orthopnea, paroxysmal nocturnal dyspnea. No fever or chills reported. In the emergency room, her initial vital signs showed temperature 98.1, respirations of 16, pulse rat e of 79 with a blood pressure 134/75 with O2 saturation 96% on room air. Her chest x-ray showed righ t-sided pleural effusion along with parenchymal changes. Her EKG showed sinus rhythm without signifi cant ST-T wave changes. PAST MEDICAL HISTORY: 1. Primary biliary cirrhosis. 2. Right eye blindness. 3. Hypertension. 4. Diabetes mellitus, type 2. 5. Asthma. 6. Diverticulosis. 7. Chronic respiratory failure, on home oxygen at night. 8. History of hepatic encephalopathy. PAST SURGICAL HISTORY: 1. Cholecystectomy. 2. Hysterectomy. 3. Right eye prosthesis. 4. Ear surgery. ALLERGIES: The patient is allergic to NSAIDs. CURRENT HOME MEDICATIONS: The patient is unable to recall any of her home medications, family to get the accurate list of medications. SOCIAL HISTORY: The patient currently lives at home with her family. She denies any alcohol, tobacc o or drug use. She is FULL CODE and makes her own decision with the help of her family. She is a [employer]. FAMILY HISTORY: Negative for premature coronary artery disease. REVIEW OF SYSTEMS: The following complete review of systems was negative, unless otherwise mentioned in the HPI or below: Constitutional: Weight loss or gain, ability to conduct usual activities. Sk in: Rash, itching. Eyes: Double vision, pain. ENT/Mouth: Nose bleeding, neck stiffness, pain, te nderness. Cardiovascular: Palpitations, dyspnea on exertion, orthopnea. Respiratory: Shortness of breath, wheezing, cough, hemoptysis, fever or night sweats. Gastrointestinal: Poor appetite, abdom inal pain, heartburn, nausea, vomiting, constipation, or diarrhea. Genitourinary: Urgency, frequenc y, dysuria, nocturia. Musculoskeletal: Pain, swelling. Neurologic/Psychiatric: Anxiety, depressio n. Allergy/Immunologic: Skin rash, bleeding tendency. PHYSICAL EXAMINATION: VITAL SIGNS: As discussed above. GENERAL: A 72-year-old female, in mild respiratory distress. Able to complete short phrases. HEENT: Head atraumatic, normocephalic. Sclerae are anicteric. Moist mucous membrane. No oral lesi on. NECK: Supple, no JVD appreciated. No carotid bruit. LUNGS: Showed diminished air entry at right base with some rhonchi and rales in the same area. Left side without significant rhonchi or rales. No significant wheezing appreciated. ABDOMEN: Soft without any tenderness, rebound, guarding. No significant fluid thrill appreciated. EXTREMITIES: 1-2+ edema in bilateral lower extremities. SKIN: Warm and dry. LYMPH NODES: No palpable lymph nodes in the neck. PERIPHERAL VASCULAR: Radial pulses palpable bilaterally. MUSCULOSKELETAL: No joint swelling or tenderness. LABORATORY AND X-RAY FINDINGS: CBC showed WBC 4.8, hemoglobin 9.4, hematocrit 29.1, platelet 87. Ch emistries showed sodium 139, potassium 5.3, chloride 110, bicarbonate 19, BUN 22, creatinine 1.16, bl ood glucose 146. Troponin negative. BNP 96.8. PT/INR last month was 15.4/1.2. Chest x-ray by my review as discussed above. EKG by my review as discussed above. IMPRESSION: 1. Acute respiratory distress secondary to right-sided pleural effusion. 2. Primary biliary cirrhosis with ascites. 3. Chronic kidney disease, stage 3 with hyperkalemia. Please note that the patient was recently adm itted for acute kidney injury and hyperkalemia. 4. Diabetes mellitus, type 2. 5. History of hepatic encephalopathy. 6. Glaucoma. 7. Hypertension. 8. Diverticulosis. 9. Chronic respiratory failure, on home oxygen, especially at night. PLAN: The patient will be monitored on the medical floor. We will start her on gentle diuretics. W e will consult Pulmonary as well as Gastroenterology. Continue fluid restriction. We will confirm h ome medications and start accordingly. Repeat labs in a.m. Plan of care was discussed with the melania ent and the family at the bedside. They stated understanding.
[2018-05-06 05:14] LABS: #Eosinphils 0.2 thou/uL (0.0-0.7); #Lymphocytes 1.4 thou/uL (1.20-3.40); #Monocytes 0.3 thou/uL (0.11-0.59); #Neutrophils 2.2 thou/uL (1.40-6.50); %Eosinophils 5.3 % (0.0-10.0); %Lymphocytes 33.7 % (21.0-51.0); %Monocytes 7.3 % (0.0-10.0); %Neutrophils 52.6 % (42.0-75.0); Mean Corpuscular HGB CONC 33.7 g/dL (32.0-36.0); Mean Corpuscular Hemoglobin 33.1 pg (27.0-31.0); Mean Corpuscular Volume 98.1 fL (78.0-98.0); Mean Platelet Volume 10.1 fL (7.4-10.4); Platelet Count 70 thou/uL (130-400); RBC Distribution Width 14.9 % (11.5-14.5); Red Blood Cell (RBC) Count 2.72 mill/uL (4.20-5.40); White Blood Cell (WBC) Count 4.1 thou/uL (4.8-10.8)
[2018-05-06 05:16] LABS: INR-International Normal Ratio 1.3; Prothrombin Time 15.9 SEC (12.0-14.7)
[2018-05-06 05:33] LABS: Anion Gap 11 mmol/L (10-20); BUN (Urea Nitrogen) 21 mg/dL (9.8-20.1); Calc. Creatinine Clearance 61 mL/min (70-130); Calcium 9.3 mg/dL (7.8-10.44); Carbon Dioxide 21 mmol/L (23-31); Chloride 109 mmol/L (98-107); Estimated GFR-MDRD 54; Glucose 125 mg/dL (83-110); Magnesium 1.4 mg/dL (1.6-2.6); Potassium 4.9 mmol/L (3.5-5.1); Sodium 136 mmol/L (136-145)
[2018-05-06] MEDS: Furosemide 20 MG/2 ML VIAL SLOW IVP SCH ×2 (05:47→14:39)
[2018-05-06] MEDS ORDERED: Magnesium Sulfate 4 GM in Sodium Chloride 0.9% 250 ML 250 ML IVPB SCH (06:45)
[2018-05-06] MEDS: Propranolol HCl 20 MG TAB PO SCH ×2 (07:59→19:39)
[2018-05-06] MEDS ORDERED: Famotidine 20 MG TAB PO SCH (09:00)
--- NOTE | 2018-05-06 17:00 | PDOC.PN ---
- Subjective Encounter Start Date: 05/06/18 Encounter Start Time: 09:40 Patient seen and examined for SOB/New Pleural effusion. SOB slightly better No new complaints. No overnight events - Objective Resuscitation Status: Resuscitation Status FULL:Full Resuscitation MAR Reviewed: Yes Vital Signs & Weight: Vital Signs (12 hours) Temp Pulse Resp BP BP Pulse Ox 05/06/18 16:23 98.0 F 70 16 102/58 L 95 05/06/18 11:00 97.5 F L 63 16 122/56 L 95 05/06/18 07:49 98.1 F 84 16 127/75 94 L 05/06/18 06:53 96 05/06/18 05:00 97.9 F 78 20 125/70 96 Weight Weight 174 lb 6.4 oz Result Diagrams: 05/06/18 03:27 05/06/18 03:27 Phys Exam - Physical Examination Constitutional: NAD Respiratory: no wheezing, no rhonchi Dec AE at Rt base with some rales Cardiovascular: RRR, no rub Gastrointestinal: soft, non-tender, positive bowel sounds Neurological: moves all 4 limbs Dx/Plan - Plan DVT proph w/SCDs IMPRESSION: 1. Acute respiratory distress secondary to right-sided pleural effusion. 2. Primary biliary cirrhosis with ascites. 3. Chronic kidney disease, stage 3 with hyperkalemia. 4. Diabetes mellitus, type 2. 5. History of hepatic encephalopathy. 6. Glaucoma. 7. Hypertension. 8. Diverticulosis. 9. Chronic respiratory failure, on home oxygen, especially at night. PLAN: Cont diuretics Consult GI in AM Resume ARB in AM Resume selected home meds Cont fluid restriction Replace Magnessium Laboratory Tests 05/06/18 03:27 Magnesium 1.4 L Review of Systems - Review of Systems Respiratory: Shortness of Breath, SOB with Excertion. negative: Cough, Dry, Hemoptysis, Pleuritic Pain, Sputum, Wheezing Cardiovascular: negative: chest pain, palpitations, orthopnea, paroxysmal nocturnal dyspnea, edema, light headedness, other Gastrointestinal: negative: Nausea, Vomiting, Abdominal Pain, Diarrhea, Constipation, Melena, Hematochezia, Other - Medications/Allergies Allergies/Adverse Reactions: Allergies Allergy/AdvReac Type Severity Reaction Status Date / Time NSAIDS (Non-Steroidal Allergy Verified 12/02/17 13:47 Anti-Inflamma BLOOD PRODUCTS (Jehovah's Allergy Uncoded 06/06/15 17:36 Witness) Medications: Current Medications Calcium Carbonate (Tums) 1,000 mg PO Q4H PRN PRN Reason: Heartburn or Indigestion Cyanocobalamin (Vitamin B-12) 1,000 mcg PO [facility] Furosemide (Lasix) 20 mg SLOW IVP 0600,1400 [facility] Last Admin: 05/06/18 14:39 Dose: 20 mg Hydralazine HCl (Apresoline) 10 mg SLOW IVP Q4H PRN PRN Reason: SBP Greater Than 180 Labetalol HCl (Normodyne) 10 mg SLOW IVP Q4H PRN PRN Reason: Systolic BP > 180 Latanoprost (Xalatan 0.005% Ophth Soln) 1 drop EA EYE DAILY [facility] Ondansetron HCl (Zofran Odt) 4 mg PO Q6H PRN PRN Reason: Nausea/Vomiting Ondansetron HCl (Zofran) 4 mg IVP Q6H PRN PRN Reason: Nausea/Vomiting Pantoprazole Sodium (Protonix) 40 mg PO DAILY [facility] Last Admin: 05/06/18 07:59 Dose: 40 mg Propranolol HCl (Inderal) 20 mg PO BID [facility] Last Admin: 05/06/18 07:59 Dose: 20 mg Rifaximin (Xifaxan) 550 mg PO BID [facility] Senna/Docusate Sodium (Senokot S) 2 tab PO BID PRN PRN Reason: Constipation Sodium Chloride (Flush - Normal Saline) 10 ml IVF PRN PRN PRN Reason: Saline Flush Ursodiol (Actigal) 600 mg PO BID [facility]
[2018-05-06] MEDS: Rifaximin 550 MG TAB PO SCH (19:39)
[2018-05-06] MEDS: Ursodiol 300 MG CAP PO SCH (19:39)
[2018-05-06] MEDS ORDERED: Cyanocobalamin (Vitamin B-12) 1,000 MCG TAB PO SCH (21:00)
--- NOTE | 2018-05-07 02:20 | CON ---
DATE OF CONSULTATION: 05/06/2018 HISTORY OF PRESENT ILLNESS: Mr. Vazquez is a pleasant female who was admitted for pleural effusion. She was seen in the emergency department the day prior to admission and told that she had a COPD exacerbation and was treated for shortness of breath with several nebulizer treatments. She came back the next day and was admitted for a pleural effusion. She was recently hospitalized and discharged at the end of March. She has been on Aldactone and furosemide prior to her discharge. She was admitted with a diagnosis of volume contraction and hyperkalemia. She was discharged to home without diuretics. She has had progressive decline in her function and then started having shortness of breath. She subsequently was admitted for further workup of this. She was told to follow up with her food quality technician when she was discharged, but it does not appear that the appointment was made in a prompt fashion as she says brought her appointment with Dr. Vazquez who is coming up next week. She was given Lasix when she came in and says she feels better. She is in absolutely no distress. Intake and output is not recorded. 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 She has history of varices. She also has a history of encephalopathy. Last admission, she was a do not resuscitate patient. She has a history of colon polyps, a lipid disorder, diabetes, glaucoma, hypertension, and retinal detachment. PAST SURGICAL HISTORY: She has had an appendectomy, cataract surgery, enucleation of her right eye, cholecystectomy, and hysterectomy. ALLERGIES: She reports CODEINE allergy. SOCIAL HISTORY: She is a nonsmoker, nondrinker. FAMILY HISTORY: Not obtained. REVIEW OF SYSTEMS: Ten point review of systems completed, otherwise negative. Main complaint has been abdominal swelling, shortness of breath that has been progressive over the last month. PHYSICAL EXAMINATION: GENERAL: She is in no distress. VITALS: She is afebrile, heart rate 70, respiratory rate 16, oximetry is 95 on room air, blood pressure 102/58. HEENT: Her pupil reacts on the left. Her extraocular movement appears to be intact on the left. Her sclerae is anicteric. NECK: Supple. LUNGS: Remarkable for decreased breath sounds at her right base. HEART: Regular rhythm. S1 and S2 are normal. ABDOMEN: Soft and nontender. Her abdominal exam is suggestive of ascites. EXTREMITIES: No clubbing, cyanosis, or edema. LABORATORY DATA: Sodium 136, potassium 4.9, chloride 109, bicarbonate 21, BUN 21, creatinine 1.01. White count 4.1, hemoglobin 9.0, platelets 70,000. 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 Treatment of this is gentle diuresis or tapping her ascites. I do not have any clinical suspicion for malignant process or an infected pleural space. She did not have this effusion a month ago. Gastroenterology needs to be notified of her admission since Dr. Vazquez follows her on a regular basis. I will follow her clinically. Her intake and output has to be monitored and weights have to be kept accurately everyday. This is a 50 minute consult, with greater than 50% of time spent on unit in coordination of care. LOC
[2018-05-07] MEDS: Furosemide 20 MG/2 ML VIAL SLOW IVP SCH ×2 (05:52→14:35)
[2018-05-07 06:26] LABS: #Eosinphils 0.2 thou/uL (0.0-0.7); #Lymphocytes 1.4 thou/uL (1.20-3.40); #Monocytes 0.4 thou/uL (0.11-0.59); #Neutrophils 2.1 thou/uL (1.40-6.50); %Basophils 0.5 % (0.0-1.0); %Eosinophils 5.9 % (0.0-10.0); %Monocytes 8.7 % (0.0-10.0); Mean Corpuscular HGB CONC 32.2 g/dL (32.0-36.0); Mean Corpuscular Hemoglobin 31.7 pg (27.0-31.0); Mean Corpuscular Volume 98.5 fL (78.0-98.0); Platelet Count 75 thou/uL (130-400); RBC Distribution Width 15.1 % (11.5-14.5); Red Blood Cell (RBC) Count 2.82 mill/uL (4.20-5.40); White Blood Cell (WBC) Count 4.1 thou/uL (4.8-10.8)
[2018-05-07 06:27] LABS: Anion Gap 11 mmol/L (10-20); BUN (Urea Nitrogen) 22 mg/dL (9.8-20.1); Calc. Creatinine Clearance 55 mL/min (70-130); Calcium 9.4 mg/dL (7.8-10.44); Carbon Dioxide 23 mmol/L (23-31); Chloride 108 mmol/L (98-107); Estimated GFR-MDRD 48; Glucose 134 mg/dL (83-110); Potassium 4.8 mmol/L (3.5-5.1); Sodium 137 mmol/L (136-145)
[2018-05-07 07:15] VITALS: BP 132/58; TEMP 98.9
[2018-05-07] MEDS ORDERED: Latanoprost 0.005% Ophth Soln 2.5 ml Bottle EA EYE SCH (09:00)
[2018-05-07] MEDS: Ursodiol 300 MG CAP PO SCH (09:11)
[2018-05-07] MEDS: Propranolol HCl 20 MG TAB PO SCH (09:11)
[2018-05-07] MEDS: Rifaximin 550 MG TAB PO SCH (09:11)
--- NOTE | 2018-05-07 10:56 | PRG ---
DATE OF SERVICE: 05/07/2018 SUBJECTIVE: She says she feels 100% better. She can lay down flat in bed. She had a hard time slee ping before she came to the hospital. OBJECTIVE: VITAL SIGNS: She is afebrile, heart rate is 69, respiratory rate is 21, oximetry is 93 on room air, blood pressure 132/58. LUNGS: Still remarkable for decreased breath sounds at the right base. HEART: Regular rhythm. ABDOMEN: Soft. Her weights are accurate. She went from 174.6 pounds to 173 pounds. There is no output recorded. IMPRESSION: Volume overload, secondary to discontinuation of diuretics with underlying cirrhosis. PLAN: Reinstitute treatment with diuretics as prescribed by Gastroenterology. She will probably be a candidate for discharge in the morning, maybe even later today.
--- NOTE | 2018-05-07 15:35 | CON ---
DATE OF CONSULTATION: 05/07/2018 HISTORY OF PRESENT ILLNESS: The patient is a 72-year-old female who presented to the [facility] with worsening shortness of breath. She has been hospitalized several times for various problems related to her cirrhosis. She was hospitalized in March with a diagnosis of hyperkalemia and acut e kidney injury secondary to dehydration. She was discharged without diuretics. She denied any coug h, any fever or chills. She denied any change in her bowel movements. PAST MEDICAL HISTORY: Includes primary biliary cirrhosis managed by Dr. Vazquez, right eye blindness, hypertension, diabetes mellitus, hepatic encephalopathy. PAST SURGICAL HISTORY: Includes cholecystectomy, hysterectomy, right eye removal. ALLERGIES: No known allergies. HOME MEDICATIONS: Include metformin 1000 mg p.o. b.i.d., ursodiol 600 mg p.o. b.i.d., Zocor 20 mg p. o. at bedtime, Xifaxan 550 mg p.o. b.i.d., propranolol 20 mg p.o. b.i.d., omeprazole 40 mg p.o. daily , Benicar 20 mg p.o. daily, eyedrops 1 daily, vitamin B12 1 p.o. daily, aspirin 81 mg p.o. consuelo y. ALLERGIES: Include NSAIDs and blood products. FAMILY HISTORY: Negative. SOCIAL HISTORY: She lives independently, does not smoke or drink. She has a grandson who takes care of her. REVIEW OF SYSTEMS: CONSTITUTIONAL: No fever or chills. No weight loss. EYES: No blurred vision or double vision. ENT: No sore throat or earaches. CARDIOVASCULAR: No chest pain or palpitation. PULMONARY: No shortness of breath, cough or wheezing. GASTROINTESTINAL: See above. GENITOURINARY: No hematuria or dysuria. MUSCULOSKELETAL: No joint pain or muscle weakness. SKIN: No rashes. NEUROLOGIC: No numbness or seizure activity. PHYSICAL EXAMINATION: VITAL SIGNS: Temperature 98.9, pulse 69, respiratory rate 21, blood pressure 132/58. HEENT: Unremarkable. NECK: Supple. CHEST: Clear. CARDIOVASCULAR: Regular rate and rhythm. ABDOMEN: Soft, nontender, without organomegaly or masses. She has a small appreciable fluid wave. EXTREMITIES: Slight edema. LABORATORY DATA: On admission showed a white blood cell count of 4.8, hemoglobin 9.4, hematocrit 29. 1, MCV of 100, platelet count 87,000. PT is 59 with an INR of 1.3. Chemistries show sodium 139, pot assium 5.3, CO2 of 19, BUN 22, creatinine 1.16, glucose 146, AST of 40. ASSESSMENT: 1. Hepatic hydrothorax. 2. Primary biliary cholangitis with cirrhosis. 3. Ascites. 4. Chronic renal insufficiency. 5. Diabetes mellitus. RECOMMENDATIONS: 1. At this point, I would resume the patient's furosemide at 20-40 mg daily. 2. Would hold Aldactone. 3. Patient has an appointment with Dr. Vazquez in 2 days. I would recommend her to keep that followup . 4. Stable for discharge from Gastrointestinal standpoint.
--- NOTE | 2018-05-07 16:25 | DIS ---
DATE OF DISCHARGE: 05/07/2018 DISCHARGE DISPOSITION: Home. FOLLOWUP: 1. Follow up with primary care physician, Dr. Castro Candelaria in 1 week. 2. Follow up with Dr. Kimmy Vazquez later this week as scheduled. 3. Follow up with Dr. Michael in 3-4 weeks. Basic metabolic profile after 1 week is recommended. Primary care physician is advised to follow. Patient was seen and examined on the day of discharge, denies any new complaints, no chest pain, shor tness of breath, palpitations. INPATIENT CONSULTANTS: 1. Pulmonary, Dr. Michael. 2. Gastroenterology, Dr. Basilio Han. DISCHARGE MEDICATIONS: 1. Lasix 40 mg daily. 2. All other home medications were left unchanged. BRIEF HOSPITAL COURSE: Patient is a 72-year-old female with primary biliary cirrhosis, hypertension, and diabetes mellitus type 2, presented to the hospital with shortness of breath. Please refer to t he history and physical dated 05/05/2018 for further details. The patient was admitted to the hospital with a diagnosis of acute respiratory distress secondary to right-sided pleural effusion. She also had significant ascites. She showed good improvement with IV diuretics. She was evaluated by Pulmonary as well as Gastroenterology. The symptoms have significa ntly improved. She has been cleared by consultants for discharge. FINAL DIAGNOSES: 1. Acute respiratory distress secondary to volume overload. 2. Right-sided pleural effusion suspected hepatic hydrothorax. 3. Ascites. 4. Primary biliary cirrhosis. 5. Chronic kidney disease stage 3 with hyperkalemia. Potassium was 5.3 on admission and 4.8 at disc harge. 6. Hypomagnesemia with magnesium 1.4, replaced. 7. History of hepatic encephalopathy. 8. Glaucoma. 9. Right eye blindness. 10. Hypertension. 11. Diverticulosis. 12. Chronic respiratory failure, on home oxygen at night. 13. Chronic anemia. Plan of care was discussed with the patient and the family at bedside. They stated understanding.
== END 2018-05-07 16:02 | disposition home or self-care (01) | DRG 187 ==
LOC: ERS 13:45 → T4-A 16:00
PROVIDERS: ADMIT Internal Medicine; ATTEND Internal Medicine
DX: J90 Pleural effusion, not elsewhere classified (principal); R18.8 Other ascites; J96.10 Chronic respiratory failure, unspecified whether with hypoxia or hypercapnia; E11.22 Type 2 diabetes mellitus with diabetic chronic kidney disease; I12.9 Hypertensive chronic kidney disease with stage 1 through stage 4 chronic kidney disease, or unspecified chronic kidney disease; N18.3 Chronic kidney disease, stage 3 (moderate); K74.5 Biliary cirrhosis, unspecified; K57.90 Diverticulosis of intestine, part unspecified, without perforation or abscess without bleeding; Z99.81 Dependence on supplemental oxygen; E87.5 Hyperkalemia; Z66 Do not resuscitate; H54.61 Unqualified visual loss, right eye, normal vision left eye
CPT/HCPCS: 36415; 36416; 71045; 80048; 80053; 81003; 81015; 82140; 82550; 82553; 83735; 83880; 84484; 85025; 85610; 93005; 94640; J1940; J3475; J7050; J7620

== ENCOUNTER 2018-05-18 15:31 | Observation (INO) | payer MEDICARE, MEDICAID ==
[2018-05-18 16:19] LABS: #Basophils 0.1 thou/uL (0.0-0.2); #Eosinphils 0.3 thou/uL (0.0-0.7); #Lymphocytes 1.5 thou/uL (1.20-3.40); #Monocytes 0.4 thou/uL (0.11-0.59); #Neutrophils 3.5 thou/uL (1.40-6.50); %Basophils 1.1 % (0.0-1.0); %Eosinophils 4.5 % (0.0-10.0); %Lymphocytes 25.7 % (21.0-51.0); %Monocytes 6.8 % (0.0-10.0); %Neutrophils 61.9 % (42.0-75.0); Hemoglobin 10.9 g/dL (12.0-16.0); Mean Corpuscular HGB CONC 33.5 g/dL (32.0-36.0); Mean Corpuscular Volume 98.4 fL (78.0-98.0); Platelet Count 97 thou/uL (130-400); RBC Distribution Width 14.5 % (11.5-14.5); White Blood Cell (WBC) Count 5.7 thou/uL (4.8-10.8)
[2018-05-18 16:35] LABS: ALT (SGPT) 34 U/L (8-55); AST (SGOT) 43 U/L (5-34); Albumin 3.9 g/dL (3.4-4.8); Alkaline Phosphatase 149 U/L (40-150); Anion Gap 18 mmol/L (10-20); BUN (Urea Nitrogen) 36 mg/dL (9.8-20.1); Bilirubin, Total 0.6 mg/dL (0.2-1.2); Calc. Creatinine Clearance 0 mL/min (70-130); Calcium 10.6 mg/dL (7.8-10.44); Carbon Dioxide 19 mmol/L (23-31); Chloride 109 mmol/L (98-107); Estimated GFR-MDRD 31; Globulin 4.5 g/dL (2.4-3.5); Glucose 183 mg/dL (83-110); Potassium 4.6 mmol/L (3.5-5.1); Protein, Total 8.4 g/dL (6.0-8.3); Sodium 141 mmol/L (136-145)
[2018-05-18] MEDS ORDERED: Senokot S 8.6-50 MG TAB PO PRN (17:34)
[2018-05-18] MEDS ORDERED: Acetaminophen 325 MG TAB PO PRN (17:34)
[2018-05-18] MEDS ORDERED: Furosemide 40 MG/4 ML VIAL ONE (17:47)
[2018-05-18 17:55] LABS: Bilirubin Negative (Negative); Blood, Urine Negative (Negative); Clarity CLOUDY (Clear); Glucose, Urine (Dipstick) Negative (Negative); Leukocyte Large (Negative); Nitrite Negative (Negative); Protein, Urine (Dipstick) Negative (Neg-Trace); Specific Gravity, Urine 1.012 (1.002-1.036); Urobilinogen 0.2 mg/dL (0.2-1.0)
[2018-05-18 17:57] LABS: Bacteria/HPF None Seen HPF (None Seen); Squamous Epithelial 0-3 HPF (0-3)
[2018-05-18 17:58] LABS: Pathc Cast-AUWi Flag 3.19 (0-2.49)
[2018-05-18 18:15] LABS: Hyaline Casts/LPF 7-10 HYALINE CAST LPF (0-3 Hyaline); Other Casts/LPF 0-3 COARSE GRAN LPF (0-3 Hyaline)
[2018-05-18] MEDS ORDERED: Dextrose 5% in Water 1,000 ML IV PRN (18:16)
[2018-05-18] MEDS ORDERED: HumaLOG 300 UNITS/3 ML VIAL SC PRN (18:16)
[2018-05-18] MEDS ORDERED: Dextrose 50% Abboject 50 ML SYRINGE SLOW IVP PRN (18:16)
--- NOTE | 2018-05-18 18:16 | RAD ---
FRONTAL VIEW CHEST: 05/18/18 COMPARISON: 05/05/18. Indication: Short of breath. FINDINGS: There is persistent density of the mid to inferior right chest. Cardiac silhouette remains prominent. Left lung is grossly clear. Evaluation otherwise stable. IMPRESSION: Findings most consistent with right pleural effusion and adjacent atelectasis and/or pneumonia. Young nued followup to resolution is recommended. POS: DAVID
[2018-05-18 18:48] LABS: Troponin I Less than 0.010 ng/mL (< 0.028)
[2018-05-18] MEDS ORDERED: Ondansetron PF 4 MG/2 ML Vial IVP PRN (19:51)
[2018-05-18] MEDS ORDERED: Ondansetron ODT 4 MG TAB SL PRN (19:51)
[2018-05-18] MEDS: cefTRIAXone\\ROCEPHIN 1 GM in Sodium Chloride 0.9% 100 ML IVPB SCH (20:01)
[2018-05-18] MEDS: Ursodiol 300 MG CAP PO SCH (20:06)
[2018-05-18] MEDS: Rifaximin 550 MG TAB PO SCH (20:07)
[2018-05-18 22:29] VITALS: BMI 28.8
--- NOTE | 2018-05-19 02:23 | HP ---
CHIEF COMPLAINT: Shortness of breath. HISTORY OF PRESENT ILLNESS: The patient is a very pleasant 72-year-old female with past medical history of primary biliary cirrhosis, chronic right-sided pleural effusion, hypertension, and diabetes, who presents to the hospital with complaints of shortness of breath x1 day. The patient stated that she has been feeling shortness of breath and some chest tightness since all day today. The patient stated that she has been very compliant with her medications and has been taking her diuretics 40 mg of Lasix daily. She has also been weighing herself daily and her weight today was 171, which is at baseline. She denies any fevers of chills. She denies any cough or increased sputum production. The patient denies any abdominal pain; however, she feels her abdomen is a little bit more distended than at baseline. PAST MEDICAL HISTORY: 1. Primary biliary cirrhosis. 2. Right eye blindness. 3. Hypertension. 4. Diabetes. 5. Asthma. 6. Diverticulosis. 7. Chronic respiratory failure. 8. History of hepatic encephalopathy. PAST SURGICAL HISTORY: 1. She has had cholecystectomy and hysterectomy. 2. Right eye prosthesis. 3. Eye surgery. ALLERGIES: SHE IS ALLERGIC TO NSAIDS. CURRENT MEDICATIONS: This is all from her previous discharge summary, which was just a month ago and it is as of the following, 1. She is on Lasix 40 mg daily. 2. Also, she is taking metformin 1000 p.o. b.i.d. 3. Zocor 20 mg at bedtime. 4. Rifaximin 550 mg b.i.d. 5. Propranolol 20 mg b.i.d. 6. Omeprazole 40 mg daily. 7. Benicar 20 mg daily. 8. Aspirin 81 mg daily. 9. Ursodiol 600 mg b.i.d. REVIEW OF SYSTEMS: All negative except for the ones mentioned above in HPI. FAMILY HISTORY: Negative for premature cardiac history. SOCIAL HISTORY: She denies any smoking, alcohol, or drug use. She is a full code. She is a [employer] and her grandson is at the bedside. PHYSICAL EXAMINATION: VITAL SIGNS: Vital signs are as of the following, she is afebrile at 97.7, 97% on room air, respirations are 18, blood pressure is 117/64, and pulse is 75. GENERAL: She is awake, alert, and oriented x3. Does not appear in distress. She is able to speak full sentences. She does have a right eye blindness that is noted. CV: S1, S2 present. No murmurs, rubs, or gallops. LUNGS: Mild crackles to right lower lung bases, however, otherwise clear. ABDOMEN: Mildly distention. Bowel sounds present x2. Soft. She does have a right upper quadrant scar. No pain upon palpation. EXTREMITIES: She does have +1 lower extremity pitting edema. NEUROLOGIC: Neurovascular nixon, no focal deficits noted. SKIN: No cuts, lesions, or bruises noted. LABORATORY RESULTS: As of the following; her sodium of 141, potassium of 4.6, bicarb is 19, anion gap is 18, BUN of 36, and creatinine of 1.64. Her calcium is at 10.6. AST is 43. Her albumin is 3.9. Hematologies; WBCs of 5.7, hemoglobin of 10.9, hematocrit of 32.4, and platelets of 97. She did have a chest x-ray, which according to my interpretation looked similar to the one in last month, maybe slight improvement of her right pleural effusion, just slight. ASSESSMENT AND PLAN: The patient is a 72-year-old female, who comes to the hospital with complaints of shortness of breath. 1. Shortness of breath. This could be secondary to her volume overload from her liver failure; however, clinically, the patient appears to be dehydrated. Upon further talk to the patient, she told me that she has been eating a very salty diet and has not been drinking enough water and has been taking her diuretics as prescribed. Based on her lab work also and clinically, she appears mildly dehydrated and since her chest x-ray is not significantly changed, I will hold off on diuretic as of yet. I will try and ask her to take in as much as p.o. fluids as she can, and we will reassess her labs in the morning. Also, the patient has never had a paracentesis since she feels that her doctor has stated that they do not want to introduce any bacteria or cause any further infections. Currently, her abdomen is large, but bowel sounds are present and it is soft, it is not significantly distended. I believe it would be the best interest to just watch her overnight and see how she does. She is not hypoxic, her saturations are 98% on room air. She is able to speak complete sentences. I believe just to watch her, let her drink some water, and maybe re-evaluate her in the morning. 2. Acute kidney injury on chronic kidney disease. I will hold the metformin, I will hold the LEONIDES, and I will hold the diuretic for now. I will re-evaluate her in the morning to see if her creatinine improves. 3. Hypercalcemia/dehydration. This could be underlying dehydration. Again, I will not give her any extra fluids; however, I have encouraged her to drink p.o. fluids. 4. Primary biliary cirrhosis. The patient is on Ursodiol. I have advised her to cut back on the salt intake. The patient states that at times she does feel like she wants to eat a salty meal and today, she had a chicken country-fried steak, which contains a lot of salt with gravy. 5. Deep venous thrombosis prophylaxis. We will put the patient on some sequential compression devices and we will also consult Pulmonology. Job ID: [id number]
[2018-05-19 05:51] LABS: #Eosinphils 0.2 thou/uL (0.0-0.7); #Lymphocytes 1.2 thou/uL (1.20-3.40); #Monocytes 0.3 thou/uL (0.11-0.59); #Neutrophils 1.8 thou/uL (1.40-6.50); %Eosinophils 5.2 % (0.0-10.0); %Lymphocytes 34.2 % (21.0-51.0); %Monocytes 8.2 % (0.0-10.0); %Neutrophils 51.4 % (42.0-75.0); Hemoglobin 8.6 g/dL (12.0-16.0); Mean Corpuscular HGB CONC 33.6 g/dL (32.0-36.0); Mean Corpuscular Hemoglobin 32.8 pg (27.0-31.0); Mean Corpuscular Volume 97.7 fL (78.0-98.0); Mean Platelet Volume 10.3 fL (7.4-10.4); Platelet Count 76 thou/uL (130-400); RBC Distribution Width 14.3 % (11.5-14.5); Red Blood Cell (RBC) Count 2.61 mill/uL (4.20-5.40); White Blood Cell (WBC) Count 3.5 thou/uL (4.8-10.8)
[2018-05-19 06:01] LABS: Anion Gap 14 mmol/L (10-20); BUN (Urea Nitrogen) 37 mg/dL (9.8-20.1); Calc. Creatinine Clearance 46 mL/min (70-130); Calcium 9.6 mg/dL (7.8-10.44); Carbon Dioxide 21 mmol/L (23-31); Chloride 110 mmol/L (98-107); Estimated GFR-MDRD 39; Glucose 121 mg/dL (83-110); Potassium 4.5 mmol/L (3.5-5.1); Sodium 140 mmol/L (136-145)
[2018-05-19] MEDS: Ursodiol 300 MG CAP PO SCH ×2 (08:19→20:16)
[2018-05-19] MEDS: Rifaximin 550 MG TAB PO SCH ×2 (08:19→20:16)
--- NOTE | 2018-05-19 17:24 | PDOC.PN ---
- Subjective Encounter Start Date: 05/19/18 Encounter Start Time: 09:30 Subjective: Patient examined. Admitted for dyspnea, hx of pleural effusion, cirrhosis -: Patient talking in short sentences, PO2= 96% on RA - Objective Resuscitation Status - Order Detail: 05/18/18 17:34 Resuscitation Status Routine Resuscitation Status: FULL: Full Resuscitation Vital Signs & Weight: Vital Signs (12 hours) Temp Pulse Resp BP Pulse Ox 05/19/18 15:17 97.9 F 95 20 119/59 L 94 L 05/19/18 11:06 98.3 F 81 16 118/56 L 93 L 05/19/18 07:20 98.5 F 76 16 105/54 L 96 Weight Admit Weight 78.471 kg Weight 78.471 kg I&O: 05/18/18 05/19/18 05/20/18 06:59 06:59 06:59 Intake Total 580 750 Output Total 300 800 Balance 280 -50 Result Diagrams: 05/19/18 05:18 05/19/18 05:18 Additional Labs: Accuchecks 05/19/18 05/19/18 05/19/18 16:44 11:09 06:16 POC Glucose 101 180 H 126 H 05/18/18 20:27 POC Glucose 120 H Phys Exam - Physical Examination HEENT: PERRLA, moist MMs Neck: no nodes, no JVD Respiratory: no wheezing, no rhonchi Breath sounds diminished in right lung base Cardiovascular: RRR, no significant murmur Gastrointestinal: soft, non-tender Musculoskeletal: no edema, pulses present Neurological: non-focal, normal sensation Lymphatic: no nodes Psychiatric: normal affect, A&O x 3 Skin: no rash Dx/Plan (1) Dyspnea Code(s): R06.00 - DYSPNEA, UNSPECIFIED Status: Acute (2) History of cirrhosis of liver Code(s): Z87.19 - PERSONAL HISTORY OF OTHER DISEASES OF THE DIGESTIVE SYSTEM Status: Acute (3) Pleural effusion Code(s): J90 - PLEURAL EFFUSION, NOT ELSEWHERE CLASSIFIED Status: Acute (4) RADHA (acute kidney injury) Code(s): N17.9 - ACUTE KIDNEY FAILURE, UNSPECIFIED Status: Acute Comment: Back to baseline. - Plan cont current plan of care, DVT proph w/SCDs -: Dr. Uriarte has been consulted -: Abdominal U/S ordered to r/o ascites -: RADHA improved, will continue to monitor * .
[2018-05-19] MEDS: cefTRIAXone\\ROCEPHIN 1 GM in Sodium Chloride 0.9% 100 ML IVPB SCH (20:17)
--- NOTE | 2018-05-19 21:33 | ULT ---
ABDOMINAL ULTRASOUND: 05/19/18 HISTORY: Cirrhosis, shortness of breath. COMPARISON: Hepatic ultrasound on 09/12/16. FINDINGS: The pancreas is mostly obscured by bowel gas and not well seen. proximal abdominal aorta is also obsc ured due to shadowing from bowel gas. The mid and distal abdominal aorta are normal in caliber. The liver demonstrates diffuse heterogeneous and coarsened echotexture with suggestion of lobulated c ontour likely reflective of cirrhosis. There is a dilated tubular anechoic structure seen within the lateral segment of the left hepatic lobe which does demonstrate flow on color flow evaluation. Prior CT of the chest demonstrates filling of this structure which represents a branch of the portal vein o n arterial phase of imaging suggesting an arteriovenous fistula with dilatation of the branch of the portal vein due to the fistula. There is a small hypoechoic structure seen in the inferior pole of the right kidney which was also se en on prior CT exam on 01/09/13 as well as on the prior ultrasound examination and is likely related t o a renal cyst. This measures 1.7 cm and is unchanged in size. The right kidney measures 10 cm in chano gth. The left kidney measures 10.3 cm in length, and there is also a small anechoic structure in the mid portion of the left kidney measuring 1.6 cm demonstrating characteristics most compatible with a small cyst. The spleen is enlarged measuring 16.7 cm in craniocaudal dimensions. The IVC is not well imaged on this exam. There is a small right pleural effusion partially imaged. IMPRESSION: 1. Cirrhosis and splenomegaly. 2. Tubular dilated vascular structure in the left hepatic lobe. This corresponds to a vascular m alformation seen within the lateral segment of the left hepatic lobe on CTA of the chest on 02/01/17. 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 This structure measures 2.1 cm x 1.3 c m in AP and transverse dimensions. 3. Nonvisualization of the gallbladder related to prior cholecystectomy. POS: [facility]
[2018-05-20 07:36] LABS: ALT (SGPT) 25 U/L (8-55); AST (SGOT) 32 U/L (5-34); Alkaline Phosphatase 112 U/L (40-150); Anion Gap 10 mmol/L (10-20); BUN (Urea Nitrogen) 32 mg/dL (9.8-20.1); Bilirubin, Total 0.3 mg/dL (0.2-1.2); Calc. Creatinine Clearance 54 mL/min (70-130); Calcium 9.3 mg/dL (7.8-10.44); Carbon Dioxide 23 mmol/L (23-31); Chloride 110 mmol/L (98-107); Estimated GFR-MDRD 46; Globulin 3.3 g/dL (2.4-3.5); Glucose 160 mg/dL (83-110); Potassium 4.3 mmol/L (3.5-5.1); Protein, Total 6.3 g/dL (6.0-8.3); Sodium 139 mmol/L (136-145)
[2018-05-20] MEDS: Ursodiol 300 MG CAP PO SCH (07:52)
[2018-05-20] MEDS: Rifaximin 550 MG TAB PO SCH (07:53)
[2018-05-20 08:24] LABS: #Eosinphils 0.1 thou/uL (0.0-0.7); #Lymphocytes 0.9 thou/uL (1.20-3.40); #Monocytes 0.2 thou/uL (0.11-0.59); #Neutrophils 1.4 thou/uL (1.40-6.50); %Basophils 0.6 % (0.0-1.0); %Eosinophils 5.5 % (0.0-10.0); %Lymphocytes 32.2 % (21.0-51.0); %Monocytes 9.1 % (0.0-10.0); %Neutrophils 52.6 % (42.0-75.0); Hemoglobin 8.6 g/dL (12.0-16.0); Mean Corpuscular HGB CONC 33.2 g/dL (32.0-36.0); Mean Corpuscular Hemoglobin 32.5 pg (27.0-31.0); Mean Corpuscular Volume 97.8 fL (78.0-98.0); Mean Platelet Volume 10.2 fL (7.4-10.4); Platelet Count 74 thou/uL (130-400); RBC Distribution Width 14.2 % (11.5-14.5); Red Blood Cell (RBC) Count 2.63 mill/uL (4.20-5.40); White Blood Cell (WBC) Count 2.6 thou/uL (4.8-10.8)
[2018-05-20 11:53] VITALS: BP 140/59; TEMP 98.1
--- NOTE | 2018-05-21 08:48 | DIS ---
DATE OF ADMISSION: 05/18/2018 DATE OF DISCHARGE: 05/20/2018 PRIMARY CARE PHYSICIAN: Dr. Castro Candelaria. CONSULTANTS: Dr. Uriarte, Pulmonology was consulted when the patient was in the ER. PROCEDURES: The patient had a chest x-ray, which showed findings most consistent with right pleural effusion and adjacent atelectasis, continued followup to resolution is recommended. The patient also had an abdominal ultrasound, impression: 1. Cirrhosis and splenomegaly. 2. Tubular dilated vascular structure in the left hepatic lobe corresponds to a vascular malformation seen within the lateral segment of the left hepatic lobe on CTA of the chest on 02/01/2017. 3. Nonvisualization of the gallbladder related to prior cholecystectomy. DISCHARGE DIAGNOSES: 1. Dyspnea, improved. 2. improved. 3. History of cirrhosis. 4. Odiml-hh-tclvmcv kidney injury, improved. 5. Primary biliary cirrhosis. 6. Diabetes. 7. Hypertension. HOSPITAL COURSE: The patient was admitted on for dyspnea and chest tightness in the context of primary biliary cirrhosis, chronic right-sided pleural effusion, hypertension, and diabetes. The patient stated that she had been very compliant with the medications, has been taking her diuretics. She has been weighing herself daily and was at her baseline. She denied any cough or increased sputum production. She denied any abdominal pain, felt like her abdomen was a little distended more than baseline. She was at that time noted to have some zngju-ua-licsion renal injury. The patient was gently hydrated. Ultrasound of her abdomen was obtained, showed no acute findings. The patient feels better on exam this morning, reports that she would like to go home. Dr. Uriarte, Pulmonology was consulted from the ER, but preferred the patient to follow up in the office. The patient was agreeable to this plan. Dr. Corbin examined the patient as well this morning and agreed with discharge plan. She will be restarted on her metformin and LEONIDES inhibitor that was held while she was in the hospital due to her creatinine, which has improved. On admission, her creatinine was 1.64 and this morning, it was 1.15. She was started on Rocephin on admission due to her urinalysis, which showed leukocyte esterase and greater than 50,000 white blood cells, but no bacteria. Culture was added on hospitalization. We will cover her with some Macrodantin for several days. REVIEW OF SYSTEMS: The patient was examined by me this morning, is in no acute distress, reports dyspnea is much better, generally feels much better today, and wishes to go home. Denies any headaches, chest pain, palpitations, fever, chills, or abdominal pain. All other review of systems was reviewed and are negative unless mentioned in the hospital course. PHYSICAL EXAMINATION: VITAL SIGNS: Temperature 98.4, pulse is 83, respirations 20, pulse ox is 95% on room air, and blood pressure is 131/60. CONSTITUTIONAL: The patient is afebrile, in no acute distress. The patient is alert and oriented to person, place, and time. HEAD: Normocephalic and atraumatic. EYES: She does have limited vision in her left eye as eyelid is almost closed, which was chronic. Extraocular muscles are intact. ENT: Mouth exam is normal. Mucous membranes are moist. NECK: Trachea is midline. No cervical adenopathy. No tenderness. RESPIRATORY/CHEST: No respiratory distress. Breath sounds are clear. CARDIOVASCULAR: Regular rate and rhythm. Heart sounds are normal. ABDOMEN: Female, nontender. Mild distention is noted. No tenderness. BACK: Normal inspection. Normal range of motion. No tenderness. EXTREMITIES: Upper extremities: Normal inspection. Normal range of motion. Normal motor strength. Sensation is intact. Radial pulses are equal bilaterally. Lower extremities: Normal range of motion. Motor strength is normal. Sensation is intact. Pedal pulses are equal bilateral. +1 edema noted to the lower extremities. NEUROLOGIC: The patient is alert to person, place, and time. Speech is normal. Cranial nerves are intact. SKIN: Warm and dry. Normal in color. PSYCHIATRIC: Normal affect. ALLERGIES: NSAIDS, BLOOD PRODUCTS, AND THE PATIENT IS JEHOVAH WITNESS, THIS HAS VERIFIED ON THIS ADMISSION. HOME MEDICATIONS: Home medications will be restarted; 1. Zocor 20 mg p.o. at bedtime. 2. Xifaxan 550 p.o. b.i.d. 3. Propranolol 20 mg p.o. b.i.d. 4. Latanoprost 1 drop each eye at bedtime. 5. Lasix 40 mg p.o. daily. 6. Ezetimibe 1 tablet p.o. daily. 7. Ursodiol 600 mg p.o. b.i.d. 8. Multivitamin 1 tablet p.o. daily. 9. Metformin 1000 mg p.o. b.i.d. 10. Benicar 20 mg p.o. daily. 11. Omeprazole 40 mg p.o. daily. 12. Aspirin 81 mg p.o. daily. 13. Vitamin D 5000 units p.o. daily. 14. Vitamin B12 of 1000 mcg p.o. at bedtime. CONDITION: The patient's condition is stable. DISPOSITION: The patient will be discharged home. REFERRALS: The patient should follow up with Dr. Candelaria within the next week, and asked to call Dr. Michael's office in the morning for a followup appointment. Job ID: [id number]
--- NOTE | 2018-05-23 14:57 | EKG ---
Test Reason : Blood Pressure : / mmHG Vent. Rate : 076 BPM Atrial Rate : 076 BPM P-R Int : 168 ms QRS Dur : 072 ms QT Int : 408 ms P-R-T Axes : 046 -25 007 degrees QTc Int : 459 ms Normal sinus rhythm with sinus arrhythmia Inferior infarct , age undetermined Abnormal ECG Confirmed by RIP PETTY D.O. ([id number]), newspaper photo editor IZABELA MANRIQUEZ ([id number]) on 05/23/2018 2:56:57 PM Referred By: Confirmed By:RIP PETTY D.O.
== END 2018-05-20 13:56 | disposition home or self-care (01) ==
LOC: ERS 15:31 → 2SW 17:30
PROVIDERS: ADMIT Internal Medicine; ATTEND Internal Medicine
DX: R06.02 Shortness of breath (principal); I12.9 Hypertensive chronic kidney disease with stage 1 through stage 4 chronic kidney disease, or unspecified chronic kidney disease; E11.22 Type 2 diabetes mellitus with diabetic chronic kidney disease; N18.9 Chronic kidney disease, unspecified; N17.9 Acute kidney failure, unspecified; E83.52 Hypercalcemia; E86.0 Dehydration; K74.3 Primary biliary cirrhosis; H54.61 Unqualified visual loss, right eye, normal vision left eye; J45.909 Unspecified asthma, uncomplicated; K57.90 Diverticulosis of intestine, part unspecified, without perforation or abscess without bleeding; Z90.49 Acquired absence of other specified parts of digestive tract; Z90.710 Acquired absence of both cervix and uterus; Z88.6 Allergy status to analgesic agent; Z79.82 Long term (current) use of aspirin; Z79.84 Long term (current) use of oral hypoglycemic drugs; Z79.899 Other long term (current) drug therapy; Z98.890 Other specified postprocedural states
CPT/HCPCS: 71045; 76700; 80048; 80053 ×2; 82962 ×3; 83880; 84484; 85025 ×3; 93005; 94760; 96365; 96366; 99285; G0378 ×4; 36415; 36416; 81003; 81015; J0696; J1940; J7050

== ENCOUNTER 2018-05-25 12:34 | Day surgery (SDC) | payer MEDICARE, MEDICAID ==
[2018-05-25] MEDS ORDERED: Ferumoxytol (NON ERSD) 510 MG in Sodium Chloride 0.9% 250 ML 150 ML IVPB SCH (12:45)
[2018-05-25 13:16] VITALS: BP 152/68
== END 2018-05-25 15:27 | disposition home or self-care (01) ==
LOC: ONC/OP 12:34
PROVIDERS: ATTEND Internal Medicine Hematology & Oncology
DX: D50.0 Iron deficiency anemia secondary to blood loss (chronic) (principal); Z79.82 Long term (current) use of aspirin; Z79.84 Long term (current) use of oral hypoglycemic drugs; Z79.899 Other long term (current) drug therapy; Z88.6 Allergy status to analgesic agent
CPT/HCPCS: 96365; J7050; Q0138

== ENCOUNTER 2018-05-30 13:47 | Emergency (ER) | payer MEDICARE, MEDICAID ==
[2018-05-30] MEDS ORDERED: Ondansetron PF 4 MG/2 ML Vial ONE (14:08)
[2018-05-30 14:40] LABS: #Eosinphils 0.2 thou/uL (0.0-0.7); #Monocytes 0.5 thou/uL (0.11-0.59); #Neutrophils 4.5 thou/uL (1.40-6.50); %Basophils 0.6 % (0.0-1.0); %Eosinophils 2.6 % (0.0-10.0); %Lymphocytes 27.1 % (21.0-51.0); %Monocytes 6.9 % (0.0-10.0); %Neutrophils 62.8 % (42.0-75.0); Hemoglobin 10.3 g/dL (12.0-16.0); Mean Corpuscular HGB CONC 33.1 g/dL (32.0-36.0); Mean Corpuscular Hemoglobin 32.6 pg (27.0-31.0); Mean Corpuscular Volume 98.6 fL (78.0-98.0); Mean Platelet Volume 10.9 fL (7.4-10.4); Platelet Count 143 thou/uL (130-400); RBC Distribution Width 15.6 % (11.5-14.5); Red Blood Cell (RBC) Count 3.17 mill/uL (4.20-5.40); White Blood Cell (WBC) Count 7.2 thou/uL (4.8-10.8)
[2018-05-30 15:02] LABS: ALT (SGPT) 31 U/L (8-55); AST (SGOT) 44 U/L (5-34); Albumin 3.6 g/dL (3.4-4.8); Alkaline Phosphatase 136 U/L (40-150); Anion Gap 21 mmol/L (10-20); BUN (Urea Nitrogen) 49 mg/dL (9.8-20.1); Bilirubin, Total 0.6 mg/dL (0.2-1.2); Calc. Creatinine Clearance 0 mL/min (70-130); Calcium 10.2 mg/dL (7.8-10.44); Carbon Dioxide 16 mmol/L (23-31); Chloride 107 mmol/L (98-107); Estimated GFR-MDRD 26; Globulin 4.1 g/dL (2.4-3.5); Glucose 145 mg/dL (83-110); Lipase 40 U/L (8-78); Magnesium 1.4 mg/dL (1.6-2.6); Potassium 4.9 mmol/L (3.5-5.1); Protein, Total 7.7 g/dL (6.0-8.3); Sodium 139 mmol/L (136-145)
[2018-05-30 15:04] LABS: Bilirubin Negative (Negative); Blood, Urine Negative (Negative); Clarity CLEAR (Clear); Glucose, Urine (Dipstick) Negative (Negative); Leukocyte Moderate (Negative); Nitrite Negative (Negative); Protein, Urine (Dipstick) Negative (Neg-Trace); Specific Gravity, Urine 1.014 (1.002-1.036); Urobilinogen 0.2 mg/dL (0.2-1.0)
[2018-05-30] MEDS ORDERED: Metoclopramide HCl 10 MG/2 ML VIAL ONE (15:05)
[2018-05-30 15:06] LABS: Bacteria/HPF None Seen HPF (None Seen); Hyaline Casts/LPF 4-6 HYALINE CAST LPF (0-3 Hyaline); Pathc Cast-AUWi Flag 1.01 (0-2.49); Squamous Epithelial 0-3 HPF (0-3)
--- NOTE | 2018-05-30 15:19 | RAD ---
AP CHEST: History: Dyspnea. Comparison: 05-18-18 FINDINGS: Opacification of the right lung base again noted. Left lung remains clear. Vascular markings upper no rmal and stable. IMPRESSION: Opacification of the right lung base is again seen consistent with effusion and right basilar atelect asis and consolidation. POS: [facility]
== END 2018-05-30 16:13 | disposition home or self-care (01) ==
LOC: ERS 13:47
DX: R11.2 Nausea with vomiting, unspecified (principal); J90 Pleural effusion, not elsewhere classified; I10 Essential (primary) hypertension; E11.9 Type 2 diabetes mellitus without complications; J45.909 Unspecified asthma, uncomplicated; D64.9 Anemia, unspecified; Z79.82 Long term (current) use of aspirin; Z79.84 Long term (current) use of oral hypoglycemic drugs; Z79.899 Other long term (current) drug therapy
CPT/HCPCS: 71045; 80053; 81003; 81015; 83690; 83735; 83880; 84484; 85025; 93005; 96374; 96375; J2405; J2765

== ENCOUNTER 2018-06-04 19:03 | Observation (INO) | payer MEDICARE, MEDICAID ==
[2018-06-04] MEDS ORDERED: Ondansetron PF 4 MG/2 ML Vial ONE ×2 (19:45→19:49)
[2018-06-04 20:03] LABS: #Eosinphils 0.1 thou/uL (0.0-0.7); #Lymphocytes 1.8 thou/uL (1.20-3.40); #Monocytes 0.5 thou/uL (0.11-0.59); #Neutrophils 2.7 thou/uL (1.40-6.50); %Basophils 0.3 % (0.0-1.0); %Eosinophils 2.7 % (0.0-10.0); %Lymphocytes 35.1 % (21.0-51.0); %Neutrophils 51.9 % (42.0-75.0); Hemoglobin 9.8 g/dL (12.0-16.0); Mean Corpuscular HGB CONC 32.3 g/dL (32.0-36.0); Mean Corpuscular Hemoglobin 32.1 pg (27.0-31.0); Mean Corpuscular Volume 99.3 fL (78.0-98.0); Mean Platelet Volume 10.4 fL (7.4-10.4); Platelet Count 79 thou/uL (130-400); RBC Distribution Width 15.6 % (11.5-14.5); Red Blood Cell (RBC) Count 3.06 mill/uL (4.20-5.40); White Blood Cell (WBC) Count 5.2 thou/uL (4.8-10.8)
[2018-06-04 20:07] LABS: INR-International Normal Ratio 1.3; Prothrombin Time 16.1 SEC (12.0-14.7)
[2018-06-04 20:22] LABS: ALT (SGPT) 26 U/L (8-55); AST (SGOT) 32 U/L (5-34); Albumin 3.2 g/dL (3.4-4.8); Alkaline Phosphatase 124 U/L (40-150); Anion Gap 18 mmol/L (10-20); BUN (Urea Nitrogen) 49 mg/dL (9.8-20.1); Bilirubin, Total 0.4 mg/dL (0.2-1.2); Calc. Creatinine Clearance 0 mL/min (70-130); Calcium 9.4 mg/dL (7.8-10.44); Carbon Dioxide 18 mmol/L (23-31); Chloride 107 mmol/L (98-107); Estimated GFR-MDRD 24; Globulin 3.7 g/dL (2.4-3.5); Glucose 152 mg/dL (83-110); Lipase 43 U/L (8-78); Potassium 4.6 mmol/L (3.5-5.1); Protein, Total 6.9 g/dL (6.0-8.3); Sodium 138 mmol/L (136-145)
--- NOTE | 2018-06-04 21:02 | RAD ---
TWO VIEWS CHEST: Comparison: 05-30-18 History: Dyspnea. FINDINGS: Single view of the chest shows a normal sized cardiomediastinal silhouette. There is stable elevation of the right hemidiaphragm. There is no evidence of consolidation, mass, or pleural effusion. IMPRESSION: NO evidence of acute cardiopulmonary disease. POS: [facility]
[2018-06-04 21:18] LABS: Bilirubin Negative (Negative); Blood, Urine Negative (Negative); Clarity CLOUDY (Clear); Glucose, Urine (Dipstick) Negative (Negative); Leukocyte Moderate (Negative); Nitrite Negative (Negative); Protein, Urine (Dipstick) Negative (Neg-Trace); Specific Gravity, Urine 1.011 (1.002-1.036); Urobilinogen 0.2 mg/dL (0.2-1.0); pH, Urine 5.5 (5.0-9.0)
[2018-06-04 21:20] LABS: Bacteria/HPF None Seen HPF (None Seen); Hyaline Casts/LPF 4-6 HYALINE CAST LPF (0-3 Hyaline); Pathc Cast-AUWi Flag 0.87 (0-2.49); RBC/HPF 0-3 HPF (0-3); Squamous Epithelial 0-3 HPF (0-3); WBC/HPF 21-50 HPF (0-3)
[2018-06-04] MEDS ORDERED: Sodium Chloride 0.9% 1,000 ML IV SCH (21:30)
[2018-06-04] MEDS ORDERED: Famotidine/PF 20 mg/2ml Vial SLOW IVP SCH (21:45)
--- NOTE | 2018-06-05 04:03 | HP ---
CHIEF COMPLAINT: Nausea and vomiting. HISTORY OF PRESENT ILLNESS: Patient is a 72-year-old female with a history of primary biliary cirrhosis, who presented to the hospital with complaints of nausea, vomiting going on for the past week. The patient stated that a week ago, she had nausea, vomiting, and diarrhea, which went on for a couple of days. The patient then stated that she did call her primary care doctor who put her on some Imodium. She feels that her diarrhea has stopped and now she has more soft stools. However, her nausea and vomiting continue. She was seen in the ER a few days prior to the current admission date and was given some Reglan. However, patient stated that it did not help, so she came in today for further evaluation. Patient denies any fevers or chills. She denies any shortness of breath, but just states that she has been unable to keep very much food down. Patient also has a loss of appetite also. Patient stated that tonight she had a bite of a grilled cheese sandwich and did not feel well. PAST MEDICAL HISTORY: 1. History of primary biliary cirrhosis. 2. Right eye blindness. 3. Hypertension. 4. Diabetes. 5. Asthma. 6. Diverticulosis. 7. History of hepatic encephalopathy. PAST SURGICAL HISTORY: She has had a: 1. Cholecystectomy. 2. Hysterectomy. 3. Right eye prosthesis. 4. Eye surgery. ALLERGIES: SHE IS ALLERGIC TO NSAIDS. CURRENT MEDICATIONS: She is on: 1. Lasix 40 mg daily. 2. Metformin 1000 mg b.i.d. 3. Zocor 20 mg at bedtime. 4. Rifaximin 550 mg b.i.d. 5. Propranolol 20 mg b.i.d. 6. Omeprazole 40 mg daily. 7. Benicar 20 mg daily. 8. Aspirin 81 mg daily. 9. Ursodiol 600 mg b.i.d. REVIEW OF SYSTEMS: All negative, except for the ones mentioned above in the HPI. FAMILY HISTORY: Negative for heart disease. SOCIAL HISTORY: She denies any alcohol use, drug use, or smoking history. She is currently a chemical code and intubation only. No CPR. She is a [employer] and her grandson is at bedside. PHYSICAL EXAMINATION: VITAL SIGNS: Vital signs are as of the following; temperature of 98.2, 67 heart rate, 15, 99% on room air, and 143/64. GENERAL: She is awake, alert, and oriented x3. Does not appear in distress. HEENT: Normocephalic and atraumatic. She does appear a little dehydrated. Mucous membranes are dry. CV: S1, S2 present. No murmurs, rubs, or gallops. LUNGS: Clear to auscultation. No rhonchi or wheezes noted. ABDOMEN: Soft. Bowel sounds are present x2. She does have some pain upon palpation to her epigastric area and little bit on the right upper quadrant. No hepatomegaly or splenomegaly noted. EXTREMITIES: No edema. Pedal pulses are present x2. NEUROVASCULAR: No focal deficits noted. SKIN: No cuts, lesions, or bruises noted. LABORATORY RESULTS: As of the following: WBC of 5.2, hemoglobin of 9.8, hematocrit of 30.4, and her platelet count is 79. Chemistries; sodium of 138, potassium of 4.6, BUN of 49, creatinine of 2.03, and glucose of 152. Her lipase was normal at 43. She also had a chest x-ray done, which indicated no acute evidence of cardiopulmonary issues. ASSESSMENT AND PLAN: Patient is a very pleasant 72-year-old female who presents to the hospital with complaints of nausea and vomiting. 1. Dehydration. She has been nauseated for quite some time. She has not been eating very much. Mildly elevated creatinine from her baseline. We will start her on some gentle hydration and we will continue to monitor. We will also give her some p.r.n. Zofran. I am not sure the etiology of her nausea, vomiting. I will put her on a PPI for now. She has had a cholecystectomy. May consider getting a right upper quadrant ultrasound to rule out any biliary issue. However, her LFTs and her alkaline phosphatase are completely normal, including her AST and ALT. We will just gently hydrate her. 2. Nausea, vomiting. Her lipase is completely normal. She has had a cholecystectomy. We will put her on a PPI. Patient has been having bowel movements according to her. I am unclear of her nausea, vomiting, unclear of the etiology. Again, if her nausea and vomiting continue and she is unable to tolerate anything, may consider getting a GI consult. 3. Acute kidney injury on chronic kidney disease. Creatinine usually at baseline is 1.9, today it is 2.03. We will continue some gentle hydration and continue to monitor. 4. History of primary biliary cirrhosis. We will continue her home medications. 5. Deep venous thrombosis prophylaxis. We will put the patient on some SCDs since patient's platelets are on the lower side. Job ID: [id number]
[2018-06-05] MEDS: Ondansetron PF 4 MG/2 ML Vial IVP PRN ×2 (04:30→11:23)
[2018-06-05 07:05] LABS: #Eosinphils 0.1 thou/uL (0.0-0.7); #Lymphocytes 1.3 thou/uL (1.20-3.40); #Monocytes 0.3 thou/uL (0.11-0.59); #Neutrophils 1.4 thou/uL (1.40-6.50); %Basophils 0.7 % (0.0-1.0); %Eosinophils 3.9 % (0.0-10.0); %Lymphocytes 40.8 % (21.0-51.0); %Monocytes 9.5 % (0.0-10.0); %Neutrophils 45.1 % (42.0-75.0); Hemoglobin 9.1 g/dL (12.0-16.0); Mean Corpuscular HGB CONC 32.7 g/dL (32.0-36.0); Mean Corpuscular Hemoglobin 32.6 pg (27.0-31.0); Mean Corpuscular Volume 99.7 fL (78.0-98.0); Mean Platelet Volume 10.2 fL (7.4-10.4); Platelet Count 56 thou/uL (130-400); RBC Distribution Width 15.5 % (11.5-14.5); Red Blood Cell (RBC) Count 2.78 mill/uL (4.20-5.40); White Blood Cell (WBC) Count 3.2 thou/uL (4.8-10.8)
[2018-06-05 07:12] LABS: ALT (SGPT) 25 U/L (8-55); AST (SGOT) 32 U/L (5-34); Albumin 2.9 g/dL (3.4-4.8); Alkaline Phosphatase 112 U/L (40-150); Anion Gap 13 mmol/L (10-20); BUN (Urea Nitrogen) 44 mg/dL (9.8-20.1); Bilirubin, Total 0.5 mg/dL (0.2-1.2); Calc. Creatinine Clearance 32 mL/min (70-130); Calcium 9.2 mg/dL (7.8-10.44); Carbon Dioxide 23 mmol/L (23-31); Chloride 110 mmol/L (98-107); Estimated GFR-MDRD 26; Globulin 3.3 g/dL (2.4-3.5); Glucose 128 mg/dL (83-110); Protein, Total 6.2 g/dL (6.0-8.3); Sodium 141 mmol/L (136-145)
[2018-06-05] MEDS: Ursodiol 300 MG CAP PO SCH ×2 (07:48→21:49)
[2018-06-05] MEDS: Aspirin 81 mg Enteric Coated Tablet PO SCH (07:48)
[2018-06-05] MEDS: RIFAXIMIN 550 MG PO SCH ×2 (07:49→15:37)
[2018-06-05] MEDS: Propranolol HCl 20 MG TAB PO SCH ×2 (07:49→21:49)
--- NOTE | 2018-06-05 14:08 | PDOC.PN ---
- Subjective Encounter Start Date: 06/05/18 Encounter Start Time: 14:05 Patient lying in bed with family member at bedside. She reports little improvement. She tried to eat her lunch and after one bite she began vomiting. SHe reports cramping in her abdomen, but denies chest pain or shortness of breath. - Objective Resuscitation Status - Order Detail: 06/05/18 00:10 Resuscitation Status Routine Resuscitation Status: PRTL: Chem-Intubation Discussed with: per pt MAR Reviewed: Yes Vital Signs & Weight: Vital Signs (12 hours) Temp Pulse Resp BP BP Pulse Ox 06/05/18 11:37 97.6 F 63 18 133/57 L 99 06/05/18 07:17 97.9 F 71 18 108/53 L 108/53 L 95 06/05/18 04:32 97.9 F 66 16 120/60 96 Weight Weight 169 lb I&O: 06/04/18 06/05/18 06/06/18 06:59 06:59 06:59 Intake Total 2668 Output Total 1350 Balance 1318 Result Diagrams: 06/05/18 06:19 06/05/18 06:19 Radiology Reviewed by me: Yes Phys Exam - Physical Examination Constitutional: NAD HEENT: PERRLA, sclera anicteric, oral pharynx no lesions Neck: no nodes, no JVD, full ROM Respiratory: no wheezing, no rales, clear to auscultation bilateral Cardiovascular: RRR, no significant murmur, no rub Gastrointestinal: soft, no distention, positive bowel sounds Mild TTP epigastric area Musculoskeletal: no edema, pulses present Neurological: non-focal, normal sensation, moves all 4 limbs Lymphatic: no nodes Psychiatric: normal affect, A&O x 3 Skin: no rash, normal turgor, cap refill <2 seconds Dx/Plan (1) Intractable nausea and vomiting Code(s): R11.2 - NAUSEA WITH VOMITING, UNSPECIFIED Status: Acute (2) RADHA (acute kidney injury) Code(s): N17.9 - ACUTE KIDNEY FAILURE, UNSPECIFIED Status: Acute Comment: Back to baseline. 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 * Consult GI for evaluation, she sees Dr Vazquez * Continue other home medications
--- NOTE | 2018-06-05 15:48 | RAD ---
ABDOMEN TWO VIEWS: HISTORY: Nausea and vomiting. FINDINGS: There are postoperative changes of a cholecystectomy. No free air or differential fluid levels are s een. The bowel gas pattern is unremarkable. There is right basilar consolidation with accompanying pleural effusion. POS: [facility]
[2018-06-05] MEDS ORDERED: Metoclopramide HCl 10 MG TAB PO SCH (17:00)
[2018-06-05] MEDS: Metoclopramide HCl 10 MG/2 ML VIAL IVP SCH (17:26)
[2018-06-05] MEDS ORDERED: [UNRECOGNIZED DRUG - REMARK] FS SCH (20:00)
[2018-06-05] MEDS: Famotidine/PF 20 mg/2ml Vial SLOW IVP SCH (21:53)
[2018-06-06] MEDS: Metoclopramide HCl 10 MG/2 ML VIAL IVP SCH ×5 (00:54→23:22)
[2018-06-06] MEDS: Ursodiol 300 MG CAP PO SCH ×2 (08:32→20:28)
[2018-06-06] MEDS: Propranolol HCl 20 MG TAB PO SCH ×2 (08:33→20:28)
[2018-06-06] MEDS: RIFAXIMIN 550 MG PO SCH ×2 (08:33→16:14)
[2018-06-06] MEDS: Aspirin 81 mg Enteric Coated Tablet PO SCH (08:33)
--- NOTE | 2018-06-06 12:18 | ULT ---
ULTRASOUND ABDOMEN LIMITED: Date: 06/06/18 HISTORY: Ascites. COMPARISON: Ultrasound abdomen dated 05/19/18. FINDINGS: There is no significant free fluid in the abdomen for a paracentesis. IMPRESSION: No significant ascites. POS: [facility]
--- NOTE | 2018-06-06 15:46 | PDOC.PN ---
- Subjective Encounter Start Date: 06/06/18 Encounter Start Time: 08:15 Subjective: Patient resting comfortably. Tolerating liquids. -: No nausea/vomiting since yesterday. Denies abdominal pain. -: No fever, chills or sweats. No CP or sob. Moving bowels. Denies any hematuria. No melena or bright red blood per rectum. No gum bleeding. - Objective Resuscitation Status - Order Detail: 06/05/18 00:10 Resuscitation Status Routine Resuscitation Status: PRTL: Chem-Intubation Discussed with: per pt Vital Signs & Weight: Vital Signs (12 hours) Temp Pulse Resp BP Pulse Ox 06/06/18 11:15 97.8 F 60 18 125/58 L 99 06/06/18 07:41 98 F 64 16 109/59 L 95 06/06/18 04:52 98.7 F 65 15 108/54 L 93 L Weight Weight 166 lb 6.4 oz I&O: 06/05/18 06/06/18 06/07/18 06:59 06:59 06:59 Intake Total 2668 1640 Output Total 1350 825 Balance 1318 815 Result Diagrams: 06/05/18 06:19 06/05/18 06:19 Phys Exam - Physical Examination Constitutional: NAD HEENT: PERRLA, moist MMs, sclera anicteric Neck: no nodes, no JVD, supple, full ROM Respiratory: no wheezing, clear to auscultation bilateral Cardiovascular: RRR, no significant murmur Gastrointestinal: soft, non-tender, no distention, positive bowel sounds no guarding/rigidity. Musculoskeletal: no edema Neurological: non-focal Lymphatic: no nodes Psychiatric: normal affect, A&O x 3 Skin: no rash, normal turgor Dx/Plan (1) Thrombocytopenia Code(s): D69.6 - THROMBOCYTOPENIA, UNSPECIFIED Status: Acute (2) Intractable nausea and vomiting Code(s): R11.2 - NAUSEA WITH VOMITING, UNSPECIFIED Status: Resolved (3) RADHA (acute kidney injury) Code(s): N17.9 - ACUTE KIDNEY FAILURE, UNSPECIFIED Status: Acute Comment: Back to baseline. (4) Abdominal pain, diffuse Code(s): R10.84 - GENERALIZED ABDOMINAL PAIN Status: Resolved (5) History of cirrhosis of liver Code(s): Z87.19 - PERSONAL HISTORY OF OTHER DISEASES OF THE DIGESTIVE SYSTEM Status: Chronic (6) DM2 (diabetes mellitus, type 2) Status: Chronic Qualifiers: Diabetes mellitus long-term insulin use: without termite inspector use Diabetes mellitus complication status: without complication Qualified Code(s): E11.9 - Type 2 diabetes mellitus without complications (7) HTN (hypertension) Code(s): I10 - ESSENTIAL (PRIMARY) HYPERTENSION Status: Chronic Qualifiers: Hypertension type: essential hypertension Qualified Code(s): I10 - Essential (primary) hypertension - Plan cont current plan of care Per GI awaiting US paracentesis. No signs of ascites on exam. -: Thrombocytopenia, continue to monitor. No transfusion of blood products. -: Awaiting further GI input. -: ADDENDUM: Paracentesis cancelled. Per GI, advanced to soft diet. * .
[2018-06-06 16:50] VITALS: BMI 27.6
--- NOTE | 2018-06-06 19:56 | CON ---
DATE OF CONSULTATION: 06/06/2018 REASON FOR CONSULTATION: Nausea, vomiting, history of primary biliary cirrhosis with possible ascites. CONSULTING PHYSICIAN: RUBEN Atkinson HISTORY OF PRESENT ILLNESS: The patient is a 72-year-old female with past medical history of hypertension, diabetes, asthma, diverticulosis, chronic kidney disease, and primary biliary cirrhosis complicated with hepatic encephalopathy, presenting with complaints of shortness of breath, nausea, and vomiting. She states that she was in her usual state of health until approximately two weeks ago when she had progressive worsening of nausea and vomiting, having approximately 3 to 4 episodes of nausea and vomiting per day with nonbloody emesis. Upon further questioning, she states that she has been having these frequent episodes of nausea and vomiting that would occur once every couple of weeks for the last year, but has been progressively getting worse over the last year. Her nausea and vomiting up until now had been primarily worsened in the morning with symptom relief upon vomiting and no further episodes during the day. However, over the last 2 weeks, she had increased frequency of this nausea and vomiting that ultimately prompted her to seek healthcare assistance at [facility]. Upon questioning, the vomiting is primarily liquid with no evidence of an undigested food with her current diet at home consisting of fish and a large amount of fruit and vegetables. However, on admission, she was ultimately placed on metoclopramide for antiemetic relief and has had a significant improvement in her symptoms over the last 12 to 24 hours while on this regimen. At the time of this interview, she had finished a clear liquid diet and was not having any additional issues with nausea and vomiting. Currently, she denies any nausea, vomiting, fevers, chills, abdominal pain, dysphagia, odynophagia, or constipation. She does endorse chronic diarrhea that has been present for at least the last 5 to 6 months, characterizes having approximately 5 to 6 semi-solid or liquid bowel movements per day. However, shortly before admission, she states that she had the frequency of her bowel movements changed with decreased frequency and had not had a bowel movement during this admission until this morning. She does endorse the intermittent occurrence of bright red blood per rectum with blood seen coating the stool and on the toilet paper itself. However, she did have a colonoscopy in November of this year, which showed the presence of hemorrhoids contributing to this particular process. REVIEW OF SYSTEMS: A 10-category review of systems was obtained with all responses negative except for the pertinent positives as listed in HPI. PAST MEDICAL HISTORY: As per HPI. PAST SURGERY HISTORY: Cholecystectomy, hysterectomy, right eye enucleation and prosthesis. FAMILY HISTORY: Denies any GI malignancies. SOCIAL HISTORY: Denies any tobacco, alcohol, or illicit drug use. OUTPATIENT MEDICATIONS: 1. Lasix 40 mg daily. 2. Metformin 1000 mg twice daily. 3. Zocor 20 mg at bedtime. 4. Rifaximin 550 mg twice daily. 5. Propranolol 20 mg twice daily. 6. Omeprazole 40 mg daily. 7. Benicar 20 mg daily. 8. Aspirin 81 mg daily. 9. Ursodiol 600 mg twice daily. ALLERGIES: ALLERGIC TO NSAIDS. PHYSICAL EXAMINATION: VITAL SIGNS: Temperature 97.8, pulse 60, blood pressure 125/58, respiratory rate 18, saturating 99% on room air. GENERAL: The patient was lying in bed, in no acute distress. Alert and oriented x4. HEENT: Normocephalic, atraumatic. NECK: Supple. No JVD or scleral icterus noticed. CARDIOVASCULAR: Regular rate and rhythm. A 3/6 systolic murmur was best heard at the right upper sternal border without any other evidence of gallops or rubs. RESPIRATORY: Clear to auscultation bilaterally with no discernible wheezes or rales. ABDOMEN: Normoactive bowel sounds. Soft, nondistended, mild tenderness to palpation in the midepigastric region. EXTREMITIES: No cyanosis, clubbing, or edema. LABORATORY DATA: CBC with a white blood cell count of 3.2, hemoglobin 9.1, hematocrit 27.8, platelets 56. INR 1.3. Chemistry with a sodium of 141, potassium 5, chloride 110, CO2 of 23, BUN 44, creatinine 1.89, glucose 128, AST 32, ALT 25, alkaline phosphatase 112, total bilirubin 0.5, albumin 2.9, TSH 0.29, lipase 43, and a calculated MELD score of 15 (most likely driven because of her chronic kidney disease). IMAGING DATA: Chest x-ray obtained on June 04, 2018 showed no evidence of acute cardiopulmonary process. 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 Nausea and vomiting. 1. The patient initially presented with chronic nausea and vomiting that has been present over the last year with progressive worsening over this time. However, over the last 2 weeks, she had a significant increase in the frequency of her episodes of emesis, having approximately 3 to 4 episodes of emesis per day. She would experience these episodes primarily upon waking up in the morning with vomiting of nonbloody emesis and lesser exacerbations throughout the day. However, on this admission, she was ultimately placed on metoclopramide on a regular basis and has had significant improvement in her symptoms in terms of antiemetic control. At this point, the differential could include diabetic gastroparesis or gastroparesis from an idiopathic etiology, chronic kidney disease with elevated uremia (less likely), gastritis, constipation (much less likely) and/or GI neoplasm (much less likely given negative upper endoscopy in November 2017). RECOMMENDATIONS: 1. We would continue the current regimen of metoclopramide 10 mg three times daily with meals for a presumed diagnosis of gastroparesis. She will ultimately need a gastric emptying study as an outpatient in order to confirm this particular diagnosis. 2. Repeat upper endoscopy is not indicated at this time given the chronic nature of her nausea and vomiting and almost complete resolution with antiemetic control. 3. We would advance the patient's diet slowly as tolerated. 4. We would avoid constipation as this could further exacerbate possible gastroparesis. 5. We will continue to monitor the patient's status while inpatient. We will continue to follow. If the patient is discharged, please have the patient follow up in the GI clinic within the next 2 weeks. Please call with any additional questions. Job ID: [id number]
[2018-06-06] MEDS: Famotidine/PF 20 mg/2ml Vial SLOW IVP SCH (20:33)
[2018-06-07] MEDS: Metoclopramide HCl 10 MG/2 ML VIAL IVP SCH (05:46)
[2018-06-07] MEDS ORDERED: Senokot S 8.6-50 MG TAB PO PRN (07:22)
[2018-06-07] MEDS ORDERED: Rifaximin 550 MG TAB PO SCH (08:00)
[2018-06-07] MEDS: Ursodiol 300 MG CAP PO SCH (09:48)
[2018-06-07] MEDS: Aspirin 81 mg Enteric Coated Tablet PO SCH (09:48)
[2018-06-07] MEDS: Propranolol HCl 20 MG TAB PO SCH (09:48)
[2018-06-07 10:42] LABS: #Eosinphils 0.1 thou/uL (0.0-0.7); #Monocytes 0.3 thou/uL (0.11-0.59); #Neutrophils 1.5 thou/uL (1.40-6.50); %Basophils 0.7 % (0.0-1.0); %Eosinophils 4.7 % (0.0-10.0); %Lymphocytes 33.5 % (21.0-51.0); %Monocytes 11.1 % (0.0-10.0); Hemoglobin 9.7 g/dL (12.0-16.0); Mean Corpuscular HGB CONC 31.7 g/dL (32.0-36.0); Mean Corpuscular Hemoglobin 31.7 pg (27.0-31.0); Mean Platelet Volume 7.1 fL (7.4-10.4); Platelet Count 64 thou/uL (130-400); RBC Distribution Width 15.3 % (11.5-14.5); Red Blood Cell (RBC) Count 3.07 mill/uL (4.20-5.40); White Blood Cell (WBC) Count 3.1 thou/uL (4.8-10.8)
[2018-06-07 10:52] LABS: Anion Gap 13 mmol/L (10-20); BUN (Urea Nitrogen) 28 mg/dL (9.8-20.1); Calc. Creatinine Clearance 37 mL/min (70-130); Calcium 9.3 mg/dL (7.8-10.44); Carbon Dioxide 20 mmol/L (23-31); Chloride 109 mmol/L (98-107); Estimated GFR-MDRD 31; Glucose 167 mg/dL (83-110); Potassium 4.7 mmol/L (3.5-5.1); Sodium 137 mmol/L (136-145)
[2018-06-07 11:26] LABS: MDiff Complete? YES; Macrocytosis SLIGHT = 6-15 cells (100X) (0-5/hpf); PLT Morphology Comment Appears Decreased; Polychromasia SLIGHT = 2-3 cells (100X) (0-2/hpf)
[2018-06-07] MEDS ORDERED: Metoclopramide HCl 10 MG TAB PO SCH (11:30)
[2018-06-07 12:25] VITALS: BP 127/60; TEMP 97.9
--- NOTE | 2018-06-08 14:21 | DIS ---
DATE OF ADMISSION: 06/04/2018 DATE OF DISCHARGE: 06/07/2018 CHIEF COMPLAINT: Intractable nausea and vomiting. DISCHARGE DIAGNOSES: 1. Gastroparesis. 2. Constipation. 3. Hypertension. 4. Type 2 diabetes mellitus. 5. Liver cirrhosis. CONSULTATIONS: Dr. Price of Gastroenterology. HOSPITAL COURSE: Ms. Vazquez is a very pleasant 72-year-old woman, who was admitted with intractable nausea, vomiting. She was seen by her primary care physician and given a prescription for antiemetics including Reglan. The patient states she was not taking this as scheduled and only as needed without any significant improvement. Upon admission to the ED, she was noted to have an RADHA and started on IV fluids. She was placed on a PPI. She was also placed on scheduled Reglan with significant improvement in her symptoms. The patient was seen by Dr. Price of GI, who advised advancing to a soft diet, which she tolerated very well. She had no further vomiting during her hospital stay. Due to history of biliary cirrhosis, she did undergo an abdominal ultrasound initially. She was initially thought to possibly benefit from paracentesis if there was any evidence of ascites. However, upon further investigations, paracentesis was canceled as the patient was not found to have any ascites on ultrasound imaging. Per Dr. Price, she is presumed to have diagnosis of gastroparesis, responding very well to scheduled Reglan. He advised she would eventually require a gastric emptying study that could be done as an outpatient to confirm this condition. She did have issues with constipation, managed with stool softeners during her stay. She was deemed stable for discharge to home with plans to follow up with Dr. Price as an outpatient. The patient was agreeable and very happy with this plan. REVIEW OF SYSTEMS: At the time of discharge, the patient denies any further nausea or vomiting. Her constipation has been improving. She is tolerating a soft diet and liquids. Denies any chest pain or shortness of breath. No fevers or chills. No urinary symptoms. All other review of systems is negative. PHYSICAL EXAM: Generally appears well. Alert and oriented x 3. No acute distress. Skin normal warm and dry. Vital signs stable. Heart sounds normal. Lungs clear bilaterally. Abdomen soft, nontender, nondistended. No lower limb edema. LABORATORY DATA: White blood count 3.1, hemoglobin 9.7, hematocrit 30.7, platelets 64 (chronically low). BUN much improved to 20, compared to 49 on initial admission. Creatinine also improved to 1.61. Otherwise unremarkable. IMAGIN. Chest x-ray done on 06/04/2018 with no evidence of acute cardiopulmonary disease. Abdominal x-ray, 06/05/2018, postoperative changes of cholecystectomy. No free air or fluid levels seen. Right basilar consolidation with accompanying pleural effusion. 2. 06/06/2018, abdominal ultrasound. No significant ascites. PROCEDURES: None. DISCHARGE MEDICATIONS: New medications include, 1. Scheduled Reglan 10 mg p.o. with meals and at bedtime. Prescription provided. 2. Senna two tablets p.o. b.i.d. p.r.n. for constipation. Prescription provided. The patient was advised to resume home medications. DISCHARGE CONDITION: Stable. DISCHARGE ACTIVITY: As tolerated. DISCHARGE DIET: Continue soft diet. FOLLOWUP: The patient will follow up with Dr. Price in 14 days and her PCP within one to two weeks. DISPOSITION: Home on 06/07/2018. Job ID: [id number] [facility]
== END 2018-06-07 15:18 | disposition home or self-care (01) ==
LOC: ERS 19:03 → 2SW 21:15
PROVIDERS: ADMIT Internal Medicine; ATTEND Internal Medicine
DX: E11.43 Type 2 diabetes mellitus with diabetic autonomic (poly)neuropathy (principal); K31.84 Gastroparesis; K59.00 Constipation, unspecified; K74.3 Primary biliary cirrhosis; I12.9 Hypertensive chronic kidney disease with stage 1 through stage 4 chronic kidney disease, or unspecified chronic kidney disease; E11.22 Type 2 diabetes mellitus with diabetic chronic kidney disease; N18.9 Chronic kidney disease, unspecified; N17.9 Acute kidney failure, unspecified; J45.909 Unspecified asthma, uncomplicated; K57.90 Diverticulosis of intestine, part unspecified, without perforation or abscess without bleeding; H54.61 Unqualified visual loss, right eye, normal vision left eye; E86.0 Dehydration; D69.6 Thrombocytopenia, unspecified; Z90.49 Acquired absence of other specified parts of digestive tract; Z90.710 Acquired absence of both cervix and uterus; Z88.6 Allergy status to analgesic agent; Z97.0 Presence of artificial eye; Z79.84 Long term (current) use of oral hypoglycemic drugs; Z79.82 Long term (current) use of aspirin; Z79.2 Long term (current) use of antibiotics; Z79.4 Long term (current) use of insulin; Z79.899 Other long term (current) drug therapy; Z98.890 Other specified postprocedural states
CPT/HCPCS: 71045; 74019; 76705; 80048; 80053; 82533; 83690; 83880; 84439; 84484; 85025 ×2; 85610; 85730; 87086; 93005; 96361; 96365; 96375 ×2; 96376 ×3; 99285; G0378 ×3; 36415; 81003; 81015; 84443; J2405; J2765; S0028

== ENCOUNTER 2018-06-12 10:05 | Inpatient (IN) | payer MEDICARE, MEDICAID ==
[2018-06-12] MEDS ORDERED: Metoclopramide HCl 10 MG/2 ML VIAL ONE (10:22)
[2018-06-12 10:51] LABS: #Eosinphils 0.3 thou/uL (0.0-0.7); #Lymphocytes 1.2 thou/uL (1.20-3.40); #Monocytes 0.5 thou/uL (0.11-0.59); #Neutrophils 3.2 thou/uL (1.40-6.50); %Basophils 0.9 % (0.0-1.0); %Eosinophils 5.9 % (0.0-10.0); %Monocytes 8.9 % (0.0-10.0); %Neutrophils 61.3 % (42.0-75.0); Hemoglobin 10.4 g/dL (12.0-16.0); Mean Corpuscular HGB CONC 32.8 g/dL (32.0-36.0); Mean Corpuscular Hemoglobin 32.5 pg (27.0-31.0); Mean Corpuscular Volume 99.2 fL (78.0-98.0); Mean Platelet Volume 10.6 fL (7.4-10.4); Platelet Count 82 thou/uL (130-400); RBC Distribution Width 15.1 % (11.5-14.5); Red Blood Cell (RBC) Count 3.19 mill/uL (4.20-5.40); White Blood Cell (WBC) Count 5.3 thou/uL (4.8-10.8)
--- NOTE | 2018-06-12 11:00 | RAD ---
CHEST 1 VIEW: HISTORY: Dyspnea. COMPARISON: 06/04/2018. FINDINGS: Cardiac silhouette is predominantly obscured by increasing fluid opacity at the right base with sligh tly leftward shift of the mediastinum. Pulmonary vasculature upper limits of normal. O evidence of pneumothorax. IMPRESSION: Enlarging right pleural effusion. POS: H
[2018-06-12 11:01] LABS: ALT (SGPT) 25 U/L (8-55); AST (SGOT) 35 U/L (5-34); Albumin 3.3 g/dL (3.4-4.8); Alkaline Phosphatase 140 U/L (40-150); Anion Gap 15 mmol/L (10-20); BUN (Urea Nitrogen) 36 mg/dL (9.8-20.1); Bilirubin, Total 0.6 mg/dL (0.2-1.2); Calc. Creatinine Clearance 0 mL/min (70-130); Calcium 9.5 mg/dL (7.8-10.44); Carbon Dioxide 21 mmol/L (23-31); Chloride 108 mmol/L (98-107); Estimated GFR-MDRD 25; Globulin 3.4 g/dL (2.4-3.5); Glucose 191 mg/dL (83-110); Lipase 41 U/L (8-78); Potassium 4.7 mmol/L (3.5-5.1); Protein, Total 6.7 g/dL (6.0-8.3); Sodium 139 mmol/L (136-145)
[2018-06-12 11:29] LABS: Bilirubin Negative (Negative); Blood, Urine Negative (Negative); Clarity CLEAR (Clear); Glucose, Urine (Dipstick) Negative (Negative); Leukocyte Trace (Negative); Nitrite Negative (Negative); Protein, Urine (Dipstick) Negative (Neg-Trace); Specific Gravity, Urine 1.011 (1.002-1.036); Urobilinogen 0.2 mg/dL (0.2-1.0); pH, Urine 5.5 (5.0-9.0)
[2018-06-12 11:31] LABS: Bacteria/HPF None Seen HPF (None Seen); Hyaline Casts/LPF 7-10 HYALINE CAST LPF (0-3 Hyaline); Pathc Cast-AUWi Flag 2.03 (0-2.49); RBC/HPF 0-3 HPF (0-3); Squamous Epithelial 0-3 HPF (0-3)
[2018-06-12] MEDS ORDERED: Promethazine HCl 25 MG/ML VIAL ONE (11:54)
[2018-06-12 13:13] VITALS: BMI 28.3
[2018-06-12] MEDS ORDERED: Sodium Chloride 0.65% Nasal 44 ML BOT EA NARE PRN (13:15)
[2018-06-12] MEDS ORDERED: Eucerin (Mineral Oil/Petrolatum,White) 30 gm Jar TOP PRN (13:15)
[2018-06-12] MEDS ORDERED: Dextrose 5% in Water 1,000 ML IV PRN (13:15)
[2018-06-12] MEDS ORDERED: HumaLOG 300 UNITS/3 ML VIAL SC PRN ×2 (13:15)
[2018-06-12] MEDS ORDERED: Metoclopramide HCl 10 MG/2 ML VIAL IVP PRN (13:15)
[2018-06-12] MEDS ORDERED: hydrALAZINE 20 MG/ML VIAL SLOW IVP PRN (13:15)
[2018-06-12] MEDS ORDERED: Senokot S 8.6-50 MG TAB PO PRN (13:15)
[2018-06-12] MEDS ORDERED: Bisacodyl 10 MG SUPP PR PRN (13:15)
[2018-06-12] MEDS ORDERED: Diabetic Tussin 200 MG/10 ML UDCUP PO PRN (13:15)
[2018-06-12] MEDS ORDERED: Loperamide HCl 2 MG CAP PO PRN (13:15)
[2018-06-12] MEDS ORDERED: Zolpidem Tartrate 5 MG TAB PO PRN (13:15)
[2018-06-12] MEDS ORDERED: HYDROcodone/Acetaminophen 5/325 mg Tablet PO PRN (13:15)
[2018-06-12] MEDS ORDERED: Artificial Tears 18 DROP/0.9 ML EA EYE PRN (13:15)
[2018-06-12] MEDS ORDERED: Calcium Carbonate 500 MG ChewTAB PO PRN (13:15)
[2018-06-12] MEDS ORDERED: Loratadine 10 MG TAB PO PRN (13:15)
[2018-06-12] MEDS ORDERED: Cepastat Lozenges 1 LOZ PO PRN (13:15)
[2018-06-12] MEDS ORDERED: Dextrose 50% Abboject 50 ML SYRINGE SLOW IVP PRN (13:15)
[2018-06-12] MEDS ORDERED: Ondansetron PF 4 MG/2 ML Vial IVP PRN (13:15)
[2018-06-12] MEDS ORDERED: Acetaminophen 325 MG TAB PO PRN (13:15)
--- NOTE | 2018-06-12 13:34 | HP ---
PRIMARY CARE PHYSICIAN: Castro Candelaria MD REASON FOR ADMISSION: Nausea and vomiting, dyspnea. HISTORY OF PRESENT ILLNESS: A 73-year-old female, who has underlying history of primary biliary cirrhosis, who was recently admitted in our hospital with nausea, vomiting on June 05, 2018. At that time, patient had a chest x-ray, which was unremarkable. The patient also had an ultrasound abdomen which was also negative for any significant ascites. The patient was treated with symptomatic treatment and she was discharged home on June 08, 2018. The patient was diagnosed as a gastroparesis. Window Tinter Dr. Conway evaluated this patient during that admission. After discharge, the patient was doing good, up until last night when she started having nausea and vomiting. She was not able to keep anything down. She was only drinking liquid water. She was also not able to hold Ensure, and she ate yesterday fruits which she was not able to hold as well. The patient reports that when she was discharged from hospital, at that point, she noticed that she was not able to lie down on her right side. She was comfortable on the left side and left lateral position during sleep. She is experiencing increasing shortness of breath. She denies any lower extremity edema. Today in the emergency room, patient had enlarging right pleural effusion which was not there during previous admission. The patient denies any UTI symptoms. She denies any constipation, diarrhea, melena, hematochezia, or hematemesis. She denies any abdominal distention, abdominal pain, fever, chills, flu-like symptoms. She denies any upper respiratory infection. PAST MEDICAL HISTORY: Diabetes type 2, hypertension, asthma, diverticulosis, history of hepatic encephalopathy, primary biliary cirrhosis, right eye blindness, dyslipidemia, glaucoma, gastroparesis. PAST PSYCHIATRIC HISTORY: Reviewed and negative.. PAST SURGICAL HISTORY: Right eye prosthesis, eye surgery on the right side, hysterectomy, cholecystectomy. ALLERGIES: THE PATIENT IS ALLERGIC TO NSAID. CURRENT HOME MEDICATIONS: 1. Aspirin 81 mg daily. 2. Vitamin D3 of 5000 units p.o. daily. 3. Vitamin B12 of 1000 mcg p.o. daily. 4. Zetia 10 mg daily. 5. Xalatan eyedrops each eye at bedtime. 6. Metformin 1000 mg p.o. b.i.d. 7. Benicar 20 mg daily. 8. Omeprazole 40 mg daily. 9. vitamin 1 tablet daily. 10. Inderal 20 mg b.i.d. 11. Rifaximin 550 mg b.i.d. 12. Zocor 20 mg p.o. at bedtime. 13. Ursodiol 600 mg p.o. b.i.d. 14. Lasix 40 mg p.o. daily. 15. Reglan 10 mg p.o. a.c. and at bedtime p.r.n. 16. Senokot two tablets p.o. b.i.d. REVIEW OF SYSTEMS: CONSTITUTIONAL: Negative for weight loss or gain, ability to conduct usual activities. SKIN: Negative for rash, itching. EYES: Negative for double vision, pain. ENT/MOUTH: Negative for nose bleeding, neck stiffness, pain, tenderness. CARDIOVASCULAR: Negative for palpitations, dyspnea on exertion, orthopnea. RESPIRATORY: Negative for shortness of breath, wheezing, cough, hemoptysis, fever or night sweats. GASTROINTESTINAL: Negative for poor appetite, abdominal pain, heartburn, nausea, vomiting, constipation, or diarrhea. GENITOURINARY: Negative for urgency, frequency, dysuria, nocturia. MUSCULOSKELETAL: Negative for pain, swelling. NEUROLOGIC/PSYCHIATRIC: Negative for anxiety, depression. ALLERGY/IMMUNOLOGIC: Negative for skin rash, bleeding tendency. Please see my HPI for pertinent positives and negatives. All other review of systems reviewed and negative except as mentioned in HPI. FAMILY HISTORY: The patient denies any strong family history of premature coronary artery disease, stroke, or cancer. SOCIAL HISTORY: The patient is currently Jehovah Witness per family member present at bedside. She is chemical code only. No history of tobacco, alcohol, or illicit drug abuse. EMERGENCY ROOM COURSE: Reviewed. PHYSICAL EXAMINATION: VITAL SIGNS: Currently, blood pressure 124/59, pulse 72, respiratory rate 19, temperature 97.7, and saturation 97% on room air. Weight 79.4 kg. GENERAL: The patient is currently alert, awake. No obvious acute distress. Chronically ill. HEENT: Head; normocephalic, atraumatic. Eyes; enucleation of the right eye. ENT; oropharynx within normal limits. Moist mucous membranes. No oral lesion. No pharyngeal erythema. No exudate. NECK: Supple. No JVD. No thyromegaly. No carotid bruit. No jugular venous distention. LUNGS: Clear to auscultation without any rhonchi or rales. CARDIAC: S1 and S2 regular. No murmur. No gallop. No rub. LUNGS: Air entry reduced on the right side. ABDOMEN: Soft and benign without any tenderness. EXTREMITIES: No edema. NEUROLOGIC: Nonfocal examination. No asterixis. SKIN: No skin rash. BACK: Unremarkable. No CVA tenderness. PSYCHIATRIC: Normal affect. SIGNIFICANT LABORATORY DATA: CBC: WBC 5.3, hemoglobin 10.4, platelet 82. BMP: Sodium 139, potassium 4.7, chloride 108, carbon dioxide 21, BUN 36, creatinine 1.95, glucose 191, calcium 9.5. LFTs: AST 35, ALT 25, alkaline phosphatase 140, albumin 3.3, lipase 41. Peak troponin less than 0.010. BNP 76.4. Urinalysis, leukocyte esterase trace. Echocardiography recently done in our hospital showed EF 60%-65%, diastolic dysfunction. ASSESSMENT AND PLAN: 1. Right pleural effusion. The patient has dyspnea on the right lateral position, She has an enlarging right pleural effusion based on x-ray as well as clinical examination, suspecting etiology is hepatic hydrothorax from cirrhosis versus diastolic heart failure. Her BNP is normal, so more probably secondary to hepatic hydrothorax. As this patient is symptomatic, she will benefit from thoracentesis. We will check PT, INR, and we will consult Pulmonology for opinion regarding thoracentesis. Meanwhile, we will continue with Lasix 40 mg IV b.i.d. 2. Nausea and vomiting, recurrent, most likely related with underlying primary biliary cirrhosis as well as possible gastroparesis. I do not see any investigation specifically done for gastroparesis. If the patient has persistent nausea and vomiting, then she may need a nuclear medicine gastric emptying scan to officially diagnose the condition. Last time storyboard artist evaluated this patient. If the patient condition does not improve, then she will benefit from endoscopic evaluation as well. Meanwhile, we will treat with Reglan p.r.n. basis while in hospital and Zofran p.r.n. basis. 3. Thrombocytopenia, chronic, secondary to primary biliary cirrhosis. 4. Anemia with macrocytosis secondary to primary biliary cirrhosis and chronic disease. 5. Chronic kidney disease stage 4. Monitor renal function. The patient has baseline chronic kidney disease stage 4. Avoid nephrotoxin agent and monitor labs. 6. Asymptomatic urinary tract infection. We will send urine culture and probably we will treat her with Cipro 250 mg p.o. b.i.d. 7. Dyslipidemia. Continue Zetia 10 mg p.o. at bedtime and Zocor 20 mg p.o. at bedtime. 8. Primary biliary cirrhosis. Continue Ursodiol 600 mg p.o. b.i.d., Inderal 20 mg p.o. b.i.d., rifaximin 550 mg p.o. b.i.d. 9. Glaucoma. Continue Xalatan eye drops at bedtime. 10. Hypertension. Continue Benicar 20 mg daily. 11. Diabetes type 2. Continue insulin as per sliding scale per protocol. Diabetic diet will be given. 12. Deep venous thrombosis prophylaxis, SCD boots. 13. Gastrointestinal prophylaxis, Protonix 40 mg p.o. daily. CODE STATUS: The patient is full code. The patient is chemical code and the patient's grandson is the surrogate decision maker. DISPOSITION PLAN: Based on clinical course, likely 24 to 48 hours. Plan of care discussed with the patient and family member at bedside in the emergency room. Job ID: [id number]
--- NOTE | 2018-06-12 14:26 | CON ---
DATE OF CONSULTATION: HISTORY OF PRESENT ILLNESS: A 73-year-old female, who had seen Dr. Michael in the past, who was just recently discharged from the hospital. She presents with shortness of breath, nausea, and vomiting. Her discharge diagnosis on the of this month, three days ago stated that she had gastroparesis, constipation, hypertension, diabetes, and end-stage cirrhosis. She says her main problem is she has been nauseated and vomiting. She saw Dr. Michael on May 06, hospitalized, last visit was not notified. Most days, apparently, she has been able to walk 20 to 30 feet without getting markedly short of breath. PAST MEDICAL HISTORY: 1. 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 2. Varices. 3. Pleural effusion appears to be relatively stable. 4. Persistent nausea and vomiting. 5. Diabetes. HOME MEDICATIONS: 1. Aspirin 81. 2. B12. 3. Zetia. 4. Lasix 40. 5. Reglan 10. 6. Benicar 20. 7. Omeprazole 40. 8. Rifaximin 550 twice a day. 9. Zocor 20. 10. Ursodiol 600. 11. Metformin 1000 twice a day. Since admission she has been started on low breathing treatments, Reglan and most of her home medications. I do not see any diuretics either. ALLERGIES: NSAID. SOCIAL HISTORY: Tobacco, none right now. Alcohol none. REVIEW OF SYSTEMS: Otherwise 10-point negative. PHYSICAL EXAMINATION: GENERAL: She appears to be in no acute respiratory distress at this stage. VITAL SIGNS: Her saturations are 97% on room air. Respiratory rate 20, temperature 98, pulse 75, blood pressure 117/56. CHEST: Decreased breath sounds right lower one half. There is no wheezing, left unremarkable CARDIAC: Normal S1 and S2. No gallops. ABDOMEN: No mass. LABORATORY STUDIES: White count 5000. H and H 10 and 31. Platelet count is 82, BUN and creatinine are 36 and 1.95. BNP 76. UA was remarkable. IMPRESSION: 1. Recurrent right pleural effusion secondary to . The patient pleural effusion appears to be pretty much at her baseline. I see no reason to do a thoracentesis at this stage. I will add neb treatments, continue diuretics, Aldactone. We will notify Dr. Michael. Consultation note, 70 minutes, of which 50% in direct patient care. Job ID: [id number]
[2018-06-12] MEDS: Furosemide 40 MG/4 ML VIAL SLOW IVP SCH (15:18)
[2018-06-12] MEDS ORDERED: Non-Formulary Item 1 EACH (Metformin Hcl [Metformin Hcl] 1,000 MG) PO SCH (17:00)
[2018-06-12] MEDS ORDERED: metFORMIN 500 MG TAB PO SCH (18:45)
[2018-06-12] MEDS: Spironolactone 25 MG TAB PO SCH (18:48)
[2018-06-12] MEDS: Ursodiol 300 MG CAP PO SCH (20:03)
[2018-06-12] MEDS: Rifaximin 550 MG TAB PO SCH (20:03)
[2018-06-12] MEDS: Cyanocobalamin (Vitamin B-12) 1,000 MCG TAB PO SCH (20:04)
[2018-06-12] MEDS: Atorvastatin Calcium 10 MG TAB PO SCH (20:04)
[2018-06-12] MEDS: Propranolol HCl 20 MG TAB PO SCH (20:04)
[2018-06-12] MEDS: Latanoprost 0.005% Ophth Soln 2.5 ml Bottle EA EYE SCH (20:05)
[2018-06-12] MEDS: Ondansetron ODT 4 MG TAB PO PRN (20:45)
[2018-06-12] MEDS ORDERED: RIFAXIMIN 550 MG PO SCH (21:00)
[2018-06-12] MEDS ORDERED: Promethazine HCl 25 MG/ML VIAL SLOW IVP SCH (23:30)
[2018-06-13 05:17] LABS: #Eosinphils 0.3 thou/uL (0.0-0.7); #Lymphocytes 1.9 thou/uL (1.20-3.40); #Monocytes 0.6 thou/uL (0.11-0.59); #Neutrophils 2.3 thou/uL (1.40-6.50); %Basophils 0.2 % (0.0-1.0); %Eosinophils 5.7 % (0.0-10.0); %Monocytes 10.7 % (0.0-10.0); %Neutrophils 45.4 % (42.0-75.0); Hemoglobin 8.9 g/dL (12.0-16.0); Mean Corpuscular HGB CONC 32.3 g/dL (32.0-36.0); Mean Corpuscular Hemoglobin 32.1 pg (27.0-31.0); Mean Corpuscular Volume 99.2 fL (78.0-98.0); Mean Platelet Volume 10.3 fL (7.4-10.4); Platelet Count 72 thou/uL (130-400); Red Blood Cell (RBC) Count 2.79 mill/uL (4.20-5.40); White Blood Cell (WBC) Count 5.1 thou/uL (4.8-10.8)
[2018-06-13 05:31] LABS: Anion Gap 17 mmol/L (10-20); BUN (Urea Nitrogen) 45 mg/dL (9.8-20.1); Calc. Creatinine Clearance 26 mL/min (70-130); Calcium 9.6 mg/dL (7.8-10.44); Carbon Dioxide 20 mmol/L (23-31); Chloride 107 mmol/L (98-107); Estimated GFR-MDRD 21; Glucose 106 mg/dL (83-110); Potassium 4.9 mmol/L (3.5-5.1); Sodium 139 mmol/L (136-145)
[2018-06-13] MEDS: Furosemide 40 MG/4 ML VIAL SLOW IVP SCH ×2 (05:53→14:25)
[2018-06-13] MEDS: metFORMIN 500 MG TAB PO SCH ×2 (08:14→17:10)
[2018-06-13] MEDS: Metoclopramide HCl 10 MG/2 ML VIAL IVP SCH ×4 (08:14→21:00)
[2018-06-13] MEDS: Aspirin 81 mg Enteric Coated Tablet PO SCH (08:15)
[2018-06-13] MEDS: Rifaximin 550 MG TAB PO SCH ×2 (08:15→20:55)
[2018-06-13] MEDS: Spironolactone 25 MG TAB PO SCH ×2 (08:15→17:10)
[2018-06-13] MEDS: Ezetimibe 10 MG TAB PO SCH (08:15)
[2018-06-13] MEDS: Ursodiol 300 MG CAP PO SCH ×2 (08:15→20:55)
--- NOTE | 2018-06-13 08:50 | PDOC.PN ---
- Subjective Encounter Start Date: 06/13/18 Encounter Start Time: 10:45 Subjective: Patient reports persistent SOB. N/V controlled with Reglan. Patient -: has prn O2 at home, only needing it prn here as well. - Objective Resuscitation Status - Order Detail: 06/12/18 12:32 Resuscitation Status Routine Resuscitation Status: PRTL: Chem only Discussed with: discussed with pt MAR Reviewed: Yes Vital Signs & Weight: Vital Signs (12 hours) Temp Pulse Resp BP BP Pulse Ox 06/13/18 07:13 98.5 F 78 16 100/54 L 93 L 06/13/18 06:20 97 06/13/18 06:17 80 20 97 06/13/18 05:51 80 18 95/55 L 93 L 06/13/18 04:50 93 L 06/13/18 04:48 98.7 F 82 20 95/54 L 87 L 06/13/18 01:20 86 18 93 L 06/12/18 23:15 98.4 F 89 18 109/54 L 92 L Weight Weight 170 lb I&O: 06/12/18 06/13/18 06/14/18 06:59 06:59 06:59 Intake Total 672 Output Total 300 Balance 372 Result Diagrams: 06/13/18 04:33 06/13/18 04:33 Additional Labs: Accuchecks 06/12/18 06/12/18 20:35 16:45 POC Glucose 110 93 Phys Exam - Physical Examination Mild increased WOB, especially when talking HEENT: moist MMs right lung base decreased air movement and some crackles Cardiovascular: RRR Gastrointestinal: soft, positive bowel sounds Neurological: non-focal, moves all 4 limbs Psychiatric: normal affect, A&O x 3 Dx/Plan (1) Pleural effusion Code(s): J90 - PLEURAL EFFUSION, NOT ELSEWHERE CLASSIFIED Status: Acute Comment: Secondary to biliary cirrhosis, not significantly changed from baseline per Dr. Hollingsworth's consult, no thoracentesis planned (2) Intractable nausea and vomiting Code(s): R11.2 - NAUSEA WITH VOMITING, UNSPECIFIED Status: Acute Comment: Possible gastroparesis - Plan cont current plan of care Await Dr. Michael's recommendations and d/c if ok with him. * . - Discharge Day Encounter end time: 11:00
[2018-06-13] MEDS: Propranolol HCl 20 MG TAB PO SCH ×2 (09:42→20:55)
--- NOTE | 2018-06-13 14:04 | RAD ---
PORTABLE CHEST 1 VIEW: Date: 06/13/18 Time: 1306 hours HISTORY: Right pleural effusion. FINDINGS: The heart size is stable. Moderate size right pleural effusion is again seen. No pneumothoraces are i dentified. The left lung is well expanded and clear. IMPRESSION: Stable moderate size right pleural effusion. POS: OFF
[2018-06-13] MEDS: Ondansetron ODT 4 MG TAB PO PRN (14:49)
[2018-06-13] MEDS ORDERED: Epoetin (ESRD) 20,000 UNITS/ML SC SCH (17:00)
[2018-06-13] MEDS: Ferrous Sulfate 325 MG TAB PO SCH (17:10)
[2018-06-13] MEDS: Albumin 25% 25 GM/100 ML BOT IVPB SCH ×2 (17:11→23:50)
--- NOTE | 2018-06-13 17:33 | CON ---
DATE OF CONSULTATION: HISTORY OF PRESENT ILLNESS: Ms. Vazquez is a 73-year-old white female with known history of chronic renal failure and admitted for nausea and vomiting with mild shortness of breath. The patient has known history of primary biliary cirrhosis. We are now being consulted for her worsening renal dysfunction. Of interest, due to the right pleural effusion, the patient is currently on Lasix 40 mg IV q.12. This may have played a role, this likely worsening renal dysfunction. REVIEW OF SYSTEMS: Positive for nausea and vomiting. Positive for shortness of breath. No syncopal episode. No productive cough. No fever or chills. No dysuria. No urinary frequency. No hematochezia. No melena. No hematemesis. No abdominal pain. Appetite is decreased. Energy level is decreased. No headache. No diplopia. No syncopal episode. No tremors. MEDICATIONS: 1. Williams 5/325 q.6 p.r.n. 2. DuoNeb q.6. 3. Ecotrin 81 mg daily. 4. Lipitor 10 mg tab at bedtime. 5. Vitamin D3 5000 international units daily. 6. Vitamin B12 1000 mcg at bedtime. 7. Zetia 10 mg at bedtime. 8. Furosemide 40 mg IV q.12. 9. Humalog sliding scale. 10. Xalatan eyedrop . 11. Metformin 1000 mg p.o. b.i.d. 12. Reglan 10 mg before meals. 13. Zofran 4 mg IV q.6. 14. Inderal 20 mg p.o. b.i.d. 15. Senokot two tabs p.o. b.i.d. 16. Spironolactone 25 mg p.o. b.i.d. 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 Of COPD, recent diagnosis of right pleural effusion. PAST SURGICAL HISTORY: Status post cholecystectomy, status post hysterectomy, status post ear surgery, status post right eye surgery with a right eye prosthesis. SOCIAL HISTORY: The patient lives in [place]. Two children. . She is a Jehovah Witness. No IV drug abuse. Currently, no smoking or alcohol intake. Sedentary lifestyle. ALLERGIES: NSAIDS. TRAUMA: None. IMMUNIZATION: Up to date. HOSPITALIZATIONS: Please see past medical history. FAMILY HISTORY: No family history of ESRD. PHYSICAL EXAMINATION: VITAL SIGNS: Blood pressure is 103/53, heart rate 73, respiratory rate 18, temperature 97.9, and pulse ox 93%. GENERAL: Awake, supine, comfortable, not in overt distress. SKIN: Adequate turgor. HEENT: Slightly pale conjunctivae. Anicteric sclerae. No neck mass. No carotid bruits. No JVD. CHEST: No deformities. LUNGS: Decreased breath sounds. Heart : Normal sinus rhythm. No murmur. No gallops or rubs. ABDOMEN: Globular, soft, nontender. No masses. EXTREMITIES: Trace edema. NEUROLOGIC: Awake and oriented to 3 spheres. Moving all extremities. No tremors, no asterixis, no ataxia. LABORATORY DATA: Laboratories of June 13, 2018, white count 5.1, hemoglobin 8.9. On June 12, 2018, urinalysis; no protein, no pigmented granular casts, rbc's 0 to 3. Sodium 139, potassium 4.9, chloride 107, carbon dioxide 20, BUN 45, creatinine 2.31, glucose 106, calcium is 9.6. Troponin I less than 0.010. On June 13, 2018, shows stable moderate size right pleural effusion. ASSESSMENT AND PLAN: 1. Right pleural effusion-continue current diuretic regimen, currently on Lasix 40 mg IV q.12h. 2. Acute kidney injury on top of her chronic renal failure-I suspect superimposed prerenal azotemia from the diuretic regimen. The plan is to continue current IV diuresis. Start albumin 25 g IV q.6 hours for the next 3 days. There is no indication for any dialytic intervention with this patient. 3. Anemia-the patient has generalized weakness. She cannot be a candidate for blood transfusion. Start Epogen 7500 units subcu q.week and ferrous sulfate 325 mg tab b.i.d. 4. Recheck baseline CBC in a.m. Job ID: [id number] [facility]
[2018-06-13] MEDS: Atorvastatin Calcium 10 MG TAB PO SCH (20:55)
[2018-06-13] MEDS: Cyanocobalamin (Vitamin B-12) 1,000 MCG TAB PO SCH (20:55)
[2018-06-13] MEDS: Latanoprost 0.005% Ophth Soln 2.5 ml Bottle EA EYE SCH (20:56)
--- NOTE | 2018-06-14 01:49 | PRG ---
DATE OF SERVICE: 06/13/2018 SUBJECTIVE: Ms. Vazquez's events have been reviewed. She says she is short of breath if she moves around but is comfortable at rest. OBJECTIVE: VITAL SIGNS: She is not tachycardic or tachypneic. She is afebrile. Heart rates in the 70s. Respiratory rates in the teens, blood pressure . LUNGS: Remarkable for decreased breath sounds at the right base. HEART: Regular rhythm. ABDOMEN: Soft. IMPRESSION: Hepatic hydrothorax. DIAGNOSTIC STUDIES: Lab today is reviewed. Her hemoglobin has fallen from 10.4 to 8.9. She is being considered for erythropoietin. Her creatinine went from 1.95 to 2.31. I am not sure that her intake and outputs are accurate as it is reported that she only had 300 mL of urine out yesterday. PLAN: We will continue supportive care. I do not feel thoracentesis is indicated at this time. Job ID: [id number]
[2018-06-14 06:00] LABS: #Eosinphils 0.2 thou/uL (0.0-0.7); #Lymphocytes 1.6 thou/uL (1.20-3.40); #Monocytes 0.3 thou/uL (0.11-0.59); #Neutrophils 1.3 thou/uL (1.40-6.50); %Basophils 0.9 % (0.0-1.0); %Eosinophils 4.8 % (0.0-10.0); %Lymphocytes 47.4 % (21.0-51.0); %Monocytes 8.6 % (0.0-10.0); %Neutrophils 38.2 % (42.0-75.0); Hemoglobin 8.4 g/dL (12.0-16.0); Mean Corpuscular HGB CONC 33.2 g/dL (32.0-36.0); Mean Corpuscular Hemoglobin 32.7 pg (27.0-31.0); Mean Corpuscular Volume 98.3 fL (78.0-98.0); Mean Platelet Volume 10.4 fL (7.4-10.4); Platelet Count 59 thou/uL (130-400); RBC Distribution Width 14.7 % (11.5-14.5); Red Blood Cell (RBC) Count 2.57 mill/uL (4.20-5.40); White Blood Cell (WBC) Count 3.4 thou/uL (4.8-10.8)
[2018-06-14 06:04] LABS: Anion Gap 17 mmol/L (10-20); BUN (Urea Nitrogen) 49 mg/dL (9.8-20.1); Calc. Creatinine Clearance 23 mL/min (70-130); Calcium 9.8 mg/dL (7.8-10.44); Carbon Dioxide 19 mmol/L (23-31); Chloride 107 mmol/L (98-107); Estimated GFR-MDRD 19; Glucose 95 mg/dL (83-110); Potassium 4.8 mmol/L (3.5-5.1); Sodium 138 mmol/L (136-145)
[2018-06-14] MEDS: Furosemide 40 MG/4 ML VIAL SLOW IVP SCH ×2 (06:17→17:03)
[2018-06-14] MEDS: Albumin 25% 25 GM/100 ML BOT IVPB SCH ×4 (06:21→21:33)
--- NOTE | 2018-06-14 09:15 | PDOC.PN ---
- Subjective Encounter Start Date: 06/14/18 Encounter Start Time: 10:00 Subjective: Patient's shortness of breath is improved, can lay flat better. - Objective Resuscitation Status - Order Detail: 06/12/18 12:32 Resuscitation Status Routine Resuscitation Status: PRTL: Chem only Discussed with: discussed with pt MAR Reviewed: Yes Vital Signs & Weight: Vital Signs (12 hours) Temp Pulse Resp BP Pulse Ox 06/14/18 07:30 97.8 F 74 16 122/56 L 94 L 06/14/18 06:36 69 16 90 L 06/14/18 06:15 68 120/58 L 06/14/18 03:30 98 F 78 22 H 112/55 L 93 L 06/13/18 23:41 93 18 93 L Weight Admit Weight 169 lb 14.4 oz Weight 167 lb 11.2 oz I&O: 06/13/18 06/14/18 06/15/18 06:59 06:59 06:59 Intake Total 672 2250 Output Total 300 600 Balance 372 1650 Result Diagrams: 06/14/18 04:38 06/14/18 04:38 Additional Labs: Accuchecks 06/13/18 06/13/18 06/13/18 21:05 16:27 10:27 POC Glucose 109 113 H 141 H Phys Exam - Physical Examination Constitutional: NAD HEENT: moist MMs decreased breath sounds and rales to right lower lung Cardiovascular: RRR, no significant murmur Gastrointestinal: soft, positive bowel sounds Neurological: non-focal, moves all 4 limbs Psychiatric: normal affect, A&O x 3 Dx/Plan (1) Pleural effusion Code(s): J90 - PLEURAL EFFUSION, NOT ELSEWHERE CLASSIFIED Status: Acute Comment: Secondary to biliary cirrhosis, not significantly changed from baseline per Dr. Hollingsworth's consult, no thoracentesis planned per Dr. Michael (2) Intractable nausea and vomiting Code(s): R11.2 - NAUSEA WITH VOMITING, UNSPECIFIED Status: Acute Comment: Possible gastroparesis, controlled with reglan (3) Acute on chronic renal failure Code(s): N17.9 - ACUTE KIDNEY FAILURE, UNSPECIFIED; N18.9 - CHRONIC KIDNEY DISEASE, UNSPECIFIED Status: Acute Qualifiers: Chronic kidney disease stage: stage 3 (moderate) Comment: Likely related to diuresis, Dr. Ayala following. Will need to change to inpatient status. - Plan cont current plan of care, out of bed/ambulate * . - Discharge Day Encounter end time: 10:30
--- NOTE | 2018-06-14 09:26 | PRG ---
DATE OF SERVICE: 06/14/2018 RENAL MEDICINE SUBJECTIVE: Ms. Vazquez is a 73-year-old white female, who was seen by the Renal Service for her acute kidney injury on top of her chronic renal failure. She was initially admitted for complaints of nausea, vomiting, and shortness of breath. She was found to have a significant moderate-sized right pleural effusion. She has been started on diuretics. I added salt-poor albumin at the same time to enhance diuresis as well as to maintain intravascular volume if possible. This morning, she is much improved with her shortness of breath. She is feeling much more comfortable. She denies any chest pain. OBJECTIVE: VITAL SIGNS: Blood pressure is 122/56, heart rate 74, respiratory rate 16, temperature 97.8, pulse ox 94%. GENERAL: Awake, sitting comfortable, not in distress. SKIN: Adequate turgor. HEENT: Pinkish conjunctivae. Anicteric sclerae. Decreased visual activity. NECK: No neck mass. No carotid bruits. No JVD. LUNGS: Decreased breath sounds, right lung. Left, clear breath sounds. HEART: Normal sinus rhythm. No murmur. No gallops. No rubs. ABDOMEN: Globular, soft, and nontender. No masses. EXTREMITIES: No edema. MEDICATIONS: Medications of June 14, 2018, were reviewed. LABORATORY DATA: Laboratories of June 14, 2018, sodium 138, potassium 4.8, chloride 107, carbon dioxide 19, BUN 49, creatinine 2.5. White count is 3.4, hemoglobin is 8.4. ASSESSMENT AND PLAN: 1. Acute kidney injury on top of her chronic renal failure. Creatinine is slightly higher at 2.5. Yesterday, this was 2.31, and on admission, this was about 1.95. She most likely has superimposed prerenal azotemia secondary to the diuretic regimen. My plan is to continue Lasix for the moment. We will adjust it downwards in a.m. Continue to monitor renal function. There is no indication for any dialytic intervention with this patient. Please note, she has been started on salt-poor albumin 25 g IV q.6. 2. Anemia, on Epogen with iron supplementation has been started. Per history, the patient is a Taoism and may decline blood transfusion in the future. 3. Shortness of breath, clinically much improved with diuretics. Continue current diuretic regimen. 4. Right pleural effusion-Pulmonary following. Continuing to observe. 5. Recheck basic metabolic panel and CBC in a.m. Job ID: [id number]
[2018-06-14] MEDS: Ferrous Sulfate 325 MG TAB PO SCH ×2 (09:27→17:04)
[2018-06-14] MEDS: Metoclopramide HCl 10 MG/2 ML VIAL IVP SCH ×4 (09:27→22:22)
[2018-06-14] MEDS: Ursodiol 300 MG CAP PO SCH ×2 (09:27→22:17)
[2018-06-14] MEDS: metFORMIN 500 MG TAB PO SCH ×2 (09:28→17:04)
[2018-06-14] MEDS: Aspirin 81 mg Enteric Coated Tablet PO SCH (09:29)
[2018-06-14] MEDS: Rifaximin 550 MG TAB PO SCH ×2 (09:29→22:16)
[2018-06-14] MEDS: Ezetimibe 10 MG TAB PO SCH (09:30)
[2018-06-14] MEDS: Propranolol HCl 20 MG TAB PO SCH ×2 (09:30→22:17)
[2018-06-14] MEDS: Spironolactone 25 MG TAB PO SCH ×2 (09:30→17:04)
--- NOTE | 2018-06-14 16:30 | PRG ---
DATE OF SERVICE: 06/14/2018 SUBJECTIVE: Ms. Vazquez has no complaints. She actually says she feels better today. She has walked a little bit. OBJECTIVE: VITAL SIGNS: She is afebrile. Heart rate is in the 60s, respiratory rate is 20, oximetry is 98% on room air, and blood pressure 121/56. LUNGS: Remarkable for decreased breath sounds at the right base. LABORATORY DATA: White count 3.4, hemoglobin 8.4, and platelets 59,000. Creatinine is 2.5, BUN is 49, potassium is 4.8. Intake and output positive 1650, now on fluid restriction. IMPRESSION: 1. Chronic pleural effusion. 2. Chronic kidney disease. 3. Primary biliary cholangitis with cirrhosis. 4. Effusion secondary to cirrhosis. 5. History of esophageal varices. 6. History of diabetes. PLAN: Continue supportive care. Monitor her renal function. Job ID: [id number]
[2018-06-14] MEDS: Cyanocobalamin (Vitamin B-12) 1,000 MCG TAB PO SCH (22:16)
[2018-06-14] MEDS: Latanoprost 0.005% Ophth Soln 2.5 ml Bottle EA EYE SCH (22:16)
[2018-06-14] MEDS: Atorvastatin Calcium 10 MG TAB PO SCH (22:17)
[2018-06-15] MEDS: Albumin 25% 25 GM/100 ML BOT IVPB SCH ×4 (03:23→20:58)
[2018-06-15] MEDS: Furosemide 40 MG/4 ML VIAL SLOW IVP SCH ×2 (06:42→15:03)
[2018-06-15] MEDS: Metoclopramide HCl 10 MG/2 ML VIAL IVP SCH ×3 (07:40→17:31)
[2018-06-15 08:42] LABS: #Eosinphils 0.2 thou/uL (0.0-0.7); #Lymphocytes 1.2 thou/uL (1.20-3.40); #Monocytes 0.3 thou/uL (0.11-0.59); #Neutrophils 1.2 thou/uL (1.40-6.50); %Basophils 0.8 % (0.0-1.0); %Eosinophils 5.8 % (0.0-10.0); %Lymphocytes 42.2 % (21.0-51.0); %Monocytes 9.3 % (0.0-10.0); Hemoglobin 8.7 g/dL (12.0-16.0); Mean Corpuscular HGB CONC 33.4 g/dL (32.0-36.0); Mean Corpuscular Hemoglobin 32.7 pg (27.0-31.0); Mean Corpuscular Volume 97.7 fL (78.0-98.0); Mean Platelet Volume 9.4 fL (7.4-10.4); Platelet Count 63 thou/uL (130-400); RBC Distribution Width 14.6 % (11.5-14.5); Red Blood Cell (RBC) Count 2.67 mill/uL (4.20-5.40); White Blood Cell (WBC) Count 2.9 thou/uL (4.8-10.8)
[2018-06-15 08:54] LABS: Anion Gap 17 mmol/L (10-20); BUN (Urea Nitrogen) 47 mg/dL (9.8-20.1); Calc. Creatinine Clearance 24 mL/min (70-130); Calcium 10.5 mg/dL (7.8-10.44); Carbon Dioxide 23 mmol/L (23-31); Chloride 105 mmol/L (98-107); Estimated GFR-MDRD 19; Glucose 103 mg/dL (83-110); Potassium 4.9 mmol/L (3.5-5.1); Sodium 140 mmol/L (136-145)
--- NOTE | 2018-06-15 09:30 | PRG ---
DATE OF SERVICE: 06/15/2018 RENAL MEDICINE SUBJECTIVE: Ms. Vazquez is a 73-year-old white female seen by the Renal Service for acute kidney injury on top of her chronic renal failure. She has a presumptive hemodynamically-mediated renal dysfunction. She is currently on diuretic regimen due to the moderate-sized pleural effusion. No other complaints today. She is feeling better. Her shortness of breath is dramatically improved. No complaints of chest pain. OBJECTIVE: VITAL SIGNS: Blood pressure 94/53, heart rate 67, respiratory rate 16, temperature 98.2, and pulse ox 96%. GENERAL: Awake, sitting comfortable, not in overt distress. SKIN: Adequate turgor. HEENT: She has a pinkish conjunctivae. Anicteric sclerae. No neck mass. No carotid bruits. No JVD. CHEST: No deformities. LUNGS: Decreased breath sounds, right lung. Left, clear breath sounds. HEART: Normal sinus rhythm. No murmur. No gallops. No rubs. ABDOMEN: Globular, soft, and nontender. No masses. EXTREMITIES: No edema. NEUROLOGICAL: The patient has right eye blindness. MEDICATIONS: Medications of June 15, 2018 was reviewed. LABORATORY DATA: Laboratories of June 15, 2018, white count 2.9, hemoglobin 8.7. Basic metabolic is pending. June 14, 2018; BUN 49 and creatinine 2.5. ASSESSMENT AND PLAN: 1. Acute kidney [id number] renal dysfunction. Continue supportive care, currently on diuretics. Should the renal function further worsen, we can always adjust the diuretics downwards-decrease it to 40 mg IV daily? 2. Right pleural effusion/much improved shortness of breath. Continue on current diuretic regimen. 3. There is no indication for any dialytic intervention with this patient. Renal function is remaining, relatively stable. Yesterday's creatinine was 2.5. I do anticipate some stabilization, but if not, we will adjust the diuretics downwards. 4. Anemia. Continue current ferrous sulfate and weekly Epogen. Job ID: [id number]
[2018-06-15] MEDS: Ursodiol 300 MG CAP PO SCH ×2 (10:51→21:06)
[2018-06-15] MEDS: Ezetimibe 10 MG TAB PO SCH (10:52)
[2018-06-15] MEDS: Aspirin 81 mg Enteric Coated Tablet PO SCH (10:52)
[2018-06-15] MEDS: metFORMIN 500 MG TAB PO SCH ×2 (10:52→17:32)
[2018-06-15] MEDS: Spironolactone 25 MG TAB PO SCH ×2 (10:52→17:32)
[2018-06-15] MEDS: Rifaximin 550 MG TAB PO SCH ×2 (10:53→21:02)
[2018-06-15] MEDS: Propranolol HCl 20 MG TAB PO SCH ×2 (10:53→21:03)
[2018-06-15] MEDS: Ferrous Sulfate 325 MG TAB PO SCH ×2 (10:53→17:32)
--- NOTE | 2018-06-15 11:34 | PRG ---
DATE OF SERVICE: 06/15/2018 SUBJECTIVE: Parris Vazquez remains stable. She is sitting in a chair by the window, looking out the window. She started to feel like she is ready to go home. OBJECTIVE: VITAL SIGNS: She is afebrile. Heart rate 67, respiratory rate 16, oximetry is 96, blood pressure 94/53. Intake and output negative 850. LUNGS: Remarkable for decreased breath sounds at her right base. HEART: Regular rhythm. ABDOMEN: Soft. LABORATORY DATA: White count 2.9, hemoglobin 8.7, platelets 63,000. Creatinine is 2.43, it was 2.5 yesterday. Potassium 4.9. IMPRESSION: Cirrhosis with pleural effusion associated with her cirrhosis. PLAN: Continue supportive care. Continue close outpatient followup with Nephrology and Gastroenterology. Job ID: [id number]
--- NOTE | 2018-06-15 14:06 | PDOC.PN ---
- Subjective Encounter Start Date: 06/15/18 Encounter Start Time: 14:00 Subjective: f/u for cirrhosis with R-sided pleural effusion on current Lasix and -: Albumin infusions. Feels better overall and less SOB. - Objective Resuscitation Status - Order Detail: 06/12/18 12:32 Resuscitation Status Routine Resuscitation Status: PRTL: Chem only Discussed with: discussed with pt MAR Reviewed: Yes Vital Signs & Weight: Vital Signs (12 hours) Temp Pulse Resp BP Pulse Ox 06/15/18 12:36 67 12 06/15/18 11:10 97.7 F 67 18 107/69 93 L 06/15/18 07:30 98.2 F 67 16 94/53 L 96 06/15/18 06:51 71 16 95 06/15/18 04:00 98.3 F 87 16 99/55 L 89 L Weight Admit Weight 169 lb 14.4 oz Weight 167 lb 11.2 oz I&O: 06/14/18 06/15/18 06/16/18 06:59 06:59 06:59 Intake Total 2250 Output Total 600 850 Balance 1650 -850 Result Diagrams: 06/15/18 08:17 06/15/18 08:18 Additional Labs: Accuchecks 06/15/18 06/15/18 06/14/18 11:21 04:40 22:17 POC Glucose 140 H 89 87 06/14/18 17:16 POC Glucose 127 H Laboratory Tests 06/12/18 06/13/18 06/13/18 10:31 04:33 04:33 WBC Hgb 8.9 L Plt Count 72 L Creatinine 1.95 H 2.31 H 06/14/18 06/14/18 04:38 04:38 WBC 3.4 L Hgb 8.4 L Plt Count 59 L Creatinine 2.50 H Phys Exam - Physical Examination Constitutional: NAD HEENT: moist MMs, sclera anicteric, oral pharynx no lesions Neck: no nodes, no JVD, supple, full ROM diminished in R base Respiratory: no wheezing, no rales, no rhonchi S1, S2 Cardiovascular: RRR, no significant murmur, no rub, gallop Gastrointestinal: soft, non-tender, no distention, positive bowel sounds Musculoskeletal: no edema, pulses present Neurological: normal sensation, moves all 4 limbs Psychiatric: A&O x 3 Skin: normal turgor, cap refill <2 seconds Dx/Plan (1) Pleural effusion, right Code(s): J90 - PLEURAL EFFUSION, NOT ELSEWHERE CLASSIFIED Status: Acute Comment: clinically improved with Lasix and Albumin infusions, pulmonary supportive mgmt (2) RADHA (acute kidney injury) Code(s): N17.9 - ACUTE KIDNEY FAILURE, UNSPECIFIED Status: Acute Comment: Slow improvement, monitor closely given diuretic therapy, avoid nephrotoxic meds (3) Pancytopenia Code(s): D61.818 - OTHER PANCYTOPENIA Status: Acute Comment: Chronic secondary to cirrhosis (4) DM2 (diabetes mellitus, type 2) Status: Chronic Qualifiers: Diabetes mellitus alf insulin use: without termite exterminator helper use Diabetes mellitus complication status: without complication Qualified Code(s): E11.9 - Type 2 diabetes mellitus without complications Comment: ISS, caution with Metformin use given RADHA/CKD (5) Primary biliary cirrhosis Code(s): K74.3 - PRIMARY BILIARY CIRRHOSIS Status: Chronic Comment: Medical mgmt - Plan plan discussed w/ family, older adult social work specialist, out of bed/ambulate, DVT proph w/SCDs Stable overall -: Continue Albumin infusions -: Continue Lasix IV -: OOB/ambulate -: Continue FeSO4 325mg BID * AM lab: BMP * Likely home in 24-48h
[2018-06-15] MEDS: Metoclopramide HCl 10 MG TAB PO SCH (21:03)
[2018-06-15] MEDS: Latanoprost 0.005% Ophth Soln 2.5 ml Bottle EA EYE SCH (21:03)
[2018-06-15] MEDS: Atorvastatin Calcium 10 MG TAB PO SCH (21:03)
[2018-06-15] MEDS: Cyanocobalamin (Vitamin B-12) 1,000 MCG TAB PO SCH (21:06)
[2018-06-16] MEDS: Furosemide 40 MG/4 ML VIAL SLOW IVP SCH ×2 (05:42→14:00)
[2018-06-16 06:53] LABS: Anion Gap 16 mmol/L (10-20); BUN (Urea Nitrogen) 48 mg/dL (9.8-20.1); Calc. Creatinine Clearance 26 mL/min (70-130); Calcium 10.1 mg/dL (7.8-10.44); Carbon Dioxide 24 mmol/L (23-31); Chloride 103 mmol/L (98-107); Estimated GFR-MDRD 21; Glucose 105 mg/dL (83-110); Potassium 4.8 mmol/L (3.5-5.1); Sodium 138 mmol/L (136-145)
[2018-06-16] MEDS: metFORMIN 500 MG TAB PO SCH ×2 (08:38→16:27)
[2018-06-16] MEDS: Ferrous Sulfate 325 MG TAB PO SCH ×2 (08:39→16:27)
[2018-06-16] MEDS: Aspirin 81 mg Enteric Coated Tablet PO SCH (08:39)
[2018-06-16] MEDS: Spironolactone 25 MG TAB PO SCH ×2 (08:39→16:27)
[2018-06-16] MEDS: Rifaximin 550 MG TAB PO SCH ×2 (08:39→20:48)
[2018-06-16] MEDS: Ursodiol 300 MG CAP PO SCH ×2 (08:39→20:49)
[2018-06-16] MEDS: Ezetimibe 10 MG TAB PO SCH (08:39)
[2018-06-16] MEDS: Metoclopramide HCl 10 MG TAB PO SCH ×4 (08:40→20:47)
[2018-06-16] MEDS: Propranolol HCl 20 MG TAB PO SCH ×2 (08:41→20:49)
[2018-06-16] MEDS: Albumin 25% 25 GM/100 ML BOT IVPB SCH ×2 (09:48→16:27)
--- NOTE | 2018-06-16 14:15 | PDOC.PN ---
- Subjective Encounter Start Date: 06/16/18 Encounter Start Time: 14:15 Subjective: f/u for hepatic cirrhosis with R pleural effusion and RADHA/CKD. Receiving -: Albumin/Lasix with slow improvment in renal function. Overall feels -: better and less SOB. - Objective Resuscitation Status - Order Detail: 06/12/18 12:32 Resuscitation Status Routine Resuscitation Status: PRTL: Chem only Discussed with: discussed with pt MAR Reviewed: Yes Vital Signs & Weight: Vital Signs (12 hours) Temp Pulse Resp BP BP Pulse Ox 06/16/18 11:12 98.6 F 76 18 121/59 L 91 L 06/16/18 07:35 92 L 06/16/18 07:33 68 16 92 L 06/16/18 07:25 98.3 F 67 18 99/58 L 91 L 06/16/18 02:52 95 Weight Admit Weight 169 lb 14.4 oz Weight 167 lb 11.2 oz I&O: 06/15/18 06/16/18 06/17/18 06:59 06:59 06:59 Intake Total 320 Output Total 850 Balance -850 320 Result Diagrams: 06/15/18 08:17 06/16/18 05:41 Additional Labs: Accuchecks 06/16/18 06/16/18 06/15/18 11:12 05:49 20:47 POC Glucose 136 H 112 H 88 06/15/18 17:01 POC Glucose 101 Laboratory Tests 06/12/18 06/13/18 06/13/18 10:31 04:33 04:33 WBC Hgb 8.9 L Plt Count 72 L Creatinine 1.95 H 2.31 H 06/14/18 06/14/18 06/15/18 04:38 04:38 08:18 WBC 3.4 L Hgb 8.4 L Plt Count 59 L Creatinine 2.50 H 2.43 H Phys Exam - Physical Examination Constitutional: NAD HEENT: PERRLA, sclera anicteric, oral pharynx no lesions Neck: no nodes, no JVD, supple, full ROM diminished in R base Respiratory: clear to auscultation bilateral S1, S2 Cardiovascular: RRR, no significant murmur, no rub, gallop Gastrointestinal: soft, non-tender, no distention, positive bowel sounds Musculoskeletal: no edema, pulses present Neurological: normal sensation, moves all 4 limbs Psychiatric: normal affect, A&O x 3 Skin: normal turgor, cap refill <2 seconds Dx/Plan (1) Pleural effusion, right Code(s): J90 - PLEURAL EFFUSION, NOT ELSEWHERE CLASSIFIED Status: Acute Comment: clinically improved with Lasix and Albumin infusions, pulmonary supportive mgmt (2) RADHA (acute kidney injury) Code(s): N17.9 - ACUTE KIDNEY FAILURE, UNSPECIFIED Status: Acute Comment: Slow improvement, monitor closely given diuretic therapy, avoid nephrotoxic meds (3) Pancytopenia Code(s): D61.818 - OTHER PANCYTOPENIA Status: Acute Comment: Chronic, secondary to cirrhosis, stable (4) DM2 (diabetes mellitus, type 2) Status: Chronic Qualifiers: Diabetes mellitus terminal clerk insulin use: without terminal clerk use Diabetes mellitus complication status: without complication Qualified Code(s): E11.9 - Type 2 diabetes mellitus without complications Comment: ISS, caution with Metformin use given RADHA/CKD (5) Primary biliary cirrhosis Code(s): K74.3 - PRIMARY BILIARY CIRRHOSIS Status: Chronic Comment: Medical mgmt - Plan plan discussed w/ family, continue antibiotics, PT/OT, social insurance analyst, out of bed/ambulate Stable currently -: Continue Lasix/Albumin infusions -: Avoid nephrotoxic meds -: Continue Xifaxan -: PT for mobilization * AM lab: BMP * Likely home in 24h
--- NOTE | 2018-06-16 17:10 | PRG ---
DATE OF SERVICE: 06/16/2018 SUBJECTIVE: Ms. Vazquez is a 73-year-old white female was seen for acute kidney injury on top of her chronic renal failure. She came initially with shortness of breath. She has been diuresed with significant improvement with her symptoms. She was found to have a moderate-sized pleural effusion. Her creatinine noted to have also worsen. She was given albumin infusion. The patient is still currently on her diuretic regimen of furosemide at 40 mg IV q.12. No other complaints. No shortness of breath or chest pain. OBJECTIVE: VITAL SIGNS: Blood pressure is 98/58, heart rate 67, respiratory rate 18, temperature 98.3, and pulse ox 92% on room air. GENERAL: Awake, alert, ambulatory, comfortable. SKIN: Adequate turgor. HEENT: Slightly pale conjunctivae. Anicteric sclerae. NECK: No neck mass. No carotid bruits. No JVD. LUNGS: Decreased breath sounds, right. ABDOMEN: Globular, soft, nontender. HEART: Normal sinus rhythm. No murmurs, gallops, or rubs. EXTREMITIES: No edema. NEUROLOGICAL EXAM: Decreased visual acuity, right eye - positive for blindness. MEDICATIONS: Medications of June 16, 2018, reviewed. LABORATORY DATA: Laboratories of June 16, 2018, sodium 138, potassium 4.8, chloride 103, carbon dioxide 24, BUN 48, creatinine 2.24, glucose 105, calcium 10.1. ASSESSMENT/PLAN: 1. Shortness of breath, clinically much improved. Responding well to the diuretic regimen. Consider decreasing the diuretics to once a day dosing. 2. Acute kidney injury on top of her chronic renal failure, improving renal function. The patient currently receiving albumin infusion. 3. There is no indication for any dialytic intervention with this patient. She can be discharged any time. 4. If she is still here, we will recheck basic metabolic panel and CBC in the morning. Job ID: [id number]
[2018-06-16] MEDS: Atorvastatin Calcium 10 MG TAB PO SCH (20:47)
[2018-06-16] MEDS: Cyanocobalamin (Vitamin B-12) 1,000 MCG TAB PO SCH (20:47)
[2018-06-16] MEDS: Latanoprost 0.005% Ophth Soln 2.5 ml Bottle EA EYE SCH (20:50)
[2018-06-17] MEDS: Furosemide 40 MG/4 ML VIAL SLOW IVP SCH (05:57)
[2018-06-17 07:36] LABS: Anion Gap 19 mmol/L (10-20); BUN (Urea Nitrogen) 54 mg/dL (9.8-20.1); Calc. Creatinine Clearance 25 mL/min (70-130); Calcium 10.2 mg/dL (7.8-10.44); Carbon Dioxide 25 mmol/L (23-31); Chloride 101 mmol/L (98-107); Estimated GFR-MDRD 20; Glucose 114 mg/dL (83-110); Potassium 4.5 mmol/L (3.5-5.1); Sodium 140 mmol/L (136-145)
[2018-06-17] MEDS: metFORMIN 500 MG TAB PO SCH (08:52)
[2018-06-17] MEDS: Aspirin 81 mg Enteric Coated Tablet PO SCH (08:52)
[2018-06-17] MEDS: Rifaximin 550 MG TAB PO SCH (08:53)
[2018-06-17] MEDS: Spironolactone 25 MG TAB PO SCH (08:53)
[2018-06-17] MEDS: Ferrous Sulfate 325 MG TAB PO SCH (08:53)
[2018-06-17] MEDS: Ezetimibe 10 MG TAB PO SCH (08:53)
[2018-06-17] MEDS: Metoclopramide HCl 10 MG TAB PO SCH ×2 (08:53→11:38)
[2018-06-17] MEDS: Ursodiol 300 MG CAP PO SCH (08:53)
[2018-06-17] MEDS: Propranolol HCl 20 MG TAB PO SCH (08:56)
[2018-06-17 12:33] VITALS: BP 96/57; TEMP 98
--- NOTE | 2018-06-17 12:56 | PRG ---
DATE OF SERVICE: 06/17/2018 SUBJECTIVE: Ms. Vazquez is a 73-year-old white female was seen for acute respiratory distress. She was found to have a significant pleural effusion. She was diuresed with significant improvement with shortness of breath. We are also following this patient for acute kidney injury on top of her chronic renal failure. She had a superimposed prerenal azotemia. She has a fluctuating creatinine. We are adjusting her diuretics. Yesterday, we decreased the Lasix to 40 mg IV q.12 to once a day. This morning, she denies any chest pain or shortness of breath. OBJECTIVE: VITAL SIGNS: Blood pressure is 101/61, heart rate 73, respiratory rate 16, temperature 98.4, and pulse ox 93%. GENERAL: Awake, alert, and comfortable, not in distress. SKIN: Adequate turgor. HEENT: She has a slightly pale conjunctivae. Anicteric sclerae. NECK: No neck mass. No carotid bruits. No JVD. CHEST: No deformities. LUNGS: Decreased breath sounds. HEART: Normal sinus rhythm. No murmurs. No gallops. No rubs. ABDOMEN: Globular, soft, and nontender. No masses. EXTREMITIES: No edema. No deformities. MEDICATIONS: Medications of June 17, 2018, reviewed. LABORATORY DATA: Laboratories of June 17, 2018; sodium 140, potassium 4.5, chloride 101, carbon dioxide 25, BUN 54, creatinine 2.35, glucose 114, and calcium 10.2. ASSESSMENT AND PLAN: 1. Acute kidney injury/chronic renal failure, fluctuating creatinine. Creatinine is noted at 2.35, which is slightly higher from 2.24 of yesterday's lab work. We have adjusted the Lasix from b.i.d. to once a day dosing. We will continue current management. Should the renal function further worsen, we could still further decrease these Lasix. From a renal point of view, this patient can be discharged and we can follow her up at outpatient clinic. 2. Shortness of breath - multifactorial - congestive heart failure/pleural effusion - clinically much improved with the current diuretic regimen. Agree with current management. Recheck basic metabolic panel in a.m. Job ID: [id number]
--- NOTE | 2018-06-18 03:45 | DIS ---
DATE OF ADMISSION: 06/14/2018 DATE OF DISCHARGE: 06/17/2018 DISCHARGE DISPOSITION: Home. PRIMARY CARE PHYSICIAN: Dr. Castro Candelaria. PRIMARY FISHING REEL ASSEMBLER: Dr. Ayala. PRIMARY EXPEDITIONARY FORCE COMBAT SKILLS: Dr. Kimmy Vazquez. DISCHARGE DIAGNOSES: 1. Right-sided pleural effusion secondary to decompensated cirrhosis, improved. 2. Acute renal insufficiency. 3. Chronic pancytopenia secondary to cirrhosis. 4. Chronic diabetes mellitus type 2. 5. History of primary biliary cirrhosis. DISCHARGE MEDICATIONS: Please note that the patient has been taken off of metformin and instead started on glipizide XL 2.5 mg daily. Resume home medications as follows: 1. Ursodiol 600 mg p.o. b.i.d. 2. Zocor 20 mg daily. 3. Senokot daily. 4. Rifaximin 550 mg p.o. b.i.d. 5. Propranolol 20 mg p.o. b.i.d. 6. Omeprazole 40 mg daily. 7. Benicar 20 mg daily. 8. Reglan 10 mg a.c. and h.s. I have encouraged her to discuss the long-term use of Reglan with her primary sole scraper, Dr. Vazquez. 9. Lasix 20 mg daily. 10. Zetia 1 tablet daily. 11. B12 daily. 12. Vitamin D3 daily. 13. Aspirin 81 mg daily. IN-HOUSE CONSULTATION: 1. Pulmonary Medicine, Dr. Michael. 2. Nephrology, Dr. Ayala. PROCEDURES DONE IN THE HOSPITAL: Multiple chest x-rays. HISTORY OF PRESENTING ILLNESS: Ms. Vazquez is a pleasant 73-year-old female with multiple hospitalizations with known history of primary biliary cirrhosis and resultant decompensation on and off as well as history of diabetes, who presented to the emergency room with complaints of nausea, vomiting, and dyspnea. She was recently admitted to our facility on June 05, 2018 with complaints of nausea, vomiting, and was diagnosed with gastroparesis and was discharged on Reglan. She has been doing fairly well up until few days ago when she started having worsening nausea and vomiting and came back to the emergency room. At this time, she was found to have right-sided pleural effusion on chest x-ray in the ER, and was admitted with a presumptive diagnosis of fluid overload and decompensated hepatic cirrhosis. Please see admission history and physical for further details. HOSPITAL COURSE: Pulmonary Medicine as well as Nephrology were consulted and they followed the patient along. She was diuresed and was balanced for some worsening in renal function. Eventually, by the day of discharge, she was almost back to her baseline and was eager to go home. Nephrology has also cleared her for discharge. She is encouraged to continue the fluid restriction at home and present to the ER if she has any worsening of fluid retention versus any worsening of signs and symptoms of dehydration. She has upcoming appointment with a sole scraper, Dr. Vazquez, in the outpatient setting. Please note that the patient has some expected elevation in creatinine because of diuresis. This morning, her creatinine is 2.35, which was 2.24 yesterday. She will follow up with Dr. Ayala with regard to this. She has been permanently taken off metformin because of that. She is being started on glipizide, which I request her primary care physician followup. It is started on a low dose given her chronic hepatic insufficiency. She was seen and examined prior to discharge this morning. PHYSICAL EXAMINATION: VITAL SIGNS: Temperature 98, pulse of 72, respirations 16, saturating 93% on room air, blood pressure 96/57. GENERAL APPEARANCE: No acute distress. Her grandson is at the bedside. CHEST: Clear to auscultation bilaterally. HEART: Rate and rhythm regular. She has been walking with the help of the walking program in the hospital. All of her cultures remained negative till date. TOTAL TIME SPENT: 32 minutes. Job ID: [id number]
[2018-06-18] MEDS ORDERED: Furosemide 40 MG/4 ML VIAL SLOW IVP SCH (09:00)
== END 2018-06-17 15:17 | disposition home or self-care (01) | DRG 433 ==
LOC: ERS 10:05 → 2SW 13:09 → OBSVTOIN 06-14 10:27 → T4-B 06-14 21:26
PROVIDERS: ADMIT Internal Medicine; ATTEND Internal Medicine
DX: K74.3 Primary biliary cirrhosis (principal); N39.0 Urinary tract infection, site not specified; D61.818 Other pancytopenia; N17.9 Acute kidney failure, unspecified; J91.8 Pleural effusion in other conditions classified elsewhere; E11.43 Type 2 diabetes mellitus with diabetic autonomic (poly)neuropathy; K31.84 Gastroparesis; J45.909 Unspecified asthma, uncomplicated; E78.5 Hyperlipidemia, unspecified; H40.9 Unspecified glaucoma; H54.61 Unqualified visual loss, right eye, normal vision left eye; K21.9 Gastro-esophageal reflux disease without esophagitis; D63.1 Anemia in chronic kidney disease; I12.9 Hypertensive chronic kidney disease with stage 1 through stage 4 chronic kidney disease, or unspecified chronic kidney disease; N18.3 Chronic kidney disease, stage 3 (moderate); E11.22 Type 2 diabetes mellitus with diabetic chronic kidney disease; Z90.710 Acquired absence of both cervix and uterus; Z90.49 Acquired absence of other specified parts of digestive tract; Z88.8 Allergy status to other drugs, medicaments and biological substances; Z79.82 Long term (current) use of aspirin; Z79.899 Other long term (current) drug therapy; Z79.84 Long term (current) use of oral hypoglycemic drugs
CPT/HCPCS: 36415; 36416; 71045; 80048; 80053; 81003; 81015; 83690; 83880; 84484; 85025; 93005; 94640; 96365; 96367; J1940; J2550; J2765; J7620; P9047; Q0162; Q4081

== ENCOUNTER 2018-06-19 02:48 | Emergency (ER) | payer MEDICARE, MEDICAID ==
[2018-06-19] MEDS ORDERED: Ondansetron PF 4 MG/2 ML Vial ONE (03:23)
[2018-06-19 03:28] LABS: #Eosinphils 0.2 thou/uL (0.0-0.7); #Lymphocytes 0.9 thou/uL (1.20-3.40); #Monocytes 0.3 thou/uL (0.11-0.59); %Basophils 0.4 % (0.0-1.0); %Eosinophils 4.9 % (0.0-10.0); %Lymphocytes 26.8 % (21.0-51.0); %Monocytes 8.7 % (0.0-10.0); %Neutrophils 59.2 % (42.0-75.0); Hemoglobin 9.5 g/dL (12.0-16.0); Mean Corpuscular Hemoglobin 32.2 pg (27.0-31.0); Mean Corpuscular Volume 97.6 fL (78.0-98.0); Mean Platelet Volume 9.9 fL (7.4-10.4); Platelet Count 61 thou/uL (130-400); RBC Distribution Width 15.1 % (11.5-14.5); Red Blood Cell (RBC) Count 2.95 mill/uL (4.20-5.40); White Blood Cell (WBC) Count 3.3 thou/uL (4.8-10.8)
[2018-06-19 03:50] LABS: ALT (SGPT) 15 U/L (8-55); AST (SGOT) 24 U/L (5-34); Albumin 4.8 g/dL (3.4-4.8); Alkaline Phosphatase 93 U/L (40-150); Anion Gap 19 mmol/L (10-20); BUN (Urea Nitrogen) 55 mg/dL (9.8-20.1); Bilirubin, Total 0.8 mg/dL (0.2-1.2); Calc. Creatinine Clearance 0 mL/min (70-130); Calcium 10.6 mg/dL (7.8-10.44); Carbon Dioxide 23 mmol/L (23-31); Chloride 102 mmol/L (98-107); Estimated GFR-MDRD 18; Globulin 2.9 g/dL (2.4-3.5); Glucose 186 mg/dL (83-110); Lipase 32 U/L (8-78); Potassium 4.5 mmol/L (3.5-5.1); Protein, Total 7.7 g/dL (6.0-8.3); Sodium 139 mmol/L (136-145)
[2018-06-19] MEDS ORDERED: Metoclopramide HCl 10 MG/2 ML VIAL ONE (04:23)
--- NOTE | 2018-06-19 08:24 | RAD ---
SINGLE VIEW OF THE CHEST: Comparison: 06-13-18 History: Nausea and vomiting for one day. FINDINGS: Single view of the chest shows a cardiomediastinal silhouette which is upper limits of normal in size . The right pleural effusion has decreased in size. A small right pleural effusion persists. Increase d interstitial markings are present. IMPRESSION: Decreased size of right pleural effusion. POS: [facility]
== END 2018-06-19 06:59 | disposition home or self-care (01) ==
LOC: ERS 02:48
DX: R11.2 Nausea with vomiting, unspecified (principal); E11.9 Type 2 diabetes mellitus without complications; D64.9 Anemia, unspecified; H40.9 Unspecified glaucoma; J45.909 Unspecified asthma, uncomplicated; K74.5 Biliary cirrhosis, unspecified; I10 Essential (primary) hypertension
CPT/HCPCS: 71045; 80053; 83690; 84484; 85025; 96374; 96375; J2405; J2765

== ENCOUNTER 2018-06-20 09:48 | Observation (INO) | payer MEDICARE, MEDICAID ==
[2018-06-20 10:40] LABS: #Eosinphils 0.1 thou/uL (0.0-0.7); #Lymphocytes 0.9 thou/uL (1.20-3.40); #Monocytes 0.3 thou/uL (0.11-0.59); #Neutrophils 1.4 thou/uL (1.40-6.50); %Basophils 0.9 % (0.0-1.0); %Eosinophils 5.1 % (0.0-10.0); %Lymphocytes 33.5 % (21.0-51.0); %Monocytes 9.7 % (0.0-10.0); %Neutrophils 50.9 % (42.0-75.0); Hemoglobin 10.3 g/dL (12.0-16.0); Mean Corpuscular HGB CONC 31.8 g/dL (32.0-36.0); Mean Corpuscular Hemoglobin 32.4 pg (27.0-31.0); Mean Platelet Volume 10.5 fL (7.4-10.4); Platelet Count 65 thou/uL (130-400); RBC Distribution Width 15.1 % (11.5-14.5); Red Blood Cell (RBC) Count 3.17 mill/uL (4.20-5.40); White Blood Cell (WBC) Count 2.8 thou/uL (4.8-10.8)
[2018-06-20 10:56] LABS: ALT (SGPT) 17 U/L (8-55); AST (SGOT) 28 U/L (5-34); Albumin 4.6 g/dL (3.4-4.8); Alkaline Phosphatase 97 U/L (40-150); Anion Gap 20 mmol/L (10-20); BUN (Urea Nitrogen) 52 mg/dL (9.8-20.1); Bilirubin, Total 0.8 mg/dL (0.2-1.2); Calc. Creatinine Clearance 0 mL/min (70-130); Calcium 10.7 mg/dL (7.8-10.44); Carbon Dioxide 20 mmol/L (23-31); Chloride 106 mmol/L (98-107); Estimated GFR-MDRD 16; Globulin 3.1 g/dL (2.4-3.5); Glucose 150 mg/dL (83-110); Lipase 25 U/L (8-78); Potassium 4.5 mmol/L (3.5-5.1); Protein, Total 7.7 g/dL (6.0-8.3); Sodium 141 mmol/L (136-145)
--- NOTE | 2018-06-20 11:21 | CT ---
CT HEAD WITHOUT CONTRAST: Technique: Multiple contiguous axial images were obtained through the head without IV enhancement. Indications: Mental status change. FINDINGS: Ventricles have normal size and position. Mild chronic ischemic white matter change. No evidence of a cute mass, infarct, or hemorrhage. Sinuses and mastoids appear clear. IMPRESSION: No acute abnormality. POS: [facility]
[2018-06-20 11:25] LABS: Acetaminophen Less than 6.0 mcg/mL (10.0-30.0); Alcohol Less than 10 mg/dL (Less than 10); Salicylate Less than 8.0 mg/dL (15.0-30.0)
[2018-06-20 11:49] LABS: Bilirubin Negative (Negative); Blood, Urine Negative (Negative); Clarity CLEAR (Clear); Glucose, Urine (Dipstick) Negative (Negative); Leukocyte Trace (Negative); Nitrite Negative (Negative); Protein, Urine (Dipstick) Trace mg/dL (Neg-Trace); pH, Urine 7.5 (5.0-9.0)
[2018-06-20 11:51] LABS: Bacteria/HPF None Seen HPF (None Seen); Hyaline Casts/LPF 0-3 HYALINE CAST LPF (0-3 Hyaline); Pathc Cast-AUWi Flag 0.29 (0-2.49); RBC/HPF 0-3 HPF (0-3); Squamous Epithelial 0-3 HPF (0-3); Yeast-AUWi Flag 22.5 (0-25.0)
[2018-06-20] MEDS ORDERED: Meclizine HCl 25 MG TAB ONE (14:00)
--- NOTE | 2018-06-20 16:55 | ULT ---
CAROTID ARTERIAL DOPPLER ULTRASOUND 06/20/18 COMPARISON: None. HISTORY: Transient ischemic attack. TECHNIQUE: Multiplanar garcia scale sonographic imaging arterial structures of the neck obtained with color flow a nd spectral analysis. FINDINGS: Antegrade blood flow noted within the carotid and vertebral system bilaterally. Scattered calcified p laque noted within distal left CCA and proximal bilateral ICA. VESSELS PSV (cm/s) EDV (cm/s) Right CCA 119 15 Right ICA 113 26 Right ECA 105 Left CCA 107 14 Left ICA 135 33 Left ECA 86 5 ICA/CCA ratio is 1.2 on the right and 1.3 on the left. IMPRESSION: Mildly elevated velocity within the left internal carotid artery suggesting a moderate degree of sten osis (50-69%). POS: [facility]
[2018-06-20 17:10] LABS: INR-International Normal Ratio 1.4; PTT 35.4 SEC (22.9-36.1); Prothrombin Time 16.9 SEC (12.0-14.7)
--- NOTE | 2018-06-20 19:38 | MRI ---
MRI OF THE BRAIN 06/20/18 PROVIDED CLINICAL HISTORY: TIA. FINDINGS: Ventricular system appears normal in size and morphology. There is no evidence for intracranial hemor rhage. Chronic microvascular ischemic changes noted involving the cerebral white matter. There is no restricted diffusion to suggest recent infarction. No evidence for mass effect or midline shift. Appr opriate flow voids are seen within the major intracranial vessels. Signal alteration right orbit pres umably reflects globe prosthesis or phthisis bulbi. Extracranial soft tissues and calvarial marrow si gnal appear otherwise normal. IMPRESSION: No evidence for an acute intracranial abnormality. POS: [facility]
[2018-06-20 20:22] VITALS: BMI 26.8
[2018-06-20] MEDS: Famotidine 20 MG TAB PO SCH (21:37)
--- NOTE | 2018-06-21 00:54 | HP ---
PRIMARY CARE PHYSICIAN: Castro Candelaria MD CORN COOKER: Jose Michael MD PRIMARY INCLUSION TEACHER: Iván Mckeon MD PRIMARY STAMPING DIE MAKER: Kimmy Vazquez MD CHIEF COMPLAINT: Confusion. HISTORY OF PRESENT ILLNESS: Ms. Vazquez is a very pleasant 73-year-old female, who reports to the emergency room today for confusion and difficulty speaking starting this morning. Grandson reported that she was stuttering. The patient reports that she had trouble remembering the names and had hard time recognizing her family members this morning. She reports this lasted several hours. Sarah, who is her primary jewelry cutter, stated that she was in her normal state of health last night. The patient denies any numbness, tingling, weakness on extremities. Reports that her memory has returned, although she did have difficulty answering some questions today due to a new stutter. Does report that her jaw, she has hard time controlling trembling, which is new onset today. The patient has been admitted to this hospital several times in the last several weeks. She was admitted on 06/04/2018 and again on 06/14/2018. The patient has a history of primary biliary cirrhosis, chronic pancytopenia secondary to cirrhosis. On the last admission, she had a right-sided pleural effusion secondary to decompensated cirrhosis, which improved. She also had acute kidney injury. She does have some modeg-hv-tujnsdb kidney disease. The patient was recently discharged home on 06/17/2018, after improvement of some nausea, vomiting, shortness of breath. She did have a right-sided pleural effusion, which on x-ray today has improved. Her estimated GFR today was 16, which was down from 20 on the 6th of this month. Liver enzymes are unremarkable. Ammonia today was 59. The patient's primary care doctor, Dr. Candelaria was consulted and thought the patient should have been on Eliquis and asked us to admit her for TIA-type symptoms for the confusion and memory changes this morning. Therefore, the patient will be admitted to the stroke observation for further management. PAST MEDICAL HISTORY: Diabetes type 2, hypertension, asthma, diverticulosis, history of hepatic encephalopathy, primary biliary cirrhosis, right eye blindness, dyslipidemia, glaucoma, and gastroparesis. PAST PSYCH HISTORY: Reviewed and negative. PAST SURGICAL HISTORY: Right eye prosthesis, eye surgery on the right side, hysterectomy, and cholecystectomy. ALLERGIES: THE PATIENT IS ALLERGIC TO NSAIDS. HOME MEDICATIONS: 1. Aspirin 81 mg daily. 2. Vitamin D 5000 units p.o. daily. 3. Vitamin B12 of 1000 mcg p.o. daily. 4. Zetia 10 mg daily. 5. Xalatan eyedrop, left eye at bedtime. 6. Benicar 20 mg daily. 7. Prilosec 40 mg p.o. daily. 8. vitamin 1 tablet daily. 9. Inderal 20 mg b.i.d. 10. Rifaximin 550 mg b.i.d. 11. Zocor 20 mg p.o. at bedtime. 12. Ursodiol 600 mg p.o. b.i.d. 13. Lasix 40 mg p.o. daily. 14. Reglan 10 mg p.o. a.c. and at bedtime as needed. 15. Senokot 2 tablets p.o. b.i.d. 16. The patient was taken off metformin on the last admission and given a prescription for glipizide XL 2.5 mg p.o. daily. REVIEW OF SYSTEMS: CONSTITUTIONAL: Negative for weight loss or gain. Reports feeling some dizziness upon ambulation today. SKIN: Negative for skin changes. EYES: Denies any changes to vision, any eye pain. ENT: Denies any rhinorrhea, sore throat. CARDIOVASCULAR: Denies any chest pain or palpitations. RESPIRATORY: Denies any shortness of breath or cough. GI: Denies any abdominal pain, nausea. Denies vomiting. MUSCULOSKELETAL: Denies any injury or trauma. SKIN: Denies any rash or skin changes. NEUROLOGIC: Reports some confusion, memory changes this morning, reports that lasted several hours and is currently resolved. Does report a new stutter, onset this morning. PHYSICAL EXAMINATION: VITAL SIGNS: Blood pressure 125/61, pulse is 66, respiratory rate 18, temperature 98.7, and pulse ox is 97% on room air. CONSTITUTIONAL: The patient appears nontoxic. The patient appears pain free. She is alert and oriented to person, place, and time. HEENT: Head is atraumatic and normocephalic. Right eye is shut, has a prosthetic left eye, is round and reactive to light. Right eye was surgically removed. ENT: Mucous membranes are moist. Mouth exam is normal. NECK: Normal range of motion. Trachea is midline. RESPIRATORY: Chest, no respiratory distress. Breath sounds are clear. CARDIOVASCULAR: Regular rate and rhythm. Heart sounds are normal. ABDOMEN: Nontender on palpation. Bowel sounds are heard. BACK: Normal inspection. Normal range of motion. EXTREMITIES: Upper extremity, normal inspection. Normal range of motion. Motor strength is normal. Sensation is intact. Radial pulses are equal bilaterally. Lower extremity, normal range of motion. Normal inspection. Normal strength. Sensation is intact. Pedal pulses are equal bilaterally. No edema is noted. NEUROLOGIC: Speech with stutter, the patient and family reports that is new. The patient is oriented to person, place, and time. Cranial nerves 2 through 12 are intact. No focal motor or sensory deficits. Gait is abnormal, is unsteady. Jaw trembles as she speaks. SKIN: Warm, dry, normal in color. DIAGNOSTIC DATA: EKG shows atrial fibrillation with controlled ventricular response, paced rhythm, beats per minute 62, axis is normal. This patient had a head CT in the emergency room, which showed no acute abnormality. LABORATORY DATA: Urinalysis; leukocytes trace, white blood cell count 4-6. Lipase is 25. Sodium 141, potassium 4.5, gap is 20, BUN is 52 , creatinine is 2.81. Estimated GFR 16. Glucose is 150. Calcium 10.7. Liver enzymes are unremarkable. White blood cell count is 2.8, hemoglobin 10.3, hematocrit 32.2, and platelet count is 65. Ammonia is 59. ASSESSMENT AND PLAN: 1. Transient ischemic attack-type symptoms. We will obtain an MRI of the brain, carotid Dopplers. 2. Jdqdx-to-xhqaaje kidney disease. We will trend. Consult Dr. Ayala, who is her safety and occupational health manager. 3. Diabetes. We will continue her home medication, cover with a mild sliding scale as needed. 4. Primary biliary cirrhosis. We will repeat lab results in the morning. 5. Hospital course will be dependent on clinical findings. Job ID: [id number]
[2018-06-21 05:49] LABS: #Eosinphils 0.2 thou/uL (0.0-0.7); #Lymphocytes 1.2 thou/uL (1.20-3.40); #Monocytes 0.3 thou/uL (0.11-0.59); %Basophils 0.8 % (0.0-1.0); %Eosinophils 5.6 % (0.0-10.0); %Lymphocytes 45.1 % (21.0-51.0); %Neutrophils 37.5 % (42.0-75.0); Hemoglobin 8.6 g/dL (12.0-16.0); Mean Corpuscular HGB CONC 32.2 g/dL (32.0-36.0); Mean Corpuscular Hemoglobin 32.3 pg (27.0-31.0); Mean Platelet Volume 10.9 fL (7.4-10.4); Platelet Count 65 thou/uL (130-400); Red Blood Cell (RBC) Count 2.66 mill/uL (4.20-5.40); White Blood Cell (WBC) Count 2.7 thou/uL (4.8-10.8)
[2018-06-21 06:35] LABS: ALT (SGPT) 14 U/L (8-55); AST (SGOT) 24 U/L (5-34); Albumin 4.2 g/dL (3.4-4.8); Alkaline Phosphatase 87 U/L (40-150); Anion Gap 16 mmol/L (10-20); BUN (Urea Nitrogen) 51 mg/dL (9.8-20.1); Bilirubin, Total 0.8 mg/dL (0.2-1.2); Calc. Creatinine Clearance 23 mL/min (70-130); Calcium 10.4 mg/dL (7.8-10.44); Carbon Dioxide 23 mmol/L (23-31); Chloride 109 mmol/L (98-107); Estimated GFR-MDRD 19; Globulin 2.8 g/dL (2.4-3.5); Glucose 121 mg/dL (83-110); Potassium 3.9 mmol/L (3.5-5.1); Sodium 144 mmol/L (136-145)
[2018-06-21] MEDS ORDERED: Epoetin (ESRD) 20,000 UNITS/ML SC SCH (09:00)
[2018-06-21] MEDS: Famotidine 20 MG TAB PO SCH ×2 (09:45→20:19)
--- NOTE | 2018-06-21 09:51 | PRG ---
DATE OF SERVICE: 06/21/2018 SUBJECTIVE: Ms. Vazquez is a 73-year-old white female with known history of chronic renal failure and admitted for confusion/mental status change. An MRI of the brain was done, which showed no acute intracranial abnormality. The patient most likely may have the presumptive diagnosis as she may have a TIA. We are being reconsulted for chronic renal failure. Please note that admission creatinine was 2.81 and is actually improved to 2.43. Please note, the patient was on Benicar. My plan is to not resume the Benicar. Please note, this patient also has underlying cirrhosis. This morning, the patient is feeling better. She is more coherent. She has a very mild stuttering, but which was transient. She denies any chest pain or shortness of breath. OBJECTIVE: VITAL SIGNS: Blood pressure is 120/61, heart rate 71, respiratory rate 16, temperature 97.9, pulse ox 98%. GENERAL EXAM: Awake, alert, comfortable, not in distress. SKIN: Adequate turgor. HEENT: She has pinkish conjunctivae. Anicteric sclerae. NECK: No neck mass. No carotid bruits. No JVD. CHEST: No deformities. LUNGS: Clear breath sounds. HEART: Normal sinus rhythm. No murmur. No gallops. No rubs. ABDOMEN: Globular, soft, nontender. No masses. EXTREMITIES: No edema. No deformities. MEDICATIONS: Medications of June 21, 2018, was reviewed. LABORATORY DATA: Laboratories of June 21, 2018, white count 2.7, hemoglobin 8.6. Sodium 144, potassium 3.9, chloride 109, carbon dioxide 23, BUN 51, creatinine 2.43, glucose 121, calcium 10.4. Albumin is 4.2. ASSESSMENT AND PLAN: 1. Acute kidney injury/chronic renal failure. Stable renal function. Creatinine 2.43, is near baseline. I would continue current management. Continue to hold off any ARBs or LEONIDES inhibitors with this patient. There is no indication for any dialytic intervention. 2. Anemia - we will start Epogen 7500 units subcu every week. Start ferrous sulfate 325 mg b.i.d. Due to her stable renal function, we will be signing off. Please recall, if needed. We will follow this patient in the outpatient clinic. Job ID: [id number]
--- NOTE | 2018-06-21 14:52 | PDOC.PN ---
- Subjective Encounter Start Date: 06/21/18 Encounter Start Time: 14:50 Patient lying in bed with family at bedside. She denies any pain at this time. She did reports headache earlier today which has since resolved. She is reports some weakness, PT/OT recommending rehab - Objective MAR Reviewed: Yes Vital Signs & Weight: Vital Signs (12 hours) Temp Pulse Pulse Pulse Resp BP BP 06/21/18 12:00 97.4 F L 76 16 06/21/18 09:19 68 74 134/64 145/68 H 06/21/18 07:50 97.9 F 71 16 06/21/18 04:00 98.0 F 69 18 BP Pulse Ox 06/21/18 12:00 136/66 97 06/21/18 09:19 06/21/18 07:50 120/61 98 06/21/18 04:00 97/51 L 93 L Weight Weight 161 lb 3.2 oz I&O: 06/20/18 06/21/18 06/22/18 06:59 06:59 06:59 Intake Total 70 Balance 70 Result Diagrams: 06/21/18 04:40 06/21/18 04:40 Additional Labs: Accuchecks 06/21/18 06/21/18 06/20/18 10:46 06:11 21:12 POC Glucose 224 H 132 H 113 H Radiology Reviewed by me: Yes EKG Reviewed by me: Yes Phys Exam - Physical Examination Constitutional: NAD HEENT: PERRLA, moist MMs, oral pharynx no lesions Anophthalmia on right and shut Neck: no nodes, no JVD Respiratory: no wheezing, clear to auscultation bilateral Cardiovascular: RRR, no significant murmur, no rub Gastrointestinal: soft, non-tender, no distention Musculoskeletal: no edema, pulses present Neurological: non-focal, normal sensation, moves all 4 limbs Gait is unsteady Lymphatic: no nodes Psychiatric: normal affect, A&O x 3 Skin: no rash, normal turgor, cap refill <2 seconds Dx/Plan (1) TIA (transient ischemic attack) Code(s): G45.9 - TRANSIENT CEREBRAL ISCHEMIC ATTACK, UNSPECIFIED Status: Acute (2) Carotid stenosis Code(s): I65.29 - OCCLUSION AND STENOSIS OF UNSPECIFIED CAROTID ARTERY Status : Acute (3) Chronic kidney disease (CKD) Code(s): N18.9 - CHRONIC KIDNEY DISEASE, UNSPECIFIED Status: Acute (4) DM2 (diabetes mellitus, type 2) Status: Chronic Qualifiers: Diabetes mellitus termite helper insulin use: without termite helper use Diabetes mellitus complication status: without complication Qualified Code(s): E11.9 - Type 2 diabetes mellitus without complications Comment: ISS, caution with Metformin use given RADHA/CKD (5) HTN (hypertension) Code(s): I10 - ESSENTIAL (PRIMARY) HYPERTENSION Status: Chronic Qualifiers: Hypertension type: essential hypertension Qualified Code(s): I10 - Essential (primary) hypertension (6) History of cirrhosis of liver Code(s): Z87.19 - PERSONAL HISTORY OF OTHER DISEASES OF THE DIGESTIVE SYSTEM Status: Chronic (7) JOSAFAT (iron deficiency anemia) Code(s): D50.9 - IRON DEFICIENCY ANEMIA, UNSPECIFIED Status: Chronic Qualifiers: Iron deficiency anemia type: inadequate dietary iron intake Qualified Code( s): D50.8 - Other iron deficiency anemias - Plan cont current plan of care, plan discussed w/ family, PT/OT * Carotid doppler showing moderate carotid stenosis, consult to CV surgery was placed * Continue home medications including aspiring, will monitor closely, concern for hx of cirrhosis * Consult placed for Neurology Dr Griffiths * PT/OT recommending rehab, consult to case management * Continue ISS and monitor sugars, vitals and other labs
[2018-06-21] MEDS: Metoclopramide HCl 10 MG TAB PO SCH ×2 (16:09→20:19)
[2018-06-21] MEDS: Ferrous Sulfate 325 MG TAB PO SCH (16:09)
[2018-06-21] MEDS: Ursodiol 300 MG CAP PO SCH (20:19)
[2018-06-21] MEDS: Rifaximin 550 MG TAB PO SCH (20:28)
[2018-06-21] MEDS: Propranolol HCl 20 MG TAB PO SCH (20:28)
[2018-06-21] MEDS ORDERED: Atorvastatin Calcium 10 MG TAB PO SCH (21:00)
[2018-06-21] MEDS ORDERED: RIFAXIMIN 550 MG PO SCH (21:00)
[2018-06-21] MEDS ORDERED: Simvastatin 20 MG TAB PO SCH (21:00)
--- NOTE | 2018-06-21 23:48 | CON ---
DATE OF CONSULTATION: 06/21/2018 REQUESTING PROVIDER: RUBEN Atkinson. CHIEF COMPLAINT: Confusion and stuttering. PRIMARY CARE PHYSICIAN: Dr. Castro Candelaria. NEPHROLOGY: Dr. Ayala. HISTORY OF PRESENT ILLNESS: The patient is a 73-year-old woman with biliary cirrhosis, who has been hospitalized three times now since . She is starting to have decompensation with issues of renal insufficiency, pleural effusions, and cephalopathy. She was brought to the emergency room because of an episode of confusion. She describes seeing family members again with some degree of embarrassment, trying to explain that she "knew them but did not know them." She said that she was not really able to explain the obtundation in any more detail than that. She also said that she began talking with a stutter and when trying to pin her down on what she meant as a stutter, she mimicked stutter quite nicely. She did not seem to be confusing it with difficulty and picking words, understanding what other people say or slurring her words. She did say that she has had some episodes associated with obtundation where she seems to slur her words. She denies any transient eye symptoms consistent with amaurosis fugax. She reports some numbness in the tips of her fingers, but no other paresthesias. She denies any focal weakness. PAST MEDICAL HISTORY: Also significant for diabetes, hypertension, and infection in her right eye that has left that eye sunken and blind, history of diverticulosis. HOME MEDICATIONS: Baby aspirin, Zetia, Benicar, Prilosec, Inderal, Zocor, Lasix, rifaximin, Reglan, Senokot, and she has recently been switched from metformin to glipizide. ALLERGIES: THE PATIENT REPORTS AN ALLERGY TO NONSTEROIDALS, ALTHOUGH IT IS HARD TO PIN HER DOWN ON WHAT THE REACTION IS. REVIEW OF SYSTEMS: As above. PHYSICAL EXAMINATION: GENERAL: She is a chronically ill-appearing woman who has either a sunken right eye or is missing the right eye. LUNGS: She has clear breath sounds. HEART: No obvious murmurs. ABDOMEN: Soft and nontender. NEUROLOGIC: She is very hard to keep on point and has a tendency to tangentially answer questions or to answer something other than what was asked. She does not appear to be actively hallucinating, although she describes having been actively hallucinating previously in this hospitalization. Cranial nerves 2 through 12 appear grossly intact as far as can be assessed with one eye. She has generalized weakness, but no asymmetry in machine cementer and folder strength, elbow flexion or extension, plantar flexion or dorsiflexion of her feet. She has no JVD or carotid bruits. IMAGING DATA: MRI by report shows no acute abnormality, although there are chronic microvascular changes. Carotid ultrasonography showed nearly pristine vessels architecturally. On the right side, her internal carotid velocities were 57, 113 and 101; common were 92, 68 and 100 for a ratio of 1.23. On the left side, internal carotid velocities were 63, 107, and 135 with common carotid velocities of 107, 96 and 74 for a ratio of 1.27. There is no spectral broadening or turbulence associated with this. LABORATORY DATA: Her white count was 2.7, hemoglobin 8.6, hematocrit 26.7, platelet count 65,000, MCV is 101. PT is 16.9 with an INR of 1.4. Glucose is 121, BUN 51, creatinine 2.43 with an estimated GFR of 19, calcium is 10.4, bilirubin 0.8, alkaline phosphatase 87, AST 24, ALT 14, protein 7.0, albumin 4.2. Ammonia was 59. IMPRESSION AND RECOMMENDATIONS: This strikes me as more global metabolic encephalopathic type event and the patient did admit to taking Tylenol PM the evening before this current presentation and perhaps at some hangover effect from that. Architecturally, her carotids seem to be normal and the abnormality identified on the carotid ultrasound is a minimally elevated distal internal carotid velocity on the left side with normal ratios. All-in-all the most that I would recommend would be annual surveillance. I certainly would not pursue her carotid issues anymore than that at this point. Job ID: [id number]
--- NOTE | 2018-06-22 00:35 | CON ---
DATE OF CONSULTATION: 06/21/2018 CONSULTING PHYSICIAN: Hospitalist Service. IMPRESSION: 1. Toxic encephalopathy secondary to Tylenol PM. 2. Biliary cirrhosis. PLAN: The patient will be discharged home. HISTORY OF PRESENT ILLNESS: Ms. Vazquez is a 73-year-old white female who lives independently. She reports that she took two Tylenol PM on Monday night to try to help herself sleep. The next day, her granddaughter came over to check on her and found that she was not acting appropriately. She was having some stuttering speech and not answering in appropriate fashion. She was subsequently brought to the hospital by ambulance for evaluation. Her workup including an MRI of the brain only showed some small-vessel ischemic changes, but nothing acute. Carotid Doppler shows left stenosis of 50% to 69%. Her platelet count is 67,000. She has been on erythropoietin to try to address this issue. She was already on aspirin and a statin prior to admission. PAST MEDICAL HISTORY: Biliary cirrhosis, renal insufficiency, diabetes, asthma. ALLERGIES: NONSTEROIDALS. SOCIAL HISTORY: No tobacco or alcohol use reported. FAMILY HISTORY: Noncontributory. MEDICATIONS: Medication list was reviewed. REVIEW OF SYSTEMS: GENERAL: No complaint of headache, vertigo, or change in vision. Positive for blindness of the right eye. NECK: No complaint of difficulty swallowing, but she does complain of some sore throat. CHEST: No complaint of shortness of breath or chest pain. ABDOMEN: No complaint of cramps, diarrhea, or abdominal pain. EXTREMITIES: No complaint of joint pain. SKIN: No complaint of rash. NEUROLOGIC: No complaint of lateralized weakness or numbness. Positive for stuttering speech. No complaint of difficulty swallowing. PHYSICAL EXAMINATION: VITAL SIGNS: Blood pressure 123/55, pulse 67, respirations 16, temperature 98.3. HEENT: The right eye is some closed. Left conjunctiva is clear, pupil reacts appropriately. Oropharynx clear. NECK: Supple with no lymphadenopathy. ABDOMEN: Soft and nontender. EXTREMITIES: No swelling or joint pain. NEUROLOGIC: She was alert and cooperative. She was oriented x3. Her speech is fluent and clear. Cranial nerves were intact other than the right eye blindness. She had good antigravity strength on both sides. No tremor or asterixis was present. Sensation was intact to touch. Gait was not tested at this time. SUMMARY: Elderly lady with both some renal and liver compromise who took a fairly large dose of Tylenol PM and came encephalopathic, seems to be back to her normal baseline. I do not see any need for change in medication. Job ID: [id number]
[2018-06-22 04:46] LABS: #Eosinphils 0.2 thou/uL (0.0-0.7); #Lymphocytes 1.1 thou/uL (1.20-3.40); #Monocytes 0.5 thou/uL (0.11-0.59); #Neutrophils 2.8 thou/uL (1.40-6.50); %Basophils 0.2 % (0.0-1.0); %Eosinophils 4.7 % (0.0-10.0); %Lymphocytes 23.7 % (21.0-51.0); %Neutrophils 60.4 % (42.0-75.0); Hemoglobin 9.1 g/dL (12.0-16.0); Mean Corpuscular HGB CONC 32.2 g/dL (32.0-36.0); Mean Corpuscular Hemoglobin 31.8 pg (27.0-31.0); Mean Corpuscular Volume 98.9 fL (78.0-98.0); Mean Platelet Volume 10.4 fL (7.4-10.4); Platelet Count 69 thou/uL (130-400); RBC Distribution Width 14.7 % (11.5-14.5); Red Blood Cell (RBC) Count 2.87 mill/uL (4.20-5.40); White Blood Cell (WBC) Count 4.6 thou/uL (4.8-10.8)
[2018-06-22 05:08] LABS: ALT (SGPT) 18 U/L (8-55); AST (SGOT) 32 U/L (5-34); Albumin 4.3 g/dL (3.4-4.8); Alkaline Phosphatase 102 U/L (40-150); Anion Gap 17 mmol/L (10-20); BUN (Urea Nitrogen) 50 mg/dL (9.8-20.1); Bilirubin, Total 0.9 mg/dL (0.2-1.2); Calc. Creatinine Clearance 23 mL/min (70-130); Calcium 10.5 mg/dL (7.8-10.44); Carbon Dioxide 23 mmol/L (23-31); Chloride 107 mmol/L (98-107); Estimated GFR-MDRD 19; Globulin 2.9 g/dL (2.4-3.5); Glucose 129 mg/dL (83-110); Potassium 4.7 mmol/L (3.5-5.1); Protein, Total 7.2 g/dL (6.0-8.3); Sodium 142 mmol/L (136-145)
[2018-06-22] MEDS: Ursodiol 300 MG CAP PO SCH (08:29)
[2018-06-22] MEDS: Metoclopramide HCl 10 MG TAB PO SCH ×3 (08:29→17:43)
[2018-06-22] MEDS: Ferrous Sulfate 325 MG TAB PO SCH ×2 (08:29→17:43)
[2018-06-22] MEDS: Rifaximin 550 MG TAB PO SCH (08:29)
[2018-06-22] MEDS: Propranolol HCl 20 MG TAB PO SCH (08:30)
[2018-06-22] MEDS: Famotidine 20 MG TAB PO SCH (08:30)
[2018-06-22] MEDS ORDERED: Aspirin 81 mg Enteric Coated Tablet PO SCH (09:00)
[2018-06-22] MEDS ORDERED: Furosemide 20 MG TAB PO SCH (09:00)
[2018-06-22] MEDS ORDERED: Ezetimibe 10 MG TAB PO SCH ×2 (09:00)
[2018-06-22] MEDS ORDERED: Furosemide 40 MG TAB PO SCH (09:00)
[2018-06-22] MEDS ORDERED: Olmesartan 5 MG TAB PO SCH (09:00)
--- NOTE | 2018-06-22 14:06 | PDOC.PN ---
- Subjective Encounter Start Date: 06/22/18 Encounter Start Time: 14:03 Patient lying in bed with no family at bedside. She reports feeling better today. Cognition back to baseline. Dr Griffiths and Dr Miranda evaluated patient and determined symptoms secondary to metabolic encephalopathy secondary to tylenol PM use. She denies chest pain, shortness of breath or abdominal pain. Awaiting placement into rehab. - Objective MAR Reviewed: Yes Vital Signs & Weight: Vital Signs (12 hours) Temp Pulse Pulse Resp BP BP Pulse Ox 06/22/18 11:36 98.6 F 56 L 18 106/58 L 95 06/22/18 08:45 68 116/62 06/22/18 07:41 98.5 F 69 18 117/62 96 06/22/18 04:00 98.2 F 66 18 109/57 L 96 Pulse Ox 06/22/18 11:36 06/22/18 08:45 96 06/22/18 07:41 06/22/18 04:00 Weight Weight 161 lb 3.2 oz I&O: 06/21/18 06/22/18 06/23/18 06:59 06:59 06:59 Intake Total 70 480 500 Balance 70 480 500 Result Diagrams: 06/22/18 04:02 06/22/18 04:02 Additional Labs: Accuchecks 06/22/18 06/22/18 06/21/18 10:52 05:40 20:03 POC Glucose 204 H 131 H 158 H 06/21/18 16:54 POC Glucose 134 H Radiology Reviewed by me: Yes Phys Exam - Physical Examination Constitutional: NAD HEENT: PERRLA, moist MMs, oral pharynx no lesions Neck: no nodes, no JVD Respiratory: no wheezing, no rales, no rhonchi, clear to auscultation bilateral Cardiovascular: RRR, no significant murmur, no rub Gastrointestinal: soft, non-tender, no distention, positive bowel sounds Musculoskeletal: no edema, pulses present Neurological: non-focal, normal sensation, moves all 4 limbs No right eye Lymphatic: no nodes Psychiatric: normal affect, A&O x 3 Skin: no rash, normal turgor, cap refill <2 seconds Dx/Plan (1) Carotid stenosis Code(s): I65.29 - OCCLUSION AND STENOSIS OF UNSPECIFIED CAROTID ARTERY Status : Acute (2) Chronic kidney disease (CKD) Code(s): N18.9 - CHRONIC KIDNEY DISEASE, UNSPECIFIED Status: Acute (3) DM2 (diabetes mellitus, type 2) Status: Chronic Qualifiers: Diabetes mellitus director long term care insulin use: without skilled nursing use Diabetes mellitus complication status: without complication Qualified Code(s): E11.9 - Type 2 diabetes mellitus without complications Comment: ISS, caution with Metformin use given RADHA/CKD (4) HTN (hypertension) Code(s): I10 - ESSENTIAL (PRIMARY) HYPERTENSION Status: Chronic Qualifiers: Hypertension type: essential hypertension Qualified Code(s): I10 - Essential (primary) hypertension (5) History of cirrhosis of liver Code(s): Z87.19 - PERSONAL HISTORY OF OTHER DISEASES OF THE DIGESTIVE SYSTEM Status: Chronic (6) JOSAFAT (iron deficiency anemia) Code(s): D50.9 - IRON DEFICIENCY ANEMIA, UNSPECIFIED Status: Chronic Qualifiers: Iron deficiency anemia type: inadequate dietary iron intake Qualified Code( s): D50.8 - Other iron deficiency anemias (7) Toxic metabolic encephalopathy Code(s): G92 - TOXIC ENCEPHALOPATHY Status: Acute - Plan cont current plan of care, PT/OT * Continue medical management * Encephalopathy likely secondary to tylenol PM according to Dr Griffiths, recommended patient stop use * Continue PT/OT * Monitor patient symptoms, vitals and labs * Await rehab placement
[2018-06-22 20:21] VITALS: BP 109/59; TEMP 98.6
[2018-06-23] MEDS ORDERED: Famotidine 20 MG TAB PO SCH (09:00)
== END 2018-06-22 20:29 ==
LOC: ERS 09:48 → ERHOLD 14:46 → 2SE 19:24
PROVIDERS: ADMIT Internal Medicine; ATTEND Internal Medicine
DX: G92 Toxic encephalopathy (principal); T39.1X5A Adverse effect of 4-Aminophenol derivatives, initial encounter; K74.3 Primary biliary cirrhosis; D61.818 Other pancytopenia; I12.9 Hypertensive chronic kidney disease with stage 1 through stage 4 chronic kidney disease, or unspecified chronic kidney disease; E11.22 Type 2 diabetes mellitus with diabetic chronic kidney disease; N18.9 Chronic kidney disease, unspecified; D63.1 Anemia in chronic kidney disease; N17.9 Acute kidney failure, unspecified; J45.909 Unspecified asthma, uncomplicated; E78.5 Hyperlipidemia, unspecified; E11.43 Type 2 diabetes mellitus with diabetic autonomic (poly)neuropathy; K31.84 Gastroparesis; Z79.82 Long term (current) use of aspirin; Z79.84 Long term (current) use of oral hypoglycemic drugs; Z79.899 Other long term (current) drug therapy; Z88.6 Allergy status to analgesic agent
CPT/HCPCS: 70450; 70551; 80053 ×3; 80307; 82140; 82962 ×3; 83690; 85025 ×3; 85610; 85730; 93005; 93880; 94760; 97116 ×2; 97139; 99285; G0378 ×2; Q4081; 36415; 36416; 81003; 81015

== ENCOUNTER 2018-07-13 06:56 | Day surgery (SDC) | payer MEDICARE, MEDICAID ==
[2018-07-13] MEDS ORDERED: Ferumoxytol (NON ERSD) 510 MG in Sodium Chloride 0.9% 250 ML 150 ML IVPB SCH (08:00)
[2018-07-13 12:47] VITALS: BP 101/49; TEMP 97.6
== END 2018-07-13 15:56 | disposition home or self-care (01) ==
LOC: ONC/OP 06:56
PROVIDERS: ATTEND Internal Medicine Hematology & Oncology
DX: K92.2 Gastrointestinal hemorrhage, unspecified (principal); D50.0 Iron deficiency anemia secondary to blood loss (chronic); I12.9 Hypertensive chronic kidney disease with stage 1 through stage 4 chronic kidney disease, or unspecified chronic kidney disease; E11.22 Type 2 diabetes mellitus with diabetic chronic kidney disease; N18.4 Chronic kidney disease, stage 4 (severe); K74.3 Primary biliary cirrhosis; Z79.82 Long term (current) use of aspirin; Z79.84 Long term (current) use of oral hypoglycemic drugs; Z79.899 Other long term (current) drug therapy; Z88.6 Allergy status to analgesic agent
CPT/HCPCS: 96365; J7050; Q0138

== ENCOUNTER 2018-07-17 17:49 | Emergency (ER) | payer MEDICARE, MEDICAID ==
[2018-07-17 18:40] LABS: #Basophils 0.1 thou/uL (0.0-0.2); #Eosinphils 0.2 thou/uL (0.0-0.7); #Lymphocytes 1.9 thou/uL (1.20-3.40); #Monocytes 0.5 thou/uL (0.11-0.59); #Neutrophils 3.2 thou/uL (1.40-6.50); %Basophils 1.2 % (0.0-1.0); %Eosinophils 3.6 % (0.0-10.0); %Lymphocytes 32.7 % (21.0-51.0); %Monocytes 8.4 % (0.0-10.0); %Neutrophils 54.1 % (42.0-75.0); Mean Corpuscular HGB CONC 32.4 g/dL (32.0-36.0); Mean Corpuscular Hemoglobin 32.4 pg (27.0-31.0); Mean Corpuscular Volume 99.9 fL (78.0-98.0); Mean Platelet Volume 10.7 fL (7.4-10.4); Platelet Count 96 thou/uL (130-400); Red Blood Cell (RBC) Count 2.47 mill/uL (4.20-5.40); White Blood Cell (WBC) Count 5.9 thou/uL (4.8-10.8)
[2018-07-17 18:57] LABS: ALT (SGPT) 20 U/L (8-55); AST (SGOT) 25 U/L (5-34); Albumin 3.5 g/dL (3.4-4.8); Alkaline Phosphatase 101 U/L (40-150); Anion Gap 16 mmol/L (10-20); BUN (Urea Nitrogen) 73 mg/dL (9.8-20.1); Bilirubin, Total 0.4 mg/dL (0.2-1.2); Calc. Creatinine Clearance 0 mL/min (70-130); Calcium 9.9 mg/dL (7.8-10.44); Carbon Dioxide 20 mmol/L (23-31); Chloride 108 mmol/L (98-107); Estimated GFR-MDRD 13; Globulin 3.7 g/dL (2.4-3.5); Glucose 108 mg/dL (83-110); Lipase 77 U/L (8-78); Potassium 5.6 mmol/L (3.5-5.1); Protein, Total 7.2 g/dL (6.0-8.3); Sodium 138 mmol/L (136-145)
[2018-07-18] MEDS ORDERED: Lactulose 10 GM/15 ML Oral Solution ONE (05:31)
== END 2018-07-17 18:41 | disposition left against medical advice (07) ==
LOC: ERS 17:49
DX: Z53.21 Procedure and treatment not carried out due to patient leaving prior to being seen by health care provider (principal)
CPT/HCPCS: 36415; 80053; 83690; 85025

== ENCOUNTER 2018-07-17 18:50 | Inpatient (IN) | payer MEDICARE, MEDICAID ==
[2018-07-17 20:33] LABS: Bilirubin Negative (Negative); Blood, Urine Negative (Negative); Clarity Cloudy (Clear); Glucose, Urine (Dipstick) Negative (Negative); Leukocyte Moderate (Negative); Nitrite Negative (Negative); Protein, Urine (Dipstick) Negative (Neg-Trace); Urobilinogen 0.2 mg/dL (0.2-1.0)
[2018-07-17 20:39] LABS: INR-International Normal Ratio 1.2; PTT 34.5 SEC (22.9-36.1); Prothrombin Time 15.1 SEC (12.0-14.7)
[2018-07-17 20:45] LABS: Bacteria/HPF 1+ HPF (None Seen); RBC/HPF 0-3 HPF (0-3); WBC/HPF 21-50 HPF (0-3)
[2018-07-17] MEDS ORDERED: cefTRIAXone\\ROCEPHIN 1 GM VIAL ONE (21:27)
[2018-07-17] MEDS ORDERED: Lactulose 10 GM/15 ML Oral Solution ONE (21:34)
[2018-07-17 21:35] LABS: Iron 168 ug/dL (50-170); Iron Binding Capacity, Total 274 mcg/dL (265-497)
[2018-07-18] MEDS ORDERED: Ondansetron PF 4 MG/2 ML Vial IVP PRN (00:21)
[2018-07-18] MEDS ORDERED: Ondansetron ODT 4 MG TAB SL PRN ×2 (00:21→19:13)
[2018-07-18] MEDS ORDERED: Acetaminophen 325 MG TAB PO PRN (00:21)
[2018-07-18 00:45] VITALS: BMI 27.0
[2018-07-18] MEDS ORDERED: [UNRECOGNIZED DRUG - REMARK] FS SCH (00:45)
[2018-07-18] MEDS: Sodium Chloride 0.9% 1,000 ML IV SCH ×2 (00:55→10:51)
[2018-07-18] MEDS ORDERED: cefTRIAXone\\ROCEPHIN 1 GM in Sodium Chloride 0.9% 100 ML IVPB SCH ×2 (09:00→21:00)
--- NOTE | 2018-07-18 16:05 | HP ---
CHIEF COMPLAINT: Weakness and syncopal episode. HISTORY OF PRESENT ILLNESS: This is a 73-year-old female, who presents to the hospital complaining of not feeling well, having some nausea as well as a syncopal episode. The patient of note was admitted here recently in early June, early May as well as April for the same exact symptoms. The patient is a [employer] and does have a history of primary biliary cirrhosis with ascites, takes diuretics for this. The patient also has CKD stage 4, was started on iron infusions outpatient for iron-deficiency anemia. The patient was presented to the ER with syncopal episode, was found to have an ammonia level of 94, which is significantly higher than what she has had in the past per family. The patient was given lactulose prior to admission, also given IV fluids, and some antibiotics prior to admission. The patient during examination states that she is feeling well and appears to be back to her baseline. The patient's grandson is at bedside, who provides a history as well further. The patient states that the grandson is to make decisions on her behalf in case the patient is unable to do so. The patient currently states that she is feeling well. No complaints. No alleviating or aggravating factors. No other associated symptoms seen or examined in the hospital. All questions were answered. REVIEW OF SYSTEMS: All systems were reviewed. Pertinent positives in HPI, otherwise negative. MEDICATIONS: See Mar. PAST MEDICAL HISTORY: Positive for primary biliary cirrhosis, hepatic encephalopathy, chronic anemia, CKD stage 4, diabetes mellitus, hypertension as well as metabolic encephalopathy secondary to cirrhosis. SOCIAL HISTORY: Denies any smoking or drinking. FAMILY HISTORY: Positive for primary biliary cirrhosis. PHYSICAL EXAMINATION: VITAL SIGNS: Blood pressure 130/70, O2 saturation 97% on room air, heart rate 78, respiratory rate of 20, and temperature of 97.6. GENERAL: The patient lying in bed comfortably, no complaints. HEENT: Pupils are equal, round, reactive to light and accommodation. Normocephalic and atraumatic. Extraocular muscles intact. Oral cavity moist and pink. NECK: Supple, mobile, and nontender. Thyroid appreciated. CARDIOVASCULAR: Regular rate and rhythm. S1 and S2. 2/6 systolic ejection murmur is appreciated. RESPIRATORY: Clear to auscultation bilaterally. No increase in AP diameter. Coarse breath sounds noted. ABDOMEN: Positive bowel sounds. Soft and nontender. Mild positive fluid wave noted. EXTREMITIES: 2+ peripheral pulses. Upper extremities, 1+ pitting edema in bilateral lower extremities. 2+ pulses in the popliteal region, bilateral lower extremities. NEUROLOGICAL: Alert and oriented x3, albeit slow to speech. No loss of motor or sensory function noted. LABORATORY DATA: CBC within acceptable limits except for a hemoglobin of 8. Coagulation panel within acceptable limits. Iron panel within acceptable limits. Urinalysis also within acceptable limits. Basic metabolic panel showed a potassium slightly elevated at 5.6. Ammonia level of 94, creatinine of 3.41 with an EGFR of 13. ASSESSMENT AND PLAN: 1. Syncopal episode. 2. Altered mental status, likely from hepatic encephalopathy. 3. Primary biliary cirrhosis leading secondary to hepatic cirrhosis. 4. Chronic kidney disease, stage 4. 5. Hypertension. 6. Diabetes mellitus, type 2. 7. Physical deconditioning. 8. Anasarca. 9. Bilateral lower extremity edema. PLAN: 1. Admit this patient to the hospital. 2. Continue diuretics. 3. We will start the patient on lactulose given her high ammonia levels. 4. Nephrology was consulted for elevated baseline and creatinine levels. The patient sees Dr. Ayala outpatient. 5. The patient's overall prognosis appears to be poor. This is her fourth admission for the same exact issue likely having orthostatic hypotension outpatient and this may be unavoidable given her cirrhosis history along side with probable role of heart failure and renal disease. At this point in time, we will attempt to break her symptomatology to diuretics and discontinue all 9 diuretic related hypertension medications and try to see if the patient can achieve euvolemic status. The patient does not wish to have blood transfusion as she is [employer]; however, she was to remain a full code. Case and plan discussed with the patient at length. She understood and agreed to this plan. The patient's grandson at bedside. All questions answered. Job ID: [id number]
[2018-07-18] MEDS ORDERED: Iron Sucrose Complex 100 MG in Sodium Chloride 0.9% 100 ML IVPB SCH (16:45)
[2018-07-18] MEDS: Albumin 25% 25 GM/100 ML BOT IVPB SCH (17:45)
[2018-07-18] MEDS ORDERED: Iron, Sodium Ferric Gluconate 125 MG in Sodium Chloride 0.9% 100 ML IVPB SCH (18:00)
--- NOTE | 2018-07-18 18:26 | CON ---
DATE OF CONSULTATION: HISTORY OF PRESENT ILLNESS: Ms. Vazquez is a 73-year-old white female with known multiple medical problems, admitted for near syncopal episode/generalized malaise. She was evaluated in the ER, where she was also noted to have an acute kidney injury on top of chronic renal failure. The patient has been telling me she has been having decreased p.o. intake for the last several days. Furthermore, the patient has been complaining of nausea. During this episode, the patient continued to take her diuretic and her LEONIDES inhibitor. We are now being consulted for her acute kidney injury. Currently, the patient is receiving volume repletion. REVIEW OF SYSTEMS: Positive for decreased appetite and decreased energy level. Positive for nausea, but no diarrhea. Positive for near syncopal episode. No fever or chills. No headache. No diplopia. No sore throat. Decreased appetite. No hematochezia. No melena. No hematemesis. Positive for nausea, but no diarrhea. HOME MEDICATIONS: Include; 1. Lactulose 2 tablespoon p.o. b.i.d. 2. Ezetimibe 1 tablet daily. 3. Vitamin D3 of 5000 international units daily. 4. Olmesartan 10 mg p.o. b.i.d. 5. Inderal 10 mg p.o. b.i.d. 6. Glipizide 2.5 minutes q.a.m. 7. Aspirin 81 mg tablet once a day. 8. Xifaxan 550 mg p.o. b.i.d. 9. Simvastatin 20 mg at bedtime. 10. Furosemide 20 mg daily. 11. Omeprazole 40 mg daily. 12. Ursodiol 600 mg p.o. b.i.d. 13. Xalatan eyedrop as directed. PAST MEDICAL HISTORY: 1. Chronic renal failure. 2. Status post acute kidney injury. 3. Primary cirrhosis/primary biliary cirrhosis. 4. The patient also has a history of type 2 diabetes mellitus status post diverticulitis, COPD status post right pleural effusion, and right eye blindness. PAST SURGICAL HISTORY: Status post hysterectomy, status post cholecystectomy, status post right eye prosthesis, status post right eye surgery, and status post ear surgery. SOCIAL HISTORY: The patient has 2 children. . Lives in [place]. She is a Jehovah Witness. Currently, no smoking or alcohol intake. No IV drug abuse. Sedentary lifestyle. ALLERGIES: NSAIDS. TRAUMA: None. IMMUNIZATION: Up-to-date. HOSPITALIZATIONS: Please see past medical history. FAMILY HISTORY: No family history of ESRD. PHYSICAL EXAMINATION: VITAL SIGNS: Blood pressure is noted at 107/70 with a heart rate of 70. GENERAL: The patient is awake, sitting comfortable, not in distress. SKIN: Adequate turgor. HEENT: Pinkish conjunctivae. Anicteric sclerae. Decreased visual acuity. NECK: No neck mass. No carotid bruits. No JVD. LUNGS: Clear breath sounds. No wheezing. No crackles. HEART: Normal sinus rhythm. No murmur. No gallops. No rubs. ABDOMEN: Globular, soft, and nontender. No masses. EXTREMITIES: No edema. No deformities. NEUROLOGIC: Moving all extremities. No tremors. No asterixis. No ataxia. LABORATORY DATA: Laboratories of May 16, 2019, white count 5.9 and hemoglobin is 8. Sodium 138, potassium 5.6, chloride 108, carbon dioxide 20, BUN 73, creatinine 3.41, calcium 9.9, AST 25, ALT 20, ferritin 420, and albumin is 3.5. ASSESSMENT AND PLAN: 1. Acute kidney injury on top of her chronic renal failure, superimposed prerenal azotemia. She has a relatively low blood pressure, has been taking diuretics and an angiotensin receptor blockers - Benicar in the background of decreased p.o. intake and with nausea. We will discontinue furosemide. In addition, we will all the bad Benicar. Continue albumin infusion 25 g IV q.6. 2. Anemia - the patient has seen Hematology. The plan is to give her Venofer 100 mg IV every week. 3. Chronic obstructive pulmonary disease, clinically asymptomatic. 4. Hypotension. Discontinue Benicar. 5. Agree with current management. Job ID: [id number]
[2018-07-18] MEDS ORDERED: Ondansetron PF 4 MG/2 ML Vial SLOW IVP PRN (19:13)
[2018-07-18] MEDS: Propranolol 10 MG TAB PO SCH (19:56)
[2018-07-18] MEDS: Rifaximin 550 MG TAB PO SCH (19:56)
[2018-07-19] MEDS: Albumin 25% 25 GM/100 ML BOT IVPB SCH ×4 (00:26→19:35)
[2018-07-19 04:30] LABS: Anion Gap 14 mmol/L (10-20); BUN (Urea Nitrogen) 57 mg/dL (9.8-20.1); Calc. Creatinine Clearance 22 mL/min (70-130); Calcium 9.7 mg/dL (7.8-10.44); Carbon Dioxide 17 mmol/L (23-31); Chloride 117 mmol/L (98-107); Estimated GFR-MDRD 19; Glucose 110 mg/dL (83-110); Potassium 4.9 mmol/L (3.5-5.1); Sodium 143 mmol/L (136-145)
[2018-07-19 04:34] LABS: #Eosinphils 0.1 thou/uL (0.0-0.7); #Monocytes 0.3 thou/uL (0.11-0.59); #Neutrophils 1.5 thou/uL (1.40-6.50); %Basophils 0.8 % (0.0-1.0); %Eosinophils 4.7 % (0.0-10.0); %Lymphocytes 33.4 % (21.0-51.0); %Monocytes 10.7 % (0.0-10.0); %Neutrophils 50.4 % (42.0-75.0); Hemoglobin 6.2 g/dL (12.0-16.0); Mean Corpuscular HGB CONC 32.9 g/dL (32.0-36.0); Mean Corpuscular Hemoglobin 32.8 pg (27.0-31.0); Mean Corpuscular Volume 99.7 fL (78.0-98.0); Mean Platelet Volume 9.4 fL (7.4-10.4); Platelet Count 50 thou/uL (130-400); Platelet Morphology Comment Appears Decreased; RBC Distribution Width 14.2 % (11.5-14.5); Red Blood Cell (RBC) Count 1.88 mill/uL (4.20-5.40); White Blood Cell (WBC) Count 2.9 thou/uL (4.8-10.8)
[2018-07-19] MEDS: Rifaximin 550 MG TAB PO SCH ×2 (08:30→19:36)
[2018-07-19] MEDS: Aspirin 81 mg Enteric Coated Tablet PO SCH (08:30)
[2018-07-19] MEDS: Propranolol 10 MG TAB PO SCH ×2 (08:30→21:00)
[2018-07-19] MEDS: Furosemide 20 MG TAB PO SCH (08:30)
[2018-07-19] MEDS: Ezetimibe 10 MG TAB PO SCH (08:30)
--- NOTE | 2018-07-19 09:55 | PRG ---
DATE OF SERVICE: 07/19/2018 SUBJECTIVE: Ms. Vazquez is a 73-year-old white female with chronic renal failure, who was admitted due to an acute injury as well as new syncopal episode and generalized malaise. At that time, the creatinine was noted to be at 3.41. I felt that there was a prerenal component. For that reason, she was started on albumin infusion. In addition, her Benicar as an outpatient has been discontinued. Please note, her furosemide has also been adjusted downwards. No other complaints today. She is feeling better. No chest pain or shortness of breath. OBJECTIVE: VITAL SIGNS: Blood pressure 110/57, heart rate 83, respiratory rate 16, temperature 98.4, and pulse ox is 97%. GENERAL: Noted to be awake, alert, comfortable, not in distress. SKIN: Adequate turgor. HEENT: She has pale conjunctivae. Anicteric sclerae. No neck mass. No carotid bruits. No JVD. CHEST: No deformities. LUNGS: Clear breath sounds. HEART: Normal sinus rhythm. No murmur. No gallops. No rubs. ABDOMEN: Globular, soft, nontender. No masses. EXTREMITIES: No edema. No deformities. MEDICATIONS: Medications of July 21, 2018 reviewed. LABORATORY DATA: Laboratories of July 19, 2018; white count 2.9, hemoglobin 6.2. Sodium 143, potassium 4.9, chloride 117, carbon dioxide 17, BUN 57, creatinine 2.53, calcium 9.7, ammonia is 52. ASSESSMENT AND PLAN: 1. Acute kidney injury on top of chronic renal failure, superimposed prerenal azotemia, improved renal function with discontinuation of her Benicar. In addition, furosemide has been decreased in dosing. I will continue the albumin infusion. Continue to optimize hemodynamics. 2. Anemia-status post IV iron replacement. She is to continue her Venofer at 100 mg IV every week. In addition, she will receive p.r.n. blood transfusion. Agree with current management. Job ID: [id number]
[2018-07-19] MEDS ORDERED: Iron Sucrose Complex 200 MG in Sodium Chloride 0.9% 250 ML 250 ML IVPB SCH (10:00)
[2018-07-19] MEDS ORDERED: Iron, Sodium Ferric Gluconate 250 MG in Sodium Chloride 0.9% 250 ML 250 ML IVPB SCH (10:00)
--- NOTE | 2018-07-19 13:00 | PDOC.PN ---
- Subjective Encounter Start Date: 07/19/18 Encounter Start Time: 09:40 Pt seen for followup re; hepatic encephalopathy. Denies chest pain, shortness of breath, fevers or chills. - Objective MAR Reviewed: Yes Vital Signs & Weight: Vital Signs (12 hours) Temp Pulse Resp BP Pulse Ox 07/19/18 11:39 98.0 F 69 20 121/64 99 07/19/18 08:00 98.4 F 83 16 110/57 L 99 Weight Admit Weight 162 lb 8 oz Weight 162 lb 8 oz I&O: 07/18/18 07/19/18 07/20/18 06:59 06:59 06:59 Intake Total 1350 Balance 1350 Result Diagrams: 07/19/18 04:04 07/19/18 04:04 Additional Labs: Accuchecks 07/19/18 07/19/18 07/18/18 11:42 05:24 19:43 POC Glucose 140 H 109 162 H 07/18/18 16:17 POC Glucose 121 H Labs reviewed by me Phys Exam - Physical Examination Constitutional: NAD HEENT: moist MMs R eye blind Neck: supple Respiratory: clear to auscultation bilateral Cardiovascular: RRR, no rub Neurological: moves all 4 limbs Psychiatric: normal affect, A&O x 3 Dx/Plan (1) Hepatic encephalopathy Code(s): K72.90 - HEPATIC FAILURE, UNSPECIFIED WITHOUT COMA Status: Acute Comment: Improving, continue lactulose (2) Acute worsening of stage 4 chronic kidney disease Code(s): N18.4 - CHRONIC KIDNEY DISEASE, STAGE 4 (SEVERE) Status: Acute Comment: Benicar on hold (3) Pancytopenia Code(s): D61.818 - OTHER PANCYTOPENIA Status: Chronic Comment: Chronic, secondary to cirrhosis. 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 receiving iron infusions. (4) DM2 (diabetes mellitus, type 2) Status: Chronic Qualifiers: Diabetes mellitus terminal carman insulin use: without terminal carman use Diabetes mellitus complication status: without complication Qualified Code(s): E11.9 - Type 2 diabetes mellitus without complications Comment: controlled (5) HLD (hyperlipidemia) Code(s): E78.5 - HYPERLIPIDEMIA, UNSPECIFIED Status: Chronic Qualifiers: Hyperlipidemia type: unspecified Qualified Code(s): E78.5 - Hyperlipidemia , unspecified Comment: continue Zetia and statin (6) HTN (hypertension) Code(s): I10 - ESSENTIAL (PRIMARY) HYPERTENSION Status: Chronic Qualifiers: Hypertension type: essential hypertension Qualified Code(s): I10 - Essential (primary) hypertension Comment: Anshul on hold - Plan * . Review of Systems - Review of Systems Cardiovascular: negative: chest pain, palpitations, orthopnea, paroxysmal nocturnal dyspnea, edema, light headedness Gastrointestinal: negative: Nausea, Vomiting, Abdominal Pain, Diarrhea, Constipation, Melena, Hematochezia - Medications/Allergies Allergies/Adverse Reactions: Allergies Allergy/AdvReac Type Severity Reaction Status Date / Time NSAIDS (Non-Steroidal Allergy Verified 07/18/18 00:47 Anti-Inflamma BLOOD PRODUCTS (Jehovah's Allergy Unknown Uncoded 07/18/18 00:47 Witness) Medications: Current Medications Albumin Human (Albumin 25%) 25 gm IVPB Q6H [facility] Stop: 07/22/18 14:01 Aspirin (Ecotrin) 81 mg PO DAILY [facility] Last Admin: 07/19/18 08:30 Dose: 81 mg Ezetimibe (Zetia) 10 mg PO DAILY [facility] Last Admin: 07/19/18 08:30 Dose: 10 mg Furosemide (Lasix) 20 mg PO DAILY [facility] Last Admin: 07/19/18 08:30 Dose: 20 mg Glipizide (Glucotrol Xl) 2.5 mg PO [facility] Last Admin: 07/19/18 08:30 Dose: 2.5 mg Lactulose (Lactulose) 40 gm PO BID [facility] Last Admin: 07/19/18 08:29 Dose: 20 gm Ondansetron HCl (Zofran Odt) 4 mg SL Q6H PRN PRN Reason: Nausea/Vomiting Last Admin: 07/18/18 20:01 Dose: 4 mg Ondansetron HCl (Zofran) 4 mg SLOW IVP Q6H PRN PRN Reason: Nausea/Vomiting Last Admin: 07/19/18 11:06 Dose: 4 mg Propranolol HCl (Inderal) 10 mg PO BID [facility] Last Admin: 07/19/18 08:30 Dose: 10 mg Rifaximin (Xifaxan) 550 mg PO BID [facility] Last Admin: 07/19/18 08:30 Dose: 550 mg Sodium Chloride (Flush - Normal Saline) 10 ml IVF Q12HR ALEX Sodium Chloride (Flush - Normal Saline) 10 ml IVF PRN PRN PRN Reason: Saline Flush
[2018-07-20] MEDS: Albumin 25% 25 GM/100 ML BOT IVPB SCH ×5 (02:07→21:17)
[2018-07-20] MEDS: Propranolol 10 MG TAB PO SCH ×2 (08:34→21:18)
[2018-07-20] MEDS: Furosemide 20 MG TAB PO SCH (08:34)
[2018-07-20] MEDS: Aspirin 81 mg Enteric Coated Tablet PO SCH (08:34)
[2018-07-20] MEDS: Ezetimibe 10 MG TAB PO SCH (08:34)
[2018-07-20] MEDS: Rifaximin 550 MG TAB PO SCH ×2 (08:34→21:17)
[2018-07-20] MEDS ORDERED: Epoetin (ESRD) 10,000 UNITS/ML VIAL SC SCH (09:00)
[2018-07-20 09:24] LABS: #Eosinphils 0.1 thou/uL (0.0-0.7); #Lymphocytes 0.7 thou/uL (1.20-3.40); #Monocytes 0.2 thou/uL (0.11-0.59); #Neutrophils 1.1 thou/uL (1.40-6.50); %Basophils 0.4 % (0.0-1.0); %Eosinophils 4.6 % (0.0-10.0); %Lymphocytes 32.5 % (21.0-51.0); %Monocytes 10.9 % (0.0-10.0); %Neutrophils 51.6 % (42.0-75.0); Hemoglobin 6.1 g/dL (12.0-16.0); Mean Corpuscular HGB CONC 32.2 g/dL (32.0-36.0); Mean Corpuscular Hemoglobin 32.3 pg (27.0-31.0); Mean Platelet Volume 9.9 fL (7.4-10.4); Platelet Count 59 thou/uL (130-400); RBC Distribution Width 15.3 % (11.5-14.5); Red Blood Cell (RBC) Count 1.89 mill/uL (4.20-5.40); White Blood Cell (WBC) Count 2.1 thou/uL (4.8-10.8)
[2018-07-20 09:33] LABS: Anion Gap 14 mmol/L (10-20); BUN (Urea Nitrogen) 43 mg/dL (9.8-20.1); Calc. Creatinine Clearance 25 mL/min (70-130); Calcium 10.4 mg/dL (7.8-10.44); Carbon Dioxide 18 mmol/L (23-31); Chloride 114 mmol/L (98-107); Estimated GFR-MDRD 21; Glucose 141 mg/dL (83-110); Potassium 4.4 mmol/L (3.5-5.1); Sodium 142 mmol/L (136-145)
[2018-07-20] MEDS ORDERED: Epoetin (ESRD) 20,000 UNITS/ML SC SCH (09:45)
--- NOTE | 2018-07-20 10:16 | PRG ---
DATE OF SERVICE: 07/20/2018 SUBJECTIVE: Ms. Vazquez is a 73-year-old white female seen by Renal Service for acute kidney injury. I felt that at that time, she had a hemodynamically-mediated renal dysfunction. Adjustment with her diuretics and discontinuation of her ARB was done. Empiric volume repletion was also given. Renal function is slowly improving. This morning, she has no new complaints. She denies any chest pain or shortness of breath. OBJECTIVE: VITAL SIGNS: Blood pressure 99/58, heart rate 70, respiratory rate 16, temperature 98.2, and pulse ox 96%. GENERAL: Noted to be awake, alert, supine, comfortable, and not in overt distress. SKIN: Adequate turgor. HEENT: She has a pale conjunctivae. Anicteric sclerae. NECK: No neck mass. No carotid bruits. No JVD. CHEST: No deformities. LUNGS: Clear breath sounds. HEART: Normal sinus rhythm. No murmur. No gallops. No rubs. ABDOMEN: Globular, soft, and nontender. No masses. EXTREMITIES: No edema. No deformities. MEDICATIONS: Medications of July 20, 2018, were reviewed. LABORATORY DATA: Laboratories of July 20, 2018; white count 2.1, and hemoglobin 6.1. Sodium 142, potassium 4.4, chloride 114, carbon dioxide 18, BUN 43, creatinine 2.27, and calcium 10.4. ASSESSMENT AND PLAN: 1. Anemia-I tried to transfuse the patient, but she declined. She is a Jehovah Witness. She has received IV iron transfusion. We will probably give her Epogen 10,000 units subcu q.week. 2. Acute kidney injury-superimposed hemodynamically-mediated renal dysfunction, much improved. Continue albumin infusion. 3. Recheck basic metabolic panel in a.m. Job ID: [id number]
[2018-07-20 15:20] LABS: Troponin I Less than 0.010 ng/mL (< 0.028)
[2018-07-20 16:08] LABS: Folate (Folic Acid) 14.3 ng/mL (7.0-31.4)
--- NOTE | 2018-07-20 18:02 | PDOC.PN ---
- Subjective Encounter Start Date: 07/20/18 Encounter Start Time: 09:40 Pt seen for followup re: pancytopenia, worsening anemia. No complaints today. - Objective Resuscitation Status - Order Detail: 07/19/18 14:39 Resuscitation Status Routine Resuscitation Status: DNAR: NO Resuscitation Discussed with: Pt and pt family. Additional comments: DNAR consent obtained MAR Reviewed: Yes Vital Signs & Weight: Vital Signs (12 hours) Temp Pulse Resp BP Pulse Ox 07/20/18 16:00 98.9 F 66 18 108/58 L 98 07/20/18 12:41 98.2 F 66 18 115/64 99 07/20/18 08:30 98.3 F 70 16 99/58 L 96 07/20/18 08:00 98 Weight Admit Weight 162 lb 8 oz Weight 162 lb 8 oz I&O: 07/19/18 07/20/18 07/21/18 06:59 06:59 06:59 Intake Total 1350 Balance 1350 Result Diagrams: 07/20/18 08:50 07/20/18 08:50 Additional Labs: Accuchecks 07/20/18 07/20/18 07/20/18 16:54 11:52 05:43 POC Glucose 93 141 H 100 07/19/18 07/19/18 20:45 17:45 POC Glucose 111 H 138 H Labs reviewed by me Phys Exam - Physical Examination Constitutional: NAD HEENT: moist MMs pallor Neck: supple Respiratory: clear to auscultation bilateral Cardiovascular: RRR Gastrointestinal: soft Neurological: moves all 4 limbs Psychiatric: normal affect Dx/Plan (1) Pancytopenia Code(s): D61.818 - OTHER PANCYTOPENIA Status: Acute Comment: Hemoglobin dropped in last few days. Pt receiving Epogen. Has used oral iron in the past but stopped due to constipation. (2) Acute worsening of stage 4 chronic kidney disease Code(s): N18.4 - CHRONIC KIDNEY DISEASE, STAGE 4 (SEVERE) Status: Acute Comment: Improving, Benicar on hold (3) DM2 (diabetes mellitus, type 2) Status: Chronic Qualifiers: Diabetes mellitus manager intermediate insulin use: without senior living use Diabetes mellitus complication status: without complication Qualified Code(s): E11.9 - Type 2 diabetes mellitus without complications Comment: controlled (4) HLD (hyperlipidemia) Code(s): E78.5 - HYPERLIPIDEMIA, UNSPECIFIED Status: Chronic Qualifiers: Hyperlipidemia type: unspecified Qualified Code(s): E78.5 - Hyperlipidemia , unspecified Comment: on Zetia and statin (5) HTN (hypertension) Code(s): I10 - ESSENTIAL (PRIMARY) HYPERTENSION Status: Chronic Qualifiers: Hypertension type: essential hypertension Qualified Code(s): I10 - Essential (primary) hypertension Comment: Benicar on hold (6) Hepatic encephalopathy Code(s): K72.90 - HEPATIC FAILURE, UNSPECIFIED WITHOUT COMA Status: Resolved - Plan * . Review of Systems - Review of Systems Respiratory: negative: Cough, Shortness of Breath, SOB with Excertion, Pleuritic Pain, Wheezing Cardiovascular: negative: chest pain, palpitations, orthopnea, paroxysmal nocturnal dyspnea, edema, light headedness - Medications/Allergies Allergies/Adverse Reactions: Allergies Allergy/AdvReac Type Severity Reaction Status Date / Time NSAIDS (Non-Steroidal Allergy Verified 07/18/18 00:47 Anti-Inflamma BLOOD PRODUCTS (Jehovah's Allergy Unknown Uncoded 07/18/18 00:47 Witness) Medications: Current Medications Albumin Human (Albumin 25%) 25 gm IVPB Q6H [facility] Stop: 07/21/18 14:31 Last Admin: 07/20/18 15:39 Dose: 25 gm Aspirin (Ecotrin) 81 mg PO DAILY [facility] Last Admin: 07/20/18 08:34 Dose: 81 mg Ezetimibe (Zetia) 10 mg PO DAILY [facility] Last Admin: 07/20/18 08:34 Dose: 10 mg Epoetin Jeffrey (Procrit) 10,000 units SC Q7DAYS [facility] Last Admin: 07/20/18 12:52 Dose: 10,000 units Furosemide (Lasix) 20 mg PO DAILY [facility] Last Admin: 07/20/18 08:34 Dose: 20 mg Glipizide (Glucotrol Xl) 2.5 mg PO QAM-WM [facility] Last Admin: 07/20/18 08:34 Dose: Not Given Lactulose (Lactulose) 40 gm PO BID [facility] Last Admin: 07/20/18 08:33 Dose: 20 gm Ondansetron HCl (Zofran Odt) 4 mg SL Q6H PRN PRN Reason: Nausea/Vomiting Last Admin: 07/18/18 20:01 Dose: 4 mg Ondansetron HCl (Zofran) 4 mg SLOW IVP Q6H PRN PRN Reason: Nausea/Vomiting Last Admin: 07/19/18 11:06 Dose: 4 mg Propranolol HCl (Inderal) 10 mg PO BID [facility] Last Admin: 07/20/18 08:34 Dose: 10 mg Rifaximin (Xifaxan) 550 mg PO BID [facility] Last Admin: 07/20/18 08:34 Dose: 550 mg Sodium Chloride (Flush - Normal Saline) 10 ml IVF Q12HR [facility] Last Admin: 07/20/18 08:35 Dose: 10 ml Sodium Chloride (Flush - Normal Saline) 10 ml IVF PRN PRN PRN Reason: Saline Flush
[2018-07-20 19:15] LABS: Troponin I Less than 0.010 ng/mL (< 0.028)
--- NOTE | 2018-07-20 19:59 | CON ---
DATE OF CONSULTATION: REASON FOR CONSULTATION: Anemia. HISTORY OF PRESENT ILLNESS: Ms. Vazquez is a 73-year-old female, who is followed by Dr. Ham for chronic iron-deficiency secondary to chronic GI blood loss, chronic kidney disease 4, and primary biliary cirrhosis. She requires frequent IV iron, last dose was Monday, 07/13. Over the last few days, the patient has had general malaise with some dizziness. She presented to the emergency room for evaluation. Her hemoglobin was 6.2, her platelet count was 50,000, and her WBC was 2.9. When evaluated last in the office, her white count was 5.9, hemoglobin was 9.4, and platelet count was 81,000. The patient is a Jehovah Witness and does not receive blood transfusions. The patient does state that she has dark stools with occasional bright red blood on her tissue. She is followed by Dr. Vazquez for her primary biliary cirrhosis. She does complain of chest pain at this time and is undergoing cardiac evaluation. PAST MEDICAL HISTORY: 1. Chronic anemia. 2. Primary biliary cirrhosis. 3. Chronic kidney disease, 3. 4. Gastroesophageal reflux disease. 5. Asthma. 6. Hypertension. 7. Diabetes mellitus, 2. PAST SURGICAL HISTORY: 1. Hysterectomy. 2. Cholecystectomy. ALLERGIES: NO KNOWN DRUG ALLERGIES. HOME MEDICATIONS: Reviewed in [facility]. FAMILY HISTORY: She has a sister with an unknown cancer. SOCIAL HISTORY: , has 2 children. Lives with her son. No alcohol, tobacco, or illicit drug use. REVIEW OF SYSTEMS: A 10-point review of systems is negative except for noted in HPI. PHYSICAL EXAMINATION: VITAL SIGNS: Temperature is 98.2, pulse is 66, respiratory rate 18, BP is 115/64, and she is 99% on room air. GENERAL: Chronically ill-appearing female, in no acute distress. HEENT: Normocephalic and atraumatic. Pupils equal and reactive to light. She has a right lazy eye. NECK: Supple. CV: Regular rate and rhythm. LUNGS: Clear. ABDOMEN: Soft and nontender. Bowel sounds are positive. EXTREMITIES: No clubbing, cyanosis, or edema. SKIN: No rash. HEMATOLOGIC: No petechiae or purpura. NEUROLOGIC: Nonfocal except for stutter. PSYCHIATRIC: The patient is alert, oriented and appropriate. PERTINENT LABORATORY DATA AND X-RAYS: Current WBCs are 2.1, hemoglobin 6.1, hematocrit 18.9, and platelet count 59,000, she got 52% neutrophils, 33% lymphocytes. PT is 15.1, INR is 1.2, and PTT is 34.5. Sodium is 142, potassium 4.4, chloride 114, CO2 is 18, BUN is 43, creatinine 2.25, and calcium is 10.4. Iron is 168, TIBC is 274, and ferritin is 420. Ammonia is 94. ASSESSMENT: 1. Chronic multifactorial anemia secondary to chronic kidney disease, 4. 2. Chronic gastrointestinal bleed. 3. Primary biliary cirrhosis. DISCUSSION: The patient is a Jehovah Witness and declines blood transfusion. No IV iron is needed at this time. Given her new onset of pancytopenia, we will check a B12 level and folic acid. I do agree with Procrit injections. She will likely need to continue those in the outpatient setting, which can be provided in our clinic. Thank you for the consult. Job ID: [id number]
--- NOTE | 2018-07-20 23:02 | CON ---
DATE OF CONSULTATION: 07/20/2018 CHIEF COMPLAINT: Anemia. HISTORY OF PRESENT ILLNESS: Ms. Vazquez is a 73-year-old woman with primary biliary cirrhosis and chronic anemia who was admitted on 07/18/2018 with weakness and a syncopal episode. She was found to have worsening anemia. She has some [id number] renal insufficiency. She also had increased hepatic encephalopathy and was given lactulose with improvement. She reported some nausea, vomiting prior to admission, but this is resolved. She has had several bowel movements per day with the lactulose. She has been given epoetin and iron infusions for her anemia. She underwent EGD and colonoscopy back in November of [address] Price. The upper endoscopy showed 3 columns of grade 1 varices and was otherwise normal. Colonoscopy revealed few small polyps, which were removed. Otherwise, negative for bleeding source other than hemorrhoids. She has had no overt bleeding currently, but does report intermittent black stools. She has been on iron orally previously, but not likely due to constipation. PAST MEDICAL HISTORY: 1. Primary biliary cirrhosis. 2. Chronic kidney disease. 3. Diabetes mellitus. 4. Hypertension. 5. Hepatic encephalopathy. 6. Chronic anemia. PAST SURGICAL HISTORY: 1. Cholecystectomy. 2. Hysterectomy. 3. Appendectomy. 4. Liver biopsy. 5. Upper and lower endoscopy. 6. Removal of the right eye. FAMILY HISTORY: Negative for GI malignancy. SOCIAL HISTORY: No alcohol, tobacco, or drugs. She is a Yazidi and will not take blood transfusion. ALLERGIES: NSAIDS. MEDICATIONS: Currently as an inpatient: 1. Aspirin. 2. Epoetin. 3. Zetia. 4. Lasix. 5. Glipizide. 6. Lactulose. 7. Propranolol. 8. Rifaximin. REVIEW OF SYSTEMS: Negative x10 systems reviewed except as stated in history of present illness. PHYSICAL EXAMINATION: VITAL SIGNS: Temperature 98.9, pulse 66, blood pressure 108/58. GENERAL: She is in no acute distress. Alert and oriented x3. LUNGS: Clear to auscultation bilaterally. HEART: Regular rate and rhythm without murmur. ABDOMEN: Soft, nontender, and nondistended. Bowel sounds are present. EXTREMITIES: No lower extremity edema. NEUROLOGIC: She has no asterixis on neurological exam. LABORATORY DATA: White blood cell count 2.1, hemoglobin 6.1, platelets 59. INR 1.2, creatinine 2.27. Ammonia was 94 on 07/17/2018. Iron 168, TIBC 274, ferritin 420. IMPRESSION: 1. Pancytopenia with worsening hemoglobin. She has no signs of overt gastrointestinal bleeding. She has been on iron supplements and her iron studies are more consistent with anemia of chronic disease. Given the iron infusion, I do not know how accurate these would be to determine, if she has evidence of chronic bleed. She does have underlying primary biliary cirrhosis and portal hypertensive gastropathy is a consideration. However, she just had an endoscopy back in November of 2017, which was negative for any other bleeding source. She did have small varices present. Given the intermittent black stools and drop in her hemoglobin and failure to respond adequately to epoetin and iron infusions along with refusal for blood transfusion based on with orthodox grounds, it would be reasonable to repeat upper endoscopy now to rule out bleeding source. 2. Primary biliary cirrhosis. This is complicated by hepatic encephalopathy. Currently, the hepatic encephalopathy is improved with lactulose and Xifaxan. She has had recent ultrasound that is negative for liver mass. She follows with Dr. Vazquez as an outpatient. RECOMMENDATIONS: 1. I will plan EGD tomorrow morning. 2. Continue lactulose and rifaximin. 3. Consider discontinuation of aspirin. Job ID: [id number]
[2018-07-21] MEDS: Albumin 25% 25 GM/100 ML BOT IVPB SCH ×4 (02:53→17:29)
[2018-07-21] MEDS: Propranolol 10 MG TAB PO SCH ×2 (05:26→20:44)
[2018-07-21 05:54] LABS: #Eosinphils 0.1 thou/uL (0.0-0.7); #Lymphocytes 0.8 thou/uL (1.20-3.40); #Monocytes 0.3 thou/uL (0.11-0.59); #Neutrophils 1.3 thou/uL (1.40-6.50); %Basophils 0.5 % (0.0-1.0); %Eosinophils 4.1 % (0.0-10.0); %Lymphocytes 32.5 % (21.0-51.0); %Monocytes 10.2 % (0.0-10.0); %Neutrophils 52.7 % (42.0-75.0); Hemoglobin 6.2 g/dL (12.0-16.0); Mean Corpuscular HGB CONC 32.2 g/dL (32.0-36.0); Mean Corpuscular Hemoglobin 32.6 pg (27.0-31.0); Mean Platelet Volume 9.4 fL (7.4-10.4); Platelet Count 53 thou/uL (130-400); RBC Distribution Width 15.3 % (11.5-14.5); Red Blood Cell (RBC) Count 1.91 mill/uL (4.20-5.40); White Blood Cell (WBC) Count 2.4 thou/uL (4.8-10.8)
[2018-07-21 06:13] LABS: Anion Gap 15 mmol/L (10-20); BUN (Urea Nitrogen) 37 mg/dL (9.8-20.1); Calc. Creatinine Clearance 29 mL/min (70-130); Calcium 10.4 mg/dL (7.8-10.44); Carbon Dioxide 17 mmol/L (23-31); Chloride 112 mmol/L (98-107); Estimated GFR-MDRD 25; Glucose 104 mg/dL (83-110); Potassium 4.2 mmol/L (3.5-5.1); Sodium 140 mmol/L (136-145)
[2018-07-21] MEDS ORDERED: NS 0.9% w/ 20 MEQ KCL 1,000 ML ONE (09:52)
[2018-07-21] MEDS ORDERED: Ondansetron PF 4 MG/2 ML Vial ONE ×2 (09:52→16:15)
[2018-07-21] MEDS ORDERED: Glycopyrrolate 0.2 MG/ML 5 ML SYRINGE ONE ×2 (09:54→16:15)
[2018-07-21] MEDS: Ezetimibe 10 MG TAB PO SCH (11:20)
[2018-07-21] MEDS: Rifaximin 550 MG TAB PO SCH ×2 (11:20→20:44)
[2018-07-21] MEDS: Aspirin 81 mg Enteric Coated Tablet PO SCH (11:20)
[2018-07-21] MEDS: Furosemide 20 MG TAB PO SCH (11:21)
--- NOTE | 2018-07-21 13:51 | OP ---
DATE OF PROCEDURE: 07/21/2018 PROCEDURE PERFORMED: Esophagogastroduodenoscopy. PREOPERATIVE DIAGNOSES: Chronic anemia and Hemoccult-positive stool and intermittent black stools. DESCRIPTION OF PROCEDURE: Informed consent was obtained from the patient. She was sedated with total intravenous anesthesia. The bite block was placed, and the endoscope was advanced easily to the second portion of the duodenum, and retroflexion was performed in the stomach. The esophagus had 3 columns of grade 2 varices. The largest did have a red sign in the distal portion of that varix. This was a grade 2 to 3 varix. There was no stigmata of recent bleeding otherwise. The stomach had mild portal hypertensive gastropathy in the fundus and proximal body. The remainder of the gastric mucosa was normal. No bleeding source was identified. The pylorus and first and second portions and third portions of the duodenum were normal. The air was suctioned from the stomach, and the procedure was completed. IMPRESSION: 1. Three columns of grade 2 varices with the largest being grade 2 to 3 large varix with a red sign in the distal portion of the varix. She has had no prior bleeding to suggest variceal bleeding. Varices would not cause just Hemoccult-positive stool and subclinical bleeding. This varix was not banded today. Given that when the band sloughed off, there is a significant risk for delayed bleeding at that point 5 to 7 days out and given her thrombocytopenia and coagulopathy and inability to take blood transfusion, decision was made to not band this varix today. 2. Portal hypertensive gastropathy. This could cause some slow intermittent oozing. However, overall, this appeared normal. 3. Otherwise normal esophagogastroduodenoscopy without bleeding source identified. RECOMMENDATIONS: 1. Proton-pump inhibitor. 2. Continue low-dose nonselective beta yakelin. Unfortunately, this will have to be balanced against her need for renal perfusion and her chronic renal insufficiency. 3. Advance diet. 4. I will sign off. Please call if GI can be of assistance. Job ID: [id number]
--- NOTE | 2018-07-21 14:37 | EKG ---
Test Reason : Blood Pressure : / mmHG Vent. Rate : 055 BPM Atrial Rate : 055 BPM P-R Int : 000 ms QRS Dur : 080 ms QT Int : 472 ms P-R-T Axes : 000 -27 028 degrees QTc Int : 451 ms Junctional rhythm with occasional Premature ventricular complexes Low voltage QRS Abnormal ECG Confirmed by RIP PETTY D.O. ([id number]), department editor IZABELA MANRIQUEZ ([id number] on 07/21/2018 2:37:15 PM Referred By: Confirmed By:RIP PETTY D.O.
[2018-07-21] MEDS ORDERED: PROPOFOL 200 MG/20 ML VIAL ONE (16:15)
--- NOTE | 2018-07-21 16:40 | PDOC.PN ---
- Subjective Encounter Start Date: 07/21/18 Encounter Start Time: 16:39 Pt seen for followup re: acute blood loss anemia. Feels better, no complaints. - Objective Resuscitation Status - Order Detail: 07/19/18 14:39 Resuscitation Status Routine Resuscitation Status: DNAR: NO Resuscitation Discussed with: Pt and pt family. Additional comments: DNAR consent obtained MAR Reviewed: Yes Vital Signs & Weight: Vital Signs (12 hours) Temp Pulse Resp BP Pulse Ox 07/21/18 12:42 98.0 F 68 18 128/68 99 07/21/18 10:44 97.7 F 74 16 120/64 99 07/21/18 08:00 99 07/21/18 07:37 98.1 F 72 18 117/59 L 99 Weight Admit Weight 162 lb 8 oz Weight 162 lb 8 oz I&O: 07/20/18 07/21/18 07/22/18 06:59 06:59 06:59 Intake Total 757 Balance 757 Result Diagrams: 07/21/18 05:40 07/21/18 05:40 Additional Labs: Accuchecks 07/21/18 07/20/18 07/20/18 05:54 20:27 16:54 POC Glucose 113 H 199 H 93 labs reviewed by me Phys Exam - Physical Examination Constitutional: NAD HEENT: moist MMs Neck: supple Respiratory: clear to auscultation bilateral Cardiovascular: RRR Neurological: moves all 4 limbs Psychiatric: normal affect Dx/Plan (1) Pancytopenia Code(s): D61.818 - OTHER PANCYTOPENIA Status: Acute Comment: Likely secondary to liver disease (2) Acute worsening of stage 4 chronic kidney disease Code(s): N18.4 - CHRONIC KIDNEY DISEASE, STAGE 4 (SEVERE) Status: Acute Comment: Improving, Benicar is on hold, creatinine 1.94 today (3) DM2 (diabetes mellitus, type 2) Status: Chronic Qualifiers: Diabetes mellitus usp insulin use: without termite treater use Diabetes mellitus complication status: without complication Qualified Code(s): E11.9 - Type 2 diabetes mellitus without complications Comment: controlled (4) HLD (hyperlipidemia) Code(s): E78.5 - HYPERLIPIDEMIA, UNSPECIFIED Status: Chronic Qualifiers: Hyperlipidemia type: unspecified Qualified Code(s): E78.5 - Hyperlipidemia , unspecified Comment: will continue Zetia and statin (5) HTN (hypertension) Code(s): I10 - ESSENTIAL (PRIMARY) HYPERTENSION Status: Chronic Qualifiers: Hypertension type: essential hypertension Qualified Code(s): I10 - Essential (primary) hypertension Comment: controlled, Benicar on hold (6) Hepatic encephalopathy Code(s): K72.90 - HEPATIC FAILURE, UNSPECIFIED WITHOUT COMA Status: Resolved (7) Anemia due to acute blood loss Code(s): D62 - ACUTE POSTHEMORRHAGIC ANEMIA Status: Acute Comment: no clear source, s/p EGD, recheck hemoglobin - Plan * . Review of Systems - Review of Systems Respiratory: negative: Cough, Shortness of Breath, SOB with Excertion, Pleuritic Pain, Wheezing Cardiovascular: negative: chest pain, palpitations, orthopnea, paroxysmal nocturnal dyspnea, edema, light headedness - Medications/Allergies Allergies/Adverse Reactions: Allergies Allergy/AdvReac Type Severity Reaction Status Date / Time NSAIDS (Non-Steroidal Allergy Verified 07/18/18 00:47 Anti-Inflamma BLOOD PRODUCTS (Jehovah's Allergy Unknown Uncoded 07/18/18 00:47 Witness) Medications: Current Medications Albumin Human (Albumin 25%) 25 gm IVPB Q6H [facility] Stop: 07/21/18 17:01 Last Admin: 07/21/18 11:19 Dose: 25 gm Aspirin (Ecotrin) 81 mg PO DAILY [facility] Last Admin: 07/21/18 11:20 Dose: 81 mg Ezetimibe (Zetia) 10 mg PO DAILY [facility] Last Admin: 07/21/18 11:20 Dose: 10 mg Epoetin Jeffrey (Procrit) 10,000 units SC Q7DAYS [facility] Last Admin: 07/20/18 12:52 Dose: 10,000 units Furosemide (Lasix) 20 mg PO DAILY [facility] Last Admin: 07/21/18 11:21 Dose: 20 mg Glipizide (Glucotrol Xl) 2.5 mg PO QAM-[facility] Last Admin: 07/21/18 11:15 Dose: Not Given Lactulose (Lactulose) 40 gm PO BID [facility] Last Admin: 07/21/18 11:21 Dose: 20 gm Ondansetron HCl (Zofran Odt) 4 mg SL Q6H PRN PRN Reason: Nausea/Vomiting Last Admin: 02/06/19 20:01 Dose: 4 mg Ondansetron HCl (Zofran) 4 mg SLOW IVP Q6H PRN PRN Reason: Nausea/Vomiting Last Admin: 07/19/18 11:06 Dose: 4 mg Pantoprazole Sodium (Protonix) 40 mg PO DAILY [facility] Propranolol HCl (Inderal) 10 mg PO BID [facility] Last Admin: 07/21/18 05:26 Dose: 10 mg Rifaximin (Xifaxan) 550 mg PO BID [facility] Last Admin: 07/21/18 11:20 Dose: 550 mg Sodium Chloride (Flush - Normal Saline) 10 ml IVF Q12HR [facility] Last Admin: 07/21/18 11:23 Dose: 10 ml Sodium Chloride (Flush - Normal Saline) 10 ml IVF PRN PRN PRN Reason: Saline Flush Last Admin: 07/21/18 02:52 Dose: 10 ml
[2018-07-22 05:15] VITALS: TEMP 98.1
[2018-07-22 06:31] LABS: #Eosinphils 0.1 thou/uL (0.0-0.7); #Lymphocytes 0.8 thou/uL (1.20-3.40); #Monocytes 0.2 thou/uL (0.11-0.59); #Neutrophils 1.3 thou/uL (1.40-6.50); %Basophils 0.1 % (0.0-1.0); %Eosinophils 4.1 % (0.0-10.0); %Lymphocytes 32.7 % (21.0-51.0); %Monocytes 10.1 % (0.0-10.0); %Neutrophils 53.1 % (42.0-75.0); Hemoglobin 6.2 g/dL (12.0-16.0); Mean Corpuscular HGB CONC 33.4 g/dL (32.0-36.0); Mean Corpuscular Hemoglobin 33.6 pg (27.0-31.0); Mean Platelet Volume 9.8 fL (7.4-10.4); Platelet Count 53 thou/uL (130-400); RBC Distribution Width 15.6 % (11.5-14.5); Red Blood Cell (RBC) Count 1.83 mill/uL (4.20-5.40); White Blood Cell (WBC) Count 2.4 thou/uL (4.8-10.8)
[2018-07-22 06:51] LABS: Anion Gap 15 mmol/L (10-20); BUN (Urea Nitrogen) 35 mg/dL (9.8-20.1); Calc. Creatinine Clearance 31 mL/min (70-130); Calcium 10.2 mg/dL (7.8-10.44); Carbon Dioxide 17 mmol/L (23-31); Chloride 109 mmol/L (98-107); Estimated GFR-MDRD 27; Glucose 105 mg/dL (83-110); Potassium 4.1 mmol/L (3.5-5.1); Sodium 137 mmol/L (136-145)
[2018-07-22 08:27] VITALS: BP 101/62
[2018-07-22] MEDS: Furosemide 20 MG TAB PO SCH (09:52)
[2018-07-22] MEDS: Rifaximin 550 MG TAB PO SCH (09:53)
[2018-07-22] MEDS: Aspirin 81 mg Enteric Coated Tablet PO SCH (09:53)
[2018-07-22] MEDS: Ezetimibe 10 MG TAB PO SCH (09:53)
[2018-07-22] MEDS: Propranolol 10 MG TAB PO SCH (09:53)
--- NOTE | 2018-07-22 14:34 | PDOC.PN ---
- Subjective Encounter Start Date: 07/22/18 Encounter Start Time: 09:40 Pt seen for followup re: pancytopenia. Denies any complaints. - Objective Resuscitation Status - Order Detail: 07/19/18 14:39 Resuscitation Status Routine Resuscitation Status: DNAR: NO Resuscitation Discussed with: Pt and pt family. Additional comments: DNAR consent obtained MAR Reviewed: Yes Vital Signs & Weight: Vital Signs (12 hours) Temp Pulse Resp BP BP Pulse Ox 07/22/18 08:23 98.1 F 57 L 16 101/62 96 07/22/18 08:00 96 07/22/18 05:14 98.1 F 73 16 95/55 L 100 Weight Admit Weight 162 lb 8 oz Weight 162 lb 8 oz I&O: 07/21/18 07/22/18 07/23/18 06:59 06:59 06:59 Intake Total 757 510 Balance 757 510 Result Diagrams: 07/22/18 06:03 07/22/18 06:03 Additional Labs: Accuchecks 07/22/18 07/21/18 07/21/18 05:12 20:47 16:57 POC Glucose 106 152 H 112 H 07/21/18 11:48 POC Glucose 118 H Labs reviewed by me Phys Exam - Physical Examination Constitutional: NAD HEENT: moist MMs R blindness Neck: supple Respiratory: clear to auscultation bilateral Cardiovascular: RRR Gastrointestinal: soft Neurological: moves all 4 limbs Psychiatric: normal affect Dx/Plan (1) Pancytopenia Code(s): D61.818 - OTHER PANCYTOPENIA Status: Acute Comment: secondary to liver disease (2) Acute worsening of stage 4 chronic kidney disease Code(s): N18.4 - CHRONIC KIDNEY DISEASE, STAGE 4 (SEVERE) Status: Acute Comment: Improving, Benicar is on hold, creatinine 1.84 today (3) DM2 (diabetes mellitus, type 2) Status: Chronic Qualifiers: Diabetes mellitus oysterman insulin use: without alf use Diabetes mellitus complication status: without complication Qualified Code(s): E11.9 - Type 2 diabetes mellitus without complications Comment: controlled (4) HLD (hyperlipidemia) Code(s): E78.5 - HYPERLIPIDEMIA, UNSPECIFIED Status: Chronic Qualifiers: Hyperlipidemia type: unspecified Qualified Code(s): E78.5 - Hyperlipidemia , unspecified Comment: on Zetia and statin (5) HTN (hypertension) Code(s): I10 - ESSENTIAL (PRIMARY) HYPERTENSION Status: Chronic Qualifiers: Hypertension type: essential hypertension Qualified Code(s): I10 - Essential (primary) hypertension Comment: controlled, Benicar on hold (6) Hepatic encephalopathy Code(s): K72.90 - HEPATIC FAILURE, UNSPECIFIED WITHOUT COMA Status: Resolved (7) Anemia due to acute blood loss Code(s): D62 - ACUTE POSTHEMORRHAGIC ANEMIA Status: Resolved Comment: hemoglobin stable at 6.2 - Plan * . Review of Systems - Review of Systems Cardiovascular: negative: chest pain, palpitations, orthopnea, paroxysmal nocturnal dyspnea, edema, light headedness Gastrointestinal: negative: Nausea, Vomiting, Abdominal Pain, Diarrhea, Constipation, Melena, Hematochezia - Medications/Allergies Allergies/Adverse Reactions: Allergies Allergy/AdvReac Type Severity Reaction Status Date / Time NSAIDS (Non-Steroidal Allergy Verified 07/18/18 00:47 Anti-Inflamma BLOOD PRODUCTS (Jehovah's Allergy Unknown Uncoded 07/18/18 00:47 Witness) Medications: Current Medications Aspirin (Ecotrin) 81 mg PO DAILY [facility] Last Admin: 07/22/18 09:53 Dose: 81 mg Ezetimibe (Zetia) 10 mg PO DAILY [facility] Last Admin: 07/22/18 09:53 Dose: 10 mg Epoetin Jeffrey (Procrit) 10,000 units SC Q7DAYS [facility] Last Admin: 07/20/18 12:52 Dose: 10,000 units Furosemide (Lasix) 20 mg PO DAILY [facility] Last Admin: 07/22/18 09:52 Dose: 20 mg Glipizide (Glucotrol Xl) 2.5 mg PO QA-[facility] Last Admin: 07/22/18 09:53 Dose: Not Given Lactulose (Lactulose) 40 gm PO BID [facility] Last Admin: 07/22/18 09:52 Dose: 20 gm Ondansetron HCl (Zofran Odt) 4 mg SL Q6H PRN PRN Reason: Nausea/Vomiting Last Admin: 07/18/18 20:01 Dose: 4 mg Ondansetron HCl (Zofran) 4 mg SLOW IVP Q6H PRN PRN Reason: Nausea/Vomiting Last Admin: 07/19/18 11:06 Dose: 4 mg Pantoprazole Sodium (Protonix) 40 mg PO DAILY [facility] Last Admin: 07/22/18 09:53 Dose: 40 mg Propranolol HCl (Inderal) 10 mg PO BID [facility] Last Admin: 07/22/18 09:53 Dose: 10 mg Rifaximin (Xifaxan) 550 mg PO BID [facility] Last Admin: 07/22/18 09:53 Dose: 550 mg Sodium Chloride (Flush - Normal Saline) 10 ml IVF Q12HR [facility] Last Admin: 07/22/18 09:53 Dose: 10 ml Sodium Chloride (Flush - Normal Saline) 10 ml IVF PRN PRN PRN Reason: Saline Flush Last Admin: 07/21/18 02:52 Dose: 10 ml
[2018-07-22] MEDS ORDERED: Epoetin (ESRD) 10,000 UNITS/ML VIAL SC SCH (16:00)
--- NOTE | 2018-07-22 23:21 | DIS ---
DATE OF ADMISSION: 07/18/2018 DATE OF DISCHARGE: 07/22/2018 PRIMARY CARE PROVIDER: Castro Candelaria MD DISCHARGE DIAGNOSES: 1. Hepatic encephalopathy. 2. Anemia due to acute blood loss. 3. Acute on chronic stage 4 kidney disease. CONSULTATIONS DURING THIS HOSPITALIZATION: Nephrology, Dr. Ayala; Hematology, Sharita Deng and Gastroenterology, Dr. Jacobs. CONDITION OF PATIENT ON THE DAY OF DISCHARGE: Stable. I assessed Ms. Vazquez on the day of discharge. Please refer to my daily hospitalist progress note for further details regarding this [id number] encounter. DISCHARGE MEDICATIONS: 1. Vitamin B complex with vitamin C one tablet daily. 2. Vitamin D3 5000 units daily. 3. Ezetimibe 10 mg daily. 4. Lasix 20 mg daily. 5. Lactulose 40 mg 2 times a day. 6. Latanoprost eyedrops, one drop to left eye at bedtime. 7. Omeprazole 40 mg daily. 8. Propranolol 10 mg two times a day. 9. Rifaximin 550 mg 2 times a day. 10. Zocor 20 mg at bedtime. 11. Ursodiol 600 mg 2 times a day. 12. Glipizide 2.5 mg daily. HOSPITAL COURSE: Ms. Vazquez is a pleasant 73-year-old lady, who was admitted to [facility] on July 18, 2018, for hepatic encephalopathy. She was also found to have acute on chronic renal failure. She was treated with lactulose, with improvement in her mental status. Benicar was discontinued. She received albumin infusions for renal failure, with improvement in creatinine. She was also found to have pancytopenia, which is chronic, but a significant recent drop in hemoglobin. She received iron infusions as well as Epogen injections. She is a Evangelical, therefore did not wish to have any blood product transfusions. She was seen by gastroenterology service. EGD on July 20, 2018, showed portal hypertensive gastropathy, three columns of grade II varices with largest being grade II-III, large varix with a red side in the distal portion of the varix. The varix was not banded. Her hemoglobin remained stable, and she is being discharged home in a stable condition. On the day of discharge, she has white count 2400, hemoglobin 6.2, platelet count 53,000, sodium 137, potassium 4.1, and creatinine 1.84. Her creatinine peaked at 3.41 on July 17, 2018. Many thanks for allowing me to participate in your patient's care. Please feel free to contact me with any questions or concerns. DISCHARGE DESTINATION: Home. TIME SPENT: Total amount of time spent coordinating this discharge: 33 minutes. Job ID: [id number]
--- NOTE | 2018-07-23 10:16 | PRG ---
DATE OF SERVICE: 07/21/2018 SUBJECTIVE: Ms. Vazquez is a 73-year-old white female, who is being seen by the Renal Service for her acute kidney injury on top of her chronic renal failure. The patient is being followed by the Renal Service and there is already improvement with the renal function with a creatinine today being 1.9. She is also anemic and is a Lutheran. We have initiated iron supplementation as well as Epogen. She gets IV iron at once a week dosing as well as the Epogen. GI consult has also been done with Dr. Jacobs to further delineate whether she may be having any acute GI bleed. This morning, she voices no new complaints. OBJECTIVE VITAL SIGNS: Blood pressure is 120/64, heart rate 74, respiratory rate 16, temperature 97.7, pulse ox 99%. GENERAL: Noted to be awake, supine, comfortable, not in distress. SKIN: Decreased turgor. HEENT: Pale conjunctivae. Anicteric sclerae. No neck mass. No carotid bruits. No JVD. Decreased visual activity. LUNGS: Clear breath sounds. No wheezing. No crackles. HEART: Normal sinus rhythm. No murmur. No gallops. No rubs. ABDOMEN: Globular, soft, nontender. No masses. EXTREMITIES: No edema. No deformities. MEDICATIONS: Medications of July 21, 2018, was reviewed. LABORATORY DATA: On July 21, 2018, white count 2.4, hemoglobin 6.2, sodium 140, potassium 4.2, chloride 112, carbon dioxide 17, BUN 37, creatinine 1.94, glucose 104, and calcium 10.4. ASSESSMENT AND PLAN: 1. Acute kidney injury on top of her chronic renal failure, superimposed prerenal azotemia, much improved with volume repletion. She received albumin infusion for several days. Continue gentle diuresis. 2. Anemia. The patient is Jehov[employer]'s [employer]es and could not receive blood transfusion. We have started her on Epogen and IV iron. We will re-dose these either tomorrow on Monday. Overall agree with current management. Continue supportive care. Job ID: [id number]
--- NOTE | 2018-07-25 12:44 | EKG ---
Test Reason : Blood Pressure : / mmHG Vent. Rate : 067 BPM Atrial Rate : 067 BPM P-R Int : 194 ms QRS Dur : 082 ms QT Int : 432 ms P-R-T Axes : 059 -24 044 degrees QTc Int : 456 ms Normal sinus rhythm Low voltage QRS Borderline ECG When compared with ECG of 17-JUL-2018 22:45, (Unconfirmed) Sinus rhythm has replaced Junctional rhythm Confirmed by DR. Aubrey LAMA ([id number]) on 07/25/2018 12:44:11 PM Referred By: LISA Confirmed By:DR. Aubrey LAMA
== END 2018-07-22 18:25 | disposition home or self-care (01) | DRG 432 ==
LOC: SCSER 18:50 → T4-B 22:45
PROVIDERS: ADMIT Hospitalist; ATTEND Hospitalist
PROC: 0DJ08ZZ Inspection of Upper Intestinal Tract, Via Natural or Artificial Opening Endoscopic (ICD-10-PCS; principal; 2018-07-21)
DX: K74.5 Biliary cirrhosis, unspecified (principal); I85.01 Esophageal varices with bleeding; K76.6 Portal hypertension; N17.9 Acute kidney failure, unspecified; D61.818 Other pancytopenia; D62 Acute posthemorrhagic anemia; N18.4 Chronic kidney disease, stage 4 (severe); K92.2 Gastrointestinal hemorrhage, unspecified; K72.90 Hepatic failure, unspecified without coma; I12.9 Hypertensive chronic kidney disease with stage 1 through stage 4 chronic kidney disease, or unspecified chronic kidney disease; E11.22 Type 2 diabetes mellitus with diabetic chronic kidney disease; E78.00 Pure hypercholesterolemia, unspecified; D63.1 Anemia in chronic kidney disease; J44.9 Chronic obstructive pulmonary disease, unspecified; K21.9 Gastro-esophageal reflux disease without esophagitis; K31.89 Other diseases of stomach and duodenum; Z66 Do not resuscitate
CPT/HCPCS: 36415; 36416; 80048; 80053; 81003; 81015; 82140; 82274; 82607; 82728; 82746; 83540; 83550; 83690; 84484; 85025; 85610; 85730; 93005; 93010; 96361; 96374; J0696; J2405; J2704; J2916; J7050; P9047; Q0162; Q4081

== ENCOUNTER 2018-07-27 09:47 | Day surgery (SDC) | payer MEDICARE, MEDICAID ==
[~2018-07-27 09:47] MED LIST: Epoetin (ESRD) 20,000 UNITS/ML SC SCH
[2018-07-27 10:08] VITALS: BP 120/58; TEMP 98.6
== END 2018-07-27 10:10 | disposition home or self-care (01) ==
LOC: ONC/OP 09:47
PROVIDERS: ATTEND Internal Medicine Hematology & Oncology
DX: D50.0 Iron deficiency anemia secondary to blood loss (chronic) (principal); Z88.6 Allergy status to analgesic agent
CPT/HCPCS: 96372; Q4081

== ENCOUNTER 2018-08-03 09:05 | Inpatient (IN) | payer MEDICARE, MEDICAID ==
[2018-08-03] MEDS ORDERED: Ondansetron PF 4 MG/2 ML Vial ONE ×2 (09:41→11:49)
[2018-08-03 09:51] LABS: #Eosinphils 0.1 thou/uL (0.0-0.7); #Lymphocytes 0.7 thou/uL (1.20-3.40); #Monocytes 0.2 thou/uL (0.11-0.59); #Neutrophils 1.7 thou/uL (1.40-6.50); %Basophils 0.1 % (0.0-1.0); %Eosinophils 2.3 % (0.0-10.0); %Lymphocytes 27.9 % (21.0-51.0); %Monocytes 6.7 % (0.0-10.0); Hemoglobin 9.4 g/dL (12.0-16.0); Mean Corpuscular HGB CONC 31.4 g/dL (32.0-36.0); Mean Corpuscular Hemoglobin 32.5 pg (27.0-31.0); Mean Platelet Volume 9.6 fL (7.4-10.4); Platelet Count 56 thou/uL (130-400); RBC Distribution Width 16.2 % (11.5-14.5); White Blood Cell (WBC) Count 2.7 thou/uL (4.8-10.8)
[2018-08-03 10:12] LABS: Acetaminophen Less than 6.0 mcg/mL (10.0-30.0); Alcohol Less than 10 mg/dL (Less than 10); Salicylate Less than 8.0 mg/dL (15.0-30.0)
[2018-08-03 10:13] LABS: Elliptocytes SLIGHT = 2-5 cells (100X) (0-1/hpf); MDiff Complete? YES; Macrocytosis SLIGHT = 6-15 cells (100X) (0-5/hpf); Platelet Morphology Comment Appears Decreased
[2018-08-03 10:16] LABS: ALT (SGPT) 12 U/L (8-55); AST (SGOT) 21 U/L (5-34); Albumin 4.4 g/dL (3.4-4.8); Alkaline Phosphatase 110 U/L (40-150); Anion Gap 15 mmol/L (10-20); BUN (Urea Nitrogen) 42 mg/dL (9.8-20.1); Bilirubin, Total 0.8 mg/dL (0.2-1.2); Calc. Creatinine Clearance 0 mL/min (70-130); Calcium 10.7 mg/dL (7.8-10.44); Carbon Dioxide 23 mmol/L (23-31); Chloride 105 mmol/L (98-107); Estimated GFR-MDRD 17; Globulin 3.5 g/dL (2.4-3.5); Glucose 167 mg/dL (83-110); Potassium 4.3 mmol/L (3.5-5.1); Protein, Total 7.9 g/dL (6.0-8.3); Sodium 139 mmol/L (136-145)
--- NOTE | 2018-08-03 10:20 | CT ---
HEAD CT WITHOUT CONTRAST: Date: 08-03-18 Comparison: 06-20-18 History: Encephalopathy, altered mental status. Technique: Axial CT imaging at 5 mm intervals from vertex through the skull base without contrast. FINDINGS: Imaged paranasal sinuses and mastoid air cells are well aerated and stable. The patient is status pos t mastoidectomy on the right. No displaced calvarial fracture is seen. There is no intracranial hemorrhage, midline shift, mass effect, or ventricular enlargement. Mild periventricular hypodensity suggests a degree of small vessel disease. IMPRESSION: Stable head CT - no acute findings. POS: [facility]
[2018-08-03 10:37] LABS: Bilirubin Negative (Negative); Blood, Urine Negative (Negative); Glucose, Urine (Dipstick) Negative (Negative); Leukocyte Negative (Negative); Nitrite Negative (Negative); Protein, Urine (Dipstick) Negative (Neg-Trace); Urobilinogen 0.2 mg/dL (0.2-1.0)
[2018-08-03 10:39] LABS: Clarity Clear (Clear)
[2018-08-03] MEDS ORDERED: Guaifenesin DM 100-10/5 ML UDCUP PO PRN (12:40)
[2018-08-03] MEDS ORDERED: Dextrose 5% in Water 1,000 ML IV PRN (12:40)
[2018-08-03] MEDS ORDERED: HumaLOG 300 UNITS/3 ML VIAL SC PRN ×2 (12:40)
[2018-08-03] MEDS ORDERED: Ondansetron PF 4 MG/2 ML Vial IVP PRN (12:40)
[2018-08-03] MEDS ORDERED: Acetaminophen 325 MG TAB PO PRN (12:40)
[2018-08-03] MEDS ORDERED: Dextrose 50% Abboject 50 ML SYRINGE SLOW IVP PRN (12:40)
[2018-08-03] MEDS ORDERED: Dextrose 5 % And 0.9 % NaCl 1,000 ML IV SCH (12:45)
[2018-08-03 15:47] VITALS: BMI 28.1
--- NOTE | 2018-08-03 17:30 | HP ---
REASON FOR ADMISSION: Hepatic encephalopathy. HISTORY OF PRESENTING ILLNESS: Please note majority of this history is obtained by talking to the patient's grandson at bedside, whom she lives with. The patient is confused. She apparently got confused this morning. She was unable to say where she was and did not recognize her grandson. She also was not able to hold on to stuff in her hand and was shaking. Home health nurse came to check on her and called EMS. She was normal last night and even watched a movie with family. She is to see Dr. Ham today or tomorrow for an Epogen shot. The patient is slowly waking up, but is still very lethargic and does not complain of any abdominal pain or shortness of breath. No complaints of urinary frequency or urgency. The patient did not have any fever at home. The grandson at bedside mentions that she takes lactulose 8 spoons two times a day and usually has 3 to 4 stools. PAST MEDICAL AND SURGICAL HISTORY: 1. History of cirrhosis. 2. Prior history of hepatic encephalopathy and was admitted here in the early part of this month. 3. Diabetes mellitus type 2. 4. Hypertension. 5. Has had her right eye removed in 2009. 6. Cholecystectomy. 7. Hysterectomy. CURRENT MEDICATIONS: The patient is on, 1. Epogen 20,000 units subcu once a week. 2. Zetia 10 mg daily. 3. Lasix 20 mg daily. 4. Xalatan eyedrops at bedtime. 5. Omeprazole 40 mg p.o. daily. 6. Propranolol 5 mg twice daily. 7. Rifaximin 550 mg twice daily. 8. Zocor 20 mg p.o. at bedtime. 9. Ursodiol 600 mg twice daily. 10. Glipizide XL 2.5 mg p.o. daily. 11. Lactulose 40 g p.o. twice daily. 12. B complex daily. 13. Vitamin D3 5000 units p.o. daily. ALLERGIES: TO NSAIDS AND THE PATIENT IS A AMISH AND DOES NOT LIKE BLOOD PRODUCTS. PERSONAL HISTORY: Does not abuse alcohol or drugs. No history of smoking. She lives with her grandson. FAMILY HISTORY: Mother at the age of 82 years from old age. She had dementia prior to her . Father in a motor vehicle accident. CODE STATUS: Full. REVIEW OF SYSTEMS: CONSTITUTIONAL: Negative for weight loss or gain, ability to conduct usual activities. SKIN: Negative for rash, itching. EYES: Negative for double vision, pain. ENT/MOUTH: Negative for nose bleeding, neck stiffness, pain, tenderness. CARDIOVASCULAR: Negative for palpitations, dyspnea on exertion, orthopnea. RESPIRATORY: Negative for shortness of breath, wheezing, cough, hemoptysis, fever or night sweats. GASTROINTESTINAL: Negative for poor appetite, abdominal pain, heartburn, nausea , vomiting, constipation, or diarrhea. GENITOURINARY: Negative for urgency, frequency, dysuria, nocturia. MUSCULOSKELETAL: Negative for pain, swelling. NEUROLOGIC/PSYCHIATRIC: Negative for anxiety, depression. ALLERGY/IMMUNOLOGIC: Negative for skin rash, bleeding tendency. PHYSICAL EXAMINATION: GENERAL: The patient is a 73-year-old female, who is currently lethargic and is not oriented. VITAL SIGNS: Blood pressure 156/74, pulse 84 per minute, respiratory rate 22 per minute, temperature 98.7 degrees Fahrenheit, and saturating 98% on room air. NECK: Supple. No elevated JVD. HEENT: Eyes; extraocular muscles are intact. Pupils are reacting to light. Oral cavity, mucous membranes are dry. No exudates or congestion. CARDIOVASCULAR: S1 and S2 heard. Regular rhythm. RESPIRATORY SYSTEM: Air entry 1+ bilateral. No rales or rhonchi. ABDOMEN: Soft. Bowel sounds heard. No tenderness, rigidity, or guarding. EXTREMITIES: No peripheral edema or calf tenderness. VASCULAR SYSTEM: Peripheral pulses 1+ bilateral. No ischemic ulcerations or gangrene. CENTRAL NERVOUS SYSTEM: The patient is very lethargic and is not oriented. No gross focal deficits noted. The patient moves all four extremities. Her strength is good in both upper extremities, but is very lethargic to move her lower extremities freely. No gross cranial nerve deficits seen. PSYCHIATRIC: Cannot be assessed due to the patient's current lethargy. LABORATORY DATA: EKG done, shows normal sinus rhythm at 95 beats per minute. White count of 2.7, hemoglobin and hematocrit of 9.4 and 30, MCV is 103 with platelet count of 56 and 63% neutrophils. Electrolytes are stable. BUN 42, creatinine 2.7, serum glucose 167, calcium is 10.7, albumin is 4.4, ammonia levels are 88, plasma alcohol less than 10. CT brain done, shows no acute intracranial abnormalities. CLINICAL IMPRESSION AND PLAN: The patient will be under observation on medical floor for hepatic encephalopathy. She also has acute kidney injury. The patient likely is dehydrated. She will be gently hydrated with D5NS at 75 mL per hour. If her fingerstick glucose goes more than 200, her fluid will be changed to normal saline. We will continue her on lactulose 20 g twice daily and Xifaxan as before. We will also continue her Actigall 600 mg twice daily. She will be on a clear liquid diet until she wakes up fully. Aspiration precautions and fall precautions will be followed. We will also obtain Gastroenterology consultation with Dr. Price, who is personal banker. If the patient continues to have her encephalopathy tomorrow, she will be switched over to inpatient status. Narcotics and anxiety medications will be held in view of her current lethargic and hepatic encephalopathy. Job ID: [id number] [facility]
[2018-08-03] MEDS ORDERED: Famotidine/PF 20 mg/2ml Vial SLOW IVP SCH (21:00)
[2018-08-03] MEDS ORDERED: Latanoprost 0.005% Ophth Soln 2.5 ml Bottle L EYE SCH (21:00)
[2018-08-03] MEDS: Ursodiol 300 MG CAP PO SCH (22:22)
[2018-08-03] MEDS: Rifaximin 550 MG TAB PO SCH (22:23)
--- NOTE | 2018-08-04 01:44 | CON ---
DATE OF CONSULTATION: 08/03/2018 REASON FOR CONSULTATION: Hepatic encephalopathy, primary biliary cirrhosis. CONSULTING PHYSICIAN: Arjun Jeffers M.D. HISTORY OF PRESENT ILLNESS: The patient is a 73-year-old female with past medical history of diabetes, hypertension, right eye enucleation and primary biliary cirrhosis complicated by hepatic encephalopathy and esophageal varices, presenting with acute alteration of mental status. In interviewing the patient tonight, she was a fairly unreliable historian and was unable to recall the events after going to sleep in her bed last night. Per chart review, the patient apparently was not able to be awoken this morning with increased confusion. Her home health nurse evaluated the patient earlier this morning as well and called EMS due to the significant change in her mental status. Upon conferring with the patient, she states that she had been taking her medications for hepatic encephalopathy as described and are currently controlled by her grandson. Per chart review, the grandson mentioned that she had been taking approximately 8 tablespoons 2 times a day with a bowel frequency of approximately 3 to 4 semi-solid or liquid bowel movements. Per chart review, the patient is also supposed to be taking rifaximin 550 mg twice daily, which the patient cannot clearly recall taking, but had been prepared by her grandson. Tonight, she is alert and oriented x3, although her thought processes are somewhat slowed. She was able to participate in a meaningful conversation and currently denies any nausea, vomiting, fevers, chills, abdominal pain, dysphagia, odynophagia, GI bleeding, or dysuria. REVIEW OF SYSTEMS: A 10-category review of systems was obtained with all responses negative except for the pertinent positives as listed in HPI. PAST MEDICAL HISTORY: As per HPI. PAST SURGICAL HISTORY: 1. Right eye enucleation. 2. Cholecystectomy. 3. Hysterectomy. FAMILY HISTORY: Denies any GI malignancies. SOCIAL HISTORY: Denies any tobacco, alcohol, or illicit drug use. ALLERGIES: NSAIDS. PHYSICAL EXAMINATION: VITAL SIGNS: Temperature 98.1, pulse 80, blood pressure of 145/70, respiratory rate 16, saturating 98% on room air. GENERAL: The patient was lying in bed, in no acute distress. Alert and oriented x3. NECK: Supple. No JVD or scleral icterus noted. HEENT: Normocephalic, atraumatic. CARDIOVASCULAR: Regular rate and rhythm with no discernible murmurs, gallops, or rubs. RESPIRATORY: Clear to auscultation bilaterally with no discernible wheezes or rales. ABDOMEN: Normoactive bowel sounds. Soft, nontender, nondistended. EXTREMITIES: No cyanosis, clubbing, or edema. LABORATORY DATA: CBC with a white blood cell count of 2.7, hemoglobin 9.4, hematocrit 30, platelets 56. Chemistry with a sodium of 139, potassium 4.3, chloride 105, CO2 of 23, BUN 42, creatinine 2.75, glucose 167, AST 21, ALT 12, alkaline phosphatase 110, total bilirubin 0.8, ammonia 88. IMAGING DATA: CT of the brain was obtained on August 03, 2018 and did not show any acute findings including no intracranial hemorrhage, midline shift, mass effect or ventricular enlargement. ASSESSMENT AND PLAN: The patient is a 73-year-old female with past medical history of diabetes, hypertension, right eye enucleation, primary biliary cirrhosis, complicated by hepatic encephalopathy and esophageal varices, presenting with acute alteration of mental status consistent with hepatic encephalopathy. Hepatic encephalopathy. The patient was recently evaluated in the GI Clinic on August 01, 2018, and started on increase lactulose administration in addition to her rifaximin for hepatic encephalopathy given complaints of mildly altered mental status at home. However this morning, the patient exhibited an acute alteration where she was confused and did not recognize family members as well as interactions with the family members. Upon review of her medication administration, it seems like she is on appropriate regimen of both lactulose and rifaximin and is at target goal of having approximately 3 to 4 bowel movements per day. The etiology of her worsening hepatic encephalopathy at this time is unclear, but could include infection, GI bleeding (less likely), cerebrovascular disease (less likely given recent imaging) SBP (unlikely given no abdominal distention or shifting dullness noted on physical exam) and/or possible GI neoplasm (less likely). RECOMMENDATIONS: 1. We would continue lactulose at approximately 30 mL twice daily in addition to rifaximin 550 mg twice daily with a goal of having approximately 4 bowel movements per day. 2. We would continue Ursodiol given her prior diagnosis of primary biliary cirrhosis. 3. We would obtain INR to evaluate current liver function and evaluate, if the worsening liver function is contributing to her alteration of mental status. 4. We would encourage medication compliance with rifaximin and lactulose. 5. We would continue to trend H and H and transfuse as necessary to maintain an H and H of 7/ during this admission. Any evidence of GI bleeding could potentially cause worsening hepatic encephalopathy. 6. We will continue to follow. 7. Please call with any additional questions. Job ID: [id number]
[2018-08-04 05:45] LABS: #Eosinphils 0.1 thou/uL (0.0-0.7); #Lymphocytes 0.8 thou/uL (1.20-3.40); #Monocytes 0.2 thou/uL (0.11-0.59); #Neutrophils 1.1 thou/uL (1.40-6.50); %Basophils 0.7 % (0.0-1.0); %Eosinophils 2.8 % (0.0-10.0); %Lymphocytes 39.6 % (21.0-51.0); %Monocytes 7.6 % (0.0-10.0); %Neutrophils 49.3 % (42.0-75.0); Hemoglobin 8.3 g/dL (12.0-16.0); Mean Corpuscular HGB CONC 31.2 g/dL (32.0-36.0); Mean Corpuscular Hemoglobin 32.5 pg (27.0-31.0); Mean Platelet Volume 9.7 fL (7.4-10.4); Platelet Count 50 thou/uL (130-400); RBC Distribution Width 16.1 % (11.5-14.5); Red Blood Cell (RBC) Count 2.54 mill/uL (4.20-5.40); White Blood Cell (WBC) Count 2.1 thou/uL (4.8-10.8)
[2018-08-04 05:47] LABS: INR-International Normal Ratio 1.4; Prothrombin Time 17.2 SEC (12.0-14.7)
[2018-08-04 06:00] LABS: ALT (SGPT) 13 U/L (8-55); AST (SGOT) 19 U/L (5-34); Albumin 3.7 g/dL (3.4-4.8); Alkaline Phosphatase 94 U/L (40-150); Anion Gap 12 mmol/L (10-20); BUN (Urea Nitrogen) 36 mg/dL (9.8-20.1); Bilirubin, Total 0.7 mg/dL (0.2-1.2); Calc. Creatinine Clearance 27 mL/min (70-130); Calcium 9.9 mg/dL (7.8-10.44); Carbon Dioxide 23 mmol/L (23-31); Chloride 112 mmol/L (98-107); Estimated GFR-MDRD 22; Globulin 2.8 g/dL (2.4-3.5); Glucose 103 mg/dL (83-110); Protein, Total 6.5 g/dL (6.0-8.3); Sodium 143 mmol/L (136-145)
[2018-08-04] MEDS: Rifaximin 550 MG TAB PO SCH (08:21)
[2018-08-04] MEDS: Ursodiol 300 MG CAP PO SCH (08:22)
[2018-08-04 08:43] VITALS: TEMP 97.9
[2018-08-04] MEDS ORDERED: Enoxaparin Sodium 30 MG/0.3 ML SYRINGE SC SCH (09:00)
[2018-08-04] MEDS ORDERED: Epoetin (ESRD) 10,000 UNITS/ML VIAL SC STA (09:19)
[2018-08-04] MEDS ORDERED: Epoetin (ESRD) 20,000 UNITS/ML SC SCH (09:45)
[2018-08-04 11:38] VITALS: BP 148/69
--- NOTE | 2018-08-05 11:25 | DIS ---
DATE OF ADMISSION: 08/03/2018 DATE OF DISCHARGE: 08/04/2018 DISCHARGE DISPOSITION: To home. PRIMARY DISCHARGE DIAGNOSIS: Hepatic encephalopathy, likely due to dehydration, resolved. SECONDARY DISCHARGE DIAGNOSES: 1. History of cirrhosis. 2. Diabetes mellitus type 2. 3. Hypertension. PROCEDURES DONE DURING HOSPITALIZATION: H and H of 8 and 26, platelet count 50, white count of 2, MCV is 104 with 49% neutrophils. INR 1.4. Initial BUN and creatinine were 42 and 2.7. Discharge BUN and creatinine of 36 and 2.1. Ammonia levels were 88 mcmol/L. AST and ALT within normal limits. Total bilirubin 0.8. Plasma alcohol less than 10. INPATIENT CONSULT: Emery Price MD for Gastroenterology. DISCHARGE MEDICATIONS: 1. Procrit 20 units subcu once a week. 2. Zetia 10 mg p.o. daily. 3. Lasix 20 mg daily. 4. Xalatan eye drops to the left eye at bedtime. 5. Omeprazole 40 mg p.o. daily. 6. Inderal 5 mg twice daily. 7. Xifaxan 550 mg p.o. twice daily. 8. Zocor 20 mg p.o. at bedtime. 9. Ursodiol 600 mg p.o. twice daily. 10. Glipizide extended release 2.5 mg p.o. q.a.m. 11. Lactulose 20 g p.o. twice daily. ALLERGIES: ALLERGIC TO NSAIDS AND THE PATIENT IS A TENRIISM WITH NO BLOOD PRODUCTS TO BE TRANSFUSED. DISCHARGE PLAN: The patient to follow up with primary care physician in one week and she also needs follow up with GI in 2 weeks. BRIEF COURSE DURING HOSPITALIZATION: The patient initially was brought to emergency room for increasing confusion and lethargy at home. She was recently hospitalized for hepatic encephalopathy as well. The patient was found to be dehydrated with acute kidney injury and leading up to hepatic encephalopathy. She was gently hydrated during her stay here. Her lactulose was reduced to 20 g twice daily. The patient has responded well to these measures. On the , the patient is fully alert, awake, and oriented well. She in fact has ambulated in the room. Family is ready to take her home. Please note, I have seen and examined the patient on the day of discharge that is 08/04/2018. I have given complete updates to son. The patient needs to have close monitoring of stool output and titrate lactulose accordingly. Job ID: [id number]
--- NOTE | 2018-08-18 20:53 | EKG ---
Test Reason : AMS Blood Pressure : / mmHG Vent. Rate : 095 BPM Atrial Rate : 095 BPM P-R Int : 184 ms QRS Dur : 070 ms QT Int : 398 ms P-R-T Axes : 038 -40 025 degrees QTc Int : 500 ms Normal sinus rhythm Left axis deviation Abnormal ECG Confirmed by JOSE RAFAEL HEBERT, COURT Matt ([id number]), web content editor IZABELA MANRIQUEZ ([id number]) on 08/18/2018 8:52:54 PM Referred By: Confirmed By:COURT MANTILLA MD
== END 2018-08-04 11:40 | disposition home or self-care (01) | DRG 683 ==
LOC: ERS 09:05 → OBSVTOIN 10:48 → INTOOBSV 10:48 → ERHOLD 10:48 → T4-B 14:40
PROVIDERS: ADMIT Internal Medicine; ATTEND Internal Medicine
DX: N17.9 Acute kidney failure, unspecified (principal); I85.10 Secondary esophageal varices without bleeding; E86.0 Dehydration; K72.90 Hepatic failure, unspecified without coma; K74.5 Biliary cirrhosis, unspecified; E11.9 Type 2 diabetes mellitus without complications; I10 Essential (primary) hypertension; Z90.01 Acquired absence of eye; Z79.84 Long term (current) use of oral hypoglycemic drugs; Z79.899 Other long term (current) drug therapy; Z88.8 Allergy status to other drugs, medicaments and biological substances
CPT/HCPCS: 36415; 36416; 51701; 70450; 80053; 80307; 81003; 82140; 85025; 85610; 93005; 94760; 96361; 96374; 96376; A4353; J1650; J2405; Q4081; S0028

== ENCOUNTER 2018-08-10 10:39 | Day surgery (SDC) | payer MEDICARE, MEDICAID ==
[2018-08-10 10:53] VITALS: BP 134/64; TEMP 97.7
[2018-08-10] MEDS ORDERED: Epoetin (NON-ESRD) 20,000 UNITS/ML ML SC SCH (11:00)
== END 2018-08-10 11:33 | disposition home or self-care (01) ==
LOC: ONC/OP 10:39
PROVIDERS: ATTEND Internal Medicine Hematology & Oncology
DX: D50.0 Iron deficiency anemia secondary to blood loss (chronic) (principal); Z88.6 Allergy status to analgesic agent
CPT/HCPCS: 96372; J0885

== ENCOUNTER 2018-08-15 14:12 | Observation (INO) | payer MEDICARE, MEDICAID ==
[2018-08-15 14:50] LABS: INR-International Normal Ratio 1.2; PTT 35.6 SEC (22.9-36.1); Prothrombin Time 15.5 SEC (12.0-14.7)
[2018-08-15 14:52] LABS: ALT (SGPT) 18 U/L (8-55); AST (SGOT) 26 U/L (5-34); Albumin 3.8 g/dL (3.4-4.8); Alkaline Phosphatase 121 U/L (40-150); Anion Gap 15 mmol/L (10-20); BUN (Urea Nitrogen) 31 mg/dL (9.8-20.1); Bilirubin, Total 0.8 mg/dL (0.2-1.2); Calc. Creatinine Clearance 0 mL/min (70-130); Calcium 10.2 mg/dL (7.8-10.44); Carbon Dioxide 22 mmol/L (23-31); Chloride 105 mmol/L (98-107); Estimated GFR-MDRD 22; Globulin 3.7 g/dL (2.4-3.5); Glucose 225 mg/dL (83-110); Potassium 4.1 mmol/L (3.5-5.1); Protein, Total 7.5 g/dL (6.0-8.3); Sodium 138 mmol/L (136-145)
[2018-08-15 14:53] LABS: #Eosinphils 0.1 thou/uL (0.0-0.7); #Lymphocytes 0.9 thou/uL (1.20-3.40); #Monocytes 0.3 thou/uL (0.11-0.59); #Neutrophils 2.5 thou/uL (1.40-6.50); %Basophils 1.2 % (0.0-1.0); %Eosinophils 3.4 % (0.0-10.0); %Lymphocytes 22.9 % (21.0-51.0); %Monocytes 8.4 % (0.0-10.0); %Neutrophils 64.2 % (42.0-75.0); Anisocytosis SLIGHT = 6-15 cells (100X) (0-5/hpf); Elliptocytes SLIGHT = 2-5 cells (100X) (0-1/hpf); Hemoglobin 10.8 g/dL (12.0-16.0); MDiff Complete? YES; Macrocytosis SLIGHT = 6-15 cells (100X) (0-5/hpf); Mean Corpuscular HGB CONC 31.7 g/dL (32.0-36.0); Mean Corpuscular Hemoglobin 32.2 pg (27.0-31.0); Mean Platelet Volume 10.4 fL (7.4-10.4); Platelet Count 67 thou/uL (130-400); Platelet Morphology Comment Appears Decreased; RBC Distribution Width 15.7 % (11.5-14.5); Red Blood Cell (RBC) Count 3.36 mill/uL (4.20-5.40); White Blood Cell (WBC) Count 3.9 thou/uL (4.8-10.8)
--- NOTE | 2018-08-15 15:01 | RAD ---
SINGLE VIEW OF THE CHEST: Comparison: 06-19-18 History: Worsening dyspnea and shortness of breath. FINDINGS: Single view of the chest shows a normal sized cardiomediastinal silhouette. There is a moderate right pleural effusion with adjacent atelectasis. Increased interstitial markings are present. IMPRESSION: Right pleural effusion with adjacent atelectasis. POS: [facility]
[2018-08-15] MEDS ORDERED: Furosemide 20 MG/2 ML VIAL ONE (15:10)
[2018-08-15] MEDS ORDERED: Furosemide 40 MG/4 ML VIAL SLOW IVP SCH (18:00)
[2018-08-15 18:36] VITALS: BMI 27.8
--- NOTE | 2018-08-15 21:27 | HP ---
PRIMARY CARE PHYSICIAN: Dr. Candelaria. DATA REDUCTION TECHNICIAN: Dr. Michael. AREA SECRETARY: Dr. Vazquez. DATA REDUCTION TECHNICIAN: Dr. Ayala. CHIEF COMPLAINT: Shortness of breath. HISTORY OF PRESENT ILLNESS: Ms. Vazquez is a 73-year-old female who reported to the emergency room at [facility] today for worsening dyspnea, reports dyspnea is worse with lying flat or lying on her left side. Reports that she is only able to sleep on her right side. The patient reports that she was seen by Dr. Ayala earlier today who increased her Lasix to twice a day and sent her to the emergency room for additional workup with concern for fluid overload. 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 The patient was given IV Lasix in the emergency room today. The patient does report that she does feel better with her shortness of breath and was sent over to the observation unit for further management. PAST MEDICAL HISTORY: History of cirrhosis, recent hospital admission for hepatic encephalopathy, diabetes type 2, hypertension, had her right eye removed in 2009, cholecystectomy, and hysterectomy. HOME MEDICATIONS: Include, 1. Procrit 20 units subcu once a week. 2. Zetia 10 mg p.o. daily. 3. Lasix 20 mg b.i.d., was initially daily until today. 4. Xalatan eyedrops to the left eye at bedtime. 5. Prilosec 40 mg p.o. daily. 6. Inderal 5 mg twice daily. 7. Xifaxan 550 mg p.o. twice daily. 8. Zocor 20 mg p.o. at bedtime. 9. Ursodiol 600 mg p.o. twice daily. 10. Glipizide extended release 2.5 mg p.o. q.a.m. 11. Lactulose 20 g p.o. twice daily. ALLERGIES: THE PATIENT IS ALLERGIC TO NSAIDS. OF NOTE, THE PATIENT IS ALSO A JAINISM AND WILL NOT CONSENT TO ANY BLOOD PRODUCTS. REVIEW OF SYSTEMS: CONSTITUTIONAL: The patient denies chills or fever. EYES: Denies any vision changes or eye pain. ENT: Denies sore throat or rhinorrhea. CARDIOVASCULAR: Reports orthopnea. Denies chest pain. Denies palpitations. RESPIRATORY: Reports shortness of breath. GASTROINTESTINAL: Denies any abdominal pain, nausea, vomiting, diarrhea, or constipation. MUSCULOSKELETAL: Negative review of systems. SKIN: Denies skin changes or rash. NEUROLOGIC: Denies any recent confusion or any neurological symptoms. ENDOCRINE: Negative review of systems. PSYCH: Negative review of systems. Note, all other review of systems are negative unless mentioned in the HPI. PHYSICAL EXAMINATION: VITAL SIGNS: Blood pressure 139/65, pulse is 89, respirations 20, temp 97.8, pO2 sats 98% on room air, and temperature is 97.8. CONSTITUTIONAL: The patient appears nontoxic, is alert and oriented to person, place, and time. The patient is in no apparent distress. HEENT: Head is atraumatic, normocephalic. Eyes, right eye has been removed. Left eyelid is normal to inspection. ENT; mouth exam is normal. Mucous membranes moist. NECK: Normal range of motion. Trachea is midline. RESPIRATORY/CHEST: Right side of chest dull to percussion. No wheezing. No rales. Chest movement is symmetrical. Diminished breath sounds on the right. CARDIOVASCULAR: Heart rate is normal rate and rhythm. Heart sounds are normal. Equal radial and pedal pulses. ABDOMEN: There is mild distention, nontender. Bowel sounds are heard. BACK: Normal inspection. Normal range of motion. No CVA tenderness. EXTREMITIES: Upper extremities, normal inspection. Normal range of motion. Pulses are equal bilaterally. Lower extremities, normal range of motion, normal inspection. Pedal pulses are equal bilaterally. NEUROLOGIC: The patient is oriented to person, place, and time. Speech is normal. SKIN: Normal dry. Normal color. PSYCH: Normal affect. LABORATORY DATA: EKG in the emergency room shows normal sinus rhythm, beats per minute 83, no ectopics. Conduction normal, ST segments normal, axis is left, has a low voltage QRS. Chest x-ray shows moderate right-sided pleural effusion with adjacent atelectasis. PERTINENT LABORATORY DATA: White blood cell count is 3.9, hemoglobin is 10.8, hematocrit is 34.1, platelet count is 67. PT is 15.5, INR is 1.2, APTT is 35.6. Sodium is 138, potassium 4.1, chloride 105, carbon dioxide is 22, gap is 15, BUN is 31, creatinine is 2.17, estimated GFR is 22, glucose is 225, calcium is 10.2. Liver enzymes are unremarkable. Ammonia is 45. Troponin is undetectable. BNP is 59.6. IMPRESSION AND PLAN: 1. The patient will be placed under observation and will be given IV Lasix. We will recheck labs in the morning. 2. Diabetes. We will restart home medication. We will add a sliding scale for coverage while hospitalized. We will continue. 3. Cirrhosis. We will continue her lactulose 20 g twice daily. 4. Hypertension. We will trend. Restart her home medication. Add p.r.n. hypertensive medicines as needed. 5. Gastrointestinal and deep venous thrombosis prophylaxis will be started. 6. Plan discussed with Dr. Omalley. 7. Hospital course will be dependent on clinical findings. Job ID: [id number]
[2018-08-15] MEDS: Famotidine 20 MG TAB PO SCH (22:25)
[2018-08-16 05:25] LABS: #Eosinphils 0.1 thou/uL (0.0-0.7); #Lymphocytes 1.1 thou/uL (1.20-3.40); #Monocytes 0.2 thou/uL (0.11-0.59); #Neutrophils 1.3 thou/uL (1.40-6.50); %Basophils 0.9 % (0.0-1.0); %Lymphocytes 40.3 % (21.0-51.0); %Monocytes 6.9 % (0.0-10.0); %Neutrophils 46.9 % (42.0-75.0); Hemoglobin 9.6 g/dL (12.0-16.0); Mean Corpuscular HGB CONC 31.3 g/dL (32.0-36.0); Mean Corpuscular Hemoglobin 32.4 pg (27.0-31.0); Platelet Count 61 thou/uL (130-400); RBC Distribution Width 14.8 % (11.5-14.5); Red Blood Cell (RBC) Count 2.97 mill/uL (4.20-5.40); White Blood Cell (WBC) Count 2.8 thou/uL (4.8-10.8)
[2018-08-16 05:34] LABS: ALT (SGPT) 14 U/L (8-55); AST (SGOT) 22 U/L (5-34); Albumin 3.3 g/dL (3.4-4.8); Alkaline Phosphatase 107 U/L (40-150); Anion Gap 15 mmol/L (10-20); BUN (Urea Nitrogen) 32 mg/dL (9.8-20.1); Bilirubin, Total 0.6 mg/dL (0.2-1.2); Calc. Creatinine Clearance 27 mL/min (70-130); Calcium 9.9 mg/dL (7.8-10.44); Carbon Dioxide 24 mmol/L (23-31); Chloride 105 mmol/L (98-107); Estimated GFR-MDRD 23; Globulin 3.1 g/dL (2.4-3.5); Glucose 119 mg/dL (83-110); Potassium 3.9 mmol/L (3.5-5.1); Protein, Total 6.4 g/dL (6.0-8.3); Sodium 140 mmol/L (136-145)
[2018-08-16] MEDS: Furosemide 40 MG/4 ML VIAL SLOW IVP SCH ×2 (05:48→14:03)
[2018-08-16] MEDS ORDERED: RIFAXIMIN 550 MG PO SCH (09:00)
[2018-08-16] MEDS ORDERED: Propranolol 10 MG TAB PO SCH (09:00)
[2018-08-16] MEDS: Rifaximin 550 MG TAB PO SCH ×2 (09:01→20:24)
[2018-08-16] MEDS: Propranolol 10 MG TAB PO SCH (09:02)
--- NOTE | 2018-08-16 11:09 | PDOC.PN ---
- Subjective Encounter Start Date: 08/16/18 Encounter Start Time: 11:08 Patient sitting up in bed with family at bedside. She reports feeling better, but still reporting cough and mild shortness of breath. She denies chest pain, palpitations, abdominal pain or nausea and vomiting. - Objective MAR Reviewed: Yes Vital Signs & Weight: Vital Signs (12 hours) Temp Pulse Resp BP Pulse Ox 08/16/18 08:00 97.8 F 80 16 116/58 L 89 L 08/16/18 04:22 98.1 F 91 21 H 108/54 L 92 L 08/15/18 23:50 94 L Weight Weight 164 lb 4.8 oz I&O: 08/15/18 08/16/18 08/17/18 06:59 06:59 06:59 Intake Total 240 Output Total 300 Balance -60 Result Diagrams: 08/16/18 04:27 08/16/18 04:27 Additional Labs: Accuchecks 08/15/18 20:50 POC Glucose 150 H Radiology Reviewed by me: Yes Phys Exam - Physical Examination Constitutional: NAD HEENT: moist MMs, oral pharynx no lesions missing right eye Neck: no nodes, supple, full ROM Respiratory: no wheezing Deminished breath sounds right lung base, normal on left Cardiovascular: RRR Gastrointestinal: soft, non-tender, positive bowel sounds Musculoskeletal: no edema, pulses present Neurological: non-focal, moves all 4 limbs Lymphatic: no nodes Psychiatric: normal affect Skin: no rash, cap refill <2 seconds Dx/Plan (1) Acute on chronic renal failure Code(s): N17.9 - ACUTE KIDNEY FAILURE, UNSPECIFIED; N18.9 - CHRONIC KIDNEY DISEASE, UNSPECIFIED Status: Acute Qualifiers: Chronic kidney disease stage: stage 3 (moderate) (2) Carotid stenosis Code(s): I65.29 - OCCLUSION AND STENOSIS OF UNSPECIFIED CAROTID ARTERY Status : Acute (3) Pleural effusion, right Code(s): J90 - PLEURAL EFFUSION, NOT ELSEWHERE CLASSIFIED Status: Acute (4) DM2 (diabetes mellitus, type 2) Status: Chronic Qualifiers: 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 use: without alf use Diabetes mellitus complication status: without complication Qualified Code(s): E11.9 - Type 2 diabetes mellitus without complications Comment: controlled (5) HLD (hyperlipidemia) Code(s): E78.5 - HYPERLIPIDEMIA, UNSPECIFIED Status: Chronic Qualifiers: Hyperlipidemia type: unspecified Qualified Code(s): E78.5 - Hyperlipidemia , unspecified Comment: on Zetia and statin (6) HTN (hypertension) Code(s): I10 - ESSENTIAL (PRIMARY) HYPERTENSION Status: Chronic Qualifiers: Hypertension type: essential hypertension Qualified Code(s): I10 - Essential (primary) hypertension (7) History of cirrhosis of liver Code(s): Z87.19 - PERSONAL HISTORY OF OTHER DISEASES OF THE DIGESTIVE SYSTEM Status: Chronic - Plan cont current plan of care, plan discussed w/ family * Continue home medications for cirrhosis * Continue IV lasix 40mg BID * Patient improving, will check repeat chest xray in am * If patient improving will likely discharge in the am, if worsening symtoms will consult pulmonary services
--- NOTE | 2018-08-16 14:50 | RAD ---
EXAM: CHEST TWO VIEWS: History: Follow up pleural effusion. Comparison: 08-15-18 FINDINGS: There is again noted to be a moderately large right pleural effusion with some minimal parenchymal ch anges in the right perihilar region, probably some component of atelectasis or pneumonitis. The left lung is clear. Heart size is within normal limits. Patchy bony demineralization. IMPRESSION: Moderate but stable right pleural effusion and minimal right perihilar and infrahilar parenchymal jacqueline nges. Stable left chest. POS: TPC
[2018-08-16] MEDS: Famotidine 20 MG TAB PO SCH (20:24)
[2018-08-17 05:12] LABS: #Eosinphils 0.1 thou/uL (0.0-0.7); #Lymphocytes 1.1 thou/uL (1.20-3.40); #Monocytes 0.3 thou/uL (0.11-0.59); #Neutrophils 1.3 thou/uL (1.40-6.50); %Basophils 0.5 % (0.0-1.0); %Eosinophils 3.9 % (0.0-10.0); %Lymphocytes 39.9 % (21.0-51.0); %Monocytes 10.9 % (0.0-10.0); %Neutrophils 44.8 % (42.0-75.0); Hemoglobin 9.6 g/dL (12.0-16.0); Mean Corpuscular HGB CONC 32.9 g/dL (32.0-36.0); Mean Corpuscular Hemoglobin 33.8 pg (27.0-31.0); Mean Platelet Volume 9.6 fL (7.4-10.4); Platelet Count 66 thou/uL (130-400); RBC Distribution Width 14.8 % (11.5-14.5); Red Blood Cell (RBC) Count 2.84 mill/uL (4.20-5.40); White Blood Cell (WBC) Count 2.9 thou/uL (4.8-10.8)
[2018-08-17 05:32] LABS: ALT (SGPT) 15 U/L (8-55); AST (SGOT) 22 U/L (5-34); Albumin 3.2 g/dL (3.4-4.8); Alkaline Phosphatase 104 U/L (40-150); Anion Gap 14 mmol/L (10-20); BUN (Urea Nitrogen) 36 mg/dL (9.8-20.1); Bilirubin, Total 0.6 mg/dL (0.2-1.2); Calc. Creatinine Clearance 27 mL/min (70-130); Calcium 9.9 mg/dL (7.8-10.44); Carbon Dioxide 24 mmol/L (23-31); Chloride 104 mmol/L (98-107); Estimated GFR-MDRD 23; Globulin 3.3 g/dL (2.4-3.5); Glucose 128 mg/dL (83-110); Potassium 3.9 mmol/L (3.5-5.1); Protein, Total 6.5 g/dL (6.0-8.3); Sodium 138 mmol/L (136-145)
[2018-08-17] MEDS: Furosemide 40 MG/4 ML VIAL SLOW IVP SCH (06:02)
[2018-08-17] MEDS: Propranolol 10 MG TAB PO SCH (09:23)
[2018-08-17] MEDS: Rifaximin 550 MG TAB PO SCH (09:23)
[2018-08-17] MEDS ORDERED: Epoetin (ESRD) 20,000 UNITS/ML SC SCH (09:45)
--- NOTE | 2018-08-17 09:46 | RAD ---
PA AND LATERAL CHEST RADIOGRAPH: Date: 08-17-18 History: Pleural effusion. Comparison: 08-16-18 FINDINGS: Moderately large right pleural effusion is again seen with associated opacified atelectasis. However, there is a new patchy parenchymal change within the lateral right midlung zone which could also be r elated to area of atelectasis, but developing pneumonia is a possibility. The left lung remains clear . Right cardiac border is obscured. No other interval change. IMPRESSION: 1. Moderately large right pleural effusion not significantly changed from prior study with associated passive atelectasis. 2. Parenchymal changes right midlung zone which were not seen on prior exam and could be related to e ither atelectasis or pneumonia. Follow up suggested. POS: RADHA
[2018-08-17 12:14] VITALS: BP 112/57; TEMP 98
--- NOTE | 2018-08-18 22:15 | EKG ---
Test Reason : SHORT OF BREATH Blood Pressure : / mmHG Vent. Rate : 083 BPM Atrial Rate : 083 BPM P-R Int : 172 ms QRS Dur : 074 ms QT Int : 400 ms P-R-T Axes : 019 -35 029 degrees QTc Int : 470 ms Normal sinus rhythm Left axis deviation Low voltage QRS Abnormal ECG Confirmed by FRANSISCO HEBERT, TELMA ([id number]), editorial cartoonist IZABELA MANRIQUEZ ([id number]) on 08/18/2018 10:15:21 PM Referred By: Claudio MOODY Confirmed By:TELMA MOODY MD
== END 2018-08-17 13:43 | disposition home or self-care (01) ==
LOC: SCSER 14:12 → 2SW 15:38
PROVIDERS: ADMIT Internal Medicine; ATTEND Internal Medicine
DX: J90 Pleural effusion, not elsewhere classified (principal); I12.9 Hypertensive chronic kidney disease with stage 1 through stage 4 chronic kidney disease, or unspecified chronic kidney disease; E11.22 Type 2 diabetes mellitus with diabetic chronic kidney disease; N18.3 Chronic kidney disease, stage 3 (moderate); N17.9 Acute kidney failure, unspecified; I65.29 Occlusion and stenosis of unspecified carotid artery; E78.5 Hyperlipidemia, unspecified; K74.5 Biliary cirrhosis, unspecified; Z90.49 Acquired absence of other specified parts of digestive tract; Z90.710 Acquired absence of both cervix and uterus; Z90.01 Acquired absence of eye; Z88.6 Allergy status to analgesic agent; Z91.09 Other allergy status, other than to drugs and biological substances; Z79.84 Long term (current) use of oral hypoglycemic drugs; Z79.2 Long term (current) use of antibiotics; Z79.899 Other long term (current) drug therapy
CPT/HCPCS: 71045; 71046 ×2; 80053 ×3; 82140; 82962 ×3; 83880; 84484; 85025 ×3; 85610; 85730; 93005; 96372; 96374; 96376 ×3; 97139 ×2; 99285; G0378 ×2; Q4081; 36415; 36416; J1940

== ENCOUNTER 2018-08-18 17:34 | Emergency (ER) | payer MEDICARE, MEDICAID ==
--- NOTE | 2018-08-18 18:34 | RAD ---
CHEST TWO VIEWS: 08/18/18 INDICATION: Cough. COMPARISON: Prior exam dated 08/17/18. FINDINGS: Moderate pleural effusion remains. Mild cardiomegaly is stable. Left lung remains clear. Osseous stru ctures are similar appearing. IMPRESSION: Stable exam. POS: RADHA
== END 2018-08-18 19:00 | disposition home or self-care (01) ==
LOC: SCSER 17:34
DX: R05 Cough (principal); E11.9 Type 2 diabetes mellitus without complications; I10 Essential (primary) hypertension; Z79.899 Other long term (current) drug therapy
CPT/HCPCS: 71046; 87804

== ENCOUNTER 2018-08-24 10:14 | Day surgery (SDC) | payer MEDICARE, MEDICAID ==
[2018-08-24] MEDS ORDERED: Epoetin (ESRD) 20,000 UNITS/ML SC SCH (10:30)
== END 2018-08-24 10:48 | disposition home or self-care (01) ==
LOC: ONC/OP 10:14
PROVIDERS: ATTEND Internal Medicine Hematology & Oncology
DX: D50.0 Iron deficiency anemia secondary to blood loss (chronic) (principal)
CPT/HCPCS: 96372; Q4081

== ENCOUNTER 2018-09-07 11:17 | Day surgery (SDC) | payer MEDICARE, MEDICAID ==
[2018-09-07] MEDS ORDERED: Epoetin (ESRD) 20,000 UNITS/ML SC SCH (11:30)
[2018-09-07 12:57] VITALS: BP 111/62; TEMP 97.5
== END 2018-09-07 14:25 | disposition home or self-care (01) ==
LOC: ONC/OP 11:17
PROVIDERS: ATTEND Internal Medicine Hematology & Oncology
DX: D50.0 Iron deficiency anemia secondary to blood loss (chronic) (principal); Z88.6 Allergy status to analgesic agent
CPT/HCPCS: 96372; Q4081

== ENCOUNTER 2018-09-16 23:05 | Observation (INO) | payer MEDICARE, MEDICAID ==
[2018-09-16] MEDS ORDERED: Furosemide 20 MG/2 ML VIAL ONE (23:25)
[2018-09-16 23:35] LABS: Mean Corpuscular Hemoglobin 30.2 pg (27.0-31.0); Mean Corpuscular Volume 94.4 fL (78.0-98.0); Mean Platelet Volume 14.1 fL (7.4-10.4); Platelet Count 81 thou/uL (130-400); RBC Distribution Width 14.5 % (11.5-14.5); Red Blood Cell (RBC) Count 3.64 mill/uL (4.20-5.40); White Blood Cell (WBC) Count 4.8 thou/uL (4.8-10.8)
[2018-09-16 23:37] LABS: INR-International Normal Ratio 1.1; PTT 32.1 SEC (22.9-36.1); Prothrombin Time 14.4 SEC (12.0-14.7)
--- NOTE | 2018-09-16 23:43 | RAD ---
FFrontal view chest COMPARISON: 08/15/2018 INDICATION: Dyspnea FINDINGS: Redemonstration of moderate to large right pleural effusion. There is enlargement of the ca rdiac silhouette. No significant interval change is demonstrated IMPRESSION: Persistent moderate to large right pleural effusion.
[2018-09-16 23:45] LABS: ALT (SGPT) 36 U/L (8-55); AST (SGOT) 55 U/L (5-34); Albumin 3.4 g/dL (3.4-4.8); Alkaline Phosphatase 144 U/L (40-150); Anion Gap 15 mmol/L (10-20); BUN (Urea Nitrogen) 45 mg/dL (9.8-20.1); Bilirubin, Total 0.5 mg/dL (0.2-1.2); Calc. Creatinine Clearance 0 mL/min (70-130); Carbon Dioxide 26 mmol/L (23-31); Chloride 101 mmol/L (98-107); Estimated GFR-MDRD 20; Glucose 147 mg/dL (83-110); Lipase 59 U/L (8-78); Protein, Total 7.4 g/dL (6.0-8.3); Sodium 137 mmol/L (136-145)
[2018-09-16 23:47] LABS: Anisocytosis SLIGHT = 6-15 cells (100X) (0-5/hpf); Eosinophils 4 % (0-10); Lymphocytes 21 % (21-51); MDiff Complete? YES; Monocytes 10 % (0-10); Neutrophil 65 % (42-75); Platelet Morphology Comment Appears Decreased
[2018-09-17 02:23] VITALS: BMI 27.4
[2018-09-17] MEDS ORDERED: HYDROcodone/Acetaminophen 5/325 mg Tablet PO PRN (03:16)
[2018-09-17] MEDS ORDERED: Dextrose 5% in Water 1,000 ML IV PRN (03:16)
[2018-09-17] MEDS ORDERED: Calcium Carbonate 500 MG ChewTAB PO PRN (03:16)
[2018-09-17] MEDS ORDERED: Bisacodyl 10 MG SUPP PR PRN (03:16)
[2018-09-17] MEDS ORDERED: Senokot S 8.6-50 MG TAB PO PRN (03:16)
[2018-09-17] MEDS ORDERED: HumaLOG 300 UNITS/3 ML VIAL SC PRN ×2 (03:16)
[2018-09-17] MEDS ORDERED: Ondansetron ODT 4 MG TAB PO PRN (03:16)
[2018-09-17] MEDS ORDERED: Ondansetron PF 4 MG/2 ML Vial IVP PRN (03:16)
[2018-09-17] MEDS ORDERED: Acetaminophen 325 MG TAB PO PRN (03:16)
[2018-09-17] MEDS ORDERED: Dextrose 50% Abboject 50 ML SYRINGE SLOW IVP PRN (03:16)
[2018-09-17 03:33] LABS: #Eosinphils 0.2 thou/uL (0.0-0.7); #Lymphocytes 1.4 thou/uL (1.20-3.40); #Monocytes 0.4 thou/uL (0.11-0.59); #Neutrophils 1.9 thou/uL (1.40-6.50); %Basophils 0.9 % (0.0-1.0); %Eosinophils 5.8 % (0.0-10.0); %Lymphocytes 34.6 % (21.0-51.0); %Neutrophils 48.8 % (42.0-75.0); Hemoglobin 10.4 g/dL (12.0-16.0); Mean Corpuscular HGB CONC 32.2 g/dL (32.0-36.0); Mean Corpuscular Volume 96.3 fL (78.0-98.0); Platelet Count 52 thou/uL (130-400); RBC Distribution Width 14.2 % (11.5-14.5); Red Blood Cell (RBC) Count 3.33 mill/uL (4.20-5.40); White Blood Cell (WBC) Count 3.9 thou/uL (4.8-10.8)
--- NOTE | 2018-09-17 03:45 | HP ---
PRIMARY CARE PHYSICIAN: Dr. Castro Candelaria. REASON FOR ADMISSION: Dyspnea due to worsening right pleural effusion. HISTORY OF PRESENT ILLNESS: A 73-year-old female, who has underlying history of chronic kidney disease as well as primary biliary cirrhosis, who went to [facility] Room for complaint of increasing shortness of breath. For last 2 to 3 days, she was experiencing more difficulty breathing and that is why she decided to come to emergency room early, so she would not get worse. She was not using her accessory muscles of respiration in the emergency room as well as when I saw her on the floor. She was feeling much better, but she was experiencing more shortness of breath. She denies any lower extremity edema. She denies any weight gain. She denies any chest pain, but she does have dry cough. She denies any hemoptysis. She denies any fever or chills. She denies any UTI symptoms. She denies any constipation, diarrhea, melena, or hematochezia. Her shortness of breath was getting worse when lying down on the left lateral position. Lately, this patient has several admission in our hospital. REVIEW OF SYSTEMS: CONSTITUTIONAL: Negative for weight loss or gain, ability to conduct usual activities. SKIN: Negative for rash, itching. EYES: Negative for double vision, pain. ENT/MOUTH: Negative for nose bleeding, neck stiffness, pain, tenderness. CARDIOVASCULAR: Negative for palpitations, dyspnea on exertion, orthopnea. RESPIRATORY: Negative for shortness of breath, wheezing, cough, hemoptysis, fever or night sweats. GASTROINTESTINAL: Negative for poor appetite, abdominal pain, heartburn, nausea, vomiting, constipation, or diarrhea. GENITOURINARY: Negative for urgency, frequency, dysuria, nocturia. MUSCULOSKELETAL: Negative for pain, swelling. NEUROLOGIC/PSYCHIATRIC: Negative for anxiety, depression. ALLERGY/IMMUNOLOGIC: Negative for skin rash, bleeding tendency. Please see my HPI for pertinent positives and negatives. All other review of systems reviewed and negative except as mentioned in HPI. PAST MEDICAL HISTORY: Hypertension, asthma, diverticulosis, history of recurrent hepatic encephalopathy, primary biliary cirrhosis, diabetes type 2, chronic kidney disease stage 4, right eye blindness, dyslipidemia, glaucoma, gastroparesis. PAST PSYCHIATRIC HISTORY: Reviewed and negative. PAST SURGICAL HISTORY: Right eye prosthesis, hysterectomy, cholecystectomy. ALLERGIES: NSAIDS. FAMILY HISTORY: The patient denies any strong family history of premature coronary artery disease, stroke, or cancer. SOCIAL HISTORY: The patient is Jehovah Witness. No history of tobacco, alcohol, or illicit drug abuse. EMERGENCY ROOM COURSE: Reviewed. CURRENT HOME MEDICATIONS: 1. Vitamin D3 5000 units p.o. daily. 2. Vitamin B12 5000 units p.o. daily. 3. Procrit as directed. 4. Lactulose 10 g b.i.d. 5. Xalatan eye drops at bedtime. 6. Omeprazole 40 mg daily. 7. Zofran 4 mg b.i.d. 8. Inderal 10 mg b.i.d. 9. Rifaximin 550 mg b.i.d. 10. Lasix 40 mg b.i.d. 11. Glucotrol 2.5 mg p.o. daily. PHYSICAL EXAMINATION: VITAL SIGNS: Currently temperature 97.7, pulse 82, respiratory rate 18, saturation 98% on room air, blood pressure 145/63, weight 165 pounds. GENERAL: The patient is currently alert, awake, no obvious acute distress. HEENT: Head; normocephalic, atraumatic. Eyes; pupils round, reactive to light on the left eye, but right eye is missing. ENT; oropharynx within normal limits. Moist mucous membranes. No oral lesion. No pharyngeal erythema. No exudate. NECK: Supple. No JVD. No thyromegaly. No carotid bruit. LUNGS: Air entry reduced at right base. No rales. CARDIAC: S1, S2 regular. No murmur. No gallop. No rub. ABDOMEN: Soft, bowel sounds present. Mild ascites noted. GENITOURINARY: Within normal limit. BACK: Unremarkable, no CVA tenderness. EXTREMITIES: Upper extremities, passive movement of all joints are normal. Lower extremity, trace edema noted. SKIN: No skin rash. HEMATOLOGICAL: No lymphadenopathy. PSYCHIATRIC: Normal affect. NEUROLOGIC: Nonfocal examination. SIGNIFICANT LABORATORY DATA: EKG showing junctional rhythm. Chest x-ray showing right pleural effusion. CBC: WBC 4.8, hemoglobin 11.0, platelet 81. INR 1.1. BMP: Sodium 137, potassium 5.0, chloride 101, carbon dioxide 26, BUN 45, creatinine 2.34, glucose 147, calcium 10.0. LFT: AST 55, ALT 36, alkaline phosphatase 144, albumin 3.4. Troponin 0.010, BNP 50.8. Ammonia 91. ASSESSMENT/PLAN: 1. Recurrent right pleural effusion. The patient will be given Lasix 40 mg IV b.i.d. today. 2. Right pleural effusion is part of primary cirrhosis. The patient does not need any thoracentesis. She is on room air and she is not in respiratory distress. She will continue her diuresis therapy and follow up with the primary care physician as well as Nephrology on an outpatient basis. The patient will need follow up with office supervisor as well. 3. Cirrhosis of liver, primary biliary cirrhosis. Currently, ammonia is elevated. We will continue lactulose 20 g p.o. b.i.d., rifaximin 550 mg b.i.d. 4. Gastroesophageal reflux disease. We will continue omeprazole 40 mg daily. 5. Diabetes type 2. We will continue Glucotrol 2.5 mg p.o. daily. 6. Thrombocytopenia, chronic probably secondary to cirrhosis. 7. Chronic kidney disease stage 4. Monitor renal function, currently stable renal function. She will need outpatient followup with Dr. Ayala. 8. Hyperammonemia. We are increasing lactulose to 20 g b.i.d. 9. Anemia of chronic disease, stable. 10. Deep venous thrombosis prophylaxis sequential compression devices boots. Gastrointestinal prophylaxis, Protonix 40 mg p.o. daily. CODE STATUS: The patient's status has not been addressed. DISPOSITION PLAN: Based on clinical course, we are expecting the patient's stay in hospital 24 hours. Plan of care discussed with the patient in detail. Job ID: [id number]
[2018-09-17 03:54] LABS: Anion Gap 14 mmol/L (10-20); BUN (Urea Nitrogen) 46 mg/dL (9.8-20.1); Calc. Creatinine Clearance 25 mL/min (70-130); Calcium 9.5 mg/dL (7.8-10.44); Carbon Dioxide 27 mmol/L (23-31); Chloride 99 mmol/L (98-107); Estimated GFR-MDRD 20; Glucose 129 mg/dL (83-110); Potassium 4.1 mmol/L (3.5-5.1); Sodium 136 mmol/L (136-145)
[2018-09-17 03:59] LABS: Troponin I 0.022 ng/mL (< 0.028)
[2018-09-17 06:59] LABS: Troponin I 0.021 ng/mL (< 0.028)
[2018-09-17] MEDS: Furosemide 40 MG/4 ML VIAL SLOW IVP SCH ×2 (07:10→14:43)
[2018-09-17] MEDS ORDERED: Propranolol 10 MG TAB PO SCH (09:00)
[2018-09-17] MEDS ORDERED: Rifaximin 550 MG TAB PO SCH (09:00)
[2018-09-17] MEDS ORDERED: Cyanocobalamin (Vitamin B-12) 1,000 MCG TAB PO SCH (09:00)
[2018-09-17 15:59] VITALS: BP 122/56; TEMP 98.1
--- NOTE | 2018-09-17 19:09 | DIS ---
DATE OF ADMISSION: 09/17/2018 DATE OF DISCHARGE: 09/17/2018 DISCHARGE DISPOSITION: Home. FOLLOWUP: 1. Follow up with primary care physician, Dr. Castro Candelaria, after 1 week. 2. Chest x-ray after 1 week is recommended. 3. Primary care physician advised to follow. 4. The patient was advised to follow up with primary gastroenterology as outpatient, and repeat ammonia level after 1 to 2 weeks is recommended. DISCHARGE MEDICATIONS: Discharge medications were same as admission medications. No changes were made. BRIEF HOSPITAL COURSE: The patient is a 73-year-old female with cirrhosis and chronic kidney disease, presented to the hospital with shortness of breath. A chest x-ray was consistent with worsening right pleural effusion. She was started on IV Lasix with good response. The patient is ambulating in the hallway and is currently on room air. She feels comfortable going home. She will benefit from a repeat chest x-ray as outpatient. Please note that the patient has a history of chronic right-sided pleural effusion. She is also on home oxygen at night. The patient was found to have ammonia level of 91 without any altered mentation. She was advised to titrate lactulose dose for 3 to 4 bowel movements every day. Plan of care was discussed with the patient in detail. She stated understanding. FINAL DIAGNOSES: 1. Recurrent right pleural effusion. The patient was extensively counseled on dietary modification as well as fluid restriction. 2. [id number]-[id number]-[id number] right-sided pleural effusion secondary to cirrhosis. 3. Gastroesophageal reflux disease. 4. Diabetes mellitus, type 2. 5. Chronic kidney disease, stage 4. 6. Chronic respiratory failure, on home oxygen at night. 7. Hyperammonemia. The patient was advised to titrate lactulose for 3 to 4 bowel movements a day. 8. Chronic anemia. 9. Diverticulosis. 10. History of hepatic encephalopathy. 11. Right eye blindness. 12. Plan of care was discussed with the patient in detail. She stated understanding. Job ID: [id number]
[2018-09-17] MEDS ORDERED: Latanoprost 0.005% Ophth Soln 2.5 ml Bottle L EYE SCH (21:00)
== END 2018-09-17 19:52 | disposition home or self-care (01) ==
LOC: SCSER 23:05 → 2SW 09-17 01:38
PROVIDERS: ADMIT Internal Medicine; ATTEND Internal Medicine
DX: J90 Pleural effusion, not elsewhere classified (principal); K74.3 Primary biliary cirrhosis; K74.60 Unspecified cirrhosis of liver; J96.10 Chronic respiratory failure, unspecified whether with hypoxia or hypercapnia; I12.9 Hypertensive chronic kidney disease with stage 1 through stage 4 chronic kidney disease, or unspecified chronic kidney disease; E11.22 Type 2 diabetes mellitus with diabetic chronic kidney disease; N18.4 Chronic kidney disease, stage 4 (severe); D63.1 Anemia in chronic kidney disease; J45.909 Unspecified asthma, uncomplicated; H54.61 Unqualified visual loss, right eye, normal vision left eye; E78.5 Hyperlipidemia, unspecified; E11.39 Type 2 diabetes mellitus with other diabetic ophthalmic complication; H42 Glaucoma in diseases classified elsewhere; E11.43 Type 2 diabetes mellitus with diabetic autonomic (poly)neuropathy; K31.84 Gastroparesis; K21.9 Gastro-esophageal reflux disease without esophagitis; D69.6 Thrombocytopenia, unspecified; Z90.710 Acquired absence of both cervix and uterus; Z90.49 Acquired absence of other specified parts of digestive tract; Z97.0 Presence of artificial eye; Z88.6 Allergy status to analgesic agent; Z79.2 Long term (current) use of antibiotics; Z79.84 Long term (current) use of oral hypoglycemic drugs; Z79.899 Other long term (current) drug therapy
CPT/HCPCS: 71045; 80048; 80053; 82140; 82962; 83690; 83880; 84484 ×3; 85025 ×2; 85610; 85730; 96374; 96376; 97139; 99285; G0378 ×2; 36415; 36416; J1940; Q0162

== ENCOUNTER 2018-09-21 21:49 | Observation (INO) | payer MEDICARE, MEDICAID ==
[2018-09-21] MEDS ORDERED: Promethazine HCl 25 MG/ML VIAL ONE (22:14)
--- NOTE | 2018-09-21 22:36 | RAD ---
Chest one view HISTORY: Nausea and vomiting. Dyspnea. COMPARISON: 09/16/2018. FINDINGS: Cardiac silhouette remains predominantly obscured by pleural fluid and infiltrate at the ri t base. Left lung is well-inflated. No evidence of pneumothorax. IMPRESSION: Right pleural fluid and basilar infiltrate appears stable.
[2018-09-21 22:44] LABS: Hemoglobin 10.8 g/dL (12.0-16.0); Mean Corpuscular HGB CONC 32.5 g/dL (32.0-36.0); Mean Corpuscular Hemoglobin 31.4 pg (27.0-31.0); Mean Corpuscular Volume 96.6 fL (78.0-98.0); RBC Distribution Width 14.1 % (11.5-14.5); Red Blood Cell (RBC) Count 3.44 mill/uL (4.20-5.40); White Blood Cell (WBC) Count 3.7 thou/uL (4.8-10.8)
[2018-09-21 22:59] LABS: #Eosinphils 0.2 thou/uL (0.0-0.7); #Monocytes 0.3 thou/uL (0.11-0.59); #Neutrophils 2.2 thou/uL (1.40-6.50); %Basophils 0.9 % (0.0-1.0); %Eosinophils 4.4 % (0.0-10.0); %Lymphocytes 28.1 % (21.0-51.0); %Monocytes 8.1 % (0.0-10.0); %Neutrophils 58.5 % (42.0-75.0); Mean Platelet Volume 10.6 fL (7.4-10.4); Platelet Count 56 thou/uL (130-400); Platelet Morphology Comment Appears Decreased
[2018-09-21 23:08] LABS: ALT (SGPT) 36 U/L (8-55); AST (SGOT) 56 U/L (5-34); Albumin 3.3 g/dL (3.4-4.8); Alkaline Phosphatase 178 U/L (40-150); Anion Gap 12 mmol/L (10-20); BUN (Urea Nitrogen) 44 mg/dL (9.8-20.1); Bilirubin, Total 0.6 mg/dL (0.2-1.2); CK (CPK) 30 U/L (29-168); Calc. Creatinine Clearance 0 mL/min (70-130); Calcium 9.4 mg/dL (7.8-10.44); Carbon Dioxide 28 mmol/L (23-31); Chloride 103 mmol/L (98-107); Estimated GFR-MDRD 17; Globulin 3.8 g/dL (2.4-3.5); Glucose 177 mg/dL (83-110); Lipase 46 U/L (8-78); Potassium 4.2 mmol/L (3.5-5.1); Protein, Total 7.1 g/dL (6.0-8.3); Sodium 139 mmol/L (136-145)
[2018-09-22 01:00] LABS: Bilirubin Negative (Negative); Blood, Urine Negative (Negative); Clarity CLEAR (Clear); Glucose, Urine (Dipstick) Negative (Negative); Leukocyte Small (Negative); Nitrite Negative (Negative); Protein, Urine (Dipstick) Negative (Neg-Trace); Specific Gravity, Urine 1.008 (1.002-1.036); pH, Urine 7.5 (5.0-9.0)
[2018-09-22 01:02] LABS: Bacteria/HPF None Seen HPF (None Seen); Hyaline Casts/LPF 0-3 HYALINE CAST LPF (0-3 Hyaline); RBC/HPF 0-3 HPF (0-3); Squamous Epithelial None Seen HPF (0-3)
[2018-09-22] MEDS ORDERED: cefTRIAXone\\ROCEPHIN 1 GM VIAL ONE (01:54)
[2018-09-22] MEDS ORDERED: Acetaminophen 325 MG TAB PO PRN (02:17)
[2018-09-22] MEDS ORDERED: Promethazine HCl 25 MG/ML VIAL IM/IV PRN (02:23)
[2018-09-22] MEDS ORDERED: Ondansetron ODT 4 MG TAB PO PRN (02:23)
[2018-09-22] MEDS ORDERED: HumaLOG 300 UNITS/3 ML VIAL SC PRN (02:33)
[2018-09-22] MEDS ORDERED: Dextrose 50% Abboject 50 ML SYRINGE SLOW IVP PRN (02:33)
[2018-09-22] MEDS ORDERED: Dextrose 5% in Water 1,000 ML IV PRN (02:33)
[2018-09-22 04:06] VITALS: BMI 27.1
--- NOTE | 2018-09-22 05:59 | HP ---
CHIEF COMPLAINT: Nausea and vomiting. HISTORY OF PRESENT ILLNESS: This patient is a 73-year-old female with advanced primary biliary cirrhosis with end-stage liver disease. The patient has had multiple admissions here already this year for issues related to her cirrhosis, failure, and hepatic encephalopathy. The patient reports that she is taking her lactulose at home. Some day, she has multiple liquid bowel movements, some days far less liquid. She reports over the past several days she has had significant nausea that ultimately culminated in vomiting three times at home today and then again in the ambulance en route. She currently reports that she is actually feeling somewhat better after having received the Phenergan. She denies any fevers or chills or any other evidence of acute underlying illness. REVIEW OF SYSTEMS: She denies any dysuria or urinary frequency. She does have a bit of a cough for about 3 weeks, which has been nonproductive. Today, she reports that she has had more dizziness than she has had associated with her hepatic encephalopathies in the past. All other systems were reviewed. Pertinent positives and negatives noted in the HPI. 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 PAST SURGICAL HISTORY: Right eye enucleation, hysterectomy, cholecystectomy. FAMILY HISTORY: No history of premature coronary artery disease, stroke, or cancer. SOCIAL HISTORY: The patient is a nonsmoker, nondrinker, and nondrug user. She is a [employer]. She is a DNAR and her sonGeoffrey is her surrogate decision maker as would be her grandson if necessary. ALLERGIES: NSAIDS. MEDICATIONS: 1. Omeprazole 40 mg p.o. daily. 2. Vitamin D3 5000 units daily. 3. Rifaximin 550 mg b.i.d. 4. Xalatan eye drops left eye at bedtime. 5. Glipizide 2.5 mg daily with breakfast. 6. Erythropoietin 00157 units q.14 days. 7. Lasix 40 mg b.i.d. 8. Propranolol 10 mg b.i.d. 9. Zofran 4 mg b.i.d. 10. B12 5000 mcg daily. 11. Lactulose 10 g twice daily. PHYSICAL EXAMINATION: VITAL SIGNS: Pulse 58, respirations 16, temperature 98. GENERAL APPEARANCE: Age-appropriate female, in no distress. Currently, she is awake and alert, very appropriate with in her interactions. HEENT: Prosthetic right eye. Left pupil is reactive. No OP lesions. Dentures in place. NECK: Supple and symmetric. HEART: Regular rate and rhythm without murmurs, gallops, or rubs. LUNGS: Clear to auscultation bilaterally with good chest wall expansion and air exchange. ABDOMEN: Soft, nondistended, very mildly diffusely tender with no guarding or rebound. EXTREMITIES: No cyanosis, clubbing, or edema. SKIN: Warm and dry. NEUROLOGIC: The patient does not appear to be cognitively impaired. LABORATORY DATA: White count 3.7, hemoglobin 10.8, platelets 56. Sodium 139, potassium 4.2, chloride 103, CO2 is 28, BUN 44, creatinine 2.75, glucose 177, AST 56, ALT 36, alkaline phosphatase 178. Ammonia level is 200, albumin 3.3. Urinalysis shows small leukocyte esterase, 11-14 white cells. Flu screen is negative. Chest x-ray shows right-sided pleural effusion, stable from 09/16/2018. Cannot exclude an infiltrate. Head CT, CT abdomen and pelvis still pending reads. IMPRESSION AND PLAN: 1. Nausea and vomiting. Unclear if this is related to some degree of hepatic encephalopathy or simply her primary biliary cirrhosis. She has received a dose of Phenergan and is symptomatically improved. We will continue to offer p.r.n. antiemetic medications. 2. Hepatic encephalopathy given the patient's ammonia level is 200. She is experiencing nausea and vomiting, although appears to be relatively cognitively normal. May be some variant of some hepatic encephalopathy. We will continue with Xifaxan and lactulose 30 g b.i.d. 3. Possible urinary tract infection. Given her nausea and vomiting and her weakened immune system, we will go ahead and treat this with continued Rocephin. 4. Diabetes mellitus. We will hold on the glipizide and give sliding scale insulin. 5. Chronic kidney disease stage 4. She appears to be at her baseline renal function. 6. Chronic right pleural effusion secondary to the biliary cirrhosis. 7. Thrombocytopenia secondary to end-stage liver disease. Job ID: [id number]
[2018-09-22 06:14] LABS: #Eosinphils 0.1 thou/uL (0.0-0.7); #Lymphocytes 1.1 thou/uL (1.20-3.40); #Monocytes 0.3 thou/uL (0.11-0.59); #Neutrophils 1.3 thou/uL (1.40-6.50); %Basophils 0.5 % (0.0-1.0); %Eosinophils 3.7 % (0.0-10.0); %Lymphocytes 38.8 % (21.0-51.0); %Monocytes 11.1 % (0.0-10.0); %Neutrophils 45.8 % (42.0-75.0); Hemoglobin 9.8 g/dL (12.0-16.0); Mean Corpuscular HGB CONC 32.8 g/dL (32.0-36.0); Mean Corpuscular Hemoglobin 31.6 pg (27.0-31.0); Mean Corpuscular Volume 96.2 fL (78.0-98.0); Mean Platelet Volume 10.4 fL (7.4-10.4); Platelet Count 50 thou/uL (130-400); RBC Distribution Width 13.9 % (11.5-14.5); Red Blood Cell (RBC) Count 3.11 mill/uL (4.20-5.40); White Blood Cell (WBC) Count 2.9 thou/uL (4.8-10.8)
[2018-09-22 06:33] LABS: ALT (SGPT) 32 U/L (8-55); AST (SGOT) 50 U/L (5-34); Albumin 2.9 g/dL (3.4-4.8); Alkaline Phosphatase 153 U/L (40-150); Anion Gap 13 mmol/L (10-20); BUN (Urea Nitrogen) 40 mg/dL (9.8-20.1); Bilirubin, Total 0.5 mg/dL (0.2-1.2); Calc. Creatinine Clearance 23 mL/min (70-130); Calcium 9.1 mg/dL (7.8-10.44); Carbon Dioxide 24 mmol/L (23-31); Chloride 107 mmol/L (98-107); Estimated GFR-MDRD 19; Globulin 3.4 g/dL (2.4-3.5); Glucose 109 mg/dL (83-110); Potassium 3.7 mmol/L (3.5-5.1); Protein, Total 6.3 g/dL (6.0-8.3); Sodium 140 mmol/L (136-145)
--- NOTE | 2018-09-22 07:25 | CT ---
CT HEAD NONCONTRAST: Date: 09/21/18 COMPARISON: 08/03/18. INDICATION: Altered mental status. FINDINGS: Ventricular system is normal in size for patient's age. There is mild chronic microvascular ischemic disease. No intracranial hemorrhage or mass effect. No midline shift. Evidence of prior partial right mastoidectomy. IMPRESSION: 1. No acute intracranial hemorrhage or mass effect. 2. Mild chronic ischemic disease of the cerebral white matter. POS: DAVID
--- NOTE | 2018-09-22 07:31 | CT ---
ABDOMEN AND PELVIS CT WITHOUT CONTRAST: Date: 09/21/18 INDICATION: Nausea. Vomiting. History of hepatic malignancy. Reference made to 04/01/18 exam. FINDINGS: There is redemonstration of cirrhotic morphology of the liver. There is an incompletely assessed hypo dense mass of the left hepatic lobe. There is a large volume of partially visualized right pleural fl uid with adjacent parenchymal consolidation. Diffuse abnormal mesenteric edema and soft tissue nodula rity is present. There is extensive bowel wall thickening, most pronounced involving the right hemico oliverio, with additional involvement at the distal ileum. No disseminated free air or portable venous gas . There is splenomegaly. Associated varices are present. There is diffuse, prominent gastric wall thi ckening. This extends into the duodenum. Prominent soft tissues are also present at the anorectal eliana ge. There is otherwise limited assessment without the presence of IV contrast. Vague hypodensities of each kidney are incompletely evaluated. Diffuse osseous degenerative change present. There is a stab le intraosseous hemangioma of the low thoracic spine. IMPRESSION: 1. Multifocal, diffuse abnormalities of the alimentary canal with prominent wall thickening. This co uld relate to a diffuse gastroenteritis in the correct clinical context. Given multifocality, ischemi c process is considered less likely as this would span multiple vascular territories. 2. Cirrhotic morphology of the liver with evidence of portal hypertension. 3. Large, partially imaged right pleural effusion with adjacent consolidation. 4. Diffuse mesenteric infiltration with edema and nodularity. Localized ascites is also noted at the dependent portion of the pelvis. POS: NWK
[2018-09-22] MEDS: Furosemide 40 MG TAB PO SCH ×2 (08:05→14:15)
[2018-09-22] MEDS ORDERED: Propranolol 10 MG TAB PO SCH (09:00)
[2018-09-22] MEDS ORDERED: Rifaximin 550 MG TAB PO SCH (09:00)
[2018-09-22 11:42] VITALS: BP 104/59; TEMP 97.8
[2018-09-22] MEDS ORDERED: Latanoprost 0.005% Ophth Soln 2.5 ml Bottle L EYE SCH (21:00)
[2018-09-23] MEDS ORDERED: cefTRIAXone\\ROCEPHIN 1 GM in Sodium Chloride 0.9% 100 ML IVPB SCH (02:00)
--- NOTE | 2018-09-23 04:06 | DIS ---
DATE OF ADMISSION: 09/22/2018 DATE OF DISCHARGE: 09/22/2018 ALLERGIES: NSAIDS, ALONG WITH NO BLOOD PRODUCTS THE PATIENT IS A JEHOVAH WITNESS. CHIEF COMPLAINT: Nausea and vomiting. FINAL DIAGNOSES: 1. Nausea and vomiting, resolved. 2. Hepatic encephalopathy with presenting ammonia level of 200, now resolved and normal at 42. 3. Primary biliary cirrhosis and end-stage liver disease. 4. Urinary tract infection. 5. Diabetes mellitus. 6. Chronic kidney disease, stage 4, stable. 7. Chronic right pleural effusion, secondary to biliary cirrhosis. 8. Chronic thrombocytopenia. PROCEDURES PERFORMED: None. LABORATORY RESULTS: White blood cell count 2.9, hemoglobin 9.8, hematocrit 29.9 , and platelets 50. Sodium 140, potassium 3.7, chloride 107, carbon dioxide 24, anion gap 13, BUN 40, creatinine 2.48 down from 2.75 at presentation. AST 50, ALT 32, alkaline phosphatase 153, ammonia 42 down from presenting ammonia level of 200. Troponin was negative. UA positive for small amount of leukocyte esterase and white blood cells. IMAGING RESULTS: CT of the abdomen and pelvis showed, 1. Multifocal diffuse abnormalities of the alimentary canal with prominent wall thickening. This could relate to diffuse gastroenteritis, ischemic process less likely. 2. Cirrhotic morphology of the liver. 3. Large partially-imaged right pleural effusion. 4. Diffuse mesenteric infiltrate with edema and nodularity and localized ascites at the dependent portion of the pelvis. Brain CT; no acute intracranial hemorrhage or mass effect, mild chronic ischemic disease. Chest x-ray; right pleural fluid and basilar infiltrate appeared stable. CONSULTATIONS: None. HOSPITAL COURSE: The patient is a 73-year-old female, with past medical history significant for advanced primary biliary cirrhosis and end-stage liver disease, with multiple hospitalizations secondary to frequent bouts of hepatic encephalopathy and issues related to her cirrhosis. The patient reported to the ED yesterday with complaints of significant nausea with three episodes of associated emesis. EMS was called, and she had another episode of emesis en route. She was given Phenergan in the ED, and her symptoms did begin to improve. Notable lab at the patient's arrival was an ammonia level of 200. Her lactulose and Xifaxan were continued along with her antiemetics. She also was found to have a very mild UTI, and was placed on antibiotics for this. The patient rested well overnight. Her presenting symptoms have completely resolved. Her ammonia level has trended down from 200 to 42. Her granddaughter is at the bedside. She is alert and oriented. She had a breakfast of scrambled eggs without any further nausea or vomiting. She has no chest pain or shortness of breath this morning. She has ambulated back and forth to the bathroom without any problems. PHYSICAL EXAMINATION: VITAL SIGNS: Blood pressure 108/63, pulse 73, O2 saturation is 93% on room air. The patient is afebrile, 97.6 temperature. GENERAL: The patient is awake and alert. She is oriented x3. No respiratory distress. HEENT: Head is atraumatic and normocephalic. Right eye surgically removed. Positive for dentures. NECK: Supple. No JVD. Trachea is midline. CV: S1 and S2. Regular rate and rhythm. No appreciable murmurs, rubs, or gallops. LUNGS: Regular respiratory rate and pattern. Clear to auscultation bilaterally. ABDOMEN: Soft, mildly obese. No tenderness, guarding, or rebound. No appreciable fluid wave. EXTREMITIES: No edema. +2 DP pulses bilaterally. SKIN: Warm and dry. NEUROLOGIC: The patient is nonfocal. CONDITION AT DISCHARGE: Stable. DISCHARGE MEDICATIONS: 1. Vitamin D3 5000 units daily. 2. Vitamin B12 5000 mcg daily. 3. Ezetimibe 10 mg tablet p.o. q.a.m. 4. Lasix 40 mg daily. 5. Glipizide 2.5 mg daily. 6. Lactulose 30 mg b.i.d. 7. Reglan 10 mg p.o. a.c. and at bedtime. 8. Omeprazole 40 mg daily. 9. Zofran 4 mg p.o. p.r.n. 10. Propranolol 20 mg p.o. b.i.d. 11. Xifaxan 550 mg p.o. b.i.d. 12. Actigall 600 mg p.o. b.i.d. 13. New medications will be cefdinir 300 mg capsule one p.o. q.12 x3 days. 14. Also, she will be sent home on Phenergan 25 mg p.r.n. DISCHARGE DISPOSITION: Home. PLAN: The patient will continue her prescribed medications. She obviously has multiple comorbidities including cirrhosis; at this time, the patient is back to her baseline cognitive and functional status. Her presenting symptoms have resolved. We will discharge the patient home in good condition with family. All care discussed and findings discussed with the patient and her family and all questions answered to their satisfaction. Job ID: [id number] MTDD
== END 2018-09-22 16:20 | disposition home or self-care (01) ==
LOC: ERS 21:49 → T4-B 09-22 02:14 → INTOOBSV 09-22 02:14
PROVIDERS: ADMIT Internal Medicine; ATTEND Internal Medicine
DX: R11.2 Nausea with vomiting, unspecified (principal); K72.90 Hepatic failure, unspecified without coma; K74.3 Primary biliary cirrhosis; J91.8 Pleural effusion in other conditions classified elsewhere; N39.0 Urinary tract infection, site not specified; I12.9 Hypertensive chronic kidney disease with stage 1 through stage 4 chronic kidney disease, or unspecified chronic kidney disease; E11.22 Type 2 diabetes mellitus with diabetic chronic kidney disease; N18.4 Chronic kidney disease, stage 4 (severe); D69.6 Thrombocytopenia, unspecified; J45.909 Unspecified asthma, uncomplicated; E78.5 Hyperlipidemia, unspecified; E11.43 Type 2 diabetes mellitus with diabetic autonomic (poly)neuropathy; K31.84 Gastroparesis; Z66 Do not resuscitate; Z79.84 Long term (current) use of oral hypoglycemic drugs; Z79.899 Other long term (current) drug therapy; Z88.6 Allergy status to analgesic agent
CPT/HCPCS: 70450; 71045; 74176; 80053 ×2; 82140 ×2; 82550; 82962; 83690; 84484; 85025 ×2; 87804 ×2; 93005; 94760; 96365; 96366; 96367; 97139; 99285; G0378 ×2; 36415; 36416; 81003; 81015; J0696; J2550

== ENCOUNTER 2018-09-30 21:14 | Observation (INO) | payer MEDICARE, MEDICAID ==
[2018-09-30 21:39] LABS: Hemoglobin 10.9 g/dL (12.0-16.0); Mean Corpuscular HGB CONC 32.1 g/dL (32.0-36.0); Mean Corpuscular Hemoglobin 29.8 pg (27.0-31.0); Mean Corpuscular Volume 92.7 fL (78.0-98.0); Mean Platelet Volume 12.9 fL (7.4-10.4); Platelet Count 75 thou/uL (130-400); RBC Distribution Width 14.8 % (11.5-14.5); Red Blood Cell (RBC) Count 3.66 mill/uL (4.20-5.40); White Blood Cell (WBC) Count 3.7 thou/uL (4.8-10.8)
[2018-09-30 21:46] LABS: Anisocytosis SLIGHT = 6-15 cells (100X) (0-5/hpf); Band 4 % (5-11); Eosinophils 3 % (0-10); Lymphocytes 34 % (21-51); MDiff Complete? YES; Monocytes 5 % (0-10); Neutrophil 54 % (42-75); Platelet Morphology Comment Appears Decreased
[2018-09-30 21:55] LABS: ALT (SGPT) 26 U/L (8-55); AST (SGOT) 34 U/L (5-34); Albumin 3.4 g/dL (3.4-4.8); Alkaline Phosphatase 148 U/L (40-150); Anion Gap 15 mmol/L (10-20); BUN (Urea Nitrogen) 42 mg/dL (9.8-20.1); Bilirubin, Total 0.4 mg/dL (0.2-1.2); Calc. Creatinine Clearance 0 mL/min (70-130); Calcium 9.8 mg/dL (7.8-10.44); Carbon Dioxide 25 mmol/L (23-31); Chloride 103 mmol/L (98-107); Estimated GFR-MDRD 18; Globulin 4.2 g/dL (2.4-3.5); Glucose 104 mg/dL (83-110); Protein, Total 7.6 g/dL (6.0-8.3); Sodium 139 mmol/L (136-145)
[2018-09-30 23:58] VITALS: BMI 28.4
[2018-10-01] MEDS ORDERED: Rifaximin 550 MG TAB PO SCH ×2 (01:00→09:00)
[2018-10-01] MEDS ORDERED: Metoclopramide HCl 10 MG/2 ML VIAL IVP PRN (01:06)
[2018-10-01] MEDS ORDERED: Promethazine 25 MG TAB PO PRN (02:13)
[2018-10-01] MEDS ORDERED: Ondansetron PF 4 MG/2 ML Vial IVP PRN (02:35)
[2018-10-01] MEDS ORDERED: Dextrose 50% Abboject 50 ML SYRINGE SLOW IVP PRN (02:35)
[2018-10-01] MEDS ORDERED: HumaLOG 300 UNITS/3 ML VIAL SC PRN ×2 (02:35)
[2018-10-01] MEDS ORDERED: Dextrose 5% in Water 1,000 ML IV PRN (02:35)
[2018-10-01] MEDS ORDERED: Ondansetron ODT 4 MG TAB PO PRN (02:35)
--- NOTE | 2018-10-01 03:50 | HP ---
PRIMARY CARE PHYSICIAN: Castro Candelaria MD CHIEF COMPLAINT: Nausea and confusion. HISTORY OF PRESENT ILLNESS: Ms. Vazquez is a 73-year-old female with past medical history of advanced primary biliary cirrhosis with end-stage liver disease, hypertension, asthma, diabetes mellitus type 2, chronic kidney disease stage 4, dyslipidemia, who had presented to [facility] ER earlier today due to some acute confusion and nausea and vomiting over the last several days. She states that this happens in the past when she becomes acute hepatic encephalopathic secondary to primary biliary cirrhosis. She states that she usually takes lactulose and Xifaxan at home, she states that she takes about 10 g of lactulose twice daily, she states when she notices symptoms develop, she will double up and take 20 mg b.i.d.; however, she states that she had taken 20 mg b.i.d. for the last 2 days and had only noticed roughly 1 bowel movement a day. She states that she had noticed some worsening abdominal bloating and some nausea developed and had progressively worse over the last 24 hours. Therefore, she had her family take her to the local ER and sought consultation. Upon arrival, lab work showed pancytopenia which appears chronic for her, also an elevated creatinine of 2.57 and a BUN of 42. It was also noted that she have an elevated ammonia level of 161. It was at that time that the patient was transferred to [facility] for further management of her condition. She denied any fever or chills. She denied any headache, blurred vision, or dizziness. She denied any chest pain, palpitations, or shortness of breath. She states that her nausea had greatly improved and she denied any abdominal pain at this time. It was determined that the patient be admitted under observation and she be treated symptomatically including an increased dose of her lactulose 3 times daily to regulate bowel movements about 3 times per day. REVIEW OF SYSTEMS: All other systems reviewed and found to be negative unless mentioned in the HPI. 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 PAST SURGICAL HISTORY: Right eye enucleation, hysterectomy, and cholecystectomy. FAMILY HISTORY: No family history of coronary artery disease, stroke, or cancer. SOCIAL HISTORY: The patient denies any alcohol, tobacco, or any illicit drug use. She reports being a Voodoo, she is a DNR, and her son, Geoffrey is her surrogate decision maker along with her grandson, Yury. ALLERGIES: NSAIDS AND BLOOD PRODUCTS, SHE IS A RELIGION. CURRENT HOME MEDICATIONS: 1. Procrit 2000 units subcu q. 14 days. 2. Zofran 4 mg p.o. q.6 hours p.r.n. nausea. 3. Vitamin B12 5000 mcg p.o. daily. 4. Vitamin D3 5000 units p.o. daily. 5. Furosemide 40 mg p.o. b.i.d. 6. Xalatan 1 drop left eye at bedtime. 7. Lactulose 10-20 g p.o. b.i.d. 8. Omeprazole 40 mg p.o. daily. 9. Promethazine 25 mg p.o. q.6 hours p.r.n. nausea. 10. Propranolol 10 mg p.o. b.i.d. 11. Xifaxan 550 mg p.o. b.i.d. 12. Ursodiol 300 mg p.o. b.i.d. 13. Glipizide 2.5 mg p.o. q.a.m. PHYSICAL EXAMINATION: VITAL SIGNS: BP 101/61, pulse 73, respirations 18, temperature 97.8 degrees Fahrenheit, and O2 saturations 95% on room air. GENERAL: The patient is awake, alert, and oriented x3. She is currently lying comfortably in bed, in no acute distress. HEENT: Atraumatic, normocephalic. Left eye pupil round and reactive to light. Right eye is shut. Dentures in place. NECK: Soft, supple, symmetric. No JVD. Trachea midline. CARDIOVASCULAR: Positive S1 and S2. Regular rate and rhythm. No murmur auscultated. LUNGS: Clear to auscultation bilaterally. No wheezes, rales, or rhonchi. ABDOMEN: Soft, nontender, nondistended. Bowel sounds present. MUSCULOSKELETAL: Strength 5+ bilaterally upper and lower extremities. Moves all extremities equal. No edema noted. SKIN: Warm, dry, and intact. No rashes. No ulceration noted. NEUROLOGIC: Cranial nerves 2 through 12 grossly intact. No focal deficits noted. Speech intact. Gait not assessed. LABORATORY DATA: WBC 3.7, RBC 3.66, hemoglobin 10.9, and platelets 75. Sodium 139, potassium 4.0, anion gap 15, BUN 42, creatinine 2.57, estimated GFR 18. AST 34, ALT 26, ammonia 161. DIAGNOSTIC IMAGING: None. ASSESSMENT AND PLAN: 1. Hepatic encephalopathy, likely secondary to primary biliary cirrhosis, the patient will be treated symptomatically and she will also be continued on her home regimen. Lactulose will be increased to 20 g t.i.d. and she will also be continued on Xifaxan 550 mg b.i.d. Bowel movements will be monitored and the goal is to have 3 BMs per day. 2. Nausea and vomiting, likely secondary to above. Continue symptomatic treatment at this time including Phenergan and Reglan. 3. History of diabetes mellitus. The patient will be started on insulin sliding scale with frequent Accu-Cheks. 4. Chronic kidney disease stage 4. This appears to be her baseline. We will recheck BMP in the morning. 5. Pancytopenia, likely secondary to end-stage liver and some kidney disease. Recheck CBC in the morning. The patient is a Voodoo and is refusing all blood products at this time. We will hold off on any anticoagulation at this time. 6. Elevated ammonia level secondary to #1. It was 161 at the [facility] ER. This will be rechecked in the morning and followed throughout her hospital stay. 7. Code status, DNAR. 8. Deep venous thrombosis and gastrointestinal prophylaxis. We will hold off on any further anticoagulation at this time secondary to pancytopenia/thrombocytopenia. 9. Surrogate decision maker is her son, Geoffrey and her grandson, Yury. DISPOSITION: Pending further workup and clinical findings. Job ID: [id number]
[2018-10-01] MEDS: Furosemide 40 MG TAB PO SCH ×2 (05:23→13:09)
[2018-10-01 06:45] LABS: #Eosinphils 0.1 thou/uL (0.0-0.7); #Lymphocytes 1.2 thou/uL (1.20-3.40); #Monocytes 0.3 thou/uL (0.11-0.59); #Neutrophils 1.3 thou/uL (1.40-6.50); %Basophils 0.5 % (0.0-1.0); %Eosinophils 3.4 % (0.0-10.0); %Lymphocytes 41.9 % (21.0-51.0); %Monocytes 9.5 % (0.0-10.0); %Neutrophils 44.6 % (42.0-75.0); Hemoglobin 9.4 g/dL (12.0-16.0); Mean Corpuscular HGB CONC 32.7 g/dL (32.0-36.0); Mean Corpuscular Hemoglobin 30.8 pg (27.0-31.0); Mean Corpuscular Volume 94.2 fL (78.0-98.0); Mean Platelet Volume 10.8 fL (7.4-10.4); Platelet Count 55 thou/uL (130-400); RBC Distribution Width 14.4 % (11.5-14.5); Red Blood Cell (RBC) Count 3.05 mill/uL (4.20-5.40); White Blood Cell (WBC) Count 2.9 thou/uL (4.8-10.8)
[2018-10-01 07:00] LABS: Anion Gap 11 mmol/L (10-20); BUN (Urea Nitrogen) 44 mg/dL (9.8-20.1); Calc. Creatinine Clearance 24 mL/min (70-130); Calcium 9.4 mg/dL (7.8-10.44); Carbon Dioxide 28 mmol/L (23-31); Chloride 104 mmol/L (98-107); Estimated GFR-MDRD 19; Glucose 125 mg/dL (83-110); Potassium 3.7 mmol/L (3.5-5.1); Sodium 139 mmol/L (136-145)
[2018-10-01] MEDS ORDERED: Diabetic Tussin 200 MG/10 ML UDCUP PO PRN (08:26)
[2018-10-01] MEDS ORDERED: hydrALAZINE 20 MG/ML VIAL SLOW IVP PRN (08:26)
[2018-10-01] MEDS ORDERED: Artificial Tears 18 DROP/0.9 ML EA EYE PRN (08:26)
[2018-10-01] MEDS ORDERED: Eucerin (Mineral Oil/Petrolatum,White) 30 gm Jar TOP PRN (08:26)
[2018-10-01] MEDS ORDERED: Sodium Chloride 0.65% Nasal 44 ML BOT EA NARE PRN (08:26)
[2018-10-01] MEDS ORDERED: Cepastat Lozenges 1 LOZ PO PRN (08:26)
[2018-10-01] MEDS ORDERED: EPOETIN ALFA-EPBX (ESRD) 10,000 UNIT/ML VIAL SC SCH (09:00)
[2018-10-01] MEDS ORDERED: Ursodiol 300 MG CAP PO SCH (09:00)
[2018-10-01] MEDS ORDERED: Cyanocobalamin (Vitamin B-12) 1,000 MCG TAB PO SCH (09:00)
[2018-10-01] MEDS ORDERED: Propranolol 10 MG TAB PO SCH (09:00)
[2018-10-01] MEDS ORDERED: Famotidine 20 MG TAB PO SCH (09:00)
--- NOTE | 2018-10-01 10:50 | PDOC.PN ---
- Subjective Encounter Start Date: 10/01/18 Encounter Start Time: 08:30 -: old records requested/rev Patient seen and examined. No new complaints. No overnight events - Objective Resuscitation Status - Order Detail: 10/01/18 02:35 Resuscitation Status Routine Co-Sign Provider: Resuscitation Status: DNAR: NO Resuscitation Discussed with: Patient MAR Reviewed: Yes Vital Signs & Weight: Vital Signs (12 hours) Temp Pulse Resp BP Pulse Ox 10/01/18 10:28 84 112/72 97 10/01/18 08:00 91 L 10/01/18 07:41 98.3 F 71 20 104/67 91 L 10/01/18 05:20 98.2 F 75 18 98/63 92 L 09/30/18 23:05 97.8 F 73 18 101/61 95 Weight Weight 171 lb 1.259 oz I&O: 09/30/18 10/01/18 10/02/18 06:59 06:59 06:59 Intake Total 250 Balance 250 Result Diagrams: 10/01/18 05:57 10/01/18 05:57 Additional Labs: Accuchecks 10/01/18 05:15 POC Glucose 138 H Phys Exam - Physical Examination Constitutional: NAD HEENT: PERRLA, moist MMs Neck: no JVD, supple Respiratory: no wheezing, no rales, no rhonchi Cardiovascular: RRR, no significant murmur, no rub Gastrointestinal: soft, non-tender, no distention, positive bowel sounds Musculoskeletal: no edema, pulses present Neurological: non-focal, normal sensation Lymphatic: no nodes Psychiatric: normal affect, A&O x 3 Skin: no rash, normal turgor Dx/Plan (1) Hepatic encephalopathy Code(s): K72.90 - HEPATIC FAILURE, UNSPECIFIED WITHOUT COMA Status: Acute Comment: (2) CKD (chronic kidney disease) stage 4, GFR 15-29 ml/min Code(s): N18.4 - CHRONIC KIDNEY DISEASE, STAGE 4 (SEVERE) Status: Chronic (3) DM2 (diabetes mellitus, type 2) Status: Chronic Qualifiers: Comment: (4) HLD (hyperlipidemia) Code(s): E78.5 - HYPERLIPIDEMIA, UNSPECIFIED Status: Chronic Qualifiers: Comment: on Zetia and statin (5) HTN (hypertension) Code(s): I10 - ESSENTIAL (PRIMARY) HYPERTENSION Status: Chronic Qualifiers: (6) History of cirrhosis of liver Code(s): Z87.19 - PERSONAL HISTORY OF OTHER DISEASES OF THE DIGESTIVE SYSTEM Status: Chronic (7) Primary biliary cirrhosis Code(s): K74.3 - PRIMARY BILIARY CIRRHOSIS Status: Chronic Comment: Medical mgmt (8) Thrombocytopenia Code(s): D69.6 - THROMBOCYTOPENIA, UNSPECIFIED Status: Chronic - Plan cont current plan of care, plan discussed w/ family, continue antibiotics * consult GI and nephrology * consult palliative care for goal of care, Hospice * medication reviewed as below * symptomatic treatment * increase lactulose and continue home meds. Review of Systems - Review of Systems ENT: negative: Ear Pain, Ear Discharge, Nose Pain, Nose Discharge, Nose Congestion, Mouth Pain, Mouth Swelling, Throat Pain, Throat Swelling, Other Respiratory: negative: Cough, Dry, Shortness of Breath, Hemoptysis, SOB with Excertion, Pleuritic Pain, Sputum, Wheezing Cardiovascular: negative: chest pain, palpitations, orthopnea, paroxysmal nocturnal dyspnea, edema, light headedness, other Gastrointestinal: negative: Nausea, Vomiting, Abdominal Pain, Diarrhea, Constipation, Melena, Hematochezia, Other Genitourinary: negative: Dysuria, Frequency, Incontinence, Hematuria, Retention , Other Musculoskeletal: negative: Neck Pain, Shoulder Pain, Arm Pain, Back Pain, Hand Pain, Leg Pain, Foot Pain, Other - Medications/Allergies Allergies/Adverse Reactions: Allergies Allergy/AdvReac Type Severity Reaction Status Date / Time NSAIDS (Non-Steroidal Allergy Severe Verified 09/22/18 03:45 Anti-Inflamma BLOOD PRODUCTS (Jehovah's Allergy Unknown Uncoded 07/18/18 00:47 Witness) Medications: Current Medications Artificial Tears (Tears Naturale) 2 drop EA EYE PRN PRN PRN Reason: Dry Eyes Cholecalciferol (Vitamin D3) 5,000 units PO DAILY [facility] Last Admin: 10/01/18 09:26 Dose: 5,000 units Cyanocobalamin (Vitamin B-12) 5,000 mcg PO DAILY [facility] Dextrose/Water (Dextrose 50%) 25 gm SLOW IVP PRN PRN PRN Reason: Hypoglycemia Famotidine (Pepcid) 20 mg PO QAM [facility] Last Admin: 10/01/18 09:25 Dose: 20 mg Furosemide (Lasix) 40 mg PO 0600,1400 [facility] Last Admin: 10/01/18 05:23 Dose: 40 mg Glipizide (Glucotrol Xl) 2.5 mg PO QAM [facility] Last Admin: 10/01/18 10:24 Dose: 2.5 mg Glucagon (Glucagon) 1 mg IM PRN PRN PRN Reason: Hypoglycemia Guaifenesin (Robitussin Sf) 200 mg PO Q4H PRN PRN Reason: Cough Hydralazine HCl (Apresoline) 10 mg SLOW IVP Q4H PRN PRN Reason: SBP > 180 and HR < 70 Dextrose/Water (D5w) 1,000 mls @ 0 mls/hr IV .Q0M PRN PRN Reason: Hypoglycemia Insulin Human Lispro (Humalog) 0 units SC .MILD SLIDING SCALE PRN PRN Reason: Mild Correctional Scale Insulin Human Lispro (Humalog) 0 units SC .BEDTIME SLIDING SC PRN PRN Reason: Bedtime Correctional Scale Lactulose (Lactulose) 20 gm PO QID [facility] Last Admin: 10/01/18 09:26 Dose: 20 gm Latanoprost (Xalatan 0.005% Ophth Soln) 1 drop L EYE [facility] Mineral Oil/White Petrolatum (Eucerin Cream) 0 gm TOP BIDPRN PRN PRN Reason: Dry Skin Ondansetron HCl (Zofran Odt) 4 mg PO Q6H PRN PRN Reason: Nausea/Vomiting Last Admin: 10/01/18 05:23 Dose: 4 mg Ondansetron HCl (Zofran) 4 mg IVP Q6H PRN PRN Reason: Nausea/Vomiting Promethazine HCl (Phenergan) 25 mg PO Q6HR PRN PRN Reason: Nausea/Vomiting Propranolol HCl (Inderal) 10 mg PO BID [facility] Last Admin: 10/01/18 10:30 Dose: 10 mg Rifaximin (Xifaxan) 550 mg PO BID [facility] Last Admin: 10/01/18 09:26 Dose: 550 mg Sodium Chloride ([place] Nasal [place] 0.65%) 0 ml EA NARE QIDPRN PRN PRN Reason: Nasal Congestion Throat Lozenges (Cepastat Lozenges) 1 savita PO Q2H PRN PRN Reason: Sore Throat Ursodiol (Actigal) 300 mg PO BID [facility] Last Admin: 10/01/18 10:24 Dose: 300 mg
[2018-10-01] MEDS ORDERED: Lactulose 10 GM/15 ML Oral Solution PR SCH (14:00)
--- NOTE | 2018-10-01 14:06 | DIS ---
DATE OF ADMISSION: 09/30/2018 DATE OF DISCHARGE: 10/01/2018 DISCHARGE DISPOSITION: Home with home hospice. PRIMARY DISCHARGE DIAGNOSIS: Hepatic encephalopathy. SECONDARY DISCHARGE DIAGNOSES: Thrombocytopenia, primary biliary cirrhosis, hypertension, dyslipidemia, diabetes type 2, chronic kidney disease stage 4. PRIMARY PROCEDURE/OPERATION: None. RADIOLOGICAL INVESTIGATION: None. SIGNIFICANT LABORATORY DATA: Hemoglobin 9.4, creatinine 2.52, and ammonia 161. DISCHARGE MEDICATIONS: 1. Vitamin D3 of 5000 units p.o. daily. 2. Vitamin B12 of 5000 mcg daily. 3. Procrit 20,000 subcu every 2 weeks. 4. Lasix 40 mg b.i.d. 5. Glucotrol 2.5 mg daily. 6. Lactulose 20 g p.o. b.i.d. or q.i.d. depending upon bowel movement. 7. Xalatan eye drops at bedtime. 8. Omeprazole 40 mg daily. 9. Inderal 10 mg b.i.d. 10. Rifaximin 550 mg b.i.d. 11. Ursodiol 300 mg b.i.d. CONTRAINDICATION: None. CODE STATUS: DNR. INPATIENT CHANGEOVER OPERATOR: Dr. Price. TEST RESULTS PENDING ON DISCHARGE: None. ALLERGIES: NSAID. DISCHARGE PLAN: Posthospital, the patient will follow up with primary care physician. HOSPITAL COURSE: A 73-year-old female, who was admitted by nurse practitioner, Antony Magaña. Please see his H and P for further details. The patient was admitted for hepatic encephalopathy. While in hospital, we treated her with lactulose enema and increased dose of lactulose. The patient's family member did not want to stay in hospital, and they decided to go home with home hospice. With help of briefcase sewer, we arranged home hospice. The patient's long-term prognosis is very poor. The patient has recurrent admission in the hospital for same problem, and family member decided to go for hospice care, and they do not want any kind of aggressive intervention including further testing as well. Otherwise, the patient is medically stable. The patient is seen and examined at bedside today. Please see my progress note from today for further detail. Job ID: [id number]
--- NOTE | 2018-10-01 14:07 | RAD ---
PA AND LATERAL VIEWS CHEST: Date: 10/01/18 HISTORY: Shortness of breath. Diminished breath sounds in right lung base. COMPARISON: 09/21/18. FINDINGS: The heart size is stable. The left lung is clear. Moderate size right pleural effusion is again seen. No pneumothoraces are identified. IMPRESSION: Stable moderate sized right pleural effusion. POS: TPC
--- NOTE | 2018-10-01 16:41 | PRG ---
DATE OF SERVICE: 10/01/2018 SUBJECTIVE: Ms. Vazquez is a 73-year-old white female, who is followed by the Renal Service for chronic renal failure that is hemodynamically mediated from her diuretics. She was initially admitted for some nausea and confusion. This afternoon, she is more coherent. She also received some lactulose. The family has decided and the patient to consider hospice. She was feeling a little dizzy earlier. For that reason, we will give her one time dose of albumin 25 g IV. No other complaints. OBJECTIVE: VITAL SIGNS: Blood pressure is 105/69, heart rate 68, respiratory rate 18, temperature 97.4, pulse ox 98%. GENERAL: Awake, alert, comfortable, not in distress. SKIN: Adequate turgor. HEENT: Pinkish conjunctivae. Anicteric sclerae. No neck mass. No carotid bruits. No JVD. CHEST: No deformities. LUNGS: Clear breath sounds. No wheezing. No crackles. HEART: Normal sinus rhythm. No murmur. No gallops. No rubs. ABDOMEN: Globular, soft, nontender. No masses. EXTREMITIES: No edema. No deformities. MEDICATIONS: Medications of October 01, 2018, reviewed. LABORATORY DATA: Laboratories of October 01, 2018; white count 2.9, hemoglobin 9.4. Sodium 139, potassium 3.7, chloride 104, carbon dioxide 28, BUN 44, creatinine 2.52, calcium 9.4. ASSESSMENT AND PLAN: 1. Chronic renal failure-hemodynamically mediated dysfunction. Due to her dizziness and balance problem, we will give a 1 time dose of albumin 25 g IV. The patient's family is decided to pursue hospice. Agree with current management. Job ID: [id number]
[2018-10-01] MEDS ORDERED: Albumin 25% 25 GM/100 ML BOT IVPB SCH (16:45)
--- NOTE | 2018-10-01 19:09 | CON ---
DATE OF CONSULTATION: 10/01/2018 REASON FOR CONSULTATION: Hepatic encephalopathy, altered mental status. CONSULTING PHYSICIAN: Nisreen Almodovar MD. HISTORY OF PRESENT ILLNESS: The patient is a 73-year-old female with past medical history of diabetes, hypertension, right eye enucleation, chronic kidney disease stage 4, hyperlipidemia, and primary biliary cirrhosis complicated by hepatic encephalopathy and esophageal varices, presenting with an acute alteration of her mental status. She states that over the last month and a half she has been doing well with no further episodes of disorientation or confusion with the increased dose of lactulose in addition to the rifaximin 550 mg twice daily. However, over the last week to week and a half, she began to experience increased abdominal cramping located in the suprapubic region with radiation to the left mid abdomen that was intermittent and would reach a severity of 3 to 4/10. This was also associated with decreased frequency of bowel movements, having approximately 1 to 2 bowel movements per day that were solid in consistency and would prompt her to strain in order to facilitate having a bowel movement. She did attempt to increase the lactulose to 30 mL twice a day, but this did not result in increased frequency of her bowel movements. Over the last 24 to 48 hours. She then experienced increased dizziness, confusion, and stuttering of her speech (per family), that then prompted her to seek healthcare assistance at [facility]. During this time, she also endorsed mild increased hematochezia characterized as bright red blood per rectum that was associated with harder and harder to pass bowel movements, but has not had any further episodes of hematochezia over the last 24 to 48 hours. Upon conferring with the patient today and her grandson, she had been taking her medications appropriately as an outpatient, but was still having problems with constipation. Today, she is alert and oriented x3, stating that her confusion is abating somewhat. She was able to participate in a meaningful conversation and currently denies any nausea, vomiting, fevers, chills, dysphagia, or odynophagia. However, upon conferring with the patient, she has decided to pursue hospice care and was making plans today to be discharged to home with further care management under that service. Also of note, a CT of the abdomen and pelvis was obtained on 09/21/2018, which showed re-demonstration of cirrhotic morphology of the liver. However, there was an incompletely assessed hypodense mass within the left hepatic lobe as well as extensive bowel wall thickening, most pronounced within the right hemicolon concerning for pathologic process. REVIEW OF SYSTEMS: A 10-category review of systems was obtained with all responses negative except for the pertinent positives as listed in HPI. PAST MEDICAL HISTORY: As per HPI. PAST SURGICAL HISTORY: Right eye enucleation, cholecystectomy, hysterectomy. FAMILY HISTORY: Denies any GI malignancies. SOCIAL HISTORY: Denies any tobacco, alcohol, or illicit drug use. ALLERGIES: NSAIDS. PHYSICAL EXAMINATION: VITAL SIGNS: Temperature 97.4, pulse 68, blood pressure 105/69, respiratory rate 18, saturating 98% on room air. GENERAL: The patient was lying in bed, in no acute distress. Alert and oriented x3. HEENT: Neck is supple. No JVD or scleral icterus noted. CARDIOVASCULAR: Regular rate and rhythm with no discernible murmurs, gallops, or rubs. RESPIRATORY: Clear to auscultation bilaterally in the upper lung machado. However, there was decreased breath sounds to auscultation in the right lower lobe. ABDOMEN: Hyperactive bowel sounds. Soft, nondistended, mild tenderness to palpation in the periumbilical left lower quadrant and suprapubic regions. EXTREMITIES: No cyanosis, clubbing, or edema. LABORATORY DATA: CBC with a white blood cell count of 2.9, hemoglobin 9.4, hematocrit 28.8, platelets 55. Chemistry with a sodium of 139, potassium 3.7, chloride 104, CO2 of 28, BUN 44, creatinine 2.52, glucose 125, AST 34, ALT 26, alkaline phosphatase 148, total bilirubin 0.4, albumin 3.4, and a calculated MELD sodium score of 17. IMAGING DATA: Again, CT of the abdomen and pelvis obtained on 09/21/2018, showed cirrhotic morphology of the liver, but an incompletely assessed hypodense mass of the left hepatic lobe. There was a large right-sided pleural effusion with adjacent parenchymal consolidation, diffuse abnormal mesenteric edema. A soft tissue nodularity was present. There was also extensive small bowel thickening, most pronounced involving the right hemicolon with additional involvement of the distal ileum. There was also diffuse prominent gastric wall thickening extending into the duodenum. Prominent soft tissues were also present at the anorectal verge. This study was obtained with a lack of IV contrast limiting some visualization. ASSESSMENT AND PLAN: The patient is a 73-year-old female with past medical history of hypertension, asthma, diabetes, chronic kidney disease stage 4, hyperlipidemia, and primary biliary cirrhosis complicated by hepatic encephalopathy and esophageal varices, presenting with an acute flare of her hepatic encephalopathy and abnormal GI imaging. Hepatic encephalopathy. 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 She had been taking lactulose and rifaximin as an outpatient, but more recently had been exhibiting more constipation type symptoms with less frequent bowel movements and harder, harder to pass bowel movements. With this increased constipation and lack of elimination of ammonia, it comes as no surprise to see that she had elevated serum ammonia on admission during this hospitalization. At this time it is unclear based on the imaging of her abdomen, whether or not this is due to a larger stool plug or if it is due to the findings indicated on the CT of the pelvis, which may lead itself toward a possible colonic malignancy. Upon conferring with the patient, if this were colonic malignancy, she would not want to have any chemotherapy or surgery done for this particular illness and at this point in time, she is refusing both upper and lower endoscopy for further evaluation. Instead, she would rather go home with the plan for home hospice. RECOMMENDATIONS: 1. Would administer lactulose enema x1 today in an attempt to free up any larger stool plug that may be contributing to her current abdominal pain and/or constipation issues. 2. Agree with increasing the lactulose administration to 3 tablespoons twice daily as well as rifaximin 550 mg twice daily in an attempt to achieve a goal of 3 to 4 bowel movements per day. I would increase the lactulose accordingly in order to achieve that goal. 3. Would obtain a chest x-ray for evaluation of the right lower lobe for possible infectious process, which could contribute to hepatic encephalopathy. 4. Would avoid any potentially hepatotoxic medications and/or mind-altering medications as this could make her hepatic encephalopathy worse. Abnormal GI imaging. The patient is presenting with a recent CT scan of the abdomen and pelvis which is showing the hypodense mass within the left hepatic lobe, diffuse abnormal mesenteric edema, soft tissue nodularity, extensive bowel wall thickening, most pronounced within the right hemicolon as well as diffuse prominent gastric wall thickening which extends into the duodenum. Given these rather diffuse findings, it is concerning that there might be a malignant process contributing to her current constellation of symptoms. She was recently evaluated in the outpatient Clinic for these particular findings by Dr. Kimmy Vazquez with plans to obtain an MRI with possible gadolinium in order to further delineate these findings. It was also recommended that she undergo both an EGD and colonoscopy for further evaluation of these findings as well. However, at this time, she is refusing any additional imaging or interventional procedures to further delineate these findings. RECOMMENDATIONS: 1. Would defer to patient's wishes regarding any further testing for these abnormal findings. 2. If the patient does wish to proceed, I would recommend an MRI with gadolinium (confer with Radiology if this could be done) as well as upper and lower endoscopy for further evaluation. Given that the patient is strongly considering hospice and discharge probably later on today, we will follow peripherally. Please call with any additional questions. Job ID: [id number]
[2018-10-01 20:01] VITALS: BP 114/66; TEMP 97.9
[2018-10-01] MEDS ORDERED: Latanoprost 0.005% Ophth Soln 2.5 ml Bottle L EYE SCH (21:00)
== END 2018-10-01 20:00 | disposition hospice, home (50) ==
LOC: SCSER 21:14 → T4-B 22:31
PROVIDERS: ADMIT Internal Medicine; ATTEND Internal Medicine
DX: K72.90 Hepatic failure, unspecified without coma (principal); K74.3 Primary biliary cirrhosis; J45.909 Unspecified asthma, uncomplicated; I12.9 Hypertensive chronic kidney disease with stage 1 through stage 4 chronic kidney disease, or unspecified chronic kidney disease; E11.22 Type 2 diabetes mellitus with diabetic chronic kidney disease; N18.4 Chronic kidney disease, stage 4 (severe); E78.5 Hyperlipidemia, unspecified; E11.43 Type 2 diabetes mellitus with diabetic autonomic (poly)neuropathy; K31.84 Gastroparesis; D61.818 Other pancytopenia; Z66 Do not resuscitate; Z90.01 Acquired absence of eye; Z79.899 Other long term (current) drug therapy; Z79.84 Long term (current) use of oral hypoglycemic drugs; Z88.6 Allergy status to analgesic agent
CPT/HCPCS: 71046; 80048; 80053; 82140; 82962; 85025 ×2; 93005; 96365; 96372; 97139; 99285; G0378 ×2; P9047; Q5105; 36415; 36416; Q0162; Q0169

== ENCOUNTER 2018-11-07 02:32 | Inpatient (IN) | payer MEDICARE, MEDICAID ==
[2018-11-07] MEDS ORDERED: Morphine 2 MG/ML SYRINGE ONE ×3 (02:59→11:04)
[2018-11-07 06:35] LABS: #Lymphocytes 0.6 thou/uL (1.20-3.40); #Monocytes 0.6 thou/uL (0.11-0.59); #Neutrophils 6.3 thou/uL (1.40-6.50); %Eosinophils 0.4 % (0.0-10.0); %Lymphocytes 8.3 % (21.0-51.0); %Monocytes 8.3 % (0.0-10.0); %Neutrophils 83.1 % (42.0-75.0); Hemoglobin 9.9 g/dL (12.0-16.0); Mean Corpuscular HGB CONC 31.6 g/dL (32.0-36.0); Mean Corpuscular Hemoglobin 30.3 pg (27.0-31.0); Mean Platelet Volume 10.3 fL (7.4-10.4); Platelet Count 73 thou/uL (130-400); RBC Distribution Width 15.7 % (11.5-14.5); Red Blood Cell (RBC) Count 3.26 mill/uL (4.20-5.40); White Blood Cell (WBC) Count 7.6 thou/uL (4.8-10.8)
[2018-11-07 06:50] LABS: ALT (SGPT) 17 U/L (8-55); AST (SGOT) 27 U/L (5-34); Albumin 3.1 g/dL (3.4-4.8); Alkaline Phosphatase 126 U/L (40-150); Anion Gap 16 mmol/L (10-20); BUN (Urea Nitrogen) 50 mg/dL (9.8-20.1); Bilirubin, Total 0.8 mg/dL (0.2-1.2); Calc. Creatinine Clearance 0 mL/min (70-130); Calcium 10.2 mg/dL (7.8-10.44); Carbon Dioxide 29 mmol/L (23-31); Chloride 98 mmol/L (98-107); Estimated GFR-MDRD 13; Globulin 4.1 g/dL (2.4-3.5); Glucose 192 mg/dL (83-110); Potassium 3.6 mmol/L (3.5-5.1); Protein, Total 7.2 g/dL (6.0-8.3); Sodium 139 mmol/L (136-145)
--- NOTE | 2018-11-07 07:15 | CT ---
CT BRAIN WITHOUT CONTRAST: Date: 11/07/18 INDICATION: History of fall with complaints of left shoulder pain. FINDINGS: Exam compared to prior dated 09/22/18. No acute infarct, hemorrhage, or hydrocephalus is present. Septum pellucidum and third ventricle are midline. There is stable postsurgical change of a right mastoidectomy. Paranasal sinuses are clear. S kull intact. IMPRESSION: No acute intracranial abnormality. POS: [facility]
--- NOTE | 2018-11-07 07:18 | CT ---
CT CERVICAL SPINE WITHOUT CONTRAST: Date: 11/07/18 INDICATION: History of fall with neck pain. COMPARISON: Prior exam dated 04/01/08. FINDINGS: No acute fracture or subluxation is evident. There is mild multilevel spondylosis of the cervical spi ne. Prevertebral soft tissues are normal appearing. Cervical junction is normal appearing. There is d iffuse osteopenia. There is now complete opacification of the right hemithorax with a large right ple ural effusion and compressive atelectasis of the right lung. Visualized left lung is clear with scatt ered emphysematous change. There is postsurgical change of a partial right mastoidectomy. IMPRESSION: 1. No acute fracture or subluxation is evident. 2. Complete opacification of the right hemithorax with a large right pleural effusion and compressiv e atelectasis of the right lung. This is worsened from a comparison chest radiograph dated 10/01/18. 3. Mild spondylosis of the cervical spine. POS: [facility]
--- NOTE | 2018-11-07 07:59 | CT ---
CT OF THE THORAX WITHOUT IV CONTRAST: INDICATION: History of fall with left neck pain and right chest opacification. COMPARISON: CTA of the thorax dated 02/01/[address] abdomen and pelvis without contrast dated 01/31/2018. FINDINGS: There is a large right pleural effusion with near-complete collapse of the right lung. The left lung is clear. There is some shift of the mediastinum to the left. There is mild ascites within the upp er abdomen. There is dilatation of the left portal vein. There is cirrhotic morphology to the liver . The spleen is enlarged measuring 14 cm. There is a comminuted 3-part proximal humerus fracture. There is an acute superior end plate compression fracture of T11 which is new from a comparison CT of the abdomen and pelvis dated 09/22/2018. IMPRESSION: 1. Large right pleural effusion with compressive atelectasis of the right lung. 2. Cirrhotic morphology of the liver with mild ascites and portal hypertension. 3. Comminuted 3-part proximal left humerus fracture. 4. Acute mild superior end plate wedge compression abnormality of T11. POS: [facility]
--- NOTE | 2018-11-07 09:01 | RAD ---
THREE VIEWS LEFT SHOULDER: COMPARISON: 07/27/2010. HISTORY: Fall over a bedrail with left shoulder pain. FINDINGS: Three views left shoulder show a fracture of the left humeral neck. No dislocation is seen. No sign ificant degenerative change is seen in the left shoulder. IMPRESSION: Left humeral neck fracture. POS: [facility]
--- NOTE | 2018-11-07 09:55 | HP ---
PRIMARY CARE PROVIDER: Castro Candelaria MD HISTORY: Referred to the Hospitalist Service for acute respiratory failure, increased right pleural effusion, left humeral head fracture. History was obtained from the family. The patient is unable to give a history. The patient has bed rails at home on hospice. She crawled out of the end of the bed, fell. Her arm was twisted behind her, she was in pain. They canceled the hospice care to bring her to the hospital. She has been noted to be worsening shortness of breath with abdominal swelling and nausea. No other history is really obtainable of her present illness. REVIEW OF SYSTEMS: Unobtainable due to her mental status, she is confused. PAST MEDICAL HISTORY: Primary biliary cirrhosis, chronic right pleural effusion, end-stage liver disease, hypertension, asthma, diabetes mellitus type 2, chronic kidney disease stage 4, dyslipidemia, blindness in the right eye, glaucoma. PAST SURGICAL HISTORY: Right eye enucleation, hysterectomy, and cholecystectomy. ALLERGIES: NSAIDS. SOCIAL HISTORY: Cared for by family, Je[employer]'s [employer]es, DNR. SON, George Hale is the designated power of assistant district attorney along with her grandson, Yury. She refuses blood products. CURRENT MEDICATIONS: 1. Furosemide 40 mg twice a day. 2. Lactulose 20 g twice a day. 3. Erythropoietin 20,000 units every 7 days. 4. Propranolol 0.5 mg daily. 5. Glipizide 2.5 mg in the morning. 6. Xifaxan 550 mg twice a day. 7. Zetia 1 tablet a day. 8. Omeprazole 40 mg a day. 9. Zocor 20 mg a day. 10. Ursodiol 600 mg twice a day. FAMILY HISTORY: Negative for coronary artery disease, stroke, cancer. PHYSICAL EXAMINATION: GENERAL: A confused woman, in no distress. VITAL SIGNS: Blood pressure 117/66, pulse 98, respirations 16, temperature 97.7, O2 saturation initially 91% on 4 L of O2, she has improved to 95% on 4 L of O2. HEENT: Examination of her head, eyes, ears, nose, and throat reveals an enucleated right eye. Left eye, pupil is round. She has arcus. Extraocular movements are grossly intact. Sclera is white. Tympanic membranes occluded with wax. Nose is clear. Mouth is dry. NECK: No jugular venous distention, adenopathy, or thyromegaly. CHEST: Dull to percussion in the entire right chest. Clear to percussion only in left chest. Good breath sounds across the left chest. HEART: Regular rate and rhythm. First and second heart sounds are clear. No murmurs or gallops. ABDOMEN: Somewhat distended. Positive fluid wave. Bowel sounds are present. No masses or hepatosplenomegaly noted. EXTREMITIES: 1+ edema with no cyanosis or clubbing. PULSES: Carotid, radial, femoral, and dorsalis pedis pulses are intact and symmetric. SKIN: Warm and dry with some ecchymosis on her arms. HEME/LYMPH: No tender or swollen lymph nodes in axilla, inguinal, or cervical area. NEUROLOGIC: Face is symmetric, intact pupillary reflex on the left, absent on the right. Moves all extremities. Toes are downgoing. DIAGNOSTIC DATA: CT of the chest reveals an almost complete pleural effusion in the entire right chest, reviewed by me. X-ray of the left shoulder reveals impacted left humeral head fracture, reviewed by me. LABORATORY DATA: Comp metabolic profile creatinine 3.38, BUN 50, and glucose 192, otherwise unremarkable. White count 7.6, hemoglobin 9.9, and platelet count 73,000. ADMITTING DIAGNOSES: 1. Acute respiratory failure with hypoxemia. 2. Large right pleural effusion. 3. Left humeral head fracture. 4. Biliary cirrhosis. 5. Diabetes mellitus, type 2. 6. Hypertension. 7. History of asthma. 8. Chronic kidney disease, stage 4. PLAN: 1. O2 to keep saturation greater than 92%. 2. IV diuresis to reduce the size of pleural effusion and improved ventilation. 3. Selected home medicines. 4. Splint for left humeral head impacted fracture. I have discussed the necessity of orthopedic consult after placing the patient in a sling. We were both in agreement that is not necessary. 5. They are unhappy with [facility] and wish a different hospice consult. Job ID: [id number]
[2018-11-07] MEDS ORDERED: Ondansetron ODT 4 MG TAB PO PRN (11:43)
[2018-11-07] MEDS ORDERED: Acetaminophen 325 MG TAB PO PRN (11:43)
[2018-11-07 11:52] VITALS: BMI 27.2
[2018-11-07] MEDS ORDERED: Furosemide 40 MG/4 ML VIAL SLOW IVP SCH (12:15)
[2018-11-07] MEDS: Morphine 2 MG/ML SYRINGE SLOW IVP PRN ×3 (14:08→22:27)
[2018-11-07] MEDS: Rifaximin 550 MG TAB PO SCH (22:29)
[2018-11-07] MEDS: Propranolol 10 MG TAB PO SCH (22:29)
--- NOTE | 2018-11-08 02:35 | PDOC.EVN ---
Event Note - Event Note Event Note: Patient with low sats 83% on 3L O2 by NC. She is normally on O2 at home. Admitted for large right pleural effusion, taking up entire lung area. Sats improved to 98% on with DuoNeb. Continue nebs q4h. Per discussion with Dr. Spicer, patient would benefit from therapeutic thoracentesis. No indication to give more Lasix. Continue to monitor O2 sat. Given the fact she is on hospice/[facility], no indication to transfer to Tele. NPO and for INR check with morning labs.
[2018-11-08] MEDS: Morphine 2 MG/ML SYRINGE SLOW IVP PRN ×4 (03:58→12:54)
[2018-11-08 05:53] LABS: INR-International Normal Ratio 1.3; PTT 37.3 SEC (22.9-36.1); Prothrombin Time 16.3 SEC (12.0-14.7)
[2018-11-08 06:12] LABS: Anion Gap 12 mmol/L (10-20); BUN (Urea Nitrogen) 50 mg/dL (9.8-20.1); Calc. Creatinine Clearance 18 mL/min (70-130); Calcium 9.8 mg/dL (7.8-10.44); Carbon Dioxide 31 mmol/L (23-31); Chloride 98 mmol/L (98-107); Estimated GFR-MDRD 14; Glucose 161 mg/dL (83-110); Potassium 4.3 mmol/L (3.5-5.1); Sodium 137 mmol/L (136-145)
[2018-11-08] MEDS ORDERED: Furosemide 40 MG/4 ML VIAL SLOW IVP SCH (09:00)
[2018-11-08] MEDS: Propranolol 10 MG TAB PO SCH (10:30)
[2018-11-08] MEDS: Rifaximin 550 MG TAB PO SCH (10:30)
[2018-11-08] MEDS ORDERED: Non-Formulary Item 1 EACH (Ondansetron Hcl 4 MG) PO PRN (10:54)
[2018-11-08 12:12] VITALS: BP 121/63; TEMP 98.3
[2018-11-08] MEDS ORDERED: Ursodiol 300 MG CAP PO SCH (21:00)
[2018-11-08] MEDS ORDERED: Furosemide 40 MG TAB PO SCH (21:00)
--- NOTE | 2018-11-09 04:24 | DIS ---
DATE OF ADMISSION: 11/07/2018 DATE OF DISCHARGE: 11/08/2018 PRIMARY CARE PROVIDER: Dr. Candelaria. DISCHARGE DIAGNOSES: 1. Acute hypoxic respiratory failure. 2. Large right pleural effusion. 3. Left humeral head fracture. CONDITION OF PATIENT ON THE DAY OF DISCHARGE: I assessed Ms. Vazquez on the day of discharge. She is resting comfortably, not answering questions. Blood pressure is 123/67, pulse 88, respiratory rate 16, and oxygen saturation 94% on 4 L of oxygen. She is afebrile. S1 and S2 are heard, regular. She has absent breath sounds on the right side, normal breath sounds on the left. DISCHARGE MEDICATIONS: No change was made to her pre-admission home medications as dictated by Ms. Johnson in her history and physical note, dated November 07, 2018. Some of these medications will likely be changed by Hospice Service. HOSPITAL COURSE: Ms. Vazquez is a pleasant 73-year-old lady who was admitted to [facility] on November 07, 2018, for acute hypoxic respiratory failure secondary to a large right pleural effusion. She was under hospice care at the time of admission. Family wanted her to be on inpatient hospice. I also discussed with the patient's son regarding the possibility of thoracentesis as a comfort measure. He did not wish for the patient to have thoracentesis. He wanted her mainly to be kept comfortable in the inpatient hospice setting. She has been accepted for inpatient hospice at [facility]. She is being discharged to [facility] for the same. DISCHARGE DESTINATION: [facility]. TIME SPENT: Total amount of time spent coordinating this discharge: 31 minutes. Job ID: [id number]
[2018-11-09] MEDS ORDERED: Furosemide 40 MG TAB PO SCH (07:30)
[2018-11-09] MEDS ORDERED: Non-Formulary Item 1 EACH (Cholecalciferol (Vitamin D3) [Vitamin D3] 5,000 UNIT) PO SCH (09:00)
[2018-11-09] MEDS ORDERED: Non-Formulary Item 1 EACH (Cyanocobalamin (Vitamin B-12) [Vitamin B12] 5,000 MCG) PO SCH (09:00)
[2018-11-09] MEDS ORDERED: Cyanocobalamin (Vitamin B-12) 1,000 MCG TAB PO SCH (09:00)
== END 2018-11-08 14:15 | disposition hospice, inpatient (51) | DRG 186 ==
LOC: ERS 02:32 → ERHOLD 07:15 → T4-B 11:42
PROVIDERS: ADMIT Internal Medicine; ATTEND Internal Medicine
DX: J90 Pleural effusion, not elsewhere classified (principal); J96.01 Acute respiratory failure with hypoxia; S42.202A Unspecified fracture of upper end of left humerus, initial encounter for closed fracture; N18.4 Chronic kidney disease, stage 4 (severe); Z66 Do not resuscitate; Z51.5 Encounter for palliative care; J45.909 Unspecified asthma, uncomplicated; I12.9 Hypertensive chronic kidney disease with stage 1 through stage 4 chronic kidney disease, or unspecified chronic kidney disease; E11.22 Type 2 diabetes mellitus with diabetic chronic kidney disease; E78.5 Hyperlipidemia, unspecified; H40.9 Unspecified glaucoma; H54.40 Blindness, one eye, unspecified eye; K74.5 Biliary cirrhosis, unspecified; W06.XXXA Fall from bed, initial encounter; Y92.129 Unspecified place in nursing home as the place of occurrence of the external cause
CPT/HCPCS: 36415; 70450; 71250; 72125; 80048; 80053; 83880; 84484; 85025; 85610; 85730; 93005; 94640; 94760; 96372; J1940; J2270; J7620